=== PATIENT | male | born 1965 | race Asian ===

== ENCOUNTER 2018-03-14 13:07 | Inpatient (IN) | payer OTHER ==
--- NOTE | 2018-03-14 13:43 | Emergency Department Report ---
ED Shortness of Breath HPI - General Chief Complaint: Dyspnea/Respdistress Stated Complaint: S.O.B Time Seen by Provider: 03/14/18 13:42 Source: patient, family Mode of arrival: Ambulatory Limitations: No Limitations - History of Present Illness Complaint: shortness of breath, cough -: Sudden Severity: severe Pain Scale: 9 Improves With: nothing Worsens With: nothing Known History Of: other (Patient is a smoker) Associated Symptoms: cough - Related Data Home Medications Medication Instructions Recorded Confirmed Last Taken No Known Home Medications [No 03/14/18 03/14/18 Unknown Reported Home Medications] Allergies Allergy/AdvReac Type Severity Reaction Status Date / Time No Known Allergies Allergy Unverified 03/14/18 13:22 ED Review of Systems ROS: Stated complaint: S.O.B Other details as noted in HPI Comment: All other systems reviewed and negative Constitutional: denies: chills, fever Eyes: denies: eye pain, eye discharge ENT: denies: ear pain, dental pain Respiratory: cough, shortness of breath, SOB at rest Cardiovascular: denies: chest pain, palpitations, edema Endocrine: no symptoms reported Gastrointestinal: denies: abdominal pain, nausea, vomiting, diarrhea, constipation Genitourinary: denies: urgency, dysuria, frequency Musculoskeletal: denies: back pain, joint swelling Skin: denies: rash, lesions Neurological: denies: headache, weakness, numbness Psychiatric: denies: anxiety, depression Hematological/Lymphatic: denies: easy bleeding, easy bruising ED Past Medical Hx - Past Medical History Previous Medical History?: No - Surgical History Past Surgical History?: Yes Additional Surgical History: 3 fingers ampuated on left hand - Social History Smoking Status: Former Smoker Substance Use Type: None - Medications Home Medications: Home Medications Medication Instructions Recorded Confirmed Last Taken Type No Known Home Medications [No 03/14/18 03/14/18 Unknown History Reported Home Medications] ED Physical Exam - General Limitations: No Limitations General appearance: alert, anxious, in distress - Head Head exam: Present: atraumatic, normocephalic, normal inspection - Eye Eye exam: Present: normal appearance, PERRL, EOMI Pupils: Present: normal accommodation - ENT ENT exam: Present: normal exam, normal orophraynx, mucous membranes moist - Neck Neck exam: Present: normal inspection, full ROM. Absent: tenderness - Respiratory Respiratory exam: Present: normal lung sounds bilaterally, respiratory distress , wheezes, rhonchi, accessory muscle use - Cardiovascular Cardiovascular Exam: Present: normal rhythm, tachycardia, normal heart sounds - GI/Abdominal GI/Abdominal exam: Present: soft, normal bowel sounds. Absent: distended, tenderness, guarding, rebound - Extremities Exam Extremities exam: Present: normal inspection, full ROM, normal capillary refill. Absent: tenderness, pedal edema, calf tenderness - Back Exam Back exam: Present: normal inspection, full ROM. Absent: tenderness - Neurological Exam Neurological exam: Present: alert, oriented X3, CN II-XII intact - Psychiatric Psychiatric exam: Present: normal affect, anxious - Skin Skin exam: Present: warm, dry, intact, normal color. Absent: rash ED Course Vital Signs 03/14/18 03/14/18 03/14/18 13:22 13:32 13:46 Temperature 97.6 F Pulse Rate 112 H 108 H 105 H Pulse Rate [ Bilateral] Respiratory 20 21 25 H Rate Respiratory Rate [Bilateral ] Blood Pressure 134/89 140/86 Blood Pressure [Right] O2 Sat by Pulse 90 95 Oximetry 03/14/18 03/14/18 03/14/18 14:00 14:16 14:29 Temperature Pulse Rate 104 H 101 H Pulse Rate [ 94 H Bilateral] Respiratory 26 H 21 Rate Respiratory 16 Rate [Bilateral ] Blood Pressure 140/86 128/68 Blood Pressure [Right] O2 Sat by Pulse 94 96 Oximetry 03/14/18 03/14/18 03/14/18 14:30 14:40 14:46 Temperature Pulse Rate 101 H 105 H Pulse Rate [ 92 H Bilateral] Respiratory 24 22 Rate Respiratory 16 Rate [Bilateral ] Blood Pressure 128/68 128/68 Blood Pressure [Right] O2 Sat by Pulse 95 96 Oximetry 03/14/18 03/14/18 03/14/18 15:00 15:16 15:30 Temperature Pulse Rate 106 H 107 H 106 H Pulse Rate [ Bilateral] Respiratory 26 H 18 24 Rate Respiratory Rate [Bilateral ] Blood Pressure 128/68 152/92 152/92 Blood Pressure [Right] O2 Sat by Pulse 95 94 94 Oximetry 03/14/18 03/14/18 03/14/18 15:46 16:00 16:16 Temperature Pulse Rate 107 H 110 H 103 H Pulse Rate [ Bilateral] Respiratory 22 23 19 Rate Respiratory Rate [Bilateral ] Blood Pressure 152/92 152/92 152/92 Blood Pressure [Right] O2 Sat by Pulse 94 93 94 Oximetry 03/14/18 03/14/18 03/14/18 16:30 16:46 17:00 Temperature Pulse Rate 103 H 111 H 102 H Pulse Rate [ Bilateral] Respiratory 22 23 21 Rate Respiratory Rate [Bilateral ] Blood Pressure 152/92 141/80 141/80 Blood Pressure [Right] O2 Sat by Pulse 94 96 97 Oximetry 03/14/18 03/14/18 03/14/18 17:16 17:30 17:46 Temperature Pulse Rate 106 H 104 H 102 H Pulse Rate [ Bilateral] Respiratory 27 H 23 28 H Rate Respiratory Rate [Bilateral ] Blood Pressure 141/80 141/80 116/74 Blood Pressure [Right] O2 Sat by Pulse 97 95 96 Oximetry 03/14/18 03/14/18 03/14/18 18:00 18:16 18:57 Temperature Pulse Rate 105 H 106 H Pulse Rate [ Bilateral] Respiratory 26 H 24 Rate Respiratory Rate [Bilateral ] Blood Pressure 126/73 126/73 121/70 Blood Pressure [Right] O2 Sat by Pulse 95 96 95 Oximetry 03/14/18 03/14/18 03/14/18 19:00 19:10 19:20 Temperature Pulse Rate Pulse Rate [ Bilateral] Respiratory Rate Respiratory Rate [Bilateral ] Blood Pressure 145/117 145/117 145/117 Blood Pressure [Right] O2 Sat by Pulse 94 99 94 Oximetry 03/14/18 03/14/18 03/14/18 19:25 19:30 19:40 Temperature 98.1 F Pulse Rate 105 H Pulse Rate [ Bilateral] Respiratory 25 H Rate Respiratory Rate [Bilateral ] Blood Pressure 126/73 126/73 Blood Pressure 128/75 [Right] O2 Sat by Pulse 96 95 96 Oximetry 03/14/18 03/14/18 03/14/18 19:50 20:00 20:10 Temperature Pulse Rate 106 H Pulse Rate [ Bilateral] Respiratory 25 H Rate Respiratory Rate [Bilateral ] Blood Pressure 126/73 128/75 128/75 Blood Pressure [Right] O2 Sat by Pulse 96 95 96 Oximetry 03/14/18 03/14/18 03/14/18 20:20 20:30 20:40 Temperature Pulse Rate 109 H 108 H 110 H Pulse Rate [ Bilateral] Respiratory 28 H 22 30 H Rate Respiratory Rate [Bilateral ] Blood Pressure 128/75 128/75 128/75 Blood Pressure [Right] O2 Sat by Pulse 96 94 97 Oximetry 03/14/18 03/14/18 20:50 21:00 Temperature Pulse Rate 109 H 106 H Pulse Rate [ Bilateral] Respiratory 22 32 H Rate Respiratory Rate [Bilateral ] Blood Pressure 128/75 128/75 Blood Pressure [Right] O2 Sat by Pulse 95 95 Oximetry - Reevaluation(s) Reevaluation #1: 03/14/18 15:54 I discussed patient care with the hospitalist food preservation scientist Dr Magdaleno. He will admit patient for further evaluation and management. ED Medical Decision Making - Lab Data Result diagrams: 03/14/18 13:42 03/14/18 13:42 - EKG Data -: EKG Interpreted by Me EKG shows normal: sinus rhythm Rate: tachycardia (108) - EKG Data When compared to previous EKG there are: previous EKG unavailable Interpretation: nonspecific ST-T wave fidencio - Radiology Data Radiology results: report reviewed, image reviewed - Medical Decision Making Shortness of Breath. COPD Exacerbation. Possible Pulmonary Embolism. Critical care attestation.: If time is entered above; I have spent that time in minutes in the direct care of this critically ill patient, excluding procedure time. ED Disposition Clinical Impression: Shortness of breath, Elevated d-dimer, Hypoxia, Pleural effusion Pneumonia Qualifiers: Pneumonia type: due to unspecified organism Laterality: left Lung location: upper lobe of lung Qualified Code(s): J18.1 - Lobar pneumonia, unspecified organism Disposition: OP ADMIT IP TO THIS HOSP Is pt being admited?: Yes Does the pt Need Aspirin: No Condition: Stable Time of Disposition: 15:53
[2018-03-14 14:20] LABS: Mean Corpuscular HGB Conc 33 % (32-34); Mean Corpuscular Hemoglobin 28 pg (28-32); Mean Corpuscular Volume 85 fl (84-94); Platelet Count 458 K/mm3 (140-440); Red Cell Distribution Width 14.1 % (13.2-15.2)
[2018-03-14] MEDS ORDERED: MAGNESIUM SULFATE 1 GM in NACL 0.9% 50 ML IV ONE (14:25)
[2018-03-14] MEDS ORDERED: DUONEB *Not for PRN Use IH ONE (14:25)
[2018-03-14 14:31] LABS: INR 0.97 (0.87-1.13)
[2018-03-14 14:32] LABS: Partial Thromboplastin Time 28.1 Sec. (24.2-36.6)
[2018-03-14 15:26] LABS: RBC Morphology Normal; Total Cells Counted 100
[2018-03-14 15:27] LABS: Platelet Estimate Consistent w Auto
[2018-03-14 15:29] LABS: Creatine Kinase MB 1.6 ng/mL (0.0-4.0)
[2018-03-14 15:31] LABS: Alanine Aminotransferase 38 units/L (7-56); Albumin 3.2 g/dL (3.9-5); BUN/Creatinine Ratio 15; Blood Urea Nitrogen 9 mg/dL (9-20); Calcium 8.8 mg/dL (8.4-10.2); Hemolysis Index 25
[2018-03-14] MEDS ORDERED: ZITHROMAX 500 MG in NACL 0.9% 250ML 250 ML IV ONE (15:40)
[2018-03-14] MEDS ORDERED: ROCEPHIN/NS 1 GM/50 ML 1 GM/50 ML BAG IV ONE (15:41)
--- NOTE | 2018-03-14 16:15 | History and Physical Report ---
History of Present Illness Chief complaint: I cant breathe, and I have a cough History of present illness: 52 YO Male with Nicotine Dependence presents to ED for evaluation. Pt states that he has experienced shortness of breath, and productive cough of clear sputum over the past 1 week, with worsening symptoms over the past 2 days. Pt denies fever, chills, CP, Palpitations, NVD, unintentional weight loss, night sweats, hemoptysis, BRBPR, known exposure to TB, recent ill contacts. Pt transported to [facility] for further care and evaluation. Pt seen and evaluated in ED and found to have Pneumonia, Acute Respiratory Failure, and Sepsis. Pt admitted to medical floor, and initiated on sepsis protocol. Past History Past Medical History: other (Nicotine dependence) Past Surgical History: Other (Left hand) Social history: smoking Family history: no significant family history Medications and Allergies Allergies Allergy/AdvReac Type Severity Reaction Status Date / Time No Known Allergies Allergy Unverified 03/14/18 13:22 Home Medications Medication Instructions Recorded Confirmed Last Taken Type No Known Home Medications [No 03/14/18 03/14/18 Unknown History Reported Home Medications] Active Meds: Active Medications Azithromycin 500 mg/ Sodium (Chloride) 250 mls @ 250 mls/hr IV ONCE ONE Stop: 03/14/18 16:39 Review of Systems Constitutional: no weight loss, no weight gain, no fever, no chills, no sweats, no night sweats, no anorexia Ears, nose, mouth and throat: no ear pain, no ear discharge, no tinnitis, no decreased hearing, no nose pain, no nasal congestion, no nasal discharge Cardiovascular: no chest pain, no orthopnea, no palpitations, no rapid/ irregular heart beat, no edema Respiratory: cough with sputum, excessive sputum, shortness of breath, congestion Gastrointestinal: no nausea, no vomiting, no diarrhea, no constipation, no change in bowel habits Genitourinary Male: no dysuria, no hematuria, no flank pain, no discharge, no urinary frequency, no urinary hesitancy Rectal: no pain, no incontinence, no bleeding Musculoskeletal: no neck stiffness, no neck pain, no shooting arm pain, no arm numbness/tingling, no low back pain, no shooting leg pain, no leg numbness/ tingling, no redness of joints Integumentary: no rash, no pruritis, no redness, no sores, no wounds Neurological: no transient paralysis, no paralysis, no weakness, no parathesias , no numbness, no tingling, no seizures, no syncope, no tremors Psychiatric: no anxiety, no memory loss, no change in sleep habits, no sleep disturbances, no insomnia, no hypersomnia, no change in appetite Endocrine: no cold intolerance, no heat intolerance, no polyphagia, no excessive thirst, no polydipsia, no polyuria Hematologic/Lymphatic: no easy bruising, no easy bleeding, no lymphadenopathy, no lymphedema Allergic/Immunologic: no urticaria, no allergic rhinitis, no wheezing, no persistent infections, no anaphylaxis, no angioedema Exam - Constitutional Vitals: Temp Pulse Resp BP Pulse Ox 97.6 F 92 H 16 134/89 90 03/14/18 13:22 03/14/18 14:40 03/14/18 14:40 03/14/18 13:22 03/14/18 13:22 General appearance: Present: mild distress - EENT Eyes: Present: PERRL ENT: hearing intact, clear oral mucosa - Neck Neck: Present: supple, normal ROM - Respiratory Respiratory effort: normal Respiratory: left: diminished, bilateral: CTA - Cardiovascular Heart Sounds: Present: S1 & S2. Absent: rub, click - Extremities Extremities: pulses symmetrical, No edema Peripheral Pulses: abnormal (capillary refill greater than 3.5 seconds) - Abdominal General gastrointestinal: Present: soft, non-tender, non-distended, normal bowel sounds Male genitourinary: Present: normal - Integumentary Integumentary: Present: clear, warm, dry - Musculoskeletal Musculoskeletal: gait normal, strength equal bilaterally - Psychiatric Psychiatric: appropriate mood/affect, intact judgment & insight - Neurologic Neurologic: CNII-XII intact, moves all extremities Results - Labs CBC & Chem 7: 03/14/18 13:42 03/14/18 13:42 Labs: Abnormal lab results 03/14/18 03/14/18 03/14/18 Range/Units 13:42 13:42 13:49 WBC 19.5 H (4.5-11.0) K/mm3 RBC 5.40 H (3.65-5.03) M/mm3 Hct 46.0 H (35.5-45.6) % Plt Count 458 H (140-440) K/mm3 Seg Neuts % (Manual) 75.0 H (40.0-70.0) % Lymphocytes % (Manual) 7.0 L (13.4-35.0) % Eosinophils % (Manual) 12.0 H (0.0-4.3) % Seg Neutrophils # Man 14.6 H (1.8-7.7) K/mm3 Monocytes # (Manual) 1.0 H (0.0-0.8) K/mm3 Eosinophils # (Manual) 2.3 H (0.0-0.4) K/mm3 Basophils # (Manual) 0.2 H (0.0-0.1) K/mm3 D-Dimer 3816.61 H (0-234) ng/mlDDU POC ABG pO2 (80-105) Sodium 135 L (137-145) mmol/L Chloride 94.7 L (98-107) mmol/L Creatinine 0.6 L (0.8-1.5) mg/dL Glucose 129 H (75-100) mg/dL Total Creatine Kinase 42 L (55-170) units/L Albumin 3.2 L (3.9-5) g/dL // Range/Units 14:02 WBC (4.5-11.0) K/mm3 RBC (3.65-5.03) M/mm3 Hct (35.5-45.6) % Plt Count (140-440) K/mm3 Seg Neuts % (Manual) (40.0-70.0) % Lymphocytes % (Manual) (13.4-35.0) % Eosinophils % (Manual) (0.0-4.3) % Seg Neutrophils # Man (1.8-7.7) K/mm3 Monocytes # (Manual) (0.0-0.8) K/mm3 Eosinophils # (Manual) (0.0-0.4) K/mm3 Basophils # (Manual) (0.0-0.1) K/mm3 D-Dimer (0-234) ng/mlDDU POC ABG pO2 69 L (80-105) Sodium (137-145) mmol/L Chloride (98-107) mmol/L Creatinine (0.8-1.5) mg/dL Glucose (75-100) mg/dL Total Creatine Kinase (55-170) units/L Albumin (3.9-5) g/dL Assessment and Plan - Patient Problems (1) Sepsis Current Visit: Yes Status: Acute Qualifiers: Sepsis type: sepsis due to unspecified organism Qualified Code(s): A41.9 - Sepsis, unspecified organism Plan to address problem: Sepsis Protocol: IV antibiotics, Chest X ray, urinalysis, blood cultures, lactic acid level, IVF resuscitation, monitor uop q shift, (2) Pneumonia Current Visit: Yes Status: Acute Qualifiers: Laterality: left Lung location: upper lobe of lung Plan to address problem: Pneumonia protocol: IV antibiotics, supplemental oxygen, chest x ray, d dimer. (3) Respiratory failure Current Visit: Yes Status: Acute Qualifiers: Chronicity: acute Respiratory failure complication: hypoxia Qualified Code(s): J96.01 - Acute respiratory failure with hypoxia Plan to address problem: IV antibiotics, supplemental oxygen, nebulizer therapy, pulse oximetry, NIPPV as clinically indicated. (4) Nicotine dependence Current Visit: Yes Status: Acute Qualifiers: Nicotine product type: cigarettes Substance use status: in withdrawal Qualified Code(s): F17.213 - Nicotine dependence, cigarettes, with withdrawal Plan to address problem: Smoking cessation counseling (5) DVT prophylaxis Current Visit: Yes Status: Acute Plan to address problem: SCD to BLE
--- NOTE | 2018-03-14 16:24 | XRay Report ---
FINAL REPORT EXAM: XR CHEST 1V AP HISTORY: shortness of breath TECHNIQUE: Frontal chest x-ray. PRIORS: None currently available. FINDINGS: [id number] cardiomegaly. Asymmetrical interstitial airspace opacities distributed around the perihilar region. Worse on the left. Partially loculated small to moderate left pleural effusion with left lateral opacity at the lung base. A pleural base lesions not excluded. No pneumothorax. No right pneumothorax or effusion. There are no suspicious osseous lesions. IMPRESSION: Cardiomegaly. Asymmetrical pulmonary findings may represent pulmonary vascular congestion with edema. Differential diagnosis would include acute pneumonia and pneumonitis. Small to moderate left pleural effusion with adjacent compressive atelectasis. Underlying mass or consolidation is not excluded.
[2018-03-14] MEDS ORDERED: SODIUM CHLORIDE FLUSH SYRINGE 10 ML IV PRN (16:48)
[2018-03-14] MEDS ORDERED: NACL 0.9% 1000 ML IV ONE (16:48)
[2018-03-14] MEDS ORDERED: VANCOMYCIN 1,250 MG in NACL 0.9% 500 ML 500 ML IV ONE (16:48)
[2018-03-14] MEDS ORDERED: ZOFRAN IV PRN (16:48)
--- NOTE | 2018-03-14 19:30 | Cat Scan Report ---
FINAL REPORT EXAM: CT ANGIO CHEST HISTORY: Shortness of breath, elevated D-Dimer. TECHNIQUE: Spiral CTA of the chest after the uneventful administration of IV contrast. Multiplanar reformations. 100 mL Omnipaque IV. PRIORS: None. FINDINGS: Chest: The main and bilateral proximal pulmonary arteries are normally opacified without endoluminal filling defects. Mild cardiomegaly and small-moderate pericardial effusion, most pronounced along the inferior margin and cardiac apex. No apparent aneurysm, pseudoaneurysm or aortic dissection. Somewhat lobular and partially coalescent soft tissue densities in mediastinum and bilateral hilar regions compatible with adenopathy, measuring up to 2.4 cm in short axis dimension in the subcarinal space. No significant axillary adenopathy. Lungs show diffuse, bullous emphysematous change, with upper lobe predominance. Patchy, but diffuse and partially confluent, mass-like opacities or consolidation scattered in bilateral upper lobes and less pronounced in left lower lobe. Minimal right and small-moderate left pleural effusions, with somewhat lobular margins and possible partial loculation. No apparent pneumothorax. Mild nodularity in left adrenal gland measuring up to 1.2 cm, nonspecific. Remainder of visualized upper abdomen grossly unremarkable. Mild dextroconvex curvature of thoracic spine. IMPRESSION: 1. No evidence of large vessel or central pulmonary emboli. Mild cardiomegaly and pericardial effusion. 2. Mass-like opacities or consolidations and bilateral pleural effusions, left greater than right, which may represent acute infectious or inflammatory process versus nonspecific postinflammatory change or pneumonitis of uncertain etiology or chronicity. Neoplastic or metastatic disease are also diagnostic considerations. Clinical correlation and followup to resolution suggested. 3. Mediastinal and hilar adenopathy may be reactive, but nonspecific. 4. Left adrenal nodularity may represent adenomatous change, but is indeterminate. Followup may be warranted.
[2018-03-14 21:13] LABS: Bilirubin,Urine NEG (Negative); Blood,Urine NEG (Negative); Color,Urine Straw (Yellow); Protein,Urine <15 mg/dL mg/dL (Negative); Urobilinogen,Urine < 2.0 mg/dL (<2.0)
[2018-03-14 21:16] LABS: WBC,Urine < 1.0 /HPF (0.0-6.0)
[2018-03-14] MEDS: PROVENTIL IH PRN (21:27)
[2018-03-14] MEDS: SODIUM CHLORIDE FLUSH SYRINGE 10 ML IV SCH (21:45)
[2018-03-14] MEDS ORDERED: LASIX IV ONE (23:19)
[2018-03-15] MEDS ORDERED: ZITHROMAX 500 MG in NACL 0.9% 250ML 250 ML IV SCH (10:00)
[2018-03-15 10:28] LABS: Hematocrit 46.5 % (35.5-45.6); Mean Corpuscular HGB Conc 32 % (32-34); Mean Corpuscular Hemoglobin 28 pg (28-32); Mean Corpuscular Volume 86 fl (84-94); Platelet Count 401 K/mm3 (140-440); Red Blood Count 5.41 M/mm3 (3.65-5.03); Red Cell Distribution Width 14.6 % (13.2-15.2)
[2018-03-15] MEDS: ROCEPHIN/NS 2 GM/100 ML 2 GM/100 ML BAG IV SCH (10:35)
[2018-03-15] MEDS: SODIUM CHLORIDE FLUSH SYRINGE 10 ML IV SCH ×2 (10:36→22:00)
[2018-03-15] MEDS: TYLENOL PO PRN (10:46)
[2018-03-15] MEDS ORDERED: PNEUMOVAX 23 IM ONE (12:00)
[2018-03-15] MEDS: PROVENTIL IH PRN (13:05)
--- NOTE | 2018-03-15 13:37 | Progress Note ---
Assessment and Plan /Sepsis due to b/l PNA Sepsis Protocol: IV antibiotics, Chest X ray, urinalysis, blood cultures, lactic acid level, IVF resuscitation, monitor uop q shift, /B/l Pneumonia Pneumonia protocol: IV antibiotics, supplemental oxygen, chest x ray, d dimer. CTA chest suggestive for possible mass, will consult pulmonary / Acute hypoxic Respiratory failure due to b/l PNA and COPD exacerbation IV antibiotics, supplemental oxygen, nebulizer therapy, pulse oximetry, NIPPV as clinically indicated. /COPD with exacerbation - cont nebs, steroid, supplemental O2 / Nicotine dependence Smoking cessation counseling Nicotine patch /DVT prophylaxis/GI PX SCD to BLE and lovenox/Pepcid Brief History: 52 YO Male with Nicotine Dependence presents to ED for shortness of breath, and productive cough of clear sputum over the past 1 week, with worsening symptoms over the past 2 days. Radiological data: CTA chest: 1. No evidence of large vessel or central pulmonary emboli. Mild cardiomegaly and pericardial effusion. 2. Mass-like opacities or consolidations and bilateral pleural effusions, left greater than right, which may represent acute infectious or inflammatory process versus nonspecific postinflammatory change or pneumonitis of uncertain etiology or chronicity. Neoplastic or metastatic disease are also diagnostic considerations. Clinical correlation and followup to resolution suggested. 3. Mediastinal and hilar adenopathy may be reactive, but nonspecific. 4. Left adrenal nodularity may represent adenomatous change, but is indeterminate. Followup may be warranted. CXR: Cardiomegaly. Asymmetrical pulmonary findings may represent pulmonary vascular congestion with edema. Differential diagnosis would include acute pneumonia and pneumonitis. Small to moderate left pleural effusion with adjacent compressive atelectasis. Underlying mass or consolidation is not excluded. Physical Exam: General appearance: Present: mild distress - EENT Eyes: Present: PERRL ENT: hearing intact, clear oral mucosa - Neck Neck: Present: supple, normal ROM - Respiratory Respiratory effort: normal Respiratory: coarse BS b/l - Cardiovascular Heart Sounds: Present: S1 & S2. Absent: rub, click - Extremities Extremities: pulses symmetrical, No edema Peripheral Pulses: abnormal (capillary refill greater than 3.5 seconds) - Abdominal General gastrointestinal: Present: soft, non-tender, non-distended, normal bowel sounds Male genitourinary: Present: normal - Integumentary Integumentary: Present: clear, warm, dry - Musculoskeletal Musculoskeletal: gait normal, strength equal bilaterally - Psychiatric Psychiatric: appropriate mood/affect, intact judgment & insight - Neurologic Neurologic: CNII-XII intact, moves all extremities Subjective Date of service: 03/15/18 Interval history: pt seen and examined on ventimask 40% FiO2 states feeling better than yesterday tolerating diet Objective - Constitutional Vitals: Vital Signs - 12hr 03/15/18 03/15/18 03/15/18 07:41 11:44 12:00 Temperature 98.5 F Pulse Rate 114 H 112 H Pulse Rate [ Bilateral] Respiratory 18 Rate Respiratory Rate [Bilateral ] Blood Pressure 103/72 [Right] O2 Sat by Pulse 97 93 Oximetry 03/15/18 03/15/18 13:00 13:10 Temperature Pulse Rate Pulse Rate [ 111 H 113 H Bilateral] Respiratory Rate Respiratory 20 20 Rate [Bilateral ] Blood Pressure [Right] O2 Sat by Pulse Oximetry - Labs CBC & Chem 7: 03/16/18 05:44 03/16/18 05:44 Labs: Abnormal lab results 03/14/18 03/14/18 03/14/18 Range/Units 13:42 13:42 13:49 WBC 19.5 H (4.5-11.0) K/mm3 RBC 5.40 H (3.65-5.03) M/mm3 Hct 46.0 H (35.5-45.6) % Plt Count 458 H (140-440) K/mm3 Seg Neuts % (Manual) 75.0 H (40.0-70.0) % Lymphocytes % (Manual) 7.0 L (13.4-35.0) % Eosinophils % (Manual) 12.0 H (0.0-4.3) % Seg Neutrophils # Man 14.6 H (1.8-7.7) K/mm3 Monocytes # (Manual) 1.0 H (0.0-0.8) K/mm3 Eosinophils # (Manual) 2.3 H (0.0-0.4) K/mm3 Basophils # (Manual) 0.2 H (0.0-0.1) K/mm3 D-Dimer 3816.61 H (0-234) ng/mlDDU POC ABG pO2 (80-105) Sodium 135 L (137-145) mmol/L Chloride 94.7 L (98-107) mmol/L Creatinine 0.6 L (0.8-1.5) mg/dL Glucose 129 H (75-100) mg/dL Total Creatine Kinase 42 L (55-170) units/L Albumin 3.2 L (3.9-5) g/dL 03/14/18 03/15/18 Range/Units 14:02 09:54 WBC 20.8 H (4.5-11.0) K/mm3 RBC 5.41 H (3.65-5.03) M/mm3 Hct 46.5 H (35.5-45.6) % Plt Count (140-440) K/mm3 Seg Neuts % (Manual) (40.0-70.0) % Lymphocytes % (Manual) (13.4-35.0) % Eosinophils % (Manual) (0.0-4.3) % Seg Neutrophils # Man (1.8-7.7) K/mm3 Monocytes # (Manual) (0.0-0.8) K/mm3 Eosinophils # (Manual) (0.0-0.4) K/mm3 Basophils # (Manual) (0.0-0.1) K/mm3 D-Dimer (0-234) ng/mlDDU POC ABG pO2 69 L (80-105) Sodium (137-145) mmol/L Chloride (98-107) mmol/L Creatinine (0.8-1.5) mg/dL Glucose (75-100) mg/dL Total Creatine Kinase (55-170) units/L Albumin (3.9-5) g/dL
--- NOTE | 2018-03-16 | Consultation ---
History of Present Illness Consult date: 03/15/18 Reason for consult: dyspnea, cough, COPD History of present illness: PULMONARY CONSULTATION Dr. Magdaleno thank you for asking us to participate in the care of this patient. This is 52 year old oriental male admitted with shortness of breath, cough with productive white yellow sputum. Denies hemoptysis.Patient denies fever or chills. Patient has history of smoking 1 pack a day for december years. Stopped smoking 1 month ago. Drinks alcohol. Denies drug abuse. 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 Denies other medical problems. No known allergies. Patient having cough. Mild to moderate shortness of breath. Patient presently on Venturi mask FIO2 40% and O2 saturation 97%. Past History Past Medical History: other (Nicotine dependence) Social history: smoking, alcohol abuse Family history: no significant family history Medications and Allergies Allergies Allergy/AdvReac Type Severity Reaction Status Date / Time No Known Allergies Allergy Unverified 03/14/18 13:22 Home Medications Medication Instructions Recorded Confirmed Last Taken Type No Known Home Medications [No 03/14/18 03/14/18 Unknown History Reported Home Medications] Active Meds: Active Medications Acetaminophen (Tylenol) 650 mg PO Q4H PRN PRN Reason: Pain MILD(1-3)/Fever >100.5/STEWART Last Admin: 03/15/18 10:46 Dose: 650 mg Albuterol (Proventil) 2.5 mg IH Q4HRT PRN PRN Reason: Shortness Of Breath Last Admin: 03/15/18 13:05 Dose: 2.5 mg Azithromycin (Zithromax) 500 mg PO QDAY ANIYA Ceftriaxone Sodium (Rocephin/Ns 2 Gm/100 Ml) 2 gm in 100 mls @ 200 mls/hr IV Q24HR ANIYA; Protocol Last Admin: 03/15/18 10:35 Dose: 200 mls/hr Ondansetron HCl (Zofran) 4 mg IV Q8H PRN PRN Reason: Nausea And Vomiting Last Admin: 03/14/18 18:10 Dose: 4 mg Pneumococcal Polyvalent Vaccine (Pneumovax 23) 0.5 ml IM .ONCE ONE Stop: 03/16/18 12:01 Sodium Chloride (Sodium Chloride Flush Syringe 10 Ml) 10 ml IV BID ANIYA Last Admin: 03/15/18 10:36 Dose: 10 ml Sodium Chloride (Sodium Chloride Flush Syringe 10 Ml) 10 ml IV PRN PRN PRN Reason: LINE FLUSH Review of Systems All systems: negative Physical Examination Vital signs: Vital Signs Temp Pulse Resp BP Pulse Ox 97.6 F 112 H 20 134/89 90 03/14/18 13:22 03/14/18 13:22 03/14/18 13:22 03/14/18 13:22 03/14/18 13:22 General appearance: alert, agitated, appears uncomfortable Eyes: non-icteric ENT: oropharynx moist Neck: supple, no JVD Ascultation: Bilateral: wheezes, rhonchi Cardiovascular: regular rate and rhythm Gastrointestinal: normoactive bowel sounds, soft, non-tender Integumentary: normal Extremities: no cyanosis, no edema Musculoskeletal: no deformities Gait: normal gait normal mental status, non-focal exam, pupils equal and round, CN II-XII normal anxious Results - Laboratory Findings CBC and BMP: 03/15/18 09:54 03/14/18 13:42 ABG POC ABG pH 7.429 (7.35-7.45) 03/14/18 14:02 POC ABG pCO2 44.2 (35-45) 03/14/18 14:02 POC ABG pO2 69 (80-105) L 03/14/18 14:02 POC ABG HCO3 29.3 03/14/18 14:02 POC ABG Total CO2 31 03/14/18 14:02 POC ABG O2 Sat 94 03/14/18 14:02 PT/INR, D-dimer PT 13.4 Sec. (12.2-14.9) 03/14/18 13:49 INR 0.97 (0.87-1.13) 03/14/18 13:49 D-Dimer 3816.61 ng/mlDDU (0-234) H 03/14/18 13:49 Abnormal lab findings: Abnormal Labs 03/14/18 03/14/18 03/14/18 13:42 13:42 13:49 WBC 19.5 H RBC 5.40 H Hct 46.0 H Plt Count 458 H Seg Neuts % (Manual) 75.0 H Lymphocytes % (Manual) 7.0 L Eosinophils % (Manual) 12.0 H Seg Neutrophils # Man 14.6 H Monocytes # (Manual) 1.0 H Eosinophils # (Manual) 2.3 H Basophils # (Manual) 0.2 H D-Dimer 3816.61 H POC ABG pO2 Sodium 135 L Chloride 94.7 L Creatinine 0.6 L Glucose 129 H Total Creatine Kinase 42 L Albumin 3.2 L 03/14/18 03/15/18 14:02 09:54 WBC 20.8 H RBC 5.41 H Hct 46.5 H Plt Count Seg Neuts % (Manual) Lymphocytes % (Manual) Eosinophils % (Manual) Seg Neutrophils # Man Monocytes # (Manual) Eosinophils # (Manual) Basophils # (Manual) D-Dimer POC ABG pO2 69 L Sodium Chloride Creatinine Glucose Total Creatine Kinase Albumin - Diagnostic Findings Chest x-ray: report reviewed (Pulmonary vascular congestion ,edema or infiltrate. Small to moderate left effusion), image reviewed CT scan - chest: report reviewed (Bilateral mass like Opacities or consolidations. pleural effusions.), image reviewed Assessment and Plan his is 52 year old oriental male admitted with shortness of breath, cough with productive white yellow sputum. Denies hemoptysis.Patient denies fever or chills. Patient has history of smoking 1 pack a day for december years. Stopped smoking 1 month ago. Drinks alcohol. Denies drug abuse. 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 Denies other medical problems. No known allergies. Patient having cough. Mild to moderate shortness of breath. Patient presently on Venturi mask FIO2 40% and O2 saturation 97%. - Patient Problems (1) Pleural effusion Current Visit: Yes Status: Acute Plan to address problem: Obtaining ultrasound of chest to quantitate pleural effusions. (2) Pneumonia Current Visit: Yes Status: Acute Qualifiers: Pneumonia type: due to unspecified organism Laterality: left Lung location: upper lobe of lung Qualified Code(s): J18.1 - Lobar pneumonia, unspecified organism Plan to address problem: Patient is on Rocephin and Zithromax. (3) Nicotine dependence Current Visit: Yes Status: Acute Qualifiers: Nicotine product type: cigarettes Substance use status: in withdrawal Qualified Code(s): F17.213 - Nicotine dependence, cigarettes, with withdrawal Plan to address problem: Patient sayys stopped smoking 1 month ago. (4) COPD exacerbation Current Visit: Yes Status: Acute Plan to address problem: O2 supplementation Venturi mask, FIO2 40%. Albuterol/atrovent aerosol treatments q 6 hours. Solumedrol 100 mg I/V q 8 hours. Recommend Lovenox S/C q 12 hours. Recommend GI Prophylaxis like Famotidine.
[2018-03-16] MEDS: ROBITUSSIN PO PRN ×2 (03:40→22:38)
[2018-03-16] MEDS: TYLENOL PO PRN (03:40)
[2018-03-16 06:17] LABS: Hematocrit 44.9 % (35.5-45.6); Hemoglobin 14.7 gm/dl (11.8-15.2); Mean Corpuscular HGB Conc 33 % (32-34); Mean Corpuscular Hemoglobin 28 pg (28-32); Mean Corpuscular Volume 85 fl (84-94); Platelet Count 366 K/mm3 (140-440); Red Blood Count 5.27 M/mm3 (3.65-5.03); Red Cell Distribution Width 13.9 % (13.2-15.2)
[2018-03-16 06:38] LABS: BUN/Creatinine Ratio 18; Blood Urea Nitrogen 9 mg/dL (9-20); Calcium 8.8 mg/dL (8.4-10.2); Hemolysis Index 28
[2018-03-16 07:25] LABS: Anisocytosis Few; Band Neutrophils # (Manual) 2.3 K/mm3; Platelet Estimate Appe; Total Cells Counted 100
[2018-03-16] MEDS: ZITHROMAX PO SCH (10:48)
[2018-03-16] MEDS: PEPCID PO SCH ×2 (10:48→22:28)
[2018-03-16] MEDS: ROCEPHIN/NS 2 GM/100 ML 2 GM/100 ML BAG IV SCH (10:54)
[2018-03-16] MEDS ORDERED: PNEUMOVAX 23 IM ONE (12:00)
--- NOTE | 2018-03-16 13:26 | Progress Note ---
Assessment and Plan his is 52 year old oriental male admitted with shortness of breath, cough with productive white yellow sputum. Denies hemoptysis.Patient denies fever or chills. Patient has history of smoking 1 pack a day for may years. Stopped smoking 1 month ago. Drinks alcohol. Denies drug abuse. 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 Denies other medical problems. No known allergies. Patient having cough. Mild to moderate shortness of breath. Patient presently on Venturi mask FIO2 40% and O2 saturation 97%. - Patient Problems (1) Pleural effusion Current Visit: Yes Status: Acute Plan to address problem: Obtaining ultrasound of chest to quantitate pleural effusions. (2) Pneumonia Current Visit: Yes Status: Acute Qualifiers: Pneumonia type: due to unspecified organism Laterality: left Lung location: upper lobe of lung Qualified Code(s): J18.1 - Lobar pneumonia, unspecified organism Plan to address problem: Patient is on Rocephin and Zithromax. (3) Nicotine dependence Current Visit: Yes Status: Acute Qualifiers: Nicotine product type: cigarettes Substance use status: in withdrawal Qualified Code(s): F17.213 - Nicotine dependence, cigarettes, with withdrawal Plan to address problem: Patient sayys stopped smoking 1 month ago. (4) COPD exacerbation Current Visit: Yes Status: Acute Plan to address problem: O2 supplementation Venturi mask, FIO2 40%. Albuterol/atrovent aerosol treatments q 6 hours. Solumedrol 100 mg I/V q 8 hours. Recommend Lovenox S/C q 12 hours. Recommend GI Prophylaxis like Famotidine. Subjective Date of service: 03/16/18 Objective Vital Signs - 12hr 03/16/18 08:32 O2 Sat by Pulse 96 Oximetry Constitutional: alert, agitated, appears uncomfortable Eyes: non-icteric ENT: oropharynx moist Neck: supple, no JVD Ascultation: Bilateral: wheezes, rhonchi Cardiovascular: regular rate and rhythm Gastrointestinal: normoactive bowel sounds, soft, non-tender Integumentary: normal Extremities: no cyanosis, no edema Neurologic: normal mental status, non-focal exam, pupils equal and round, CN II- XII normal Psychiatric: anxious CBC and BMP: 03/16/18 05:44 03/16/18 05:44 ABG, PT/INR, D-dimer: ABG POC ABG pH 7.429 (7.35-7.45) 03/14/18 14:02 POC ABG pCO2 44.2 (35-45) 03/14/18 14:02 POC ABG pO2 69 (80-105) L 03/14/18 14:02 POC ABG HCO3 29.3 03/14/18 14:02 POC ABG Total CO2 31 03/14/18 14:02 POC ABG O2 Sat 94 03/14/18 14:02 PT/INR, D-dimer PT 13.4 Sec. (12.2-14.9) 03/14/18 13:49 INR 0.97 (0.87-1.13) 03/14/18 13:49 D-Dimer 3816.61 ng/mlDDU (0-234) H 03/14/18 13:49 Abnormal lab findings: Abnormal Labs 03/14/18 03/14/18 03/14/18 13:42 13:42 13:49 WBC 19.5 H RBC 5.40 H Hct 46.0 H Plt Count 458 H Seg Neuts % (Manual) 75.0 H Lymphocytes % (Manual) 7.0 L Eosinophils % (Manual) 12.0 H Seg Neutrophils # Man 14.6 H Monocytes # (Manual) 1.0 H Eosinophils # (Manual) 2.3 H Basophils # (Manual) 0.2 H D-Dimer 3816.61 H POC ABG pO2 Sodium 135 L Chloride 94.7 L Creatinine 0.6 L Glucose 129 H Total Creatine Kinase 42 L Albumin 3.2 L 03/14/18 03/15/18 03/16/18 14:02 09:54 05:44 WBC 20.8 H 21.1 H RBC 5.41 H 5.27 H Hct 46.5 H Plt Count Seg Neuts % (Manual) Lymphocytes % (Manual) 6.0 L Eosinophils % (Manual) 18.0 H Seg Neutrophils # Man 12.0 H Monocytes # (Manual) 1.5 H Eosinophils # (Manual) 3.8 H Basophils # (Manual) 0.2 H D-Dimer POC ABG pO2 69 L Sodium Chloride Creatinine Glucose Total Creatine Kinase Albumin 03/16/18 05:44 WBC RBC Hct Plt Count Seg Neuts % (Manual) Lymphocytes % (Manual) Eosinophils % (Manual) Seg Neutrophils # Man Monocytes # (Manual) Eosinophils # (Manual) Basophils # (Manual) D-Dimer POC ABG pO2 Sodium Chloride 97.3 L Creatinine 0.5 L Glucose 102 H Total Creatine Kinase Albumin
--- NOTE | 2018-03-16 15:21 | Progress Note ---
Assessment and Plan /Sepsis due to b/l PNA Sepsis Protocol: IV antibiotics /B/l Pneumonia Pneumonia protocol: IV antibiotics, supplemental oxygen, CTA chest suggestive for possible mass, pulmonary following / Acute hypoxic Respiratory failure due to b/l PNA and COPD exacerbation IV antibiotics, supplemental oxygen, nebulizer therapy, pulse oximetry, NIPPV as clinically indicated. /COPD with exacerbation - cont nebs, steroid, supplemental O2 / Nicotine dependence Smoking cessation counseling Nicotine patch /DVT prophylaxis/GI PX SCD to BLE and lovenox/Pepcid Brief History: 52 YO Male with Nicotine Dependence presents to ED for shortness of breath, and productive cough of clear sputum over the past 1 week, with worsening symptoms over the past 2 days. Radiological data: CTA chest: 1. No evidence of large vessel or central pulmonary emboli. Mild cardiomegaly and pericardial effusion. 2. Mass-like opacities or consolidations and bilateral pleural effusions, left greater than right, which may represent acute infectious or inflammatory process versus nonspecific postinflammatory change or pneumonitis of uncertain etiology or chronicity. Neoplastic or metastatic disease are also diagnostic considerations. Clinical correlation and followup to resolution suggested. 3. Mediastinal and hilar adenopathy may be reactive, but nonspecific. 4. Left adrenal nodularity may represent adenomatous change, but is indeterminate. Followup may be warranted. CXR: Cardiomegaly. Asymmetrical pulmonary findings may represent pulmonary vascular congestion with edema. Differential diagnosis would include acute pneumonia and pneumonitis. Small to moderate left pleural effusion with adjacent compressive atelectasis. Underlying mass or consolidation is not excluded. Physical Exam: General appearance: Present: mild distress - EENT Eyes: Present: PERRL ENT: hearing intact, clear oral mucosa - Neck Neck: Present: supple, normal ROM - Respiratory Respiratory effort: normal Respiratory: coarse BS b/l - Cardiovascular Heart Sounds: Present: S1 & S2. Absent: rub, click - Extremities Extremities: pulses symmetrical, No edema Peripheral Pulses: abnormal (capillary refill greater than 3.5 seconds) - Abdominal General gastrointestinal: Present: soft, non-tender, non-distended, normal bowel sounds Male genitourinary: Present: normal - Integumentary Integumentary: Present: clear, warm, dry - Musculoskeletal Musculoskeletal: gait normal, strength equal bilaterally - Psychiatric Psychiatric: appropriate mood/affect, intact judgment & insight - Neurologic Neurologic: CNII-XII intact, moves all extremities Subjective Date of service: 03/16/18 Interval history: pt seen and examined on ventimask 40% FiO2 states feeling better but still symptomatic tolerating diet Objective - Constitutional Vitals: Vital Signs - 12hr 03/16/18 03/16/18 08:32 10:00 O2 Sat by Pulse 96 96 Oximetry - Labs CBC & Chem 7: 03/16/18 05:44 03/16/18 05:44 Labs: Abnormal lab results 03/16/18 03/16/18 Range/Units 05:44 05:44 WBC 21.1 H (4.5-11.0) K/mm3 RBC 5.27 H (3.65-5.03) M/mm3 Lymphocytes % (Manual) 6.0 L (13.4-35.0) % Eosinophils % (Manual) 18.0 H (0.0-4.3) % Seg Neutrophils # Man 12.0 H (1.8-7.7) K/mm3 Monocytes # (Manual) 1.5 H (0.0-0.8) K/mm3 Eosinophils # (Manual) 3.8 H (0.0-0.4) K/mm3 Basophils # (Manual) 0.2 H (0.0-0.1) K/mm3 Chloride 97.3 L (98-107) mmol/L Creatinine 0.5 L (0.8-1.5) mg/dL Glucose 102 H (75-100) mg/dL
[2018-03-16] MEDS: SODIUM CHLORIDE FLUSH SYRINGE 10 ML IV SCH ×2 (18:54→22:36)
[2018-03-16] MEDS ORDERED: LOVENOX SUB-Q SCH (22:00)
[2018-03-17] MEDS: DUONEB *Not for PRN Use IH SCH ×4 (02:27→20:18)
[2018-03-17] MEDS: ROBITUSSIN PO PRN ×2 (05:25→11:40)
[2018-03-17 05:54] LABS: Hematocrit 44.6 % (35.5-45.6); Hemoglobin 14.6 gm/dl (11.8-15.2); Mean Corpuscular HGB Conc 33 % (32-34); Mean Corpuscular Hemoglobin 28 pg (28-32); Mean Corpuscular Volume 85 fl (84-94); Platelet Count 351 K/mm3 (140-440); Red Blood Count 5.24 M/mm3 (3.65-5.03); Red Cell Distribution Width 14.2 % (13.2-15.2)
[2018-03-17 07:49] LABS: Band Neutrophils # (Manual) 5.1 K/mm3; Basophils % (Manual) 0 % (0.0-1.8); Eosinophils % (Manual) 0 % (0.0-4.3); Total Cells Counted 100
[2018-03-17 07:50] LABS: RBC Morphology Normal
[2018-03-17] MEDS: ROCEPHIN/NS 2 GM/100 ML 2 GM/100 ML BAG IV SCH (11:28)
[2018-03-17] MEDS: HABITROL TD SCH (11:29)
[2018-03-17] MEDS: ZITHROMAX PO SCH (11:29)
[2018-03-17] MEDS: SODIUM CHLORIDE FLUSH SYRINGE 10 ML IV SCH ×2 (11:30→22:40)
[2018-03-17] MEDS: PEPCID PO SCH ×2 (11:30→22:40)
--- NOTE | 2018-03-17 12:07 | Progress Note ---
Assessment and Plan /Paroxysmal Atrial fib - noted on monitor since this am - start cardizem po, therapeutic dose of lovenox - 2d echo, cardiology consult /Sepsis due to b/l PNA Sepsis Protocol: IV antibiotics /B/l Pneumonia Pneumonia protocol: IV antibiotics, supplemental oxygen, CTA chest suggestive for possible mass, pulmonary following / Acute hypoxic Respiratory failure due to b/l PNA and COPD exacerbation IV antibiotics, supplemental oxygen, nebulizer therapy, pulse oximetry, NIPPV as clinically indicated. /COPD with exacerbation - cont nebs, steroid, supplemental O2 / Nicotine dependence Smoking cessation counseling Nicotine patch /DVT prophylaxis/GI PX SCD to BLE and lovenox/Pepcid Brief History: 52 YO Male with Nicotine Dependence presents to ED for shortness of breath, and productive cough of clear sputum over the past 1 week, with worsening symptoms over the past 2 days. Radiological data: CTA chest: 1. No evidence of large vessel or central pulmonary emboli. Mild cardiomegaly and pericardial effusion. 2. Mass-like opacities or consolidations and bilateral pleural effusions, left greater than right, which may represent acute infectious or inflammatory process versus nonspecific postinflammatory change or pneumonitis of uncertain etiology or chronicity. Neoplastic or metastatic disease are also diagnostic considerations. Clinical correlation and followup to resolution suggested. 3. Mediastinal and hilar adenopathy may be reactive, but nonspecific. 4. Left adrenal nodularity may represent adenomatous change, but is indeterminate. Followup may be warranted. CXR: Cardiomegaly. Asymmetrical pulmonary findings may represent pulmonary vascular congestion with edema. Differential diagnosis would include acute pneumonia and pneumonitis. Small to moderate left pleural effusion with adjacent compressive atelectasis. Underlying mass or consolidation is not excluded. Physical Exam: General appearance: Present: mild distress - EENT Eyes: Present: PERRL ENT: hearing intact, clear oral mucosa - Neck Neck: Present: supple, normal ROM - Respiratory Respiratory effort: normal Respiratory: coarse BS b/l - Cardiovascular Heart Sounds: Present: S1 & S2. Absent: rub, click - Extremities Extremities: pulses symmetrical, No edema Peripheral Pulses: abnormal (capillary refill greater than 3.5 seconds) - Abdominal General gastrointestinal: Present: soft, non-tender, non-distended, normal bowel sounds Male genitourinary: Present: normal - Integumentary Integumentary: Present: clear, warm, dry - Musculoskeletal Musculoskeletal: gait normal, strength equal bilaterally - Psychiatric Psychiatric: appropriate mood/affect, intact judgment & insight - Neurologic Neurologic: CNII-XII intact, moves all extremities Subjective Date of service: 03/17/18 Interval history: pt seen and examined on ventimask 40% FiO2 states feeling better but still symptomatic tolerating diet, noted to be in atrial fib on telemetry denies chest pain Objective - Constitutional Vitals: Vital Signs - 12hr 03/17/18 03/17/18 03/17/18 02:29 02:41 05:56 Pulse Rate 128 H Pulse Rate [ 119 H 122 H Bilateral] Respiratory 20 Rate Respiratory 19 18 Rate [Bilateral ] Blood Pressure 122/70 O2 Sat by Pulse 97 Oximetry 03/17/18 03/17/18 03/17/18 09:00 09:10 09:13 Pulse Rate Pulse Rate [ 117 H 115 H Bilateral] Respiratory Rate Respiratory 20 20 Rate [Bilateral ] Blood Pressure O2 Sat by Pulse 96 Oximetry - Labs CBC & Chem 7: 03/17/18 05:16 03/16/18 05:44 Labs: Abnormal lab results 03/17/18 Range/Units 05:16 WBC 23.1 H (4.5-11.0) K/mm3 RBC 5.24 H (3.65-5.03) M/mm3 Seg Neuts % (Manual) 73.0 H (40.0-70.0) % Lymphocytes % (Manual) 3.0 L (13.4-35.0) % Seg Neutrophils # Man 16.9 H (1.8-7.7) K/mm3 Lymphocytes # (Manual) 0.7 L (1.2-5.4) K/mm3
--- NOTE | 2018-03-17 12:55 | Progress Note ---
Assessment and Plan Acute Hypoxemic Resp Failure Lung Mass ([place]) Pneumonia (likely post obstructive component) Abnormal CT Chest AE COPD Paroxysmal A-fib Left Pleural Effusion Nicotine Dependence - get thoracentesis and send for cytology - CT needle biopsy ordered - continue supplemental oxygen to keep sats > 90% - continue bronchodilators with pulmonary hygiene per RT - GI & VTE prophylaxis - continue other care per attending / other consultants .... 35' Subjective Date of service: 03/17/18 Principal diagnosis: Acute Hypoxemic Resp Failure; Lung Mass; Abnormal CT Chest ; Pneumonia (CAP) Interval history: Patient is seen today for: Acute Hypoxemic Resp Failure; Lung Mass; Abnormal CT Chest; Pneumonia (CAP) Seen and examined at bedside; 24hour events reviewed; nursing and respiratory care staff consulted; no adverse overnight events reported to me; resting in bed ; getting a breathing treatment; denies acute chest pains; a little less SOB; No N/V/F/C Objective Vital Signs - 12hr 03/17/18 03/17/18 03/17/18 02:29 02:41 05:56 Temperature Pulse Rate 128 H Pulse Rate [ 119 H 122 H Bilateral] Respiratory 20 Rate Respiratory 19 18 Rate [Bilateral ] Blood Pressure 122/70 O2 Sat by Pulse 97 Oximetry 03/17/18 03/17/18 03/17/18 09:00 09:10 09:13 Temperature Pulse Rate Pulse Rate [ 117 H 115 H Bilateral] Respiratory Rate Respiratory 20 20 Rate [Bilateral ] Blood Pressure O2 Sat by Pulse 96 Oximetry 03/17/18 12:08 Temperature 97.7 F Pulse Rate 101 H Pulse Rate [ Bilateral] Respiratory 14 Rate Respiratory Rate [Bilateral ] Blood Pressure 101/66 O2 Sat by Pulse 94 Oximetry Constitutional: alert, appears uncomfortable, other (middle aged male laying in bed with increased respiratory effot) Eyes: non-icteric ENT: oropharynx moist, other (mallampati 2) Neck: supple, no lymphadenopathy, no JVD, other (no thyromegaly) Effort: mildly labored Ascultation: Bilateral: diminished breath sounds, rhonchi Percussion: Bilateral: not dull Cardiovascular: regular rate and rhythm, other (No R/M) Gastrointestinal: normoactive bowel sounds, soft, non-tender Integumentary: normal Extremities: no cyanosis, no edema Neurologic: normal mental status, non-focal exam, pupils equal and round, CN II- XII normal Psychiatric: anxious CBC and BMP: 03/17/18 05:16 03/16/18 05:44 ABG, PT/INR, D-dimer: ABG POC ABG pH 7.429 (7.35-7.45) 03/14/18 14:02 POC ABG pCO2 44.2 (35-45) 03/14/18 14:02 POC ABG pO2 69 (80-105) L 03/14/18 14:02 POC ABG HCO3 29.3 03/14/18 14:02 POC ABG Total CO2 31 03/14/18 14:02 POC ABG O2 Sat 94 03/14/18 14:02 PT/INR, D-dimer PT 13.4 Sec. (12.2-14.9) 03/14/18 13:49 INR 0.97 (0.87-1.13) 03/14/18 13:49 D-Dimer 3816.61 ng/mlDDU (0-234) H 03/14/18 13:49 Abnormal lab findings: Abnormal Labs 03/14/18 03/14/18 03/14/18 13:42 13:42 13:49 WBC 19.5 H RBC 5.40 H Hct 46.0 H Plt Count 458 H Seg Neuts % (Manual) 75.0 H Lymphocytes % (Manual) 7.0 L Eosinophils % (Manual) 12.0 H Seg Neutrophils # Man 14.6 H Lymphocytes # (Manual) Monocytes # (Manual) 1.0 H Eosinophils # (Manual) 2.3 H Basophils # (Manual) 0.2 H D-Dimer 3816.61 H POC ABG pO2 Sodium 135 L Chloride 94.7 L Creatinine 0.6 L Glucose 129 H Total Creatine Kinase 42 L Albumin 3.2 L 03/14/18 03/15/18 03/16/18 14:02 09:54 05:44 WBC 20.8 H 21.1 H RBC 5.41 H 5.27 H Hct 46.5 H Plt Count Seg Neuts % (Manual) Lymphocytes % (Manual) 6.0 L Eosinophils % (Manual) 18.0 H Seg Neutrophils # Man 12.0 H Lymphocytes # (Manual) Monocytes # (Manual) 1.5 H Eosinophils # (Manual) 3.8 H Basophils # (Manual) 0.2 H D-Dimer POC ABG pO2 69 L Sodium Chloride Creatinine Glucose Total Creatine Kinase Albumin 03/16/18 03/17/18 05:44 05:16 WBC 23.1 H RBC 5.24 H Hct Plt Count Seg Neuts % (Manual) 73.0 H Lymphocytes % (Manual) 3.0 L Eosinophils % (Manual) Seg Neutrophils # Man 16.9 H Lymphocytes # (Manual) 0.7 L Monocytes # (Manual) Eosinophils # (Manual) Basophils # (Manual) D-Dimer POC ABG pO2 Sodium Chloride 97.3 L Creatinine 0.5 L Glucose 102 H Total Creatine Kinase Albumin CT scan - chest: image reviewed (Left lung / lingula mass with adenopathy and pleural based) Allied health notes reviewed: nursing
[2018-03-17] MEDS ORDERED: LOVENOX SUB-Q SCH (13:00)
[2018-03-17] MEDS: CARDIZEM PO SCH ×2 (15:19→22:39)
[2018-03-17] MEDS: LOVENOX SUB-Q SCH ×2 (15:25→22:44)
[2018-03-18] MEDS: DUONEB *Not for PRN Use IH SCH ×4 (02:43→20:01)
[2018-03-18] MEDS: CARDIZEM PO SCH ×3 (05:38→21:49)
[2018-03-18] MEDS: ROCEPHIN/NS 2 GM/100 ML 2 GM/100 ML BAG IV SCH (10:11)
[2018-03-18] MEDS: LOVENOX SUB-Q SCH ×2 (10:12→21:51)
[2018-03-18] MEDS: HABITROL TD SCH (10:12)
[2018-03-18] MEDS: PEPCID PO SCH ×2 (10:13→21:50)
[2018-03-18] MEDS: ZITHROMAX PO SCH (10:13)
[2018-03-18] MEDS: SODIUM CHLORIDE FLUSH SYRINGE 10 ML IV SCH ×2 (10:13→21:53)
--- NOTE | 2018-03-18 11:47 | Consultation ---
History of Present Illness Consult date: 03/18/18 Consult reason: atrial fibrillation History of present illness: feels much better Past History Past Medical History: other (Nicotine dependence) Past Surgical History: Other (Left hand) Social history: smoking, alcohol abuse Family history: no significant family history Medications and Allergies Allergies Allergy/AdvReac Type Severity Reaction Status Date / Time No Known Allergies Allergy Unverified 03/14/18 13:22 Home Medications Medication Instructions Recorded Confirmed Last Taken Type No Known Home Medications [No 03/14/18 03/14/18 Unknown History Reported Home Medications] Active Meds: Active Medications Acetaminophen (Tylenol) 650 mg PO Q4H PRN PRN Reason: Pain MILD(1-3)/Fever >100.5/STEWART Last Admin: 03/16/18 03:40 Dose: 650 mg Albuterol (Proventil) 2.5 mg IH Q4HRT PRN PRN Reason: Shortness Of Breath Last Admin: 03/15/18 13:05 Dose: 2.5 mg Albuterol/Ipratropium (Duoneb *Not For Prn Use*) 1 ampul IH Q6HRT [facility] Last Admin: 03/18/18 08:40 Dose: 1 ampul Azithromycin (Zithromax) 500 mg PO QDAY [facility] Last Admin: 03/18/18 10:13 Dose: 500 mg Diltiazem HCl (Cardizem) 30 mg PO Q8HR [facility] Last Admin: 03/18/18 05:38 Dose: 30 mg Enoxaparin Sodium (Lovenox) 70 mg SUB-Q Q12HR [facility] Last Admin: 03/18/18 10:12 Dose: 70 mg Famotidine (Pepcid) 20 mg PO BID [facility] Last Admin: 03/18/18 10:13 Dose: 20 mg Guaifenesin (Robitussin) 200 mg PO Q4H PRN PRN Reason: Cough Last Admin: 03/17/18 11:40 Dose: 200 mg Ceftriaxone Sodium (Rocephin/Ns 2 Gm/100 Ml) 2 gm in 100 mls @ 200 mls/hr IV Q24HR [facility]; Protocol Last Admin: 03/18/18 10:11 Dose: 200 mls/hr Methylprednisolone Sodium Succinate (Solu-Medrol) 100 mg IV Q8HR [facility] Last Admin: 03/18/18 05:39 Dose: 100 mg Nicotine (Habitrol) 21 mg TD QDAY [facility] Last Admin: 03/18/18 10:12 Dose: 21 mg Ondansetron HCl (Zofran) 4 mg IV Q8H PRN PRN Reason: Nausea And Vomiting Last Admin: 03/14/18 18:10 Dose: 4 mg Sodium Chloride (Sodium Chloride Flush Syringe 10 Ml) 10 ml IV BID [facility] Last Admin: 03/18/18 10:13 Dose: 10 ml Sodium Chloride (Sodium Chloride Flush Syringe 10 Ml) 10 ml IV PRN PRN PRN Reason: LINE FLUSH Physical Examination Vital Signs Temp Pulse Resp BP Pulse Ox 97.6 F 112 H 20 134/89 90 03/14/18 13:22 03/14/18 13:22 03/14/18 13:22 03/14/18 13:22 03/14/18 13:22 Results 03/17/18 05:16 03/16/18 05:44 Assessment and Plan clinically improving increase Cardizem f/u tte consider changing to noac p/ tte reviewed poss am d/c - Patient Problems (1) Atrial fibrillation Current Visit: Yes Status: Acute (2) COPD exacerbation Current Visit: Yes Status: Acute (3) Nicotine dependence Current Visit: Yes Status: Acute Qualifiers: Nicotine product type: cigarettes Substance use status: in withdrawal Qualified Code(s): F17.213 - Nicotine dependence, cigarettes, with withdrawal (4) Pleural effusion Current Visit: Yes Status: Acute (5) Pneumonia Current Visit: Yes Status: Acute Qualifiers: Pneumonia type: due to unspecified organism Laterality: left Lung location: upper lobe of lung Qualified Code(s): J18.1 - Lobar pneumonia, unspecified organism (6) Respiratory failure Current Visit: Yes Status: Acute Qualifiers: Chronicity: acute Respiratory failure complication: hypoxia Qualified Code(s): J96.01 - Acute respiratory failure with hypoxia (7) Sepsis Current Visit: Yes Status: Acute Qualifiers: Sepsis type: sepsis due to unspecified organism Qualified Code(s): A41.9 - Sepsis, unspecified organism
--- NOTE | 2018-03-18 14:14 | Progress Note ---
Assessment and Plan /Paroxysmal Atrial fib - noted on monitor since 03/17 am - started on cardizem po, therapeutic dose of lovenox - 2d echo pending, cardiology following /Sepsis due to b/l PNA Sepsis Protocol: IV antibiotics /B/l Pneumonia with left pleural effusion cont IV antibiotics, supplemental oxygen, CTA chest suggestive for possible mass, pulmonary following Plan for thoracentesis tomorrow / Acute hypoxic Respiratory failure due to b/l PNA and COPD exacerbation IV antibiotics, supplemental oxygen, nebulizer therapy, pulse oximetry, NIPPV as clinically indicated. /COPD with exacerbation - cont nebs, steroid, supplemental O2 / Nicotine dependence Smoking cessation counseling Nicotine patch /DVT prophylaxis/GI PX SCD to BLE and lovenox/Pepcid Brief History: 52 YO Male with Nicotine Dependence presents to ED for shortness of breath, and productive cough of clear sputum over the past 1 week, with worsening symptoms over the past 2 days. On 03/17/18 he noted to be converted to atrial fib intermittently. Radiological data: CTA chest: 1. No evidence of large vessel or central pulmonary emboli. Mild cardiomegaly and pericardial effusion. 2. Mass-like opacities or consolidations and bilateral pleural effusions, left greater than right, which may represent acute infectious or inflammatory process versus nonspecific postinflammatory change or pneumonitis of uncertain etiology or chronicity. Neoplastic or metastatic disease are also diagnostic considerations. Clinical correlation and followup to resolution suggested. 3. Mediastinal and hilar adenopathy may be reactive, but nonspecific. 4. Left adrenal nodularity may represent adenomatous change, but is indeterminate. Followup may be warranted. CXR: Cardiomegaly. Asymmetrical pulmonary findings may represent pulmonary vascular congestion with edema. Differential diagnosis would include acute pneumonia and pneumonitis. Small to moderate left pleural effusion with adjacent compressive atelectasis. Underlying mass or consolidation is not excluded. Physical Exam: General appearance: Present: no distress - EENT Eyes: Present: PERRL ENT: hearing intact, clear oral mucosa - Neck Neck: Present: supple, normal ROM - Respiratory Respiratory effort: normal Respiratory: coarse BS b/l - Cardiovascular Heart Sounds: Present: S1 & S2. Absent: rub, click - Extremities Extremities: pulses symmetrical, No edema Peripheral Pulses: abnormal (capillary refill greater than 3.5 seconds) - Abdominal General gastrointestinal: Present: soft, non-tender, non-distended, normal bowel sounds Male genitourinary: Present: normal - Integumentary Integumentary: Present: clear, warm, dry - Musculoskeletal Musculoskeletal: gait normal, strength equal bilaterally - Psychiatric Psychiatric: appropriate mood/affect, intact judgment & insight - Neurologic Neurologic: CNII-XII intact, moves all extremities Subjective Date of service: 03/18/18 Principal diagnosis: Lung Mass; Abnormal CT Chest; Pneumonia (CAP); Pleural Effusions Interval history: pt seen and examined off ventimask on N/C today states feeling much better today denies chest pain Objective - Constitutional Vitals: Vital Signs - 12hr 03/18/18 03/18/18 03/18/18 02:15 02:25 05:38 Temperature Pulse Rate 102 H Pulse Rate [ 104 H 105 H Bilateral] Respiratory Rate Respiratory 20 20 Rate [Bilateral ] Blood Pressure 118/72 O2 Sat by Pulse Oximetry 03/18/18 03/18/18 03/18/18 05:50 06:02 08:40 Temperature 98.8 F Pulse Rate 101 H Pulse Rate [ 107 H Bilateral] Respiratory 18 Rate Respiratory 18 Rate [Bilateral ] Blood Pressure 125/77 O2 Sat by Pulse 98 98 Oximetry 03/18/18 03/18/18 03/18/18 08:48 13:49 13:59 Temperature 97.9 F Pulse Rate 115 H 115 H Pulse Rate [ 108 H Bilateral] Respiratory 20 Rate Respiratory 18 Rate [Bilateral ] Blood Pressure 124/78 O2 Sat by Pulse 95 Oximetry - Labs CBC & Chem 7: 03/17/18 05:16 03/16/18 05:44
--- NOTE | 2018-03-18 15:20 | Progress Note ---
Assessment and Plan Acute Hypoxemic Resp Failure Lung Mass ([place]) Pneumonia (likely post obstructive component) Abnormal CT Chest AE COPD Paroxysmal A-fib Left Pleural Effusion Nicotine Dependence - get thoracentesis and send for cytology - CT needle biopsy ordered - continue supplemental oxygen to keep sats > 90% - continue bronchodilators with pulmonary hygiene per RT - GI & VTE prophylaxis - A-fib rate controlled - continue other care per attending / other consultants .... 25' Subjective Date of service: 03/18/18 Principal diagnosis: Acute Hypoxemic Resp Failure; Lung Mass; Abnormal CT Chest ; Pneumonia (CAP) Interval history: Patient is seen today for: Acute Hypoxemic Resp Failure; Lung Mass; Abnormal CT Chest; Pneumonia (CAP) Seen and examined at bedside; 24hour events reviewed; nursing and respiratory care staff consulted; no adverse overnight events reported to me; resting in bed ; feels better; no acute chest pains; no palpitations; no hemoptysis Objective Vital Signs - 12hr 03/18/18 03/18/18 03/18/18 05:38 05:50 06:02 Temperature 98.8 F Pulse Rate 102 H 101 H Pulse Rate [ Bilateral] Respiratory 18 Rate Respiratory Rate [Bilateral ] Blood Pressure 118/72 125/77 O2 Sat by Pulse 98 Oximetry 03/18/18 03/18/18 03/18/18 08:40 08:48 13:49 Temperature 97.9 F Pulse Rate 115 H Pulse Rate [ 107 H 108 H Bilateral] Respiratory 20 Rate Respiratory 18 18 Rate [Bilateral ] Blood Pressure 124/78 O2 Sat by Pulse 98 95 Oximetry 03/18/18 03/18/18 03/18/18 13:59 14:00 14:10 Temperature Pulse Rate 115 H Pulse Rate [ 100 H 102 H Bilateral] Respiratory Rate Respiratory 18 18 Rate [Bilateral ] Blood Pressure O2 Sat by Pulse Oximetry Constitutional: alert, appears uncomfortable, other (middle aged male laying in bed with increased respiratory effot) Eyes: non-icteric ENT: oropharynx moist, other (mallampati 2) Neck: supple, no lymphadenopathy, no JVD, other (no thyromegaly) Effort: mildly labored Ascultation: Bilateral: diminished breath sounds, rhonchi Percussion: Bilateral: not dull Cardiovascular: regular rate and rhythm, other (No R/M) Gastrointestinal: normoactive bowel sounds, soft, non-tender, non-distended Integumentary: normal Extremities: no cyanosis, no edema Neurologic: normal mental status, non-focal exam, pupils equal and round, CN II- XII normal Psychiatric: anxious CBC and BMP: 03/19/18 04:49 03/19/18 04:49 ABG, PT/INR, D-dimer: ABG POC ABG pH 7.429 (7.35-7.45) 03/14/18 14:02 POC ABG pCO2 44.2 (35-45) 03/14/18 14:02 POC ABG pO2 69 (80-105) L 03/14/18 14:02 POC ABG HCO3 29.3 03/14/18 14:02 POC ABG Total CO2 31 03/14/18 14:02 POC ABG O2 Sat 94 03/14/18 14:02 PT/INR, D-dimer PT 13.4 Sec. (12.2-14.9) 03/14/18 13:49 INR 0.97 (0.87-1.13) 03/14/18 13:49 D-Dimer 3816.61 ng/mlDDU (0-234) H 03/14/18 13:49 Abnormal lab findings: Abnormal Labs 03/14/18 03/14/18 03/14/18 13:42 13:42 13:49 WBC 19.5 H RBC 5.40 H Hct 46.0 H Plt Count 458 H Seg Neuts % (Manual) 75.0 H Lymphocytes % (Manual) 7.0 L Eosinophils % (Manual) 12.0 H Seg Neutrophils # Man 14.6 H Lymphocytes # (Manual) Monocytes # (Manual) 1.0 H Eosinophils # (Manual) 2.3 H Basophils # (Manual) 0.2 H D-Dimer 3816.61 H POC ABG pO2 Sodium 135 L Chloride 94.7 L Creatinine 0.6 L Glucose 129 H Total Creatine Kinase 42 L Albumin 3.2 L 03/14/18 03/15/18 03/16/18 14:02 09:54 05:44 WBC 20.8 H 21.1 H RBC 5.41 H 5.27 H Hct 46.5 H Plt Count Seg Neuts % (Manual) Lymphocytes % (Manual) 6.0 L Eosinophils % (Manual) 18.0 H Seg Neutrophils # Man 12.0 H Lymphocytes # (Manual) Monocytes # (Manual) 1.5 H Eosinophils # (Manual) 3.8 H Basophils # (Manual) 0.2 H D-Dimer POC ABG pO2 69 L Sodium Chloride Creatinine Glucose Total Creatine Kinase Albumin 03/16/18 03/17/18 05:44 05:16 WBC 23.1 H RBC 5.24 H Hct Plt Count Seg Neuts % (Manual) 73.0 H Lymphocytes % (Manual) 3.0 L Eosinophils % (Manual) Seg Neutrophils # Man 16.9 H Lymphocytes # (Manual) 0.7 L Monocytes # (Manual) Eosinophils # (Manual) Basophils # (Manual) D-Dimer POC ABG pO2 Sodium Chloride 97.3 L Creatinine 0.5 L Glucose 102 H Total Creatine Kinase Albumin Allied health notes reviewed: nursing
[2018-03-19] MEDS: ROBITUSSIN PO PRN ×3 (00:45→20:19)
[2018-03-19] MEDS: DUONEB *Not for PRN Use IH SCH ×4 (02:57→20:07)
[2018-03-19] MEDS: CARDIZEM PO SCH ×3 (05:36→21:59)
[2018-03-19 05:43] LABS: Hematocrit 45.7 % (35.5-45.6); Hemoglobin 15.1 gm/dl (11.8-15.2); Mean Corpuscular HGB Conc 33 % (32-34); Mean Corpuscular Hemoglobin 28 pg (28-32); Mean Corpuscular Volume 85 fl (84-94); Platelet Count 349 K/mm3 (140-440); Red Cell Distribution Width 14.2 % (13.2-15.2)
[2018-03-19 06:10] LABS: Band Neutrophils # (Manual) 0.2 K/mm3; Basophils % (Manual) 0 % (0.0-1.8); Eosinophils % (Manual) 0 % (0.0-4.3); Monocytes % (Manual) 2.5 % (0.0-7.3); Total Cells Counted 200
[2018-03-19 06:11] LABS: Platelet Estimate Consistent w Auto
[2018-03-19 06:22] LABS: Alanine Aminotransferase 39 units/L (7-56); Albumin 3.3 g/dL (3.9-5); BUN/Creatinine Ratio 22; Blood Urea Nitrogen 13 mg/dL (9-20); Calcium 8.8 mg/dL (8.4-10.2); Hemolysis Index 11
[2018-03-19] MEDS ORDERED: VERSED IV ONE (07:46)
[2018-03-19] MEDS ORDERED: SUBLIMAZE IV ONE (07:46)
[2018-03-19] MEDS: ROCEPHIN/NS 2 GM/100 ML 2 GM/100 ML BAG IV SCH (10:11)
[2018-03-19] MEDS: HABITROL TD SCH (10:11)
[2018-03-19] MEDS: SODIUM CHLORIDE FLUSH SYRINGE 10 ML IV SCH ×2 (10:12→21:59)
[2018-03-19] MEDS: LOVENOX SUB-Q SCH ×2 (10:12→21:57)
[2018-03-19] MEDS: ZITHROMAX PO SCH (10:13)
[2018-03-19] MEDS: PEPCID PO SCH ×2 (10:13→22:00)
--- NOTE | 2018-03-19 10:37 | Progress Note ---
Assessment and Plan Clinically improving. Cont cardizem and full dosage lovenox. Await echo. Check thyroid profile. For thoracentesis today and send for cytology per pulmonary. The pt is has been seen in conjunction with Dr. Keys who agrees with the assessment and plan of care. - Patient Problems (1) Atrial fibrillation Current Visit: Yes Status: Acute (2) COPD exacerbation Current Visit: Yes Status: Acute (3) Pneumonia Current Visit: Yes Status: Acute Qualifiers: Pneumonia type: due to unspecified organism Laterality: left Lung location: upper lobe of lung Qualified Code(s): J18.1 - Lobar pneumonia, unspecified organism (4) Lung mass Current Visit: Yes Status: Acute (5) Pleural effusion Current Visit: Yes Status: Acute (6) Respiratory failure Current Visit: Yes Status: Acute Qualifiers: Chronicity: acute Respiratory failure complication: hypoxia Qualified Code(s): J96.01 - Acute respiratory failure with hypoxia (7) Nicotine dependence Current Visit: Yes Status: Chronic Qualifiers: Nicotine product type: cigarettes Substance use status: in withdrawal Qualified Code(s): F17.213 - Nicotine dependence, cigarettes, with withdrawal Subjective Date of service: 03/19/18 Principal diagnosis: Lung Mass; Abnormal CT Chest; Pneumonia (CAP); Pleural Effusions Interval history: Pt resting comfortably in bed, no current cardiac complaints. currently in SR. Objective Last Vital Signs Temp 97.7 F 03/19/18 00:32 Pulse 89 03/19/18 07:41 Resp 18 03/19/18 07:41 BP 124/70 03/19/18 05:36 Pulse Ox 94 03/19/18 07:42 - Physical Examination General: No Apparent Distress HEENT: Positive: PERRL, Normocephaly, Mucus Membranes Moist Neck: Positive: neck supple, trachea midline Cardiac: Positive: Reg Rate and Rhythm, S1/S2 Lungs: Positive: Wheezes Neuro: Positive: Grossly Intact Abdomen: Positive: Soft. Negative: Tender Skin: Positive: Clear. Negative: Rash, Wound Musculoskeletal: No Fluid Collection, No Pain, Normal Range of Motion Extremities: Absent: edema - Labs and Meds Cardiac Enzymes 03/18/18 03/19/18 Range/Units 19:56 04:49 AST 14 (5-40) units/L Lactate Dehydrogenase 176 (91-180) units/L CBC 03/19/18 Range/Units 04:49 WBC 24.9 H (4.5-11.0) K/mm3 RBC 5.40 H (3.65-5.03) M/mm3 Hgb 15.1 (11.8-15.2) gm/dl Hct 45.7 H (35.5-45.6) % Plt Count 349 (140-440) K/mm3 Comprehensive Metabolic Panel 03/19/18 Range/Units 04:49 Sodium 141 (137-145) mmol/L Potassium 3.9 (3.6-5.0) mmol/L Chloride 99.0 (98-107) mmol/L Carbon Dioxide 30 (22-30) mmol/L BUN 13 (9-20) mg/dL Creatinine 0.6 L (0.8-1.5) mg/dL Glucose 158 H (75-100) mg/dL Calcium 8.8 (8.4-10.2) mg/dL AST 14 (5-40) units/L ALT 39 (7-56) units/L Alkaline Phosphatase 60 (35-129) units/L Total Protein 6.0 L (6.3-8.2) g/dL Albumin 3.3 L (3.9-5) g/dL - Imaging and Cardiology EKG: report reviewed, image reviewed Echo: pending - Telemetry EKG Rhythm: Sinus Rhythm - Allied health notes Allied health notes reviewed: nursing
[2018-03-19 11:05] LABS: INR 1.02 (0.87-1.13)
--- NOTE | 2018-03-19 13:09 | Ultrasound Report ---
ULTRASOUND THORACENTESIS History: Left pleural effusion. Description of procedure: Informed consent was obtained. Sterile technique was utilized. 1% lidocaine for skin anesthesia. Using ultrasound guidance, a 5 [place] centesis needle was advanced within a small left pleural fluid collection. 300 cc of serosanguineous fluid was aspirated. 120 cc of fluid was sent to lab for analysis. No complications. Impression: Successful ultrasound-guided left thoracentesis.
--- NOTE | 2018-03-19 13:11 | Procedure Note ---
Date of procedure: 03/19/18 Pre-op diagnosis: pleural effusion Post-op diagnosis: same Procedure: US thoracentesis, left Findings: 300cc of serosaguinous fluid Anesthesia: local Surgeon: EMMY GUERIN Estimated blood loss: none Pathology: list (120cc) Specimen disposition: to lab Condition: stable Disposition: floor
--- NOTE | 2018-03-19 14:08 | Progress Note ---
Assessment and Plan Acute Hypoxemic Resp Failure Lung Mass ([place]) Pneumonia (likely post obstructive component) Abnormal CT Chest AE COPD Paroxysmal A-fib Left Pleural Effusion Nicotine Dependence - follow thoracentesis and studies - follow CT needle biopsy - continue supplemental oxygen to keep sats > 90% - continue bronchodilators with pulmonary hygiene per RT - GI & VTE prophylaxis - A-fib rate controlled - continue other care per attending / other consultants .... 25' Subjective Date of service: 03/19/18 Principal diagnosis: Acute Hypoxemic Resp Failure; Lung Mass; Abnormal CT Chest ; Pneumonia (CAP) Interval history: Patient is seen today for: Acute Hypoxemic Resp Failure; Lung Mass; Abnormal CT Chest; Pneumonia (CAP) Seen and examined at bedside; 24hour events reviewed; nursing and respiratory care staff consulted; no adverse overnight events reported to me; resting peacefully; denies acute chest pains or increased SOB Objective Vital Signs - 12hr 03/19/18 03/19/18 03/19/18 02:57 03:08 05:36 Pulse Rate 72 Pulse Rate [ Anterior Bilateral Throughout] Pulse Rate [ 95 H 100 H Bilateral] Respiratory Rate [Anterior Bilateral Throughout] Respiratory 18 18 Rate [Bilateral ] Blood Pressure 124/70 O2 Sat by Pulse Oximetry 03/19/18 03/19/18 03/19/18 07:40 07:41 07:42 Pulse Rate Pulse Rate [ Anterior Bilateral Throughout] Pulse Rate [ 87 89 Bilateral] Respiratory Rate [Anterior Bilateral Throughout] Respiratory 17 18 Rate [Bilateral ] Blood Pressure O2 Sat by Pulse 94 Oximetry 03/19/18 03/19/18 13:37 13:41 Pulse Rate 103 H Pulse Rate [ 100 H Anterior Bilateral Throughout] Pulse Rate [ Bilateral] Respiratory 20 Rate [Anterior Bilateral Throughout] Respiratory Rate [Bilateral ] Blood Pressure 139/85 O2 Sat by Pulse Oximetry Constitutional: alert, appears uncomfortable, other (middle aged male laying in bed with increased respiratory effot) Eyes: non-icteric ENT: oropharynx moist, other (mallampati 2) Neck: supple, no lymphadenopathy, no JVD, other (no thyromegaly) Effort: mildly labored Ascultation: Bilateral: diminished breath sounds, rhonchi Percussion: Bilateral: not dull Cardiovascular: regular rate and rhythm, other (No R/M) Gastrointestinal: normoactive bowel sounds, soft, non-tender, non-distended Integumentary: normal Extremities: no cyanosis, no edema Neurologic: normal mental status, non-focal exam, pupils equal and round, CN II- XII normal Psychiatric: anxious CBC and BMP: 03/20/18 01:46 03/19/18 04:49 ABG, PT/INR, D-dimer: ABG POC ABG pH 7.429 (7.35-7.45) 03/14/18 14:02 POC ABG pCO2 44.2 (35-45) 03/14/18 14:02 POC ABG pO2 69 (80-105) L 03/14/18 14:02 POC ABG HCO3 29.3 03/14/18 14:02 POC ABG Total CO2 31 03/14/18 14:02 POC ABG O2 Sat 94 03/14/18 14:02 PT/INR, D-dimer PT 13.9 Sec. (12.2-14.9) 03/19/18 10:44 INR 1.02 (0.87-1.13) 03/19/18 10:44 D-Dimer 3816.61 ng/mlDDU (0-234) H 03/14/18 13:49 Abnormal lab findings: Abnormal Labs 03/14/18 03/14/18 03/14/18 13:42 13:42 13:49 WBC 19.5 H RBC 5.40 H Hct 46.0 H Plt Count 458 H Seg Neuts % (Manual) 75.0 H Lymphocytes % (Manual) 7.0 L Eosinophils % (Manual) 12.0 H Seg Neutrophils # Man 14.6 H Lymphocytes # (Manual) Monocytes # (Manual) 1.0 H Eosinophils # (Manual) 2.3 H Basophils # (Manual) 0.2 H D-Dimer 3816.61 H POC ABG pO2 Sodium 135 L Chloride 94.7 L Creatinine 0.6 L Glucose 129 H Total Creatine Kinase 42 L Total Protein Albumin 3.2 L 03/14/18 03/15/18 03/16/18 14:02 09:54 05:44 WBC 20.8 H 21.1 H RBC 5.41 H 5.27 H Hct 46.5 H Plt Count Seg Neuts % (Manual) Lymphocytes % (Manual) 6.0 L Eosinophils % (Manual) 18.0 H Seg Neutrophils # Man 12.0 H Lymphocytes # (Manual) Monocytes # (Manual) 1.5 H Eosinophils # (Manual) 3.8 H Basophils # (Manual) 0.2 H D-Dimer POC ABG pO2 69 L Sodium Chloride Creatinine Glucose Total Creatine Kinase Total Protein Albumin 03/16/18 03/17/18 03/19/18 05:44 05:16 04:49 WBC 23.1 H 24.9 H RBC 5.24 H 5.40 H Hct 45.7 H Plt Count Seg Neuts % (Manual) 73.0 H 94.0 H Lymphocytes % (Manual) 3.0 L 2.5 L Eosinophils % (Manual) Seg Neutrophils # Man 16.9 H 23.4 H Lymphocytes # (Manual) 0.7 L 0.6 L Monocytes # (Manual) Eosinophils # (Manual) Basophils # (Manual) D-Dimer POC ABG pO2 Sodium Chloride 97.3 L Creatinine 0.5 L Glucose 102 H Total Creatine Kinase Total Protein Albumin 03/19/18 04:49 WBC RBC Hct Plt Count Seg Neuts % (Manual) Lymphocytes % (Manual) Eosinophils % (Manual) Seg Neutrophils # Man Lymphocytes # (Manual) Monocytes # (Manual) Eosinophils # (Manual) Basophils # (Manual) D-Dimer POC ABG pO2 Sodium Chloride Creatinine 0.6 L Glucose 158 H Total Creatine Kinase Total Protein 6.0 L Albumin 3.3 L Allied health notes reviewed: nursing
--- NOTE | 2018-03-19 14:46 | Progress Note ---
Assessment and Plan /Possoble lung mass with left pleural effusion CTA chest suggestive for possible mass, pulmonary following s/p thoracentesis today - follow pleural fluid study - plan for CT guided biopsy tomorrow /Paroxysmal Atrial fib - noted on monitor since 03/17 am - started on cardizem po, therapeutic dose of lovenox till lung biopsy - 2d echo showed preserved EF, cardiology following /Sepsis due to b/l PNA Sepsis Protocol: cont IV antibiotics /B/l Pneumonia cont IV antibiotics, supplemental oxygen, / Acute hypoxic Respiratory failure due to b/l PNA and COPD exacerbation IV antibiotics, supplemental oxygen, nebulizer therapy, pulse oximetry, NIPPV as clinically indicated. /COPD with exacerbation - cont nebs, tapering steroidsteroid, supplemental O2 / Nicotine dependence Smoking cessation counseling Nicotine patch /DVT prophylaxis/GI PX SCD to BLE and lovenox/Pepcid Brief History: 52 YO Male with Nicotine Dependence presents to ED for shortness of breath, and productive cough of clear sputum over the past 1 week, with worsening symptoms over the past 2 days. On 03/17/18 he noted to be converted to atrial fib intermittently - placed on cardizem and lovenox. CTA chest suggestive for pleural effusion and lung mass - plan for Ct guided biopsy tomorrow Radiological data: CTA chest: 1. No evidence of large vessel or central pulmonary emboli. Mild cardiomegaly and pericardial effusion. 2. Mass-like opacities or consolidations and bilateral pleural effusions, left greater than right, which may represent acute infectious or inflammatory process versus nonspecific postinflammatory change or pneumonitis of uncertain etiology or chronicity. Neoplastic or metastatic disease are also diagnostic considerations. Clinical correlation and followup to resolution suggested. 3. Mediastinal and hilar adenopathy may be reactive, but nonspecific. 4. Left adrenal nodularity may represent adenomatous change, but is indeterminate. Followup may be warranted. CXR: Cardiomegaly. Asymmetrical pulmonary findings may represent pulmonary vascular congestion with edema. Differential diagnosis would include acute pneumonia and pneumonitis. Small to moderate left pleural effusion with adjacent compressive atelectasis. Underlying mass or consolidation is not excluded. Physical Exam: General appearance: Present: no distress - EENT Eyes: Present: PERRL ENT: hearing intact, clear oral mucosa - Neck Neck: Present: supple, normal ROM - Respiratory Respiratory effort: normal Respiratory: coarse BS b/l - Cardiovascular Heart Sounds: Present: S1 & S2. Absent: rub, click - Extremities Extremities: pulses symmetrical, No edema - Abdominal General gastrointestinal: Present: soft, non-tender, non-distended, normal bowel sounds Male genitourinary: Present: normal - Integumentary Integumentary: Present: clear, warm, dry - Musculoskeletal Musculoskeletal: gait normal, strength equal bilaterally - Psychiatric Psychiatric: appropriate mood/affect, intact judgment & insight - Neurologic Neurologic: CNII-XII intact, moves all extremities Subjective Date of service: 03/19/18 Principal diagnosis: Acute Hypoxemic Resp Failure; Lung Mass; Abnormal CT Chest ; Pneumonia (CAP) Interval history: pt seen and examined off ventimask now, cont to be on N/C states feeling much better today denies chest pain, s/p thoracentesis today Objective - Constitutional Vitals: Vital Signs - 12hr 03/19/18 03/19/18 03/19/18 02:57 03:08 05:36 Pulse Rate 72 Pulse Rate [ Anterior Bilateral Throughout] Pulse Rate [ 95 H 100 H Bilateral] Respiratory Rate [Anterior Bilateral Throughout] Respiratory 18 18 Rate [Bilateral ] Blood Pressure 124/70 O2 Sat by Pulse Oximetry 03/19/18 03/19/18 03/19/18 07:40 07:41 07:42 Pulse Rate Pulse Rate [ Anterior Bilateral Throughout] Pulse Rate [ 87 89 Bilateral] Respiratory Rate [Anterior Bilateral Throughout] Respiratory 17 18 Rate [Bilateral ] Blood Pressure O2 Sat by Pulse 94 Oximetry 03/19/18 03/19/18 03/19/18 13:37 13:41 13:47 Pulse Rate 103 H Pulse Rate [ 100 H 104 H Anterior Bilateral Throughout] Pulse Rate [ Bilateral] Respiratory 20 20 Rate [Anterior Bilateral Throughout] Respiratory Rate [Bilateral ] Blood Pressure 139/85 O2 Sat by Pulse Oximetry - Labs CBC & Chem 7: 03/19/18 04:49 03/19/18 04:49 Labs: Abnormal lab results 03/19/18 03/19/18 Range/Units 04:49 04:49 WBC 24.9 H (4.5-11.0) K/mm3 RBC 5.40 H (3.65-5.03) M/mm3 Hct 45.7 H (35.5-45.6) % Seg Neuts % (Manual) 94.0 H (40.0-70.0) % Lymphocytes % (Manual) 2.5 L (13.4-35.0) % Seg Neutrophils # Man 23.4 H (1.8-7.7) K/mm3 Lymphocytes # (Manual) 0.6 L (1.2-5.4) K/mm3 Creatinine 0.6 L (0.8-1.5) mg/dL Glucose 158 H (75-100) mg/dL Total Protein 6.0 L (6.3-8.2) g/dL Albumin 3.3 L (3.9-5) g/dL
[2018-03-19 15:23] LABS: Total Cells Counted 100 /mm3
--- NOTE | 2018-03-19 15:23 | XRay Report ---
Portable chest: Left thoracentesis. There are bilateral infiltrates which appear generally unchanged compared to the examination of March 14. There is blunting of left costophrenic angle but there is significantly less effusion than seen on prior examination. No evidence of pneumothorax. Mediastinal contour is unremarkable. Impression: Post left thoracentesis with no complication identified. Persistent bilateral infiltrates.
[2018-03-20 02:18] LABS: Hematocrit 46.4 % (35.5-45.6); Hemoglobin 15.3 gm/dl (11.8-15.2); Mean Corpuscular HGB Conc 33 % (32-34); Mean Corpuscular Hemoglobin 28 pg (28-32); Mean Corpuscular Volume 84 fl (84-94); Platelet Count 299 K/mm3 (140-440); Red Blood Count 5.52 M/mm3 (3.65-5.03); Red Cell Distribution Width 13.9 % (13.2-15.2)
[2018-03-20] MEDS: DUONEB *Not for PRN Use IH SCH ×4 (02:44→20:41)
[2018-03-20] MEDS: ROBITUSSIN PO PRN ×3 (06:14→22:41)
[2018-03-20] MEDS: CARDIZEM PO SCH ×3 (06:16→22:36)
--- NOTE | 2018-03-20 08:45 | Progress Note ---
Assessment and Plan Assessment and plan: Patient is a 52 yo [place] man who speaks fluent Sinhala with a history of Nicotine Dependence who pw SOB and cough. Then On 03/17/18 he noted to be converted to atrial fib intermittently - placed on cardizem and lovenox. CTA chest suggestive for pleural effusion and lung mass - for Ct guided biopsy CTA chest: 1. No evidence of large vessel or central pulmonary emboli. Mild cardiomegaly and pericardial effusion. 2. Mass-like opacities or consolidations and bilateral pleural effusions, left greater than right, which may represent acute infectious or inflammatory process versus nonspecific postinflammatory change or pneumonitis of uncertain etiology or chronicity. Neoplastic or metastatic disease are also diagnostic considerations. Clinical correlation and followup to resolution suggested. 3. Mediastinal and hilar adenopathy may be reactive, but nonspecific. 4. Left adrenal nodularity may represent adenomatous change, but is indeterminate. Followup may be warranted. CXR: Cardiomegaly. Asymmetrical pulmonary findings may represent pulmonary vascular congestion with edema. Differential diagnosis would include acute pneumonia and pneumonitis. Small to moderate left pleural effusion with adjacent compressive atelectasis. Underlying mass or consolidation is not excluded. -Suspected Lung Cancer with left pleural effusion CTA chest suggestive for possible mass, pulmonary following s/p thoracentesis today - follow pleural fluid study - plan for CT guided biopsy tomorrow /Paroxysmal Atrial fib - noted on monitor since 03/17 am - started on cardizem po, therapeutic dose of lovenox till lung biopsy - 2d echo showed preserved EF, cardiology following /Sepsis due to b/l PNA Sepsis Protocol: cont IV antibiotics /B/l Pneumonia cont IV antibiotics, supplemental oxygen, / Acute hypoxic Respiratory failure due to b/l PNA and COPD exacerbation IV antibiotics, supplemental oxygen, nebulizer therapy, pulse oximetry, NIPPV as clinically indicated. /COPD with exacerbation - cont nebs, tapering steroids, supplemental O2 / Nicotine dependence Smoking cessation counseling Nicotine patch /DVT prophylaxis/GI PX SCD to BLE and lovenox/Pepcid History Interval history: Patient was seen and examined. Follow-up on current diagnosis. Overnight uneventful. Patient denies any chest pain, shortness breath, nausea/vomiting or severe headaches. Imaging, nursing note, chart, labs and old chart reviewed. Discussed with patient. Hospitalist Physical - Physical exam Narrative exam: GEN: WDWN, NAD, Awake, Alert, Orientated HEENT: NCAT, EOMI, PERRL, OP Clear NECK: supple, no adenopathy, no thyromegaly, no JVD CVS/HEART: RRR, normal S1S2, pulses present bilaterally CHEST/LUNGS: diminished bilaterally, Symmetrical chest expansion, good air entry bilaterally GI/Abdomen: soft, NTND, good bowel sounds, no guarding or rebound /Bladder: no suprapubic tenderness, no CVA or paraspinal tenderness EXT/Skin: no c/c/e, no obvious rash MSK: FROM x 4 Neuro: CN 2-12 grossly intact, no new focal deficits Psych: calm - Constitutional Vitals: Temp Pulse Resp BP Pulse Ox 98.0 F 84 18 147/102 97 03/20/18 05:37 03/20/18 07:56 03/20/18 07:56 03/20/18 06:16 03/20/18 07:57 General appearance: Present: mild distress Results - Labs CBC & Chem 7: 03/20/18 01:46 03/19/18 04:49 Labs: Laboratory Last Values WBC 25.9 K/mm3 (4.5-11.0) H 03/20/18 01:46 RBC 5.52 M/mm3 (3.65-5.03) H 03/20/18 01:46 Hgb 15.3 gm/dl (11.8-15.2) H 03/20/18 01:46 Hct 46.4 % (35.5-45.6) H 03/20/18 01:46 MCV 84 fl (84-94) 03/20/18 01:46 MCH 28 pg (28-32) 03/20/18 01:46 MCHC 33 % (32-34) 03/20/18 01:46 RDW 13.9 % (13.2-15.2) 03/20/18 01:46 Plt Count 299 K/mm3 (140-440) 03/20/18 01:46 Eos % (Auto) [employer] 03/14/18 13:42 Add Manual Diff Complete 03/19/18 04:49 Total Counted 200 03/19/18 04:49 Seg Neutrophils % [employer] 03/19/18 04:49 Seg Neuts % (Manual) 94.0 % (40.0-70.0) H 03/19/18 04:49 Band Neutrophils % 1.0 % 03/19/18 04:49 Lymphocytes % (Manual) 2.5 % (13.4-35.0) L 03/19/18 04:49 Reactive Lymphs % (Man) 0 % 03/19/18 04:49 Monocytes % (Manual) 2.5 % (0.0-7.3) 03/19/18 04:49 Eosinophils % (Manual) 0 % (0.0-4.3) 03/19/18 04:49 Basophils % (Manual) 0 % (0.0-1.8) 03/19/18 04:49 Metamyelocytes % 0 % 03/19/18 04:49 Myelocytes % 0 % 03/19/18 04:49 Promyelocytes % 0 % 03/19/18 04:49 Blast Cells % 0 % 03/19/18 04:49 Nucleated RBC % Not Reportable 03/19/18 04:49 Seg Neutrophils # Man 23.4 K/mm3 (1.8-7.7) H 03/19/18 04:49 Band Neutrophils # 0.2 K/mm3 03/19/18 04:49 Lymphocytes # (Manual) 0.6 K/mm3 (1.2-5.4) L 03/19/18 04:49 Abs React Lymphs (Man) 0.0 K/mm3 03/19/18 04:49 Monocytes # (Manual) 0.6 K/mm3 (0.0-0.8) 03/19/18 04:49 Eosinophils # (Manual) 0.0 K/mm3 (0.0-0.4) 03/19/18 04:49 Basophils # (Manual) 0.0 K/mm3 (0.0-0.1) 03/19/18 04:49 Metamyelocytes # 0.0 K/mm3 03/19/18 04:49 Myelocytes # 0.0 K/mm3 03/19/18 04:49 Promyelocytes # 0.0 K/mm3 03/19/18 04:49 Blast Cells # 0.0 K/mm3 03/19/18 04:49 WBC Morphology Not Reportable 03/19/18 04:49 Hypersegmented Neuts Not Reportable 03/19/18 04:49 Hyposegmented Neuts Not Reportable 03/19/18 04:49 Hypogranular Neuts Not Reportable 03/19/18 04:49 Smudge Cells Not Reportable 03/19/18 04:49 Toxic Granulation Not Reportable 03/19/18 04:49 Toxic Vacuolation Not Reportable 03/19/18 04:49 Dohle Bodies Not Reportable 03/19/18 04:49 Pelger-Huet Anomaly Not Reportable 03/19/18 04:49 Betty Rods Not Reportable 03/19/18 04:49 Platelet Estimate Consistent w auto 03/19/18 04:49 Clumped Platelets Not Reportable 03/19/18 04:49 Plt Clumps, EDTA Not Reportable 03/19/18 04:49 Large Platelets Not Reportable 03/19/18 04:49 Giant Platelets Not Reportable 03/19/18 04:49 Platelet Satelliting Not Reportable 03/19/18 04:49 Plt Morphology Comment Not Reportable 03/19/18 04:49 RBC Morphology Not Reportable 03/19/18 04:49 Dimorphic RBCs Not Reportable 03/19/18 04:49 Polychromasia Not Reportable 03/19/18 04:49 Hypochromasia Not Reportable 03/19/18 04:49 Poikilocytosis Not Reportable 03/19/18 04:49 Anisocytosis Not Reportable 03/19/18 04:49 Microcytosis Not Reportable 03/19/18 04:49 Macrocytosis Not Reportable 03/19/18 04:49 Spherocytes Not Reportable 03/19/18 04:49 Pappenheimer Bodies Not Reportable 03/19/18 04:49 Sickle Cells Not Reportable 03/19/18 04:49 Target Cells Not Reportable 03/19/18 04:49 Tear Drop Cells Not Reportable 03/19/18 04:49 Ovalocytes Not Reportable 03/19/18 04:49 Helmet Cells Not Reportable 03/19/18 04:49 [place] Bodies Not Reportable 03/19/18 04:49 [place] Rings Not Reportable 03/19/18 04:49 Kristin Cells Not Reportable 03/19/18 04:49 Bite Cells Not Reportable 03/19/18 04:49 Crenated Cell Not Reportable 03/19/18 04:49 Elliptocytes Not Reportable 03/19/18 04:49 Acanthocytes (Spur) Not Reportable 03/19/18 04:49 Rouleaux Not Reportable 03/19/18 04:49 Hemoglobin C Crystals Not Reportable 03/19/18 04:49 Schistocytes Not Reportable 03/19/18 04:49 Malaria parasites Not Reportable 03/19/18 04:49 [place] Bodies Not Reportable 03/19/18 04:49 Hem Pathologist Commnt No 03/19/18 04:49 PT 13.9 Sec. (12.2-14.9) 03/19/18 10:44 INR 1.02 (0.87-1.13) 03/19/18 10:44 APTT 28.1 Sec. (24.2-36.6) 03/14/18 13:49 D-Dimer 3816.61 ng/mlDDU (0-234) H 03/14/18 13:49 POC ABG pH 7.429 (7.35-7.45) 03/14/18 14:02 POC ABG pCO2 44.2 (35-45) 03/14/18 14:02 POC ABG pO2 69 (80-105) L 03/14/18 14:02 POC ABG HCO3 29.3 03/14/18 14:02 POC ABG Total CO2 31 03/14/18 14:02 POC ABG O2 Sat 94 03/14/18 14:02 POC ABG Base Excess 5 03/14/18 14:02 FiO2 28 % 03/14/18 14:02 Sodium 141 mmol/L (137-145) 03/19/18 04:49 Potassium 3.9 mmol/L (3.6-5.0) 03/19/18 04:49 Chloride 99.0 mmol/L (98-107) 03/19/18 04:49 Carbon Dioxide 30 mmol/L (22-30) 03/19/18 04:49 Anion Gap 16 mmol/L 03/19/18 04:49 BUN 13 mg/dL (9-20) 03/19/18 04:49 Creatinine 0.6 mg/dL (0.8-1.5) L 03/19/18 04:49 Estimated GFR > 60 ml/min 03/19/18 04:49 BUN/Creatinine Ratio 22 % 03/19/18 04:49 Glucose 158 mg/dL (75-100) H 03/19/18 04:49 Lactic Acid 1.10 mmol/L (0.7-2.0) 03/14/18 22:36 Calcium 8.8 mg/dL (8.4-10.2) 03/19/18 04:49 Magnesium 2.10 mg/dL (1.7-2.3) 03/14/18 13:42 Total Bilirubin 0.30 mg/dL (0.1-1.2) 03/19/18 04:49 AST 14 units/L (5-40) 03/19/18 04:49 ALT 39 units/L (7-56) 03/19/18 04:49 Alkaline Phosphatase 60 units/L (35-129) 03/19/18 04:49 Lactate Dehydrogenase 176 units/L (91-180) 03/18/18 19:56 Total Creatine Kinase 42 units/L (55-170) L 03/14/18 13:42 CK-MB (CK-2) 1.6 ng/mL (0.0-4.0) 03/14/18 13:42 CK-MB (CK-2) Rel Index 3.8 (0-4) 03/14/18 13:42 Troponin T < 0.010 ng/mL (0.00-0.029) 03/14/18 13:42 Total Protein 6.0 g/dL (6.3-8.2) L 03/19/18 04:49 Albumin 3.3 g/dL (3.9-5) L 03/19/18 04:49 Albumin/Globulin Ratio 1.2 % 03/19/18 04:49 TSH 1.230 mlU/mL (0.270-4.200) 03/19/18 10:50 Free T4 1.31 ng/dL (0.76-1.46) 03/19/18 10:50 Urine Color Straw (Yellow) 03/14/18 21:01 Urine Turbidity Clear (Clear) 03/14/18 21: Urine pH 7.0 (5.0-7.0) 03/14/18 21:01 Ur Specific [place] 1.020 (1.003-1.030) 03/14/18 21:01 Urine Protein <15 mg/dl mg/dL (Negative) 03/14/18 21: Urine Glucose (UA) Neg mg/dL (Negative) 03/14/18 21:01 Urine Ketones Neg mg/dL (Negative) 03/14/18 21:01 Urine Blood Neg (Negative) 03/14/18 21:01 Urine Nitrite Neg (Negative) 03/14/18 21:01 Urine Bilirubin Neg (Negative) 03/14/18 21:01 Urine Urobilinogen < 2.0 mg/dL (<2.0) 03/14/18 21:01 Ur Leukocyte Esterase Neg (Negative) 03/14/18 21:01 Urine WBC (Auto) < 1.0 /HPF (0.0-6.0) 03/14/18 21:01 Urine RBC (Auto) 1.0 /HPF (0.0-6.0) 03/14/18 21:01 Fluid Type Pleural 03/18/18 Unknown Fluid Color Red 03/18/18 Unknown Fluid Appearance Bloody 03/18/18 Unknown Fluid WBC 330 /mm3 03/18/18 Unknown Fluid RBC 89980 /mm3 03/18/18 Unknown Fluid Seg Neutrophils 26.0 % 03/18/18 Unknown Fluid Lymphocytes 36.0 % 03/18/18 Unknown Fluid Monocytes 38.0 % 03/18/18 Unknown
[2018-03-20] MEDS ORDERED: SUBLIMAZE IV ONE (09:24)
[2018-03-20] MEDS ORDERED: VERSED IV ONE (09:24)
[2018-03-20] MEDS ORDERED: XYLOCAINE 1% 20 mL ONE (09:38)
--- NOTE | 2018-03-20 11:12 | Cat Scan Report ---
CT BIOPSY LUNG LEFT History: Left lung mass. Description of procedure: Informed consent was obtained. Sterile technique was utilized. 1% lidocaine for skin anesthesia. Moderate sedation was accomplished with Versed and fentanyl. The patient was sedated for 15 minutes. Independent cardiorespiratory monitoring by RN. Intraobserver time was [address] guidance, a 19-gauge introducer needle was advanced to the leading edge of a masslike lesion or consolidation in the posterior left upper lobe measuring 5.8 x 4.1 cm. 3 separate 2.2 cm 20-gauge core biopsies were obtained. Pathology was present and deemed the samples adequate. A tiny right apical pneumothorax was noted on the post biopsy scan which is estimated at 2-3%. A followup chest x-ray will be ordered. Impression: Successful CT-guided biopsy of the masslike lesion or consolidation in the left upper lobe.
[2018-03-20] MEDS: ZITHROMAX PO SCH (11:44)
[2018-03-20] MEDS: PEPCID PO SCH ×2 (11:44→22:36)
[2018-03-20] MEDS: ROCEPHIN/NS 2 GM/100 ML 2 GM/100 ML BAG IV SCH (11:46)
[2018-03-20] MEDS: LOVENOX SUB-Q SCH (11:50)
[2018-03-20] MEDS: HABITROL TD SCH (11:52)
[2018-03-20] MEDS: SODIUM CHLORIDE FLUSH SYRINGE 10 ML IV SCH ×2 (11:55→22:37)
--- NOTE | 2018-03-20 12:35 | Progress Note ---
Assessment and Plan Echo reviewed - EF 55-60%, trace MR. Thyroid profile WNL. Clinically improving. Cont cardizem. Pt with current CHADS score of 0 and thus systemic AC in regards to PAF is not indicated. Will d/c full dosage lovenox and initiate DVT prophylaxis. Currently stable cardiac status. Nothing further to add from cardiac perspective at this time. Will follow on as needed basis. Recommend pt follow up in our office with Dr. Ji Reyes within 1-2 weeks of hospital discharge ([phone]). The pt is has been seen in conjunction with Dr. Keys who agrees with the assessment and plan of care. - Patient Problems (1) Atrial fibrillation Current Visit: Yes Status: Acute (2) COPD exacerbation Current Visit: Yes Status: Acute (3) Pneumonia Current Visit: Yes Status: Acute Qualifiers: Pneumonia type: due to unspecified organism Laterality: left Lung location: upper lobe of lung Qualified Code(s): J18.1 - Lobar pneumonia, unspecified organism (4) Lung mass Current Visit: Yes Status: Acute (5) Pleural effusion Current Visit: Yes Status: Acute (6) Respiratory failure Current Visit: Yes Status: Acute Qualifiers: Chronicity: acute Respiratory failure complication: hypoxia Qualified Code(s): J96.01 - Acute respiratory failure with hypoxia (7) Nicotine dependence Current Visit: Yes Status: Chronic Qualifiers: Nicotine product type: cigarettes Substance use status: in withdrawal Qualified Code(s): F17.213 - Nicotine dependence, cigarettes, with withdrawal Subjective Date of service: 03/20/18 Principal diagnosis: Acute Hypoxemic Resp Failure; Lung Mass; Abnormal CT Chest ; Pneumonia (CAP) Interval history: Pt resting comfortably in bed, no current cardiac complaints. s/p thoracentesis this AM. tele reviewed - pt remains in NSR. Objective Last Vital Signs Temp 98.0 F 03/20/18 05:37 Pulse 90 03/20/18 10:37 Resp 20 03/20/18 10:37 BP 106/78 03/20/18 10:37 Pulse Ox 91 03/20/18 10:37 - Physical Examination General: No Apparent Distress HEENT: Positive: PERRL, Normocephaly, Mucus Membranes Moist Neck: Positive: neck supple, trachea midline Cardiac: Positive: Reg Rate and Rhythm, S1/S2 Lungs: Positive: Decreased Breath Sounds, Rhonchi Neuro: Positive: Grossly Intact Abdomen: Positive: Soft. Negative: Tender Skin: Positive: Clear. Negative: Rash, Wound Musculoskeletal: No Fluid Collection, No Pain, Normal Range of Motion Extremities: Absent: edema - Labs and Meds CBC 03/20/18 Range/Units 01:46 WBC 25.9 H (4.5-11.0) K/mm3 RBC 5.52 H (3.65-5.03) M/mm3 Hgb 15.3 H (11.8-15.2) gm/dl Hct 46.4 H (35.5-45.6) % Plt Count 299 (140-440) K/mm3 - Imaging and Cardiology EKG: report reviewed, image reviewed Echo: pending - Allied health notes Allied health notes reviewed: nursing
--- NOTE | 2018-03-20 12:49 | Progress Note ---
Subjective Date of service: 03/20/18 Principal diagnosis: Acute Hypoxemic Resp Failure; Lung Mass; Abnormal CT Chest ; Pneumonia (CAP) Interval history: Patient is seen today for: Acute Hypoxemic Resp Failure; Lung Mass; Abnormal CT Chest; Pneumonia (CAP) Seen and examined at bedside; 24hour events reviewed; nursing and respiratory care staff consulted; no adverse overnight events reported to me; Objective Vital Signs - 12hr 03/20/18 03/20/18 03/20/18 05:37 06:16 07:56 Temperature 98.0 F Pulse Rate 97 H 97 H Pulse Rate [ 79 Anterior Bilateral Throughout] Pulse Rate [ 84 Bilateral] Pulse Rate [ Intra-Procedure ] Pulse Rate [ Post-Procedure] Respiratory 20 Rate Respiratory 18 Rate [Anterior Bilateral Throughout] Respiratory 18 Rate [Bilateral ] Respiratory Rate [Intra- Procedure] Respiratory Rate [Post- Procedure] Blood Pressure 143/102 147/102 Blood Pressure [Intra- Procedure] Blood Pressure [Post-Procedure ] O2 Sat by Pulse 93 Oximetry O2 Sat by Pulse Oximetry [ Intra-Procedure ] O2 Sat by Pulse Oximetry [Post -Procedure] 03/20/18 03/20/18 03/20/18 07:57 10:08 10:14 Temperature Pulse Rate Pulse Rate [ Anterior Bilateral Throughout] Pulse Rate [ Bilateral] Pulse Rate [ 95 H 94 H Intra-Procedure ] Pulse Rate [ Post-Procedure] Respiratory Rate Respiratory Rate [Anterior Bilateral Throughout] Respiratory Rate [Bilateral ] Respiratory 24 22 Rate [Intra- Procedure] Respiratory Rate [Post- Procedure] Blood Pressure Blood Pressure 131/87 122/79 [Intra- Procedure] Blood Pressure [Post-Procedure ] O2 Sat by Pulse 97 Oximetry O2 Sat by Pulse 93 93 Oximetry [ Intra-Procedure ] O2 Sat by Pulse Oximetry [Post -Procedure] 03/20/18 03/20/18 10:19 10:37 Temperature Pulse Rate Pulse Rate [ Anterior Bilateral Throughout] Pulse Rate [ Bilateral] Pulse Rate [ 96 H Intra-Procedure ] Pulse Rate [ 90 Post-Procedure] Respiratory Rate Respiratory Rate [Anterior Bilateral Throughout] Respiratory Rate [Bilateral ] Respiratory 18 Rate [Intra- Procedure] Respiratory 20 Rate [Post- Procedure] Blood Pressure Blood Pressure 124/85 [Intra- Procedure] Blood Pressure 106/78 [Post-Procedure ] O2 Sat by Pulse Oximetry O2 Sat by Pulse 97 Oximetry [ Intra-Procedure ] O2 Sat by Pulse 91 Oximetry [Post -Procedure] Constitutional: alert, appears uncomfortable, other (middle aged male laying in bed with increased respiratory effot) Eyes: non-icteric ENT: oropharynx moist, other (mallampati 2) Neck: supple, no lymphadenopathy, no JVD, other (no thyromegaly) Effort: mildly labored Ascultation: Bilateral: diminished breath sounds, wheezes, rhonchi Percussion: Bilateral: not dull Cardiovascular: regular rate and rhythm, other (No R/M) Gastrointestinal: normoactive bowel sounds, soft, non-tender, non-distended Integumentary: normal Extremities: no cyanosis, no edema Neurologic: normal mental status, non-focal exam, pupils equal and round, CN II- XII normal Psychiatric: anxious CBC and BMP: 03/20/18 01:46 03/19/18 04:49 ABG, PT/INR, D-dimer: ABG POC ABG pH 7.429 (7.35-7.45) 03/14/18 14:02 POC ABG pCO2 44.2 (35-45) 03/14/18 14:02 POC ABG pO2 69 (80-105) L 03/14/18 14:02 POC ABG HCO3 29.3 03/14/18 14:02 POC ABG Total CO2 31 03/14/18 14:02 POC ABG O2 Sat 94 03/14/18 14:02 PT/INR, D-dimer PT 13.9 Sec. (12.2-14.9) 03/19/18 10:44 INR 1.02 (0.87-1.13) 03/19/18 10:44 D-Dimer 3816.61 ng/mlDDU (0-234) H 03/14/18 13:49 Abnormal lab findings: Abnormal Labs 03/14/18 03/14/18 03/14/18 13:42 13:42 13:49 WBC 19.5 H RBC 5.40 H Hgb Hct 46.0 H Plt Count 458 H Seg Neuts % (Manual) 75.0 H Lymphocytes % (Manual) 7.0 L Eosinophils % (Manual) 12.0 H Seg Neutrophils # Man 14.6 H Lymphocytes # (Manual) Monocytes # (Manual) 1.0 H Eosinophils # (Manual) 2.3 H Basophils # (Manual) 0.2 H D-Dimer 3816.61 H POC ABG pO2 Sodium 135 L Chloride 94.7 L Creatinine 0.6 L Glucose 129 H Total Creatine Kinase 42 L Total Protein Albumin 3.2 L 03/14/18 03/15/18 03/16/18 14:02 09:54 05:44 WBC 20.8 H 21.1 H RBC 5.41 H 5.27 H Hgb Hct 46.5 H Plt Count Seg Neuts % (Manual) Lymphocytes % (Manual) 6.0 L Eosinophils % (Manual) 18.0 H Seg Neutrophils # Man 12.0 H Lymphocytes # (Manual) Monocytes # (Manual) 1.5 H Eosinophils # (Manual) 3.8 H Basophils # (Manual) 0.2 H D-Dimer POC ABG pO2 69 L Sodium Chloride Creatinine Glucose Total Creatine Kinase Total Protein Albumin 03/16/18 03/17/18 03/19/18 05:44 05:16 04:49 WBC 23.1 H 24.9 H RBC 5.24 H 5.40 H Hgb Hct 45.7 H Plt Count Seg Neuts % (Manual) 73.0 H 94.0 H Lymphocytes % (Manual) 3.0 L 2.5 L Eosinophils % (Manual) Seg Neutrophils # Man 16.9 H 23.4 H Lymphocytes # (Manual) 0.7 L 0.6 L Monocytes # (Manual) Eosinophils # (Manual) Basophils # (Manual) D-Dimer POC ABG pO2 Sodium Chloride 97.3 L Creatinine 0.5 L Glucose 102 H Total Creatine Kinase Total Protein Albumin 03/19/18 03/20/18 04:49 01:46 WBC 25.9 H RBC 5.52 H Hgb 15.3 H Hct 46.4 H Plt Count Seg Neuts % (Manual) Lymphocytes % (Manual) Eosinophils % (Manual) Seg Neutrophils # Man Lymphocytes # (Manual) Monocytes # (Manual) Eosinophils # (Manual) Basophils # (Manual) D-Dimer POC ABG pO2 Sodium Chloride Creatinine 0.6 L Glucose 158 H Total Creatine Kinase Total Protein 6.0 L Albumin 3.3 L Allied health notes reviewed: nursing
--- NOTE | 2018-03-20 14:34 | XRay Report ---
AP CHEST: HISTORY: Lung mass, recent left lung biopsy Recent CT-guided biopsy of a left upper lobe mass/consolidation was performed. Followup chest x-ray demonstrates no appreciable pneumothorax. Bilateral interstitial prominence consistent with lymphangitic spread of cancer is unchanged. Small left pleural effusion is noted. Heart size is stable. IMPRESSION: No evidence for pneumothorax.
[2018-03-21] MEDS: DUONEB *Not for PRN Use IH SCH ×4 (01:48→19:22)
[2018-03-21] MEDS: CARDIZEM PO SCH ×3 (05:28→22:40)
[2018-03-21] MEDS: ROBITUSSIN PO PRN ×3 (05:28→22:40)
[2018-03-21] MEDS: ZITHROMAX PO SCH (11:13)
[2018-03-21] MEDS: PEPCID PO SCH ×2 (11:13→22:40)
[2018-03-21] MEDS: HABITROL TD SCH (11:14)
[2018-03-21] MEDS: ROCEPHIN/NS 2 GM/100 ML 2 GM/100 ML BAG IV SCH (11:14)
[2018-03-21] MEDS: LOVENOX SUB-Q SCH (11:15)
[2018-03-21] MEDS: SODIUM CHLORIDE FLUSH SYRINGE 10 ML IV SCH ×2 (11:16→22:43)
--- NOTE | 2018-03-21 14:23 | Hem/Onc Consultation ---
History of Present Illness - Reason for Consult Consult date: 03/21/18 Requesting physician: RENNY ESPARZA - History of Present Illness 52 YO Male with Nicotine Dependence presents to ED for evaluation. Pt states that he has experienced shortness of breath, and productive cough of clear sputum over the past 1 week, with worsening symptoms over the past 2 days. Pt denies fever, chills, CP, Palpitations, NVD, unintentional weight loss, night sweats, hemoptysis, BRBPR, known exposure to TB, recent ill contacts. He is feeling better overall. Had lung biopsy yesterday. Past History Past Medical History: other (Nicotine dependence) Past Surgical History: Other (Left hand) Social history: smoking, alcohol abuse Family history: no significant family history Medications and Allergies Allergies Allergy/AdvReac Type Severity Reaction Status Date / Time No Known Allergies Allergy Unverified 03/14/18 13:22 Home Medications Medication Instructions Recorded Confirmed Last Taken Type No Known Home Medications [No 03/14/18 03/14/18 Unknown History Reported Home Medications] Active Meds: Active Medications Acetaminophen (Tylenol) 650 mg PO Q4H PRN PRN Reason: Pain MILD(1-3)/Fever >100.5/[facility] Last Admin: 03/16/18 03:40 Dose: 650 mg Albuterol (Proventil) 2.5 mg IH Q4HRT PRN PRN Reason: Shortness Of Breath Last Admin: 03/15/18 13:05 Dose: 2.5 mg Albuterol/Ipratropium (Duoneb *Not For Prn Use*) 1 ampul IH Q6HRT [facility] Last Admin: 03/21/18 13:45 Dose: 1 ampul Azithromycin (Zithromax) 500 mg PO QDAY [facility] Last Admin: 03/21/18 11:13 Dose: 500 mg Diltiazem HCl (Cardizem) 60 mg PO Q8HR [facility] Last Admin: 03/21/18 05:28 Dose: 60 mg Enoxaparin Sodium (Lovenox) 40 mg SUB-Q DAILY [facility] Last Admin: 03/21/18 11:15 Dose: 40 mg Famotidine (Pepcid) 20 mg PO BID [facility] Last Admin: 03/21/18 11:13 Dose: 20 mg Guaifenesin (Robitussin) 200 mg PO Q4H PRN PRN Reason: Cough Last Admin: 03/21/18 11:13 Dose: 200 mg Ceftriaxone Sodium (Rocephin/Ns 2 Gm/100 Ml) 2 gm in 100 mls @ 200 mls/hr IV Q24HR [facility]; Protocol Last Admin: 03/21/18 11:14 Dose: 200 mls/hr Methylprednisolone Sodium Succinate (Solu-Medrol) 40 mg IV Q12HR [facility] Last Admin: 03/21/18 11:14 Dose: 40 mg Nicotine (Habitrol) 21 mg TD QDAY [facility] Last Admin: 03/21/18 11:14 Dose: 21 mg Ondansetron HCl (Zofran) 4 mg IV Q8H PRN PRN Reason: Nausea And Vomiting Last Admin: 03/14/18 18:10 Dose: 4 mg Sodium Chloride (Sodium Chloride Flush Syringe 10 Ml) 10 ml IV BID [facility] Last Admin: 03/21/18 11:16 Dose: 10 ml Sodium Chloride (Sodium Chloride Flush Syringe 10 Ml) 10 ml IV PRN PRN PRN Reason: LINE FLUSH Review of Systems All systems: negative (dyspnea and cough) Exam - Constitutional Vitals: Last Vital Signs Temp 98.0 F 03/21/18 11:56 Pulse 104 H 03/21/18 13:48 Resp 18 03/21/18 13:48 BP 136/85 03/21/18 11:56 Pulse Ox 90 03/21/18 11:56 Pain Intensity (0-10): denies any pain General appearance: mild distress Performance status: 1-light work, ambulatory - EENT Eyes: PERRL ENT: hearing intact Lymph node exam: bilateral cervical - Neck Neck: supple - Respiratory Respiratory effort: Positive: normal Respiratory: bilateral: CTA - Cardiovascular Rhythm: regular Heart Sounds: Present: S1 & S2 Extremities: No edema - Gastrointestinal General gastrointestinal: Present: soft, non-tender - Integumentary Integumentary: clear, warm - Musculoskeletal Musculoskeletal: strength equal bilaterally - Neurologic Neurologic: CNII-XII intact - Psychiatric Psychiatric: appropriate mood/affect Results - Imaging and cardiology CT scan - chest: report reviewed, image reviewed Assessment and Plan - Patient Problems (1) Lung mass Current Visit: Yes Status: Acute Plan to address problem: D/w Dr Kuo pathology and Dr. Bhatia RAdiology. Met with patient. He appears to hav elung cancer. Complete staging with MRI brain, CT abdomen pelvis and bone scan. Add EGFR, ALK , ROS1 and PDL-1 to pathology. He need to see us next week for follow up. HE agrees. CAn be Dc after the scans if stable.
--- NOTE | 2018-03-21 15:36 | Progress Note ---
Assessment and Plan Assessment and plan: Patient is a 52 yo [place] man who speaks fluent Upper Sorbian with a history of Nicotine Dependence who pw SOB and cough. Then On 03/17/18 he noted to be in atrial fib intermittently - placed on cardizem and lovenox. CTA chest suggestive for pleural effusion and lung mass. Ct guided biopsy of lung 03/20/18 CTA chest: 1. No evidence of large vessel or central pulmonary emboli. Mild cardiomegaly and pericardial effusion. 2. Mass-like opacities or consolidations and bilateral pleural effusions, left greater than right, which may represent acute infectious or inflammatory process versus nonspecific postinflammatory change or pneumonitis of uncertain etiology or chronicity. Neoplastic or metastatic disease are also diagnostic considerations. Clinical correlation and followup to resolution suggested. 3. Mediastinal and hilar adenopathy may be reactive, but nonspecific. 4. Left adrenal nodularity may represent adenomatous change, but is indeterminate. Followup may be warranted. CXR: Cardiomegaly. Asymmetrical pulmonary findings may represent pulmonary vascular congestion with edema. Differential diagnosis would include acute pneumonia and pneumonitis. Small to moderate left pleural effusion with adjacent compressive atelectasis. Underlying mass or consolidation is not excluded. -Left NSCLC with left pleural effusion consulted and d/w Oncology /Atrial fib, in SR today - started on cardizem po, therapeutic dose of lovenox till lung biopsy - 2d echo showed preserved EF, - no Anticoagulation per Cardiology /Sepsis due to b/l PNA Sepsis Protocol: cont IV antibiotics /B/l Pneumonia cont IV antibiotics, supplemental oxygen, / Acute hypoxic Respiratory failure due to b/l PNA and COPD exacerbation IV antibiotics, supplemental oxygen, nebulizer therapy, pulse oximetry, NIPPV as clinically indicated. trying to wean O2 /COPD with exacerbation - cont nebs, tapering steroids, supplemental O2 / Nicotine dependence Smoking cessation counseling Nicotine patch /DVT prophylaxis/GI PX SCD to BLE and lovenox/Pepcid Still on 3.5 which is new to him, d/w case management, will need to arrange home O2 (unfunded). Hopefully d/c tomorrow once o2 setup. History Interval history: Patient was seen and examined. Follow-up on current diagnosis of sob, improving but still on 3.5 liters of O2 (which is new to him). Overnight uneventful. Patient denies any chest pain, shortness breath, nausea/vomiting or severe headaches. Imaging, nursing note, chart, labs and old chart reviewed. Discussed with patient. Hospitalist Physical - Physical exam Narrative exam: GEN: WDWN, NAD, Awake, Alert, Orientated x 3 HEENT: NCAT, EOMI, PERRL, OP Clear NECK: supple, no adenopathy, no thyromegaly, no JVD CVS/HEART: RRR, heart 99 normal S1S2, pulses present bilaterally CHEST/LUNGS: diminished bilaterally, Symmetrical chest expansion, good air entry bilaterally GI/Abdomen: soft, NTND, good bowel sounds, no guarding or rebound /Bladder: no suprapubic tenderness, no CVA or paraspinal tenderness EXT/Skin: no c/c/e, no obvious rash MSK: FROM x 4 Neuro: CN 2-12 grossly intact, no new focal deficits Psych: calm - Constitutional Vitals: Temp Pulse Resp BP Pulse Ox 98.0 F 102 H 18 130/80 94 03/21/18 11:56 03/21/18 14:39 03/21/18 14:00 03/21/18 14:39 03/21/18 14:36 General appearance: Absent: mild distress Results - Labs CBC & Chem 7: 03/20/18 01:46 03/19/18 04:49 Labs: Laboratory Last Values WBC 25.9 K/mm3 (4.5-11.0) H 03/20/18 01:46 RBC 5.52 M/mm3 (3.65-5.03) H 03/20/18 01:46 Hgb 15.3 gm/dl (11.8-15.2) H 03/20/18 01:46 Hct 46.4 % (35.5-45.6) H 03/20/18 01:46 MCV 84 fl (84-94) 03/20/18 01:46 MCH 28 pg (28-32) 03/20/18 01:46 MCHC 33 % (32-34) 03/20/18 01:46 RDW 13.9 % (13.2-15.2) 03/20/18 01:46 Plt Count 299 K/mm3 (140-440) 03/20/18 01:46 Eos % (Auto) [employer] 03/14/18 13:42 Add Manual Diff Complete 03/19/18 04:49 Total Counted 200 03/19/18 04:49 Seg Neutrophils % [employer] 03/19/18 04:49 Seg Neuts % (Manual) 94.0 % (40.0-70.0) H 03/19/18 04:49 Band Neutrophils % 1.0 % 03/19/18 04:49 Lymphocytes % (Manual) 2.5 % (13.4-35.0) L 03/19/18 04:49 Reactive Lymphs % (Man) 0 % 03/19/18 04:49 Monocytes % (Manual) 2.5 % (0.0-7.3) 03/19/18 04:49 Eosinophils % (Manual) 0 % (0.0-4.3) 03/19/18 04:49 Basophils % (Manual) 0 % (0.0-1.8) 03/19/18 04:49 Metamyelocytes % 0 % 03/19/18 04:49 Myelocytes % 0 % 03/19/18 04:49 Promyelocytes % 0 % 03/19/18 04:49 Blast Cells % 0 % 03/19/18 04:49 Nucleated RBC % Not Reportable 03/19/18 04:49 Seg Neutrophils # Man 23.4 K/mm3 (1.8-7.7) H 03/19/18 04:49 Band Neutrophils # 0.2 K/mm3 03/19/18 04:49 Lymphocytes # (Manual) 0.6 K/mm3 (1.2-5.4) L 03/19/18 04:49 Abs React Lymphs (Man) 0.0 K/mm3 03/19/18 04:49 Monocytes # (Manual) 0.6 K/mm3 (0.0-0.8) 03/19/18 04:49 Eosinophils # (Manual) 0.0 K/mm3 (0.0-0.4) 03/19/18 04:49 Basophils # (Manual) 0.0 K/mm3 (0.0-0.1) 03/19/18 04:49 Metamyelocytes # 0.0 K/mm3 03/19/18 04:49 Myelocytes # 0.0 K/mm3 03/19/18 04:49 Promyelocytes # 0.0 K/mm3 03/19/18 04:49 Blast Cells # 0.0 K/mm3 03/19/18 04:49 WBC Morphology Not Reportable 03/19/18 04:49 Hypersegmented Neuts Not Reportable 03/19/18 04:49 Hyposegmented Neuts Not Reportable 03/19/18 04:49 Hypogranular Neuts Not Reportable 03/19/18 04:49 Smudge Cells Not Reportable 03/19/18 04:49 Toxic Granulation Not Reportable 03/19/18 04:49 Toxic Vacuolation Not Reportable 03/19/18 04:49 Dohle Bodies Not Reportable 03/19/18 04:49 Pelger-Huet Anomaly Not Reportable 03/19/18 04:49 Betty Rods Not Reportable 03/19/18 04:49 Platelet Estimate Consistent w auto 03/19/18 04:49 Clumped Platelets Not Reportable 03/19/18 04:49 Plt Clumps, EDTA Not Reportable 03/19/18 04:49 Large Platelets Not Reportable 03/19/18 04:49 Giant Platelets Not Reportable 03/19/18 04:49 Platelet Satelliting Not Reportable 03/19/18 04:49 Plt Morphology Comment Not Reportable 03/19/18 04:49 RBC Morphology Not Reportable 03/19/18 04:49 Dimorphic RBCs Not Reportable 03/19/18 04:49 Polychromasia Not Reportable 03/19/18 04:49 Hypochromasia Not Reportable 03/19/18 04:49 Poikilocytosis Not Reportable 03/19/18 04:49 Anisocytosis Not Reportable 03/19/18 04:49 Microcytosis Not Reportable 03/19/18 04:49 Macrocytosis Not Reportable 03/19/18 04:49 Spherocytes Not Reportable 03/19/18 04:49 Pappenheimer Bodies Not Reportable 03/19/18 04:49 Sickle Cells Not Reportable 03/19/18 04:49 Target Cells Not Reportable 03/19/18 04:49 Tear Drop Cells Not Reportable 03/19/18 04:49 Ovalocytes Not Reportable 03/19/18 04:49 Helmet Cells Not Reportable 03/19/18 04:49 Gordillo-Iron Post Bodies Not Reportable 03/19/18 04:49 [place] Rings Not Reportable 03/19/18 04:49 [place] Cells Not Reportable 03/19/18 04:49 Bite Cells Not Reportable 03/19/18 04:49 Crenated Cell Not Reportable 03/19/18 04:49 Elliptocytes Not Reportable 03/19/18 04:49 Acanthocytes (Spur) Not Reportable 03/19/18 04:49 Rouleaux Not Reportable 03/19/18 04:49 Hemoglobin C Crystals Not Reportable 03/19/18 04:49 Schistocytes Not Reportable 03/19/18 04:49 Malaria parasites Not Reportable 03/19/18 04:49 [place] Bodies Not Reportable 03/19/18 04:49 Hem Pathologist Commnt No 03/19/18 04:49 PT 13.9 Sec. (12.2-14.9) 03/19/18 10:44 INR 1.02 (0.87-1.13) 03/19/18 10:44 APTT 28.1 Sec. (24.2-36.6) 03/14/18 13:49 D-Dimer 3816.61 ng/mlDDU (0-234) H 03/14/18 13:49 POC ABG pH 7.429 (7.35-7.45) 03/14/18 14:02 POC ABG pCO2 44.2 (35-45) 03/14/18 14:02 POC ABG pO2 69 (80-105) L 03/14/18 14:02 POC ABG HCO3 29.3 03/14/18 14:02 POC ABG Total CO2 31 03/14/18 14:02 POC ABG O2 Sat 94 03/14/18 14:02 POC ABG Base Excess 5 03/14/18 14:02 FiO2 28 % 03/14/18 14:02 Sodium 141 mmol/L (137-145) 03/19/18 04:49 Potassium 3.9 mmol/L (3.6-5.0) 03/19/18 04:49 Chloride 99.0 mmol/L (98-107) 03/19/18 04:49 Carbon Dioxide 30 mmol/L (22-30) 03/19/18 04:49 Anion Gap 16 mmol/L 03/19/18 04:49 BUN 13 mg/dL (9-20) 03/19/18 04:49 Creatinine 0.6 mg/dL (0.8-1.5) L 03/19/18 04:49 Estimated GFR > 60 ml/min 03/19/18 04:49 BUN/Creatinine Ratio 22 % 03/19/18 04:49 Glucose 158 mg/dL (75-100) H 03/19/18 04:49 Lactic Acid 1.10 mmol/L (0.7-2.0) 03/14/18 22:36 Calcium 8.8 mg/dL (8.4-10.2) 03/19/18 04:49 Magnesium 2.10 mg/dL (1.7-2.3) 03/14/18 13:42 Total Bilirubin 0.30 mg/dL (0.1-1.2) 03/19/18 04:49 AST 14 units/L (5-40) 03/19/18 04:49 ALT 39 units/L (7-56) 03/19/18 04:49 Alkaline Phosphatase 60 units/L (35-129) 03/19/18 04:49 Lactate Dehydrogenase 176 units/L (91-180) 03/18/18 19:56 Total Creatine Kinase 42 units/L (55-170) L 03/14/18 13:42 CK-MB (CK-2) 1.6 ng/mL (0.0-4.0) 03/14/18 13:42 CK-MB (CK-2) Rel Index 3.8 (0-4) 03/14/18 13:42 Troponin T < 0.010 ng/mL (0.00-0.029) 03/14/18 13:42 Total Protein 6.0 g/dL (6.3-8.2) L 03/19/18 04:49 Albumin 3.3 g/dL (3.9-5) L 03/19/18 04:49 Albumin/Globulin Ratio 1.2 % 03/19/18 04:49 TSH 1.230 mlU/mL (0.270-4.200) 03/19/18 10:50 Free T4 1.31 ng/dL (0.76-1.46) 03/19/18 10:50 Urine Color Straw (Yellow) 03/14/18 21:01 Urine Turbidity Clear (Clear) 03/14/18 21:01 Urine pH 7.0 (5.0-7.0) 03/14/18 21:01 Ur Specific [place] 1.020 (1.003-1.030) 03/14/18 21:01 Urine Protein <15 mg/dl mg/dL (Negative) 03/14/18 21:01 Urine Glucose (UA) Neg mg/dL (Negative) 03/14/18 21:01 Urine Ketones Neg mg/dL (Negative) 03/14/18 21:01 Urine Blood Neg (Negative) 03/14/18 21:01 Urine Nitrite Neg (Negative) 03/14/18 21:01 Urine Bilirubin Neg (Negative) 03/14/18 21:01 Urine Urobilinogen < 2.0 mg/dL (<2.0) 03/14/18 21:01 Ur Leukocyte Esterase Neg (Negative) 03/14/18 21:01 Urine WBC (Auto) < 1.0 /HPF (0.0-6.0) 03/14/18 21:01 Urine RBC (Auto) 1.0 /HPF (0.0-6.0) 03/14/18 21:01 Fluid Type Pleural 03/18/18 Unknown Fluid Color Red 03/18/18 Unknown Fluid Appearance Bloody 03/18/18 Unknown Fluid WBC 330 /mm3 03/18/18 Unknown Fluid RBC 38527 /mm3 03/18/18 Unknown Fluid Diff Comment 03/18/18 Unknown Fluid Seg Neutrophils 26.0 % 03/18/18 Unknown Fluid Lymphocytes 36.0 % 03/18/18 Unknown Fluid Monocytes 38.0 % 03/18/18 Unknown
--- NOTE | 2018-03-21 22:59 | Progress Note ---
Assessment and Plan his is 52 year old oriental male admitted with shortness of breath, cough with productive white yellow sputum. Denies hemoptysis.Patient denies fever or chills. Patient has history of smoking 1 pack a day for may years. Stopped smoking 1 month ago. Drinks alcohol. Denies drug abuse. 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 and has two children. Denies other medical problems. No known allergies. Patient having cough. Mild to moderate shortness of breath. Patient presently on Venturi mask FIO2 40% and O2 saturation 97%. 03/21/18 Patient alert, awake. Says breathing better.Patient is on 3 litres O2. O2 saturation 93%. - Patient Problems (1) Pleural effusion Current Visit: Yes Status: Acute Plan to address problem: S/P Left thoracentesis. Reported Malignant cells present. Recommend to consult oncology. (2) Pneumonia Current Visit: Yes Status: Acute Qualifiers: Pneumonia type: due to unspecified organism Laterality: left Lung location: upper lobe of lung Qualified Code(s): J18.1 - Lobar pneumonia, unspecified organism Plan to address problem: Patient is on Rocephin and Zithromax. (3) Nicotine dependence Current Visit: Yes Status: Chronic Qualifiers: Nicotine product type: cigarettes Substance use status: in withdrawal Qualified Code(s): F17.213 - Nicotine dependence, cigarettes, with withdrawal Plan to address problem: Patient sayys stopped smoking 1 month ago. (4) COPD exacerbation Current Visit: Yes Status: Acute Plan to address problem: O2 supplementation 3 litres via nasal canula. Albuterol/atrovent aerosol treatments q 6 hours. Solumedrol 40 mg I/V q 12 hours. Recommend Lovenox S/C q 12 hours. Recommend GI Prophylaxis like Famotidine. Subjective Date of service: 03/21/18 Principal diagnosis: Acute Hypoxemic Resp Failure; Lung Mass; Abnormal CT Chest ; Pneumonia (CAP) Interval history: Patient alert, awake. Says breathing better.Patient is on 3 litres O2. O2 saturation 93%. Objective Vital Signs - 12hr 03/21/18 03/21/18 03/21/18 11:56 13:48 14:00 Temperature 98.0 F Pulse Rate 92 H Pulse Rate [ 104 H 104 H Anterior Bilateral Throughout] Respiratory 22 Rate Respiratory 18 18 Rate [Anterior Bilateral Throughout] Blood Pressure 136/85 O2 Sat by Pulse 90 Oximetry 03/21/18 03/21/18 03/21/18 14:36 14:39 16:18 Temperature 98.6 F Pulse Rate 102 H 94 H Pulse Rate [ Anterior Bilateral Throughout] Respiratory 20 Rate Respiratory Rate [Anterior Bilateral Throughout] Blood Pressure 130/80 122/81 O2 Sat by Pulse 94 92 Oximetry 03/21/18 03/21/18 03/21/18 19:22 19:23 19:37 Temperature Pulse Rate Pulse Rate [ 89 91 H Anterior Bilateral Throughout] Respiratory Rate Respiratory 18 18 Rate [Anterior Bilateral Throughout] Blood Pressure O2 Sat by Pulse 93 Oximetry 03/21/18 03/21/18 20:19 22:40 Temperature Pulse Rate 92 H Pulse Rate [ Anterior Bilateral Throughout] Respiratory Rate Respiratory Rate [Anterior Bilateral Throughout] Blood Pressure 124/70 O2 Sat by Pulse 95 Oximetry Constitutional: alert, appears uncomfortable, other (middle aged male laying in bed with increased respiratory effot) Eyes: non-icteric ENT: oropharynx moist, other (mallampati 2) Neck: supple, no lymphadenopathy, no JVD, other (no thyromegaly) Effort: mildly labored Ascultation: Bilateral: diminished breath sounds, wheezes, rhonchi Percussion: Bilateral: not dull Cardiovascular: regular rate and rhythm, other (No R/M) Gastrointestinal: normoactive bowel sounds, soft, non-tender, non-distended Integumentary: normal Extremities: no cyanosis, no edema Neurologic: normal mental status, non-focal exam, pupils equal and round, CN II- XII normal Psychiatric: anxious CBC and BMP: 03/20/18 01:46 03/19/18 04:49 ABG, PT/INR, D-dimer: ABG POC ABG pH 7.429 (7.35-7.45) 03/14/18 14:02 POC ABG pCO2 44.2 (35-45) 03/14/18 14:02 POC ABG pO2 69 (80-105) L 03/14/18 14:02 POC ABG HCO3 29.3 03/14/18 14:02 POC ABG Total CO2 31 03/14/18 14:02 POC ABG O2 Sat 94 03/14/18 14:02 PT/INR, D-dimer PT 13.9 Sec. (12.2-14.9) 03/19/18 10:44 INR 1.02 (0.87-1.13) 03/19/18 10:44 D-Dimer 3816.61 ng/mlDDU (0-234) H 03/14/18 13:49 Abnormal lab findings: Abnormal Labs 03/14/18 03/14/18 03/14/18 13:42 13:42 13:49 WBC 19.5 H RBC 5.40 H Hgb Hct 46.0 H Plt Count 458 H Seg Neuts % (Manual) 75.0 H Lymphocytes % (Manual) 7.0 L Eosinophils % (Manual) 12.0 H Seg Neutrophils # Man 14.6 H Lymphocytes # (Manual) Monocytes # (Manual) 1.0 H Eosinophils # (Manual) 2.3 H Basophils # (Manual) 0.2 H D-Dimer 3816.61 H POC ABG pO2 Sodium 135 L Chloride 94.7 L Creatinine 0.6 L Glucose 129 H Total Creatine Kinase 42 L Total Protein Albumin 3.2 L 03/14/18 03/15/18 03/16/18 14:02 09:54 05:44 WBC 20.8 H 21.1 H RBC 5.41 H 5.27 H Hgb Hct 46.5 H Plt Count Seg Neuts % (Manual) Lymphocytes % (Manual) 6.0 L Eosinophils % (Manual) 18.0 H Seg Neutrophils # Man 12.0 H Lymphocytes # (Manual) Monocytes # (Manual) 1.5 H Eosinophils # (Manual) 3.8 H Basophils # (Manual) 0.2 H D-Dimer POC ABG pO2 69 L Sodium Chloride Creatinine Glucose Total Creatine Kinase Total Protein Albumin 03/16/18 03/17/18 03/19/18 05:44 05:16 04:49 WBC 23.1 H 24.9 H RBC 5.24 H 5.40 H Hgb Hct 45.7 H Plt Count Seg Neuts % (Manual) 73.0 H 94.0 H Lymphocytes % (Manual) 3.0 L 2.5 L Eosinophils % (Manual) Seg Neutrophils # Man 16.9 H 23.4 H Lymphocytes # (Manual) 0.7 L 0.6 L Monocytes # (Manual) Eosinophils # (Manual) Basophils # (Manual) D-Dimer POC ABG pO2 Sodium Chloride 97.3 L Creatinine 0.5 L Glucose 102 H Total Creatine Kinase Total Protein Albumin 03/19/18 03/20/18 04:49 01:46 WBC 25.9 H RBC 5.52 H Hgb 15.3 H Hct 46.4 H Plt Count Seg Neuts % (Manual) Lymphocytes % (Manual) Eosinophils % (Manual) Seg Neutrophils # Man Lymphocytes # (Manual) Monocytes # (Manual) Eosinophils # (Manual) Basophils # (Manual) D-Dimer POC ABG pO2 Sodium Chloride Creatinine 0.6 L Glucose 158 H Total Creatine Kinase Total Protein 6.0 L Albumin 3.3 L Chest x-ray: report reviewed (Left post thoracentesis.), image reviewed Allied health notes reviewed: nursing
[2018-03-22] MEDS: DUONEB *Not for PRN Use IH SCH ×4 (03:16→20:27)
[2018-03-22] MEDS: CARDIZEM PO SCH ×3 (05:38→22:01)
[2018-03-22 07:19] LABS: LDH,Body Fluid 943; Total Protein,Body Fluid 3.6 (15.0-45.0)
--- NOTE | 2018-03-22 11:37 | Progress Note ---
Assessment and Plan Assessment and plan: Patient is a 52 yo [place] man who speaks fluent Icelandic with a history of Nicotine Dependence who pw SOB and cough. Then On 03/17/18 he noted to be in atrial fib intermittently - placed on cardizem and lovenox. CTA chest suggestive for pleural effusion and lung mass. Ct guided biopsy of lung 03/20/18 CTA chest: 1. No evidence of large vessel or central pulmonary emboli. Mild cardiomegaly and pericardial effusion. 2. Mass-like opacities or consolidations and bilateral pleural effusions, left greater than right, which may represent acute infectious or inflammatory process versus nonspecific postinflammatory change or pneumonitis of uncertain etiology or chronicity. Neoplastic or metastatic disease are also diagnostic considerations. Clinical correlation and followup to resolution suggested. 3. Mediastinal and hilar adenopathy may be reactive, but nonspecific. 4. Left adrenal nodularity may represent adenomatous change, but is indeterminate. Followup may be warranted. CXR: Cardiomegaly. Asymmetrical pulmonary findings may represent pulmonary vascular congestion with edema. Differential diagnosis would include acute pneumonia and pneumonitis. Small to moderate left pleural effusion with adjacent compressive atelectasis. Underlying mass or consolidation is not excluded. -Left NSCLC with left pleural effusion consulted and d/w Oncology /Atrial fib, in SR today - started on cardizem po, therapeutic dose of lovenox till lung biopsy - 2d echo showed preserved EF, - no Anticoagulation per Cardiology /Sepsis due to b/l PNA Sepsis Protocol: cont IV antibiotics /B/l Pneumonia cont IV antibiotics, supplemental oxygen, / Acute hypoxic Respiratory failure due to b/l PNA and COPD exacerbation IV antibiotics, supplemental oxygen, nebulizer therapy, pulse oximetry, NIPPV as clinically indicated. trying to wean O2 /COPD with exacerbation - cont nebs, tapering steroids, supplemental O2 / Nicotine dependence Smoking cessation counseling Nicotine patch /DVT prophylaxis/GI PX SCD to BLE and lovenox/Pepcid Still on 3.5 which is new to him, d/w case management, will need to arrange home O2 (unfunded). Hopefully d/c once o2 setup. Going for staging today, home O2 still being arranged. Notified Dr. Rae of the Brain met found on MRI brain, abd CT results still pending, Bone scan tomorrow. History Interval history: Patient was seen and examined. Follow-up on current diagnosis of sob, improving but still on 3.5 liters of O2 (which is new to him). Overnight uneventful. Patient denies any chest pain, shortness breath, nausea/vomiting or severe headaches. Imaging, nursing note, chart, labs and old chart reviewed. Discussed with patient. Hospitalist Physical - Physical exam Narrative exam: GEN: WDWN, NAD, Awake, Alert, Orientated x 3 HEENT: NCAT, EOMI, PERRL, OP Clear NECK: supple, no adenopathy, no thyromegaly, no JVD CVS/HEART: RRR, heart 99 normal S1S2, pulses present bilaterally CHEST/LUNGS: diminished bilaterally, Symmetrical chest expansion, good air entry bilaterally GI/Abdomen: soft, NTND, good bowel sounds, no guarding or rebound /Bladder: no suprapubic tenderness, no CVA or paraspinal tenderness EXT/Skin: no c/c/e, no obvious rash MSK: FROM x 4 Neuro: CN 2-12 grossly intact, no new focal deficits Psych: calm - Constitutional Vitals: Temp Pulse Resp BP Pulse Ox 97.7 F 92 H 18 143/93 95 03/22/18 05:38 03/22/18 08:29 03/22/18 08:29 03/22/18 05:38 03/22/18 08:23 General appearance: Absent: mild distress Results - Labs CBC & Chem 7: 03/20/18 01:46 03/19/18 04:49 Labs: Laboratory Last Values WBC 25.9 K/mm3 (4.5-11.0) H 03/20/18 01:46 RBC 5.52 M/mm3 (3.65-5.03) H 03/20/18 01:46 Hgb 15.3 gm/dl (11.8-15.2) H 03/20/18 01:46 Hct 46.4 % (35.5-45.6) H 03/20/18 01:46 MCV 84 fl (84-94) 03/20/18 01:46 MCH 28 pg (28-32) 03/20/18 01:46 MCHC 33 % (32-34) 03/20/18 01:46 RDW 13.9 % (13.2-15.2) 03/20/18 01:46 Plt Count 299 K/mm3 (140-440) 03/20/18 01:46 Eos % (Auto) Emergency Room Tech 03/14/18 13:42 Add Manual Diff Complete 03/19/18 04:49 Total Counted 200 03/19/18 04:49 Seg Neutrophils % Emergency Room Tech 03/19/18 04:49 Seg Neuts % (Manual) 94.0 % (40.0-70.0) H 03/19/18 04:49 Band Neutrophils % 1.0 % 03/19/18 04:49 Lymphocytes % (Manual) 2.5 % (13.4-35.0) L 03/19/18 04:49 Reactive Lymphs % (Man) 0 % 03/19/18 04:49 Monocytes % (Manual) 2.5 % (0.0-7.3) 03/19/18 04:49 Eosinophils % (Manual) 0 % (0.0-4.3) 03/19/18 04:49 Basophils % (Manual) 0 % (0.0-1.8) 03/19/18 04:49 Metamyelocytes % 0 % 03/19/18 04:49 Myelocytes % 0 % 03/19/18 04:49 Promyelocytes % 0 % 03/19/18 04:49 Blast Cells % 0 % 03/19/18 04:49 Nucleated RBC % Not Reportable 03/19/18 04:49 Seg Neutrophils # Man 23.4 K/mm3 (1.8-7.7) H 03/19/18 04:49 Band Neutrophils # 0.2 K/mm3 03/19/18 04:49 Lymphocytes # (Manual) 0.6 K/mm3 (1.2-5.4) L 03/19/18 04:49 Abs React Lymphs (Man) 0.0 K/mm3 03/19/18 04:49 Monocytes # (Manual) 0.6 K/mm3 (0.0-0.8) 03/19/18 04:49 Eosinophils # (Manual) 0.0 K/mm3 (0.0-0.4) 03/19/18 04:49 Basophils # (Manual) 0.0 K/mm3 (0.0-0.1) 03/19/18 04:49 Metamyelocytes # 0.0 K/mm3 03/19/18 04:49 Myelocytes # 0.0 K/mm3 03/19/18 04:49 Promyelocytes # 0.0 K/mm3 03/19/18 04:49 Blast Cells # 0.0 K/mm3 03/19/18 04:49 WBC Morphology Not Reportable 03/19/18 04:49 Hypersegmented Neuts Not Reportable 03/19/18 04:49 Hyposegmented Neuts Not Reportable 03/19/18 04:49 Hypogranular Neuts Not Reportable 03/19/18 04:49 Smudge Cells Not Reportable 03/19/18 04:49 Toxic Granulation Not Reportable 03/19/18 04:49 Toxic Vacuolation Not Reportable 03/19/18 04:49 Dohle Bodies Not Reportable 03/19/18 04:49 Pelger-Huet Anomaly Not Reportable 03/19/18 04:49 Betty Rods Not Reportable 03/19/18 04:49 Platelet Estimate Consistent w auto 03/19/18 04:49 Clumped Platelets Not Reportable 03/19/18 04:49 Plt Clumps, EDTA Not Reportable 03/19/18 04:49 Large Platelets Not Reportable 03/19/18 04:49 Giant Platelets Not Reportable 03/19/18 04:49 Platelet Satelliting Not Reportable 03/19/18 04:49 Plt Morphology Comment Not Reportable 03/19/18 04:49 RBC Morphology Not Reportable 03/19/18 04:49 Dimorphic RBCs Not Reportable 03/19/18 04:49 Polychromasia Not Reportable 03/19/18 04:49 Hypochromasia Not Reportable 03/19/18 04:49 Poikilocytosis Not Reportable 03/19/18 04:49 Anisocytosis Not Reportable 03/19/18 04:49 Microcytosis Not Reportable 03/19/18 04:49 Macrocytosis Not Reportable 03/19/18 04:49 Spherocytes Not Reportable 03/19/18 04:49 Pappenheimer Bodies Not Reportable 03/19/18 04:49 Sickle Cells Not Reportable 03/19/18 04:49 Target Cells Not Reportable 03/19/18 04:49 Tear Drop Cells Not Reportable 03/19/18 04:49 Ovalocytes Not Reportable 03/19/18 04:49 Helmet Cells Not Reportable 03/19/18 04:49 [place] Bodies Not Reportable 03/19/18 04:49 [place] Rings Not Reportable 03/19/18 04:49 [place] Cells Not Reportable 03/19/18 04:49 Bite Cells Not Reportable 03/19/18 04:49 Crenated Cell Not Reportable 03/19/18 04:49 Elliptocytes Not Reportable 03/19/18 04:49 Acanthocytes (Spur) Not Reportable 03/19/18 04:49 Rouleaux Not Reportable 03/19/18 04:49 Hemoglobin C Crystals Not Reportable 03/19/18 04:49 Schistocytes Not Reportable 03/19/18 04:49 Malaria parasites Not Reportable 03/19/18 04:49 [place] Bodies Not Reportable 03/19/18 04:49 Hem Pathologist Commnt No 03/19/18 04:49 PT 13.9 Sec. (12.2-14.9) 03/19/18 10:44 INR 1.02 (0.87-1.13) 03/19/18 10:44 APTT 28.1 Sec. (24.2-36.6) 03/14/18 13:49 D-Dimer 3816.61 ng/mlDDU (0-234) H 03/14/18 13:49 POC ABG pH 7.429 (7.35-7.45) 03/14/18 14:02 POC ABG pCO2 44.2 (35-45) 03/14/18 14:02 POC ABG pO2 69 (80-105) L 03/14/18 14:02 POC ABG HCO3 29.3 03/14/18 14:02 POC ABG Total CO2 31 03/14/18 14:02 POC ABG O2 Sat 94 03/14/18 14:02 POC ABG Base Excess 5 03/14/18 14:02 FiO2 28 % 03/14/18 14:02 Sodium 141 mmol/L (137-145) 03/19/18 04:49 Potassium 3.9 mmol/L (3.6-5.0) 03/19/18 04:49 Chloride 99.0 mmol/L (98-107) 03/19/18 04:49 Carbon Dioxide 30 mmol/L (22-30) 03/19/18 04:49 Anion Gap 16 mmol/L 03/19/18 04:49 BUN 13 mg/dL (9-20) 03/19/18 04:49 Creatinine 0.6 mg/dL (0.8-1.5) L 03/19/18 04:49 Estimated GFR > 60 ml/min 03/19/18 04:49 BUN/Creatinine Ratio 22 % 03/19/18 04:49 Glucose 158 mg/dL (75-100) H 03/19/18 04:49 Lactic Acid 1.10 mmol/L (0.7-2.0) 03/14/18 22:36 Calcium 8.8 mg/dL (8.4-10.2) 03/19/18 04:49 Magnesium 2.10 mg/dL (1.7-2.3) 03/14/18 13:42 Total Bilirubin 0.30 mg/dL (0.1-1.2) 03/19/18 04:49 AST 14 units/L (5-40) 03/19/18 04:49 ALT 39 units/L (7-56) 03/19/18 04:49 Alkaline Phosphatase 60 units/L (35-129) 03/19/18 04:49 Lactate Dehydrogenase 176 units/L (91-180) 03/18/18 19:56 Total Creatine Kinase 42 units/L (55-170) L 03/14/18 13:42 CK-MB (CK-2) 1.6 ng/mL (0.0-4.0) 03/14/18 13:42 CK-MB (CK-2) Rel Index 3.8 (0-4) 03/14/18 13:42 Troponin T < 0.010 ng/mL (0.00-0.029) 03/14/18 13:42 Total Protein 6.0 g/dL (6.3-8.2) L 03/19/18 04:49 Albumin 3.3 g/dL (3.9-5) L 03/19/18 04:49 Albumin/Globulin Ratio 1.2 % 03/19/18 04:49 TSH 1.230 mlU/mL (0.270-4.200) 03/19/18 10:50 Free T4 1.31 ng/dL (0.76-1.46) 03/19/18 10:50 Urine Color Straw (Yellow) 03/14/18 21:01 Urine Turbidity Clear (Clear) 03/14/18 21:01 Urine pH 7.0 (5.0-7.0) 03/14/18 21:01 Ur Specific [place] 1.020 (1.003-1.030) 03/14/18 21:01 Urine Protein <15 mg/dl mg/dL (Negative) 03/14/18 21:01 Urine Glucose (UA) Neg mg/dL (Negative) 03/14/18 21:01 Urine Ketones Neg mg/dL (Negative) 03/14/18 21:01 Urine Blood Neg (Negative) 03/14/18 21:01 Urine Nitrite Neg (Negative) 03/14/18 21:01 Urine Bilirubin Neg (Negative) 03/14/18 21:01 Urine Urobilinogen < 2.0 mg/dL (<2.0) 03/14/18 21:01 Ur Leukocyte Esterase Neg (Negative) 03/14/18 21:01 Urine WBC (Auto) < 1.0 /HPF (0.0-6.0) 03/14/18 21:01 Urine RBC (Auto) 1.0 /HPF (0.0-6.0) 03/14/18 21:01 Fluid Type Pleural 03/18/18 Unknown Fluid Color Red 03/18/18 Unknown Fluid Appearance Bloody 03/18/18 Unknown Fluid WBC 330 /mm3 03/18/18 Unknown Fluid RBC 35778 /mm3 03/18/18 Unknown Fluid Diff Comment 03/18/18 Unknown Fluid Seg Neutrophils 26.0 % 03/18/18 Unknown Fluid Lymphocytes 36.0 % 03/18/18 Unknown Fluid Monocytes 38.0 % 03/18/18 Unknown Fluid Total Protein 3.6 (15.0-45.0) L 03/18/18 Unknown Fluid LDH 943 03/18/18 Unknown
--- NOTE | 2018-03-22 12:49 | Hem/Onc Progress Note ---
Assessment and Plan Discussed with Dr. Peres. If scans okay, he can go home and follow-up with Dr. Koo. Awaiting mutation testing which hopefully will be back next week to see if there is any actionable or targetable mutation on his lung cancer Subjective Date of service: 03/22/18 Interval history: Patient feels fair. Had MRI of the head and CT abdomen results are pending. Overall feels fair. Shortness of breath is better. Objective - Constitutional Vitals: Last Vital Signs Temp 97.8 F 03/22/18 11:44 Pulse 101 H 03/22/18 11:44 Resp 18 03/22/18 11:44 BP 131/90 03/22/18 11:44 Pulse Ox 87 03/22/18 11:44 General appearance: mild distress Performance status: 2- selfcare, ambulatory - Neck Neck: supple - Respiratory Respiratory effort: Positive: normal Respiratory: bilateral: diminished - Cardiovascular Rhythm: regular - Labs Lab Results: Laboratory Results - last 24 hr 03/18/18 Unknown Fluid Total Protein 3.6 L Fluid LDH 943
--- NOTE | 2018-03-22 12:52 | Magnetic Resonance Report ---
MRI BRAIN WITH AND WITHOUT CONTRAST INDICATION: Lung cancer. COMPARISON: None similar. FINDINGS: Multiplanar and multisequence MRI of the brain performed before and after IV contrast demonstrates an approximately 0.7 cm high right frontal lobe ring-enhancing cortical/subcortical lesion as on axial series 10, image 21 and coronal series 11, image 17, amongst others. Approximately 3 cm right frontal white matter edema surrounding this lesion also seen on FLAIR and T2 weighted sequences. This lesion also demonstrates restricted diffusion, though not hypointense on the ADC sequence. Otherwise normal ventricles and sulci. No acute hemorrhage, mass effect or midline shift. No abnormal extra-axial masses or fluid collections. Normal major intracranial vascular flow voids. Normal posterior fossa with symmetric seventh and eighth nerve complexes and preserved basilar cisterns. Right facial susceptibility artifact from possible hardware noted. Slight nasal septal deviation anteriorly. Grossly clear imaged paranasal sinuses and temporal bone air cells, though mastoid tips appear not well aerated. Normal eye globes. Normal midline structures without evidence of Chiari malformation. CONCLUSION: 1. Approximately 7 mm high right frontal metastatic lesion with surrounding edema identified without midline shift, as described. 2. Few other findings, as above. Thank you for the opportunity to participate in this patient's care.
[2018-03-22] MEDS: HABITROL TD SCH (13:25)
[2018-03-22] MEDS: ZITHROMAX PO SCH (13:26)
[2018-03-22] MEDS: PEPCID PO SCH ×2 (13:26→22:01)
[2018-03-22] MEDS: SODIUM CHLORIDE FLUSH SYRINGE 10 ML IV SCH ×2 (13:27→22:04)
[2018-03-22] MEDS: LOVENOX SUB-Q SCH (15:38)
[2018-03-22] MEDS: ROCEPHIN/NS 2 GM/100 ML 2 GM/100 ML BAG IV SCH (15:38)
--- NOTE | 2018-03-22 16:46 | Cat Scan Report ---
FINAL REPORT EXAM: CT ABDOMEN PELVIS W CON HISTORY: Lung cancer TECHNIQUE: Standard enhanced CT of the abdomen and pelvis. Coronal and sagittal reconstruction was also performed. Delayed imaging through the abdomen pelvis was obtained. Contrast: 100 mL Isovue 300 given IV. Oral contrast was given PRIORS: CT chest 03/14/2018 FINDINGS: Within the abdomen, the liver, spleen, pancreas, gallbladder, right adrenal gland, and right kidney are unremarkable. There is a 1.5 x 0.6 x 1.3 cm nonobstructing calculus in the lower pole left kidney. There is a bilobed low-density nodule in the left adrenal gland overall measuring 3.3 cm in length and 1.3 cm in maximum diameter. Given history of lung cancer, possible metastatic lesion can be suspected. No evidence for retroperitoneal or pelvic lymphadenopathy is seen. Moderate stool is present throughout the colon consistent with constipation. The bowel loops have normal caliber. No fluid collection, inflammatory change, or free air is seen within the abdomen or pelvis. The appendix is normal. Within the pelvis, the bladder is unremarkable. The prostate is normal. No evidence for mass or lymphadenopathy is seen in the pelvis. Images through the upper abdomen include the lung bases which again show a loculated left pleural effusion and small right free-flowing pleural effusion. However, infiltrates seen previously in the lung bases have improved. Bony structures show an expansile lytic lesion involving the anterior lateral right 6th rib (axial image 3, series 2) suspicious for metastatic lesion.. IMPRESSION: 1. Bilobed mass in the left adrenal gland. Given the history of lung cancer, metastatic lesion should be suspected. An unenhanced CT of the adrenals may be helpful to exclude a fatty adenoma 2. Calculus in lower pole left kidney 3. Improved infiltrates in the lung bases 4. Persistence bilateral effusions, loculated on the left. 5. Suspected bone metastases involving the right anterior lateral 6th rib
--- NOTE | 2018-03-22 18:47 | Progress Note ---
Assessment and Plan his is 52 year old oriental male admitted with shortness of breath, cough with productive white yellow sputum. Denies hemoptysis.Patient denies fever or chills. Patient has history of smoking 1 pack a day for may years. Stopped smoking 1 month ago. Drinks alcohol. Denies drug abuse. 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 and has two children. Denies other medical problems. No known allergies. Patient having cough. Mild to moderate shortness of breath. Patient presently on Venturi mask FIO2 40% and O2 saturation 97%. 03/21/18 Patient alert, awake. Says breathing better.Patient is on 3 litres O2. O2 saturation 93%. 03/22/18 Patient alert, awake. Says breathing better.Patient is on 3 litres O2. O2 saturation 91%.Pleural fluid positive for malignant cell. Also reported metastatic lesions in brain, ribs and adrenal glands.Oncology consulted. - Patient Problems (1) Pleural effusion Current Visit: Yes Status: Acute Plan to address problem: S/P Left thoracentesis. Pleural fluid positive for Malignant cells. Oncology consulted. (2) Pneumonia Current Visit: Yes Status: Acute Qualifiers: Pneumonia type: due to unspecified organism Laterality: left Lung location: upper lobe of lung Qualified Code(s): J18.1 - Lobar pneumonia, unspecified organism Plan to address problem: Patient is on Rocephin and Zithromax. (3) Nicotine dependence Current Visit: Yes Status: Chronic Qualifiers: Nicotine product type: cigarettes Substance use status: in withdrawal Qualified Code(s): F17.213 - Nicotine dependence, cigarettes, with withdrawal Plan to address problem: Patient says stopped smoking 1 month ago. (4) COPD exacerbation Current Visit: Yes Status: Acute Plan to address problem: O2 supplementation 3 litres via nasal canula. Albuterol/atrovent aerosol treatments q 6 hours. Solumedrol 40 mg I/V q 12 hours. Recommend Lovenox S/C q 12 hours. Recommend GI Prophylaxis like Famotidine. Subjective Date of service: 03/22/18 Principal diagnosis: Acute Hypoxemic Resp Failure; Lung Mass; Abnormal CT Chest ; Pneumonia (CAP) Interval history: Patient alert, awake. Says breathing better.Patient is on 3 litres O2. O2 saturation 91%.Pleural fluid positive for malignant cell. Also reported metastatic lesions in brain, ribs and adrenal glands.Oncology consulted. Objective Vital Signs - 12hr 03/22/18 03/22/18 03/22/18 08:18 08:23 08:29 Temperature Pulse Rate Pulse Rate [ 95 H 92 H Anterior Bilateral Throughout] Pulse Rate [ 95 H 92 H Posterior Bilateral Throughout] Respiratory Rate Respiratory 18 18 Rate [Anterior Bilateral Throughout] Respiratory 18 18 Rate [Posterior Bilateral Throughout] Blood Pressure O2 Sat by Pulse 95 Oximetry 03/22/18 03/22/18 03/22/18 11:44 13:20 13:42 Temperature 97.8 F Pulse Rate 101 H Pulse Rate [ 96 H Anterior Bilateral Throughout] Pulse Rate [ 96 H 106 H Posterior Bilateral Throughout] Respiratory 18 Rate Respiratory 20 Rate [Anterior Bilateral Throughout] Respiratory 18 18 Rate [Posterior Bilateral Throughout] Blood Pressure 131/90 O2 Sat by Pulse 87 Oximetry 03/22/18 17:12 Temperature 98.2 F Pulse Rate 105 H Pulse Rate [ Anterior Bilateral Throughout] Pulse Rate [ Posterior Bilateral Throughout] Respiratory 20 Rate Respiratory Rate [Anterior Bilateral Throughout] Respiratory Rate [Posterior Bilateral Throughout] Blood Pressure 141/88 O2 Sat by Pulse 91 Oximetry Constitutional: no acute distress, alert Eyes: non-icteric ENT: oropharynx moist, other (mallampati 2) Neck: supple, no lymphadenopathy, no JVD, other (no thyromegaly) Effort: mildly labored Ascultation: Bilateral: diminished breath sounds, wheezes, rhonchi Percussion: Bilateral: not dull Cardiovascular: regular rate and rhythm, other (No R/M) Gastrointestinal: normoactive bowel sounds, soft, non-tender, non-distended Integumentary: normal Extremities: no cyanosis, no edema Neurologic: normal mental status, non-focal exam, pupils equal and round, CN II- XII normal Psychiatric: anxious CBC and BMP: 03/20/18 01:46 03/19/18 04:49 ABG, PT/INR, D-dimer: ABG POC ABG pH 7.429 (7.35-7.45) 03/14/18 14:02 POC ABG pCO2 44.2 (35-45) 03/14/18 14:02 POC ABG pO2 69 (80-105) L 03/14/18 14:02 POC ABG HCO3 29.3 03/14/18 14:02 POC ABG Total CO2 31 03/14/18 14:02 POC ABG O2 Sat 94 03/14/18 14:02 PT/INR, D-dimer PT 13.9 Sec. (12.2-14.9) 03/19/18 10:44 INR 1.02 (0.87-1.13) 03/19/18 10:44 D-Dimer 3816.61 ng/mlDDU (0-234) H 03/14/18 13:49 Abnormal lab findings: Abnormal Labs 03/14/18 03/14/18 03/14/18 13:42 13:42 13:49 WBC 19.5 H RBC 5.40 H Hgb Hct 46.0 H Plt Count 458 H Seg Neuts % (Manual) 75.0 H Lymphocytes % (Manual) 7.0 L Eosinophils % (Manual) 12.0 H Seg Neutrophils # Man 14.6 H Lymphocytes # (Manual) Monocytes # (Manual) 1.0 H Eosinophils # (Manual) 2.3 H Basophils # (Manual) 0.2 H D-Dimer 3816.61 H POC ABG pO2 Sodium 135 L Chloride 94.7 L Creatinine 0.6 L Glucose 129 H Total Creatine Kinase 42 L Total Protein Albumin 3.2 L Fluid Total Protein 03/14/18 03/15/18 03/16/18 14:02 09:54 05:44 WBC 20.8 H 21.1 H RBC 5.41 H 5.27 H Hgb Hct 46.5 H Plt Count Seg Neuts % (Manual) Lymphocytes % (Manual) 6.0 L Eosinophils % (Manual) 18.0 H Seg Neutrophils # Man 12.0 H Lymphocytes # (Manual) Monocytes # (Manual) 1.5 H Eosinophils # (Manual) 3.8 H Basophils # (Manual) 0.2 H D-Dimer POC ABG pO2 69 L Sodium Chloride Creatinine Glucose Total Creatine Kinase Total Protein Albumin Fluid Total Protein 03/16/18 03/17/18 03/18/18 05:44 05:16 Unknown WBC 23.1 H RBC 5.24 H Hgb Hct Plt Count Seg Neuts % (Manual) 73.0 H Lymphocytes % (Manual) 3.0 L Eosinophils % (Manual) Seg Neutrophils # Man 16.9 H Lymphocytes # (Manual) 0.7 L Monocytes # (Manual) Eosinophils # (Manual) Basophils # (Manual) D-Dimer POC ABG pO2 Sodium Chloride 97.3 L Creatinine 0.5 L Glucose 102 H Total Creatine Kinase Total Protein Albumin Fluid Total Protein 3.6 L 03/19/18 03/19/18 03/20/18 04:49 04:49 01:46 WBC 24.9 H 25.9 H RBC 5.40 H 5.52 H Hgb 15.3 H Hct 45.7 H 46.4 H Plt Count Seg Neuts % (Manual) 94.0 H Lymphocytes % (Manual) 2.5 L Eosinophils % (Manual) Seg Neutrophils # Man 23.4 H Lymphocytes # (Manual) 0.6 L Monocytes # (Manual) Eosinophils # (Manual) Basophils # (Manual) D-Dimer POC ABG pO2 Sodium Chloride Creatinine 0.6 L Glucose 158 H Total Creatine Kinase Total Protein 6.0 L Albumin 3.3 L Fluid Total Protein Allied health notes reviewed: nursing
[2018-03-23] MEDS: DUONEB *Not for PRN Use IH SCH ×3 (03:11→14:04)
[2018-03-23] MEDS: CARDIZEM PO SCH ×2 (06:16→14:36)
--- NOTE | 2018-03-23 07:51 | Progress Note ---
Assessment and Plan Assessment and plan: Patient is a 52 yo [place] man who speaks fluent Wolof with a history of Nicotine Dependence who pw SOB and cough. Then On 03/17/18 he noted to be in atrial fib intermittently - placed on cardizem and lovenox. CTA chest suggestive for pleural effusion and lung mass. Ct guided biopsy of lung 03/20/18 * CTA chest: 1. No evidence of large vessel or central pulmonary emboli. Mild cardiomegaly and pericardial effusion. 2. Mass-like opacities or consolidations and bilateral pleural effusions, left greater than right, which may represent acute infectious or inflammatory process versus nonspecific postinflammatory change or pneumonitis of uncertain etiology or chronicity. Neoplastic or metastatic disease are also diagnostic considerations. Clinical correlation and followup to resolution suggested. 3. Mediastinal and hilar adenopathy may be reactive, but nonspecific. 4. Left adrenal nodularity may represent adenomatous change, but is indeterminate. Followup may be warranted. * CXR: Cardiomegaly. Asymmetrical pulmonary findings may represent pulmonary vascular congestion with edema. Differential diagnosis would include acute pneumonia and pneumonitis. Small to moderate left pleural effusion with adjacent compressive atelectasis. Underlying mass or consolidation is not excluded. * CT abd/pelvis with contrast IMPRESSION: 1. Bilobed mass in the left adrenal gland. Given the history of lung cancer, metastatic lesion should be suspected. An unenhanced CT of the adrenals may be helpful to exclude a fatty adenoma 2. Calculus in lower pole left kidney 3. Improved infiltrates in the lung bases 4. Persistence bilateral effusions, loculated on the left. 5. Suspected bone metastases involving the right anterior lateral 6th rib * MRI brain with and without contrast CONCLUSION: 1. Approximately 7 mm high right frontal metastatic lesion with surrounding edema identified without midline shift, as described. 2. Few other findings, as above. -Left NSCLC with mets consulted and d/w Oncology /Atrial fib, in SR today - started on cardizem po, therapeutic dose of lovenox till lung biopsy - 2d echo showed preserved EF, - no Anticoagulation per Cardiology /Sepsis due to b/l PNA Sepsis Protocol: cont IV antibiotics /B/l Pneumonia cont IV antibiotics, supplemental oxygen, / Acute hypoxic Respiratory failure due to b/l PNA and COPD exacerbation IV antibiotics, supplemental oxygen, nebulizer therapy, pulse oximetry, NIPPV as clinically indicated. trying to wean O2 /COPD with exacerbation - cont nebs, tapering steroids, supplemental O2 / Nicotine dependence Smoking cessation counseling Nicotine patch /DVT prophylaxis/GI PX SCD to BLE and lovenox/Pepcid Still on o2 which is new to him, d/w case management, will need to arrange home O2 (unfunded). home O2 still being arranged. Notified Dr. Rae of the Brain met found on MRI brain, XRT to start after dishcharge per Dr. Escobar. Will d/c History Interval history: Patient was seen and examined. Follow-up on current diagnosis of sob, improving but still on O2 (which is new to him). Overnight uneventful. Patient denies any chest pain, shortness breath, nausea/vomiting or severe headaches. Imaging, nursing note, chart, labs and old chart reviewed. Discussed with patient. Hospitalist Physical - Physical exam Narrative exam: GEN: WDWN, NAD, Awake, Alert, Orientated x 3 HEENT: NCAT, EOMI, PERRL, OP Clear NECK: supple, no adenopathy, no thyromegaly, no JVD CVS/HEART: RRR, heart 99 normal S1S2, pulses present bilaterally CHEST/LUNGS: diminished bilaterally, Symmetrical chest expansion, good air entry bilaterally GI/Abdomen: soft, NTND, good bowel sounds, no guarding or rebound /Bladder: no suprapubic tenderness, no CVA or paraspinal tenderness EXT/Skin: no c/c/e, no obvious rash MSK: FROM x 4 Neuro: CN 2-12 grossly intact, no new focal deficits Psych: calm - Constitutional Vitals: Temp Pulse Resp BP Pulse Ox 97.9 F 92 H 18 124/81 92 03/23/18 05:51 03/23/18 06:16 03/23/18 05:51 03/23/18 06:16 03/23/18 05:51 General appearance: Absent: mild distress Results - Labs CBC & Chem 7: 03/20/18 01:46 03/19/18 04:49 Labs: Laboratory Last Values WBC 25.9 K/mm3 (4.5-11.0) H 03/20/18 01:46 RBC 5.52 M/mm3 (3.65-5.03) H 03/20/18 01:46 Hgb 15.3 gm/dl (11.8-15.2) H 03/20/18 01:46 Hct 46.4 % (35.5-45.6) H 03/20/18 01:46 MCV 84 fl (84-94) 03/20/18 01:46 MCH 28 pg (28-32) 03/20/18 01:46 MCHC 33 % (32-34) 03/20/18 01:46 RDW 13.9 % (13.2-15.2) 03/20/18 01:46 Plt Count 299 K/mm3 (140-440) 03/20/18 01:46 Eos % (Auto) Call Center Agent 03/14/18 13:42 Add Manual Diff Complete 03/19/18 04:49 Total Counted 200 03/19/18 04:49 Seg Neutrophils % Call Center Agent 03/19/18 04:49 Seg Neuts % (Manual) 94.0 % (40.0-70.0) H 03/19/18 04:49 Band Neutrophils % 1.0 % 03/19/18 04:49 Lymphocytes % (Manual) 2.5 % (13.4-35.0) L 03/19/18 04:49 Reactive Lymphs % (Man) 0 % 03/19/18 04:49 Monocytes % (Manual) 2.5 % (0.0-7.3) 03/19/18 04:49 Eosinophils % (Manual) 0 % (0.0-4.3) 03/19/18 04:49 Basophils % (Manual) 0 % (0.0-1.8) 03/19/18 04:49 Metamyelocytes % 0 % 03/19/18 04:49 Myelocytes % 0 % 03/19/18 04:49 Promyelocytes % 0 % 03/19/18 04:49 Blast Cells % 0 % 03/19/18 04:49 Nucleated RBC % Not Reportable 03/19/18 04:49 Seg Neutrophils # Man 23.4 K/mm3 (1.8-7.7) H 03/19/18 04:49 Band Neutrophils # 0.2 K/mm3 03/19/18 04:49 Lymphocytes # (Manual) 0.6 K/mm3 (1.2-5.4) L 03/19/18 04:49 Abs React Lymphs (Man) 0.0 K/mm3 03/19/18 04:49 Monocytes # (Manual) 0.6 K/mm3 (0.0-0.8) 03/19/18 04:49 Eosinophils # (Manual) 0.0 K/mm3 (0.0-0.4) 03/19/18 04:49 Basophils # (Manual) 0.0 K/mm3 (0.0-0.1) 03/19/18 04:49 Metamyelocytes # 0.0 K/mm3 03/19/18 04:49 Myelocytes # 0.0 K/mm3 03/19/18 04:49 Promyelocytes # 0.0 K/mm3 03/19/18 04:49 Blast Cells # 0.0 K/mm3 03/19/18 04:49 WBC Morphology Not Reportable 03/19/18 04:49 Hypersegmented Neuts Not Reportable 03/19/18 04:49 Hyposegmented Neuts Not Reportable 03/19/18 04:49 Hypogranular Neuts Not Reportable 03/19/18 04:49 Smudge Cells Not Reportable 03/19/18 04:49 Toxic Granulation Not Reportable 03/19/18 04:49 Toxic Vacuolation Not Reportable 03/19/18 04:49 Dohle Bodies Not Reportable 03/19/18 04:49 Pelger-Huet Anomaly Not Reportable 03/19/18 04:49 Betty Rods Not Reportable 03/19/18 04:49 Platelet Estimate Consistent w auto 03/19/18 04:49 Clumped Platelets Not Reportable 03/19/18 04:49 Plt Clumps, EDTA Not Reportable 03/19/18 04:49 Large Platelets Not Reportable 03/19/18 04:49 Giant Platelets Not Reportable 03/19/18 04:49 Platelet Satelliting Not Reportable 03/19/18 04:49 Plt Morphology Comment Not Reportable 03/19/18 04:49 RBC Morphology Not Reportable 03/19/18 04:49 Dimorphic RBCs Not Reportable 03/19/18 04:49 Polychromasia Not Reportable 03/19/18 04:49 Hypochromasia Not Reportable 03/19/18 04:49 Poikilocytosis Not Reportable 03/19/18 04:49 Anisocytosis Not Reportable 03/19/18 04:49 Microcytosis Not Reportable 03/19/18 04:49 Macrocytosis Not Reportable 03/19/18 04:49 Spherocytes Not Reportable 03/19/18 04:49 Pappenheimer Bodies Not Reportable 03/19/18 04:49 Sickle Cells Not Reportable 03/19/18 04:49 Target Cells Not Reportable 03/19/18 04:49 Tear Drop Cells Not Reportable 03/19/18 04:49 Ovalocytes Not Reportable 03/19/18 04:49 Helmet Cells Not Reportable 03/19/18 04:49 Gordillo-Minturn Bodies Not Reportable 03/19/18 04:49 [place] Rings Not Reportable 03/19/18 04:49 Kristin Cells Not Reportable 03/19/18 04:49 Bite Cells Not Reportable 03/19/18 04:49 Crenated Cell Not Reportable 03/19/18 04:49 Elliptocytes Not Reportable 03/19/18 04:49 Acanthocytes (Spur) Not Reportable 03/19/18 04:49 Rouleaux Not Reportable 03/19/18 04:49 Hemoglobin C Crystals Not Reportable 03/19/18 04:49 Schistocytes Not Reportable 03/19/18 04:49 Malaria parasites Not Reportable 03/19/18 04:49 Kenrick Bodies Not Reportable 03/19/18 04:49 Hem Pathologist Commnt No 03/19/18 04:49 PT 13.9 Sec. (12.2-14.9) 03/19/18 10:44 INR 1.02 (0.87-1.13) 03/19/18 10:44 APTT 28.1 Sec. (24.2-36.6) 03/14/18 13:49 D-Dimer 3816.61 ng/mlDDU (0-234) H 03/14/18 13:49 POC ABG pH 7.429 (7.35-7.45) 03/14/18 14:02 POC ABG pCO2 44.2 (35-45) 03/14/18 14:02 POC ABG pO2 69 (80-105) L 03/14/18 14:02 POC ABG HCO3 29.3 03/14/18 14:02 POC ABG Total CO2 31 03/14/18 14:02 POC ABG O2 Sat 94 03/14/18 14:02 POC ABG Base Excess 5 07/25/18 14:02 FiO2 28 % 03/14/18 14:02 Sodium 141 mmol/L (137-145) 03/19/18 04:49 Potassium 3.9 mmol/L (3.6-5.0) 03/19/18 04:49 Chloride 99.0 mmol/L (98-107) 03/19/18 04:49 Carbon Dioxide 30 mmol/L (22-30) 03/19/18 04:49 Anion Gap 16 mmol/L 03/19/18 04:49 BUN 13 mg/dL (9-20) 03/19/18 04:49 Creatinine 0.6 mg/dL (0.8-1.5) L 03/19/18 04:49 Estimated GFR > 60 ml/min 03/19/18 04:49 BUN/Creatinine Ratio 22 % 03/19/18 04:49 Glucose 158 mg/dL (75-100) H 03/19/18 04:49 Lactic Acid 1.10 mmol/L (0.7-2.0) 03/14/18 22:36 Calcium 8.8 mg/dL (8.4-10.2) 03/19/18 04:49 Magnesium 2.10 mg/dL (1.7-2.3) 03/14/18 13:42 Total Bilirubin 0.30 mg/dL (0.1-1.2) 03/19/18 04:49 AST 14 units/L (5-40) 03/19/18 04:49 ALT 39 units/L (7-56) 03/19/18 04:49 Alkaline Phosphatase 60 units/L (35-129) 03/19/18 04:49 Lactate Dehydrogenase 176 units/L (91-180) 03/18/18 19:56 Total Creatine Kinase 42 units/L (55-170) L 03/14/18 13:42 CK-MB (CK-2) 1.6 ng/mL (0.0-4.0) 03/14/18 13:42 CK-MB (CK-2) Rel Index 3.8 (0-4) 03/14/18 13:42 Troponin T < 0.010 ng/mL (0.00-0.029) 03/14/18 13:42 Total Protein 6.0 g/dL (6.3-8.2) L 03/19/18 04:49 Albumin 3.3 g/dL (3.9-5) L 03/19/18 04:49 Albumin/Globulin Ratio 1.2 % 03/19/18 04:49 TSH 1.230 mlU/mL (0.270-4.200) 03/19/18 10:50 Free T4 1.31 ng/dL (0.76-1.46) 03/19/18 10:50 Urine Color Straw (Yellow) 03/14/18 21:01 Urine Turbidity Clear (Clear) 03/14/18 21:01 Urine pH 7.0 (5.0-7.0) 03/14/18 21:01 Ur Specific [place] 1.020 (1.003-1.030) 03/14/18 21:01 Urine Protein <15 mg/dl mg/dL (Negative) 03/14/18 21:01 Urine Glucose (UA) Neg mg/dL (Negative) 03/14/18 21:01 Urine Ketones Neg mg/dL (Negative) 03/14/18 21:01 Urine Blood Neg (Negative) 03/14/18 21:01 Urine Nitrite Neg (Negative) 03/14/18 21:01 Urine Bilirubin Neg (Negative) 03/14/18 21:01 Urine Urobilinogen < 2.0 mg/dL (<2.0) 03/14/18 21:01 Ur Leukocyte Esterase Neg (Negative) 03/14/18 21:01 Urine WBC (Auto) < 1.0 /HPF (0.0-6.0) 03/14/18 21:01 Urine RBC (Auto) 1.0 /HPF (0.0-6.0) 03/14/18 21:01 Fluid Type Pleural 03/18/18 Unknown Fluid Color Red 03/18/18 Unknown Fluid Appearance Bloody 03/18/18 Unknown Fluid WBC 330 /mm3 03/18/18 Unknown Fluid RBC 19841 /mm3 03/18/18 Unknown Fluid Diff Comment 03/18/18 Unknown Fluid Seg Neutrophils 26.0 % 03/18/18 Unknown Fluid Lymphocytes 36.0 % 03/18/18 Unknown Fluid Monocytes 38.0 % 03/18/18 Unknown Fluid Total Protein 3.6 (15.0-45.0) L 03/18/18 Unknown Fluid LDH 943 03/18/18 Unknown
[2018-03-23] MEDS: HABITROL TD SCH (11:18)
[2018-03-23] MEDS: ZITHROMAX PO SCH (11:18)
[2018-03-23] MEDS: LOVENOX SUB-Q SCH (11:19)
[2018-03-23] MEDS: PEPCID PO SCH (11:19)
[2018-03-23] MEDS: SODIUM CHLORIDE FLUSH SYRINGE 10 ML IV SCH (11:20)
[2018-03-23] MEDS: ROCEPHIN/NS 2 GM/100 ML 2 GM/100 ML BAG IV SCH (13:16)
--- NOTE | 2018-03-23 14:40 | Progress Note ---
Assessment and Plan his is 52 year old oriental male admitted with shortness of breath, cough with productive white yellow sputum. Denies hemoptysis.Patient denies fever or chills. Patient has history of smoking 1 pack a day for may years. Stopped smoking 1 month ago. Drinks alcohol. Denies drug abuse. 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 and has two children. Denies other medical problems. No known allergies. Patient having cough. Mild to moderate shortness of breath. Patient presently on Venturi mask FIO2 40% and O2 saturation 97%. 03/21/18 Patient alert, awake. Says breathing better.Patient is on 3 litres O2. O2 saturation 93%. 03/22/18 Patient alert, awake. Says breathing better.Patient is on 3 litres O2. O2 saturation 91%.Pleural fluid positive for malignant cell. Also reported metastatic lesions in brain, ribs and adrenal glands.Oncology consulted. - Patient Problems (1) Pleural effusion Status: Acute Plan to address problem: S/P Left thoracentesis. Pleural fluid positive for Malignant cells. Oncology consulted. (2) Pneumonia Status: Acute Qualifiers: Pneumonia type: due to unspecified organism Laterality: left Lung location: upper lobe of lung Qualified Code(s): J18.1 - Lobar pneumonia, unspecified organism Plan to address problem: Patient is on Rocephin and Zithromax. (3) Nicotine dependence Status: Chronic Qualifiers: Nicotine product type: cigarettes Substance use status: in withdrawal Qualified Code(s): F17.213 - Nicotine dependence, cigarettes, with withdrawal Plan to address problem: Patient says stopped smoking 1 month ago. (4) COPD exacerbation Status: Acute Plan to address problem: O2 supplementation 3 litres via nasal canula. Albuterol/atrovent aerosol treatments q 6 hours. Solumedrol 40 mg I/V q 12 hours. Recommend Lovenox S/C q 12 hours. Recommend GI Prophylaxis like Famotidine. Subjective Date of service: 03/23/18 Principal diagnosis: Acute Hypoxemic Resp Failure; Lung Mass; Abnormal CT Chest ; Pneumonia (CAP) Interval history: Patient alert, awake. Says breathing better.Patient is on 3 litres O2. O2 saturation 91%.Pleural fluid positive for malignant cell. Also reported metastatic lesions in brain, ribs and adrenal glands.Oncology consulted. Objective Vital Signs - 12hr 0803/23/18 03/23/18 03:11 03:26 05:51 Temperature 97.9 F Pulse Rate 96 H Pulse Rate [ 97 H Anterior Bilateral Throughout] Pulse Rate [ 99 H Posterior Bilateral Throughout] Respiratory 18 Rate Respiratory 18 Rate [Anterior Bilateral Throughout] Respiratory 18 Rate [Posterior Bilateral Throughout] Blood Pressure 138/88 O2 Sat by Pulse 92 Oximetry 03/23/18 03/23/18 03/23/18 06:16 09:04 09:12 Temperature Pulse Rate 92 H Pulse Rate [ 96 H Anterior Bilateral Throughout] Pulse Rate [ 96 H Posterior Bilateral Throughout] Respiratory Rate Respiratory 20 Rate [Anterior Bilateral Throughout] Respiratory 20 Rate [Posterior Bilateral Throughout] Blood Pressure 124/81 O2 Sat by Pulse 94 Oximetry 03/23/18 03/23/18 03/23/18 12:02 14:05 14:20 Temperature 97.5 F L Pulse Rate 99 H Pulse Rate [ 99 H 101 H Anterior Bilateral Throughout] Pulse Rate [ 99 H 101 H Posterior Bilateral Throughout] Respiratory 20 Rate Respiratory 20 20 Rate [Anterior Bilateral Throughout] Respiratory 20 18 Rate [Posterior Bilateral Throughout] Blood Pressure 130/87 O2 Sat by Pulse 90 Oximetry 03/23/18 14:36 Temperature Pulse Rate 101 H Pulse Rate [ Anterior Bilateral Throughout] Pulse Rate [ Posterior Bilateral Throughout] Respiratory Rate Respiratory Rate [Anterior Bilateral Throughout] Respiratory Rate [Posterior Bilateral Throughout] Blood Pressure O2 Sat by Pulse Oximetry Constitutional: alert, appears uncomfortable, other (middle aged male laying in bed with increased respiratory effot) Eyes: non-icteric ENT: oropharynx moist, other (mallampati 2) Neck: supple, no lymphadenopathy, no JVD, other (no thyromegaly) Effort: mildly labored Ascultation: Bilateral: diminished breath sounds, wheezes, rhonchi Percussion: Bilateral: not dull Cardiovascular: regular rate and rhythm, other (No R/M) Gastrointestinal: normoactive bowel sounds, soft, non-tender, non-distended Integumentary: normal Extremities: no cyanosis, no edema Neurologic: normal mental status, non-focal exam, pupils equal and round, CN II- XII normal Psychiatric: anxious CBC and BMP: 03/20/18 01:46 03/19/18 04:49 ABG, PT/INR, D-dimer: ABG POC ABG pH 7.429 (7.35-7.45) 03/14/18 14:02 POC ABG pCO2 44.2 (35-45) 03/14/18 14:02 POC ABG pO2 69 (80-105) L 03/14/18 14:02 POC ABG HCO3 29.3 03/14/18 14:02 POC ABG Total CO2 31 03/14/18 14:02 POC ABG O2 Sat 94 03/14/18 14:02 PT/INR, D-dimer PT 13.9 Sec. (12.2-14.9) 03/19/18 10:44 INR 1.02 (0.87-1.13) 03/19/18 10:44 D-Dimer 3816.61 ng/mlDDU (0-234) H 03/14/18 13:49 Abnormal lab findings: Abnormal Labs 03/14/18 03/14/18 03/14/18 13:42 13:42 13:49 WBC 19.5 H RBC 5.40 H Hgb Hct 46.0 H Plt Count 458 H Seg Neuts % (Manual) 75.0 H Lymphocytes % (Manual) 7.0 L Eosinophils % (Manual) 12.0 H Seg Neutrophils # Man 14.6 H Lymphocytes # (Manual) Monocytes # (Manual) 1.0 H Eosinophils # (Manual) 2.3 H Basophils # (Manual) 0.2 H D-Dimer 3816.61 H POC ABG pO2 Sodium 135 L Chloride 94.7 L Creatinine 0.6 L Glucose 129 H Total Creatine Kinase 42 L Total Protein Albumin 3.2 L Fluid Total Protein 03/14/18 03/15/18 03/16/18 14:02 09:54 05:44 WBC 20.8 H 21.1 H RBC 5.41 H 5.27 H Hgb Hct 46.5 H Plt Count Seg Neuts % (Manual) Lymphocytes % (Manual) 6.0 L Eosinophils % (Manual) 18.0 H Seg Neutrophils # Man 12.0 H Lymphocytes # (Manual) Monocytes # (Manual) 1.5 H Eosinophils # (Manual) 3.8 H Basophils # (Manual) 0.2 H D-Dimer POC ABG pO2 69 L Sodium Chloride Creatinine Glucose Total Creatine Kinase Total Protein Albumin Fluid Total Protein 03/16/18 03/17/18 03/18/18 05:44 05:16 Unknown WBC 23.1 H RBC 5.24 H Hgb Hct Plt Count Seg Neuts % (Manual) 73.0 H Lymphocytes % (Manual) 3.0 L Eosinophils % (Manual) Seg Neutrophils # Man 16.9 H Lymphocytes # (Manual) 0.7 L Monocytes # (Manual) Eosinophils # (Manual) Basophils # (Manual) D-Dimer POC ABG pO2 Sodium Chloride 97.3 L Creatinine 0.5 L Glucose 102 H Total Creatine Kinase Total Protein Albumin Fluid Total Protein 3.6 L 03/19/18 03/19/18 03/20/18 04:49 04:49 01:46 WBC 24.9 H 25.9 H RBC 5.40 H 5.52 H Hgb 15.3 H Hct 45.7 H 46.4 H Plt Count Seg Neuts % (Manual) 94.0 H Lymphocytes % (Manual) 2.5 L Eosinophils % (Manual) Seg Neutrophils # Man 23.4 H Lymphocytes # (Manual) 0.6 L Monocytes # (Manual) Eosinophils # (Manual) Basophils # (Manual) D-Dimer POC ABG pO2 Sodium Chloride Creatinine 0.6 L Glucose 158 H Total Creatine Kinase Total Protein 6.0 L Albumin 3.3 L Fluid Total Protein Allied health notes reviewed: nursing - Addendum Date: 03/23/18 Note: Patient already discharged by the time icame to see the patient. - Discharge Diagnoses (1) Pleural effusion Status: Acute (2) Pneumonia Status: Acute Qualifiers: Pneumonia type: due to unspecified organism Laterality: left Lung location: upper lobe of lung Qualified Code(s): J18.1 - Lobar pneumonia, unspecified organism (3) Nicotine dependence Status: Chronic Qualifiers: Nicotine product type: cigarettes Substance use status: in withdrawal Qualified Code(s): F17.213 - Nicotine dependence, cigarettes, with withdrawal (4) COPD exacerbation Status: Acute
--- NOTE | 2018-03-23 16:01 | Discharge Summary ---
Providers - Providers Date of Admission: 03/14/18 16:48 Date of discharge: 03/23/18 Attending physician: ROYAL HEBERT 03/15/18 13:40 Consult to Physician [CONS] Routine Comment: Consulting Provider: MARYAN CROOKS Physician Instructions: Reason For Exam: possible lung mass 03/21/18 10:58 Consult to Physician [CONS] Routine Comment: Consulting Provider: BEATRICE PEÑALOZA Physician Instructions: Reason For Exam: Lung cancer 03/23/18 07:48 Consult to Physician [CONS] Routine Comment: Consulting Provider: BERENICE VOGEL Physician Instructions: Reason For Exam: brain met Primary care physician: VENDING SERVICE TECHNICIAN Hospitalization Condition: Stable Hospital course: Patient is a 52 yo [place] man who speaks fluent Kiswahili with a history of Nicotine Dependence who pw SOB and cough. Then On 03/17/18 he noted to be in atrial fib intermittently - placed on cardizem and lovenox. CTA chest suggestive for pleural effusion and lung mass. Ct guided biopsy of lung 03/20/18 * CTA chest: 1. No evidence of large vessel or central pulmonary emboli. Mild cardiomegaly and pericardial effusion. 2. Mass-like opacities or consolidations and bilateral pleural effusions, left greater than right, which may represent acute infectious or inflammatory process versus nonspecific postinflammatory change or pneumonitis of uncertain etiology or chronicity. Neoplastic or metastatic disease are also diagnostic considerations. Clinical correlation and followup to resolution suggested. 3. Mediastinal and hilar adenopathy may be reactive, but nonspecific. 4. Left adrenal nodularity may represent adenomatous change, but is indeterminate. Followup may be warranted. * CXR: Cardiomegaly. Asymmetrical pulmonary findings may represent pulmonary vascular congestion with edema. Differential diagnosis would include acute pneumonia and pneumonitis. Small to moderate left pleural effusion with adjacent compressive atelectasis. Underlying mass or consolidation is not excluded. * CT abd/pelvis with contrast IMPRESSION: 1. Bilobed mass in the left adrenal gland. Given the history of lung cancer, metastatic lesion should be suspected. An unenhanced CT of the adrenals may be helpful to exclude a fatty adenoma 2. Calculus in lower pole left kidney 3. Improved infiltrates in the lung bases 4. Persistence bilateral effusions, loculated on the left. 5. Suspected bone metastases involving the right anterior lateral 6th rib * MRI brain with and without contrast CONCLUSION: 1. Approximately 7 mm high right frontal metastatic lesion with surrounding edema identified without midline shift, as described. 2. Few other findings, as above. -Left NSCLC with mets consulted and d/w Oncology /Atrial fib, in SR today - started on cardizem po, therapeutic dose of lovenox till lung biopsy - 2d echo showed preserved EF, - no Anticoagulation per Cardiology /Sepsis due to b/l PNA Sepsis Protocol: cont IV antibiotics /B/l Pneumonia cont IV antibiotics, supplemental oxygen, / Acute hypoxic Respiratory failure due to b/l PNA and COPD exacerbation IV antibiotics, supplemental oxygen, nebulizer therapy, pulse oximetry, NIPPV as clinically indicated. trying to wean O2 /COPD with exacerbation - cont nebs, tapering steroids, supplemental O2 / Nicotine dependence Smoking cessation counseling Nicotine patch /DVT prophylaxis/GI PX SCD to BLE and lovenox/Pepcid Still on o2 which is new to him, d/w case management, will need to arrange home O2 (unfunded). home O2 still being arranged. Notified Dr. Rae of the Brain met found on MRI brain, XRT to start after dishcharge per Dr. Escobar. Will d/c Disposition: DC/[place]-06 HOME UNDER HOME [facility] Time spent for discharge: 36 min Core Measure Documentation - Palliative Care Palliative Care/ Comfort Measures: Not Applicable - Core Measures Any of the following diagnoses?: none - VTE Discharge Requirements Deep Vein Thrombosis/Pulmonary Embolism Present on Admission: No Has pt received <5 days of overlap therapy or INR<2.0: No Anticoagulant overlap therapy prescribed at discharge: No Contraindication No Overlap Therapy order at DC: Not Indicated Exam - Physical Exam Narrative exam: GEN: WDWN, NAD, Awake, Alert, Orientated x 3 HEENT: NCAT, EOMI, PERRL, OP Clear NECK: supple, no adenopathy, no thyromegaly, no JVD CVS/HEART: RRR, heart 99 normal S1S2, pulses present bilaterally CHEST/LUNGS: diminished bilaterally, Symmetrical chest expansion, good air entry bilaterally GI/Abdomen: soft, NTND, good bowel sounds, no guarding or rebound /Bladder: no suprapubic tenderness, no CVA or paraspinal tenderness EXT/Skin: no c/c/e, no obvious rash MSK: FROM x 4 Neuro: CN 2-12 grossly intact, no new focal deficits Psych: calm - Constitutional Vitals: Temp Pulse Resp BP Pulse Ox 97.5 F L 101 H 20 130/87 90 03/23/18 12:02 03/23/18 14:36 03/23/18 14:20 03/23/18 12:02 03/23/18 12:02 Plan Activity: other (no strenous activity) Diet: regular Special Instructions: smoking cessation, home oxygen via Durable Medical Equipment Needed Upon Discharge: Oxygen (3 liters) Follow up with: BERENICE VOGEL MD [Staff Physician] - 48 Hours (Please Call his Office to set up Radiation ) PRIMARY CAREMD [Primary Care Provider] - 3-5 Days BEATRICE PEÑALOZA MD [Staff Physician] - 7 Days MARYAN CROOKS MD [Staff Physician] - 7 Days Prescriptions: ALBUTEROL Inhaler [ProAir HFA Inhaler] 2 puff IH QID PRN #1 unit PRN Reason: Shortness Of Breath Diltiazem [Cardizem] 60 mg PO Q8HR #240 tablet guaiFENesin [Robitussin] 200 mg PO Q4H PRN #60 oral.liqd PRN Reason: Cough Ipratropium/Albuterol Sulfate [DUONEB *Not for PRN Use*] 1 ampul IH Q6HRT #30 ampul.neb methylPREDNISolone [Medrol Dose Ray] 1 dose PO DAILY #1 pack Nicotine [Habitrol] 21 mg TD QDAY #7 patch
--- NOTE | 2018-03-23 16:59 | Hem/Onc Progress Note ---
Assessment and Plan - Patient Problems (1) Lung mass Current Visit: Yes Status: Acute Plan to address problem: Await biopsy results. [facility] about brain met. They will see Monday as outpatient. Appt given to patient to see us at 10 AM Subjective Date of service: 03/23/18 Interval history: States breathing is much better. Wants to go home Objective - Constitutional Vitals: Last Vital Signs Temp 97.5 F L 03/23/18 12:02 Pulse 101 H 03/23/18 14:36 Resp 20 03/23/18 14:20 BP 130/87 03/23/18 12:02 Pulse Ox 90 03/23/18 12:02 - EENT Eyes: PERRL ENT: hearing intact Lymph node exam: negative cervical - Neck Neck: supple - Respiratory Respiratory effort: Positive: normal Respiratory: bilateral: CTA
[2018-03-23 18:03] VITALS: BP 141/88
--- NOTE | 2018-03-23 19:33 | Consultation ---
REFERRING PHYSICIAN: Dr. Carrie Koo. CHIEF COMPLAINT: " PROFILE: This is a 52-year-old gentleman presenting with probable carcinoma of the lung with a solitary right frontal brain metastasis. CONCLUSION: 1. 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 Final pathology pending, diagnosed 03/22/2018. 2. History of nicotine dependence, alcohol abuse. 3. History of 15-pound weight loss. RECOMMENDATIONS: We will review the final pathology. If malignancy is confirmed, he will be considered for stereotactic radiation surgery to the right frontal brain metastasis. He will need a Stealth MRI as an outpatient. ASSESSMENT: This is a very pleasant 52-year-old gentleman with a history of nicotine dependence, presented to the Emergency Department with shortness of breath, productive cough, and 20-pound weight loss. He denied any fever, chills, chest pain, palpitations, weight loss, night sweats, or hemoptysis. A CT scan of the chest revealed mild cardiomegaly, small pericardial effusion. There was a coalescent soft tissue densities in the mediastinum and bilateral hilar regions compatible with adenopathy measuring up to 2.4 cm in dimension. No axillary adenopathy noted. Within the lungs, there was diffuse bullous emphysematous change with the left upper lobe prominence. There were mass-like opacities and consolidations scattered in the bilateral upper lobes and less pronounced in the left lower lobe. Minimal right and left pleural effusions. No pneumothorax. A 1.2 cm nodularity was noted in the left adrenal gland. These findings are consistent with malignancy. A CT-guided biopsy was performed and preliminary pathology does reveal malignancy. Final pathology is pending. Additional studies including eGFR, ALK, ROS1, and PD-L1 are pending. An MRI of the brain was performed and this revealed a 7 mm right frontal lobe ring enhancing cortical/subcortical lesion. Approximately 3 cm right frontal white matter edema surrounding this lesion were seen. The lesion demonstrated restricted diffusion. Otherwise, normal ventricles and sulci. No hemorrhage, mass effect or midline shift. This was consistent with a solitary brain metastasis. He is now referred for radiation therapy. Clinically, he denies any headache, visual changes, speech changes, weakness in the upper or lower extremities or seizure. Continues to have moderate dyspnea. PAST MEDICAL HISTORY: History of emphysema, nicotine dependence, alcohol abuse. SOCIAL HISTORY: Tobacco and nicotine abuse, alcohol abuse. FAMILY HISTORY: Noncontributory. MEDICATIONS: No known home medications. ALLERGIES: None known. REVIEW OF SYSTEMS: GENERAL AND CONSTITUTIONAL: Weak, tired, 10-pound weight loss. Denies any fever or chills. HEENT: Denies any headache, visual changes, seizure. RESPIRATORY: Moderate dyspnea, history of emphysema. Denies hemoptysis. CARDIOVASCULAR: Denies any chest pain, orthopnea. GASTROINTESTINAL: Denies any nausea, vomiting, diarrhea or rectal bleeding. GENITOURINARY: Denies any dysuria. NEUROLOGICAL: Denies any headache, weakness, visual changes, seizure. PHYSICAL EXAMINATION: GENERAL: He is an ill-appearing gentleman lying comfortably in hospital bed. VITAL SIGNS: Blood pressure 125/80, pulse 90 and afebrile, respiration 18, ECOG equals 1. Pain equals 0/10. HEENT: Normocephalic, atraumatic. Eyes were clear. Extraocular muscles intact. NECK: Thin. No adenopathy. LUNGS: Showed decreased breath sounds in both upper lung negron. CARDIOVASCULAR: Faint heart tones. Regular rate and rhythm. No murmur, gallop or bruit. No spinal or CVA tenderness. ABDOMEN: Flat. No palpable masses or hepatosplenomegaly. EXTREMITIES: No clubbing, cyanosis or edema. SKIN: No petechia, rashes, ecchymosis. NEUROLOGIC: He is alert and oriented x 3, answers questions appropriately. Motor and sensory, and cerebellar exam intact. Cranial nerves 2-12 are grossly intact. DISCUSSION: This unfortunate 52-year-old gentleman who has been diagnosed with carcinoma of the lung. Final pathology is pending. He also has a solitary right frontal lobe metastasis seen on MRI scan. He appears to be an excellent candidate for stereotactic radiation surgery to the right frontal brain mass. We plan to deliver a dose of 20 Gy in one fraction using stereotactic radiation surgical techniques. He will require a Stealth MRI scan as outpatient. Risks of radiation including fatigue, brain necrosis requiring operation, seizure was discussed with the patient. Other options discussed was whole brain radiation therapy as well as gamma knife radiation. He will also be considered for palliative radiotherapy to the lung. Additional studies including PD-L1, ROS1, ALK, and eGFR are pending. This will determine what type of systemic treatment he will be offered by Dr. Koo. [facility]# [id number] ELIESER/KERON
== END 2018-03-23 18:30 | disposition home health service (06) | DRG 871 ==
LOC: ED 13:07 → 3A 16:48
PROVIDERS: ADMIT Internal Medicine; ATTEND Internal Medicine
PROC: 4A033R1 Measurement of Arterial Saturation, Peripheral, Percutaneous Approach (ICD-10-PCS; 2018-03-14)
PROC: 3E0234Z Introduction of Serum, Toxoid and Vaccine into Muscle, Percutaneous Approach (ICD-10-PCS; 2018-03-16)
PROC: 0W9B3ZZ Drainage of Left Pleural Cavity, Percutaneous Approach (ICD-10-PCS; principal; 2018-03-19)
PROC: 0BBG3ZX Excision of Left Upper Lung Lobe, Percutaneous Approach, Diagnostic (ICD-10-PCS; 2018-03-20)
DX: A41.9 Sepsis, unspecified organism (principal); J18.9 Pneumonia, unspecified organism; J96.01 Acute respiratory failure with hypoxia; F17.213 Nicotine dependence, cigarettes, with withdrawal; J44.1 Chronic obstructive pulmonary disease with (acute) exacerbation; J44.0 Chronic obstructive pulmonary disease with (acute) lower respiratory infection; J90 Pleural effusion, not elsewhere classified; C79.89 Secondary malignant neoplasm of other specified sites; C34.90 Malignant neoplasm of unspecified part of unspecified bronchus or lung; I48.0 Paroxysmal atrial fibrillation; F10.10 Alcohol abuse, uncomplicated; Y90.0 Blood alcohol level of less than 20 mg/100 ml; Z71.6 Tobacco abuse counseling; Z23 Encounter for immunization
CPT/HCPCS: 32555; 36415; 70553; 71045; 71275; 74177; 77012; 80048; 80053; 81001; 82140; 82550; 82553; 82803; 83605; 83615; 83735; 84160; 84439; 84443; 84484; 85007; 85025; 85027; 85379; 85610; 85730; 87040; 87070; 87116; 87205; 88112; 88173; 88305; 88333; 88342; 89051; 90732; 93005; 93010; 93306; 94640; 94644; 94760; 96361; 96365; 96375; 99406; A9577; J0456; J0696; J1650; J1940; J2250; J2405; J2920; J2930; J3010; J3370; J3475; J7030; J7040; J7050; Q9967

== ENCOUNTER 2018-03-29 12:38 | Inpatient (IN) | payer SELFPAY ==
[~2018-03-29 12:38] MED LIST: AMIDATE IV ONE; ZEMURON IV ONE
[2018-03-29 13:33] LABS: Hematocrit 49.3 % (35.5-45.6); Hemoglobin 16.6 gm/dl (11.8-15.2); Mean Corpuscular HGB Conc 34 % (32-34); Mean Corpuscular Hemoglobin 28 pg (28-32); Mean Corpuscular Volume 82 fl (84-94); Platelet Count 127 K/mm3 (140-440); Red Blood Count 6.01 M/mm3 (3.65-5.03); Red Cell Distribution Width 14.3 % (13.2-15.2)
--- NOTE | 2018-03-29 13:41 | XRay Report ---
AP CHEST: HISTORY: Shortness of breath Compared to 03/20/18. Bilateral infiltration, left greater than right, has not significantly changed since 03/20/18. A small to medium left pleural effusion has increased by one rib level. No right pleural effusion. No pneumothorax. Heart size remains within normal limits. IMPRESSION: Bilateral lung infiltrates, stable. Small to medium left pleural effusion, slightly increased.
[2018-03-29] MEDS ORDERED: DUONEB *Not for PRN Use IH ONE (13:53)
[2018-03-29 13:55] LABS: BUN/Creatinine Ratio 43; Blood Urea Nitrogen 17 mg/dL (9-20); Calcium 8.3 mg/dL (8.4-10.2); Hemolysis Index 145
[2018-03-29 14:51] LABS: Basophils % (Manual) 0 % (0.0-1.8); Platelet Estimate Cons; RBC Morphology Normal; Total Cells Counted 100; Toxic Vacuolation Few
--- NOTE | 2018-03-29 15:22 | Emergency Department Report ---
ED Shortness of Breath HPI - General Chief Complaint: Dyspnea/Respdistress Stated Complaint: D.I.B Time Seen by Provider: 03/29/18 13:37 Source: patient, EMS Mode of arrival: Stretcher Limitations: No Limitations - History of Present Illness Initial Comments: 52-year-old man, recent diagnosis of bilateral lung cancer, had just arrived at his oncologist office to discuss results, when he developed sudden severe and persistent shortness of breath, and was referred here for further evaluation. Lesions were diagnosed here 7-10 days ago, and patient was treated for pneumonia , as well as pleural effusion, as well as diagnostic procedures. Patient was improved at time of discharge, and was placed on home oxygen therapy, 2 L/m by nasal cannula at all hours, but family reports that he had some continued mild shortness of breath after discharge, and this got noticeably worse according to last evening, although patient denied symptoms until he had walked into the doctor's office. He is not sure if he was anxious, or if it was the exertion of working, or if he has had new symptoms. Patient has not measured fever, but has felt somewhat feverish intermittently over the past week, questionable diaphoresis, no lightheadedness or weakness, the patient has not eaten over the past day, although he has not been nauseated. He has no pain at this time, no congestion, no sputum production. Denies abdominal pain, no nausea or vomiting. No secondary symptoms otherwise. Patient has a long past history of cigarette smoking, partial diagnosis of COPD , but no use of bronchodilators, either by inhaler or nebulizer. - Related Data Previous Rx's Medication Instructions Recorded Last Taken Type ALBUTEROL Inhaler [ProAir HFA 2 puff IH QID PRN #1 unit 03/23/18 Unknown Rx Inhaler] Acetaminophen [Acetaminophen TAB] 325 mg PO Q4H PRN #30 tablet 03/23/18 Unknown Rx Diltiazem [Cardizem] 60 mg PO Q8HR #240 tablet 03/23/18 Unknown Rx Famotidine [Pepcid] 20 mg PO BID #10 tablet 03/23/18 Unknown Rx Ipratropium/Albuterol Sulfate 1 ampul IH Q6HRT #30 ampul.neb 03/23/18 Unknown Rx [DUONEB *Not for PRN Use*] Nicotine [Habitrol] 21 mg TD QDAY #7 patch 03/23/18 Unknown Rx guaiFENesin [Robitussin] 200 mg PO Q4H PRN #60 oral.liqd 03/23/18 Unknown Rx Allergies Allergy/AdvReac Type Severity Reaction Status Date / Time No Known Allergies Allergy Unverified 03/14/18 13:22 ED Review of Systems ROS: Stated complaint: D.I.B Other details as noted in HPI Constitutional: diaphoresis, fever, malaise. denies: chills, weakness Eyes: denies: vision change ENT: denies: throat pain Respiratory: cough, shortness of breath, SOB with exertion, SOB at rest, wheezing Cardiovascular: dyspnea on exertion. denies: chest pain, edema, paroxysmal nocturnal dyspnea Endocrine: denies: excessive sweating, increased hunger Gastrointestinal: denies: abdominal pain, nausea, vomiting, constipation, hematemesis, melena Genitourinary: denies: urgency, dysuria Musculoskeletal: denies: back pain, joint swelling, arthralgia Skin: denies: rash, lesions Neurological: denies: headache, weakness, paresthesias Psychiatric: denies: anxiety, depression Hematological/Lymphatic: denies: easy bleeding, easy bruising ED Past Medical Hx - Past Medical History Previous Medical History?: Yes Hx Congestive Heart Failure: No Hx Diabetes: No Hx of Cancer: Yes (Lung) Hx Asthma: No Hx COPD: Yes - Surgical History Past Surgical History?: Yes Additional Surgical History: 3 fingers ampuated on left hand - Social History Smoking Status: Former Smoker Substance Use Type: Alcohol - Medications Home Medications: Home Medications Medication Instructions Recorded Confirmed Last Taken Type ALBUTEROL Inhaler [ProAir HFA 2 puff IH QID PRN #1 unit 03/23/18 03/29/18 Unknown Rx Inhaler] Acetaminophen [Acetaminophen TAB] 325 mg PO Q4H PRN #30 tablet 03/23/18 Unknown Rx Diltiazem [Cardizem] 60 mg PO Q8HR #240 tablet 03/23/18 03/29/18 Unknown Rx Famotidine [Pepcid] 20 mg PO BID #10 tablet 03/23/18 03/29/18 Unknown Rx Ipratropium/Albuterol Sulfate 1 ampul IH Q6HRT #30 ampul.neb 03/23/18 03/29/18 Unknown Rx [DUONEB *Not for PRN Use*] Nicotine [Habitrol] 21 mg TD QDAY #7 patch 03/23/18 03/29/18 Unknown Rx guaiFENesin [Robitussin] 200 mg PO Q4H PRN #60 oral.liqd 03/23/18 03/29/18 Unknown Rx ED Physical Exam - General Limitations: No Limitations General appearance: alert, in distress (moderate respiratory distress, oxygen saturation 80% on 3 L of oxygen by nasal cannula at time of examination) - Head Head exam: Present: atraumatic, normocephalic - Eye Eye exam: Present: PERRL, EOMI. Absent: scleral icterus - ENT ENT exam: Present: normal exam, mucous membranes moist - Neck Neck exam: Present: normal inspection, full ROM. Absent: tenderness, meningismus - Respiratory Respiratory exam: Present: respiratory distress (moderate increased respiratory effort), wheezes (moderate, markedly worse, increased on left compared to right) , rales (scant bilateral Rales), rhonchi (moderate left-sided rhonchi with audible rub), accessory muscle use, other (rub on left). Absent: normal lung sounds bilaterally, chest wall tenderness - Cardiovascular Cardiovascular Exam: Present: regular rate, tachycardia, normal heart sounds - GI/Abdominal GI/Abdominal exam: Present: soft, normal bowel sounds. Absent: distended, tenderness, guarding, rebound - Rectal Rectal exam: Present: deferred - Extremities Exam Extremities exam: Present: normal inspection, full ROM. Absent: tenderness, pedal edema - Back Exam Back exam: Present: normal inspection. Absent: CVA tenderness (R), CVA tenderness (L) - Neurological Exam Neurological exam: Present: alert, oriented X3, CN II-XII intact. Absent: motor sensory deficit - Psychiatric Psychiatric exam: Present: normal affect, normal mood - Skin Skin exam: Present: warm, dry, intact, cyanosis. Absent: pallor ED Course Vital Signs 03/29/18 03/29/18 03/29/18 12:38 12:46 12:48 Temperature 36.4 C L Pulse Rate 100 H 101 H 100 H Pulse Rate [ Posterior Right ] Respiratory 29 H 29 H 22 Rate Respiratory Rate [Posterior Right] Blood Pressure 102/62 102/62 O2 Sat by Pulse 90 83 L 90 Oximetry 03/29/18 03/29/18 03/29/18 13:00 13:16 13:30 Temperature Pulse Rate 102 H 100 H 102 H Pulse Rate [ Posterior Right ] Respiratory 27 H 28 H 26 H Rate Respiratory Rate [Posterior Right] Blood Pressure 110/83 110/83 113/72 O2 Sat by Pulse 84 87 88 Oximetry 03/29/18 03/29/18 03/29/18 13:46 14:00 14:05 Temperature Pulse Rate 109 H 104 H Pulse Rate [ Posterior Right ] Respiratory 34 H 26 H Rate Respiratory Rate [Posterior Right] Blood Pressure 113/72 117/82 O2 Sat by Pulse 90 88 92 Oximetry 03/29/18 03/29/18 03/29/18 14:16 14:28 14:30 Temperature Pulse Rate 104 H 106 H Pulse Rate [ 102 H Posterior Right ] Respiratory 25 H 29 H Rate Respiratory 24 Rate [Posterior Right] Blood Pressure 117/82 124/71 O2 Sat by Pulse 92 92 Oximetry 03/29/18 03/29/18 03/29/18 14:37 14:41 14:46 Temperature Pulse Rate 106 H Pulse Rate [ 107 H Posterior Right ] Respiratory 29 H Rate Respiratory 25 H Rate [Posterior Right] Blood Pressure 124/71 O2 Sat by Pulse 93 94 Oximetry 03/29/18 15:02 Temperature Pulse Rate 107 H Pulse Rate [ Posterior Right ] Respiratory 26 H Rate Respiratory Rate [Posterior Right] Blood Pressure O2 Sat by Pulse 94 Oximetry - Reevaluation(s) Reevaluation #1: 03/29/18 15:25 Patient felt moderately improved after bronchodilator treatment with DuoNeb, but oxygen saturation remained borderline at 88-90% on 4 L of oxygen, and patient was suspected of breathing orally, and was converted to a nonrebreather mask, at 100%, but this succeeded in given him a borderline oxygen saturation of only 94%. Patient is resting much more comfortably at this time as result of that. ED Medical Decision Making - Lab Data Result diagrams: 03/29/18 13:15 03/29/18 13:08 - EKG Data -: EKG Interpreted by Mo EKG shows normal: sinus rhythm (77 bpm), axis (normal QRS axis 48), intervals ( borderline elevated QT interval, 485 ms corrected), QRS complexes ( LVH by voltage criteria in precordial leads with secondary ST changes), ST-T waves ( secondary repolarization changes secondary to LVH) Rate: normal - EKG Data When compared to previous EKG there are: no significant change - Radiology Data Radiology results: report reviewed Portal chest x-ray shows bilateral pulmonary densities/infiltrates, significantly worse on the left side than on right side, but stable in comparison to prior film from March 20; however, there is increased left pleural effusion, - Medical Decision Making This gentleman was recently diagnosed pulmonary neoplasia, with bilateral lesions, and left pleural effusion, has developed significant respiratory distress and failure, with significant hypoxia presentation, persistent despite bronchodilation with a DuoNeb, requiring increase in oxygen support as well as nonrebreather mask, with findings of marked elevation of white count, 53,000, which is significantly worse than prior white counts of the previous week, which ran in the 19-20,000 range. Patient's clinical appearance is not one of acute sepsis, but given that he was treated for ear infection before, will be treated for hospital-acquired pulmonary infection, as well as stabilization of his respiratory and ventilatory capacity, and he is doing much better on supplemental oxygen and nonrebreather status, but will be hospitalized for further care and evaluation by on-call hospitalist, Dr. Zuniga, and consultation by his oncologist, Dr. Koo. Initial dose of Zosyn and vancomycin ordered per sepsis protocol, patient is much more comfortable with increased oxygen support, and is currently physiologically stable otherwise. Critical Care Time: Yes Critical care attestation.: If time is entered above; I have spent that time in minutes in the direct care of this critically ill patient, excluding procedure time. Critical Care Time: 30 minutes of critical care time was provided in assessing and stabilizing this patient with acute hypoxemia and respiratory failure, with known recent diagnosis of bilateral pulmonary neoplasms, as well as recent treatment for pneumonia, and new findings of progressive left pleural effusion. No billable procedures were performed during this patient encounter. ED Disposition Clinical Impression: Pleural effusion Respiratory failure Qualifiers: Chronicity: acute Respiratory failure complication: hypoxia Qualified Code(s): J96.01 - Acute respiratory failure with hypoxia Lung cancer Qualifiers: Laterality: unspecified laterality Lung location: unspecified part of lung Qualified Code(s): C34.90 - Malignant neoplasm of unspecified part of unspecified bronchus or lung Sepsis Qualifiers: Sepsis type: sepsis due to unspecified organism Qualified Code(s): A41.9 - Sepsis, unspecified organism Disposition: OP ADMIT IP TO THIS HOSP Is pt being admited?: Yes Does the pt Need Aspirin: No Condition: Stable Referrals: PRIMARY CARE,MD [Primary Care Provider] - 3-5 Days Time of Disposition: 15:32
[2018-03-29] MEDS ORDERED: ZOSYN/NS 4.5GM/100ML 4.5 GM/100 ML VIAL IV ONE (15:39)
[2018-03-29] MEDS: ZOSYN/NS 4.5GM/100ML 4.5 GM/100 ML VIAL IV SCH ×2 (15:49→22:00)
[2018-03-29] MEDS ORDERED: VANCOMYCIN PHARMACY TO DOSE IV SCH (16:00)
[2018-03-29] MEDS: VANCOMYCIN/NS 1 GM/250 ML 1 GM/250 ML BAG IV SCH ×2 (16:41→23:52)
[2018-03-29 16:56] LABS: Bilirubin,Urine NEG (Negative); Blood,Urine MOD (Negative); Color,Urine Yellow (Yellow); Mucus,Urine FEW /HPF; Protein,Urine <15 mg/dL mg/dL (Negative); Sperm,Urine FEW /HPF (NP); Urobilinogen,Urine < 2.0 mg/dL (<2.0)
[2018-03-29] MEDS ORDERED: PROVENTIL IH PRN (21:29)
[2018-03-29] MEDS ORDERED: PERCOCET 5/325 PO PRN (22:22)
[2018-03-29] MEDS ORDERED: TYLENOL PO PRN (22:22)
[2018-03-29] MEDS ORDERED: ZOFRAN IV PRN (22:22)
--- NOTE | 2018-03-29 22:22 | History and Physical Report ---
History of Present Illness Date of examination: 03/29/18 Date of admission: 03/29/18 15:35 Chief complaint: CC Increasing SOB for 1 day History of present illness: History of Present Illness 52-year-old man with recent diagnosis of bilateral lung cancer, had just arrived at his oncologist office to discuss results, when he developed sudden severe and persistent shortness of breath, and was referred here for further evaluation. Lesions were diagnosed here 7-10 days ago, and patient was treated for pneumonia, as well as pleural effusion, as well as diagnostic procedures. Patient was improved at time of discharge, and was placed on home oxygen therapy , 2 L/m by nasal cannula at all hours, but family reports that he had some continued mild shortness of breath after discharge, and this got noticeably worse according to last evening, although patient denied symptoms until he had walked into the doctor's office. He is not sure if he was anxious, or if it was the exertion of working, or if he has had new symptoms. Patient has not measured fever, but has felt somewhat feverish intermittently over the past week , questionable diaphoresis, no lightheadedness or weakness, the patient has not eaten over the past day, although he has not been nauseated. He has no pain at this time, no congestion, no sputum production. Denies abdominal pain, no nausea or vomiting. No secondary symptoms otherwise.Patient has a long past history of cigarette smoking, partial diagnosis of COPD, but no use of bronchodilators, either by inhaler or nebulizer. - Past Medical History Previous Medical History?: Y Cancer: (Lung) COPD: HTN Gerd - Surgical History Past Surgical History?: Yes Additional Surgical History: 3 fingers ampuated on left hand - Social History Smoking Status: Former Smoker Substance Use Type: Alcohol - Medications Home Medications: Home Medications Medication Instructions Recorded Confirmed Last Taken Type ALBUTEROL Inhaler [ProAir HFA 2 puff IH QID PRN #1 unit 03/23/18 03/29/18 Unknown Rx Inhaler] Acetaminophen [Acetaminophen TAB] 325 mg PO Q4H PRN #30 tablet 03/23/18 Unknown Rx Diltiazem [Cardizem] 60 mg PO Q8HR #240 tablet 03/23/18 03/29/18 Unknown Rx Famotidine [Pepcid] 20 mg PO BID #10 tablet 03/23/18 03/29/18 Unknown Rx Ipratropium/Albuterol Sulfate 1 ampul IH Q6HRT #30 ampul.neb 03/23/18 03/29/18 Unknown Rx [DUONEB *Not for PRN Use*] Nicotine [Habitrol] 21 mg TD QDAY #7 patch 03/23/18 03/29/18 Unknown Rx guaiFENesin [Robitussin] 200 mg PO Q4H PRN #60 oral.liqd 03/23/18 03/29/18 Unknown Rx Review of systems ROS: Stated complaint: D.I.B Other details as noted in HPI Constitutional: diaphoresis, fever, malaise. denies: chills, weakness Eyes: denies: vision change ENT: denies: throat pain Respiratory: cough, shortness of breath, SOB with exertion, SOB at rest, wheezing Cardiovascular: dyspnea on exertion. denies: chest pain, edema, paroxysmal nocturnal dyspnea Endocrine: denies: excessive sweating, increased hunger Gastrointestinal: denies: abdominal pain, nausea, vomiting, constipation, hematemesis, melena Genitourinary: denies: urgency, dysuria Musculoskeletal: denies: back pain, joint swelling, arthralgia Skin: denies: rash, lesions Neurological: denies: headache, weakness, paresthesias Psychiatric: denies: anxiety, depression Hematological/Lymphatic: denies: easy bleeding, easy bruising Medications and Allergies Allergies Allergy/AdvReac Type Severity Reaction Status Date / Time No Known Allergies Allergy Unverified 03/14/18 13:22 Home Medications Medication Instructions Recorded Confirmed Last Taken Type ALBUTEROL Inhaler [ProAir HFA 2 puff IH QID PRN #1 unit 03/23/18 03/29/18 Unknown Rx Inhaler] Acetaminophen [Acetaminophen TAB] 325 mg PO Q4H PRN #30 tablet 03/23/18 Unknown Rx Diltiazem [Cardizem] 60 mg PO Q8HR #240 tablet 03/23/18 03/29/18 Unknown Rx Famotidine [Pepcid] 20 mg PO BID #10 tablet 03/23/18 03/29/18 Unknown Rx Ipratropium/Albuterol Sulfate 1 ampul IH Q6HRT #30 ampul.neb 03/23/18 03/29/18 Unknown Rx [DUONEB *Not for PRN Use*] Nicotine [Habitrol] 21 mg TD QDAY #7 patch 03/23/18 03/29/18 Unknown Rx guaiFENesin [Robitussin] 200 mg PO Q4H PRN #60 oral.liqd 03/23/18 03/29/18 Unknown Rx Active Meds: Active Medications Albuterol (Proventil) 2.5 mg IH Q4HRT PRN PRN Reason: Shortness Of Breath Albuterol/Ipratropium (Duoneb *Not For Prn Use*) 1 ampul IH TIDRT ANIYA Piperacillin Sod/Tazobactam Sod (Zosyn/Ns 4.5gm/100ml) 4.5 gm in 100 mls @ 200 mls/hr IV Q8HR [facility]; Protocol Last Admin: 03/29/18 15:49 Dose: 200 mls/hr Vancomycin HCl (Vancomycin/Ns 1 Gm/250 Ml) 1 gm in 250 mls @ 125 mls/hr IV Q8H [facility] Last Admin: 03/29/18 16:41 Dose: 125 mls/hr Vancomycin HCl (Vancomycin Pharmacy To Dose) 1 each IV PKCONSULT [facility]; Protocol Exam - Physical Exam Narrative exam: In resp distress - Constitutional Vitals: Temp Pulse Resp BP Pulse Ox 97.5 F L 111 H 22 111/60 92 03/29/18 19:10 03/29/18 21:47 03/29/18 21:47 03/29/18 19:10 03/29/18 21:53 General appearance: Present: severe distress, well-nourished - EENT Eyes: Present: PERRL ENT: hearing intact, clear oral mucosa - Neck Neck: Present: supple, normal ROM - Respiratory Respiratory effort: normal Respiratory: bilateral: CTA, rhonchi, wheezing - Cardiovascular Heart rate: 76 Rhythm: regular Heart Sounds: Present: S1 & S2. Absent: rub, click - Extremities Extremities: pulses symmetrical, No edema Peripheral Pulses: within normal limits - Abdominal General gastrointestinal: Present: soft, non-tender, non-distended, normal bowel sounds Male genitourinary: Present: normal - Integumentary Integumentary: Present: clear, warm, dry - Musculoskeletal Musculoskeletal: gait normal, strength equal bilaterally - Psychiatric Psychiatric: appropriate mood/affect, intact judgment & insight - Neurologic Neurologic: CNII-XII intact, moves all extremities - Allied Health Allied health notes reviewed: nursing Results - Labs CBC & Chem 7: 03/30/18 05:04 03/30/18 05:04 Labs: Laboratory Last Values WBC 53.1 K/mm3 (4.5-11.0) H* 03/29/18 13:15 RBC 6.01 M/mm3 (3.65-5.03) H 03/29/18 13:15 Hgb 16.6 gm/dl (11.8-15.2) H 03/29/18 13:15 Hct 49.3 % (35.5-45.6) H 03/29/18 13:15 MCV 82 fl (84-94) L 03/29/18 13:15 MCH 28 pg (28-32) 03/29/18 13:15 MCHC 34 % (32-34) 03/29/18 13:15 RDW 14.3 % (13.2-15.2) 03/29/18 13:15 Plt Count 127 K/mm3 (140-440) L 03/29/18 13:15 Add Manual Diff Complete 03/29/18 13:15 Total Counted 100 03/29/18 13:15 Seg Neuts % (Manual) 91.0 % (40.0-70.0) H 03/29/18 13:15 Band Neutrophils % 0 % 03/29/18 13:15 Lymphocytes % (Manual) 4.0 % (13.4-35.0) L 03/29/18 13:15 Reactive Lymphs % (Man) 1.0 % 03/29/18 13:15 Monocytes % (Manual) 3.0 % (0.0-7.3) 03/29/18 13:15 Eosinophils % (Manual) 1.0 % (0.0-4.3) 03/29/18 13:15 Basophils % (Manual) 0 % (0.0-1.8) 03/29/18 13:15 Metamyelocytes % 0 % 03/29/18 13:15 Myelocytes % 0 % 03/29/18 13:15 Promyelocytes % 0 % 03/29/18 13:15 Blast Cells % 0 % 03/29/18 13:15 Nucleated RBC % Not Reportable 03/29/18 13:15 Seg Neutrophils # Man 48.3 K/mm3 (1.8-7.7) H 03/29/18 13:15 Band Neutrophils # 0.0 K/mm3 03/29/18 13:15 Lymphocytes # (Manual) 2.1 K/mm3 (1.2-5.4) 03/29/18 13:15 Abs React Lymphs (Man) 0.5 K/mm3 03/29/18 13:15 Monocytes # (Manual) 1.6 K/mm3 (0.0-0.8) H 03/29/18 13:15 Eosinophils # (Manual) 0.5 K/mm3 (0.0-0.4) H 03/29/18 13:15 Basophils # (Manual) 0.0 K/mm3 (0.0-0.1) 03/29/18 13:15 Metamyelocytes # 0.0 K/mm3 03/29/18 13:15 Myelocytes # 0.0 K/mm3 03/29/18 13:15 Promyelocytes # 0.0 K/mm3 03/29/18 13:15 Blast Cells # 0.0 K/mm3 03/29/18 13:15 WBC Morphology Not Reportable 03/29/18 13:15 Hypersegmented Neuts Not Reportable 03/29/18 13:15 Hyposegmented Neuts Not Reportable 03/29/18 13:15 Hypogranular Neuts Not Reportable 03/29/18 13:15 Smudge Cells Not Reportable 03/29/18 13:15 Toxic Granulation Not Reportable 03/29/18 13:15 Toxic Vacuolation Few 03/29/18 13:15 Dohle Bodies Not Reportable 03/29/18 13:15 Pelger-Huet Anomaly Not Reportable 03/29/18 13:15 Betty Rods Not Reportable 03/29/18 13:15 Platelet Estimate Cons 03/29/18 13:15 Clumped Platelets Not Reportable 03/29/18 13:15 Plt Clumps, EDTA Not Reportable 03/29/18 13:15 Large Platelets Not Reportable 03/29/18 13:15 Giant Platelets Not Reportable 03/29/18 13:15 Platelet Satelliting Not Reportable 03/29/18 13:15 Plt Morphology Comment Not Reportable 03/29/18 13:15 RBC Morphology Normal 03/29/18 13:15 Dimorphic RBCs Not Reportable 03/29/18 13:15 Polychromasia Not Reportable 03/29/18 13:15 Hypochromasia Not Reportable 03/29/18 13:15 Poikilocytosis Not Reportable 03/29/18 13:15 Anisocytosis Not Reportable 03/29/18 13:15 Microcytosis Not Reportable 03/29/18 13:15 Macrocytosis Not Reportable 03/29/18 13:15 Spherocytes Not Reportable 03/29/18 13:15 Pappenheimer Bodies Not Reportable 03/29/18 13:15 Sickle Cells Not Reportable 03/29/18 13:15 Target Cells Not Reportable 03/29/18 13:15 Tear Drop Cells Not Reportable 03/29/18 13:15 Ovalocytes Not Reportable 03/29/18 13:15 Helmet Cells Not Reportable 03/29/18 13:15 Gordillo-[place] Bodies Not Reportable 03/29/18 13:15 [place] Rings Not Reportable 03/29/18 13:15 [place] Cells Not Reportable 03/29/18 13:15 Bite Cells Not Reportable 03/29/18 13:15 Crenated Cell Not Reportable 03/29/18 13:15 Elliptocytes Not Reportable 03/29/18 13:15 Acanthocytes (Spur) Not Reportable 03/29/18 13:15 Rouleaux Not Reportable 03/29/18 13:15 Hemoglobin C Crystals Not Reportable 03/29/18 13:15 Schistocytes Not Reportable 03/29/18 13:15 Malaria parasites Not Reportable 03/29/18 13:15 [place] Bodies Not Reportable 03/29/18 13:15 Hem Pathologist Commnt No 03/29/18 13:15 PT 14.8 Sec. (12.2-14.9) 03/29/18 13:34 INR 1.10 (0.87-1.13) 03/29/18 13:34 D-Dimer > 77035 ng/mlDDU (0-234) H 03/29/18 13:34 POC ABG pH 7.450 (7.35-7.45) 03/29/18 14:44 POC ABG pCO2 43.7 (35-45) 03/29/18 14:44 POC ABG pO2 66 (80-105) L 03/29/18 14:44 POC ABG HCO3 30.4 03/29/18 14:44 POC ABG Total CO2 32 03/29/18 14:44 POC ABG O2 Sat 94 03/29/18 14:44 POC ABG Base Excess 6 03/29/18 14:44 VBG pH 7.406 (7.320-7.420) 03/29/18 13:43 FiO2 100 % 03/29/18 14:44 Sodium 128 mmol/L (137-145) L 03/29/18 13:08 Potassium 5.1 mmol/L (3.6-5.0) H 03/29/18 13:08 Chloride 89.2 mmol/L (98-107) L 03/29/18 13:08 Carbon Dioxide 23 mmol/L (22-30) 03/29/18 13:08 Anion Gap 21 mmol/L 03/29/18 13:08 BUN 17 mg/dL (9-20) 03/29/18 13:08 Creatinine 0.4 mg/dL (0.8-1.5) L 03/29/18 13:08 Estimated GFR > 60 ml/min 03/29/18 13:08 BUN/Creatinine Ratio 43 % 03/29/18 13:08 Glucose 158 mg/dL (75-100) H 03/29/18 13:08 Lactic Acid 3.00 mmol/L (0.7-2.0) H* 03/29/18 20:30 Calcium 8.3 mg/dL (8.4-10.2) L 03/29/18 13:08 NT-Pro-B Natriuret Pep 321.5 pg/mL (0-900) 03/29/18 13:40 Urine Color Yellow (Yellow) 03/29/18 13:30 Urine Turbidity Clear (Clear) 03/29/18 13:30 Urine pH 6.0 (5.0-7.0) 03/29/18 13:30 Ur Specific [place] 1.023 (1.003-1.030) 03/29/18 13:30 Urine Protein <15 mg/dl mg/dL (Negative) 03/29/18 13:30 Urine Glucose (UA) Neg mg/dL (Negative) 03/29/18 13:30 Urine Ketones Tr mg/dL (Negative) 03/29/18 13:30 Urine Blood Mod (Negative) 03/29/18 13:30 Urine Nitrite Neg (Negative) 03/29/18 13:30 Urine Bilirubin Neg (Negative) 03/29/18 13:30 Urine Urobilinogen < 2.0 mg/dL (<2.0) 03/29/18 13:30 Ur Leukocyte Esterase Neg (Negative) 03/29/18 13:30 Urine WBC (Auto) 2.0 /HPF (0.0-6.0) 03/29/18 13:30 Urine RBC (Auto) 46.0 /HPF (0.0-6.0) 03/29/18 13:30 Urine Mucus Few /HPF 03/29/18 13:30 Urine Sperm Few /HPF (FOURTH OFFICER) 03/29/18 13:30 - Imaging and Cardiology EKG: report reviewed (NSR 77/min) Imaging and Cardiology: CXR Juan Miguel Lung infiltrates More so on L sidee Assessment and Plan Advance Directives: Yes (Full code) VTE prophylaxis?: Chemical Plan of care discussed with patient/family: Yes - Patient Problems (1) Acute respiratory failure Current Visit: Yes Status: Acute Qualifiers: Respiratory failure complication: hypoxia Qualified Code(s): J96.01 - Acute respiratory failure with hypoxia Plan to address problem: Sec to COPD and Lung Cancer Neb tx Solumedrol and IV Zosyn/Vancomycin (2) Bilateral pneumonia Current Visit: Yes Status: Acute Plan to address problem: IV Zosyn and vancomycin (3) Lung cancer Current Visit: Yes Status: Chronic Qualifiers: Laterality: unspecified laterality Lung location: unspecified part of lung Qualified Code(s): C34.90 - Malignant neoplasm of unspecified part of unspecified bronchus or lung Plan to address problem: Defer to Dr Koo (4) COPD exacerbation Current Visit: No Status: Acute Plan to address problem: Duonebs IV solumedroland IV ABX (5) Nicotine dependence Current Visit: No Status: Chronic Qualifiers: Nicotine product type: cigarettes Substance use status: in withdrawal Qualified Code(s): F17.213 - Nicotine dependence, cigarettes, with withdrawal Plan to address problem: Nicoderm patch (6) HTN (hypertension) Current Visit: Yes Status: Chronic Qualifiers: Hypertension type: essential hypertension Qualified Code(s): I10 - Essential (primary) hypertension Plan to address problem: Cont antihypertensives (7) GERD (gastroesophageal reflux disease) Current Visit: Yes Status: Chronic Qualifiers: Esophagitis presence: without esophagitis Qualified Code(s): K21.9 - Gastro -esophageal reflux disease without esophagitis Plan to address problem: COnt Famotidine (8) Leukocytosis Current Visit: Yes Status: Chronic Qualifiers: Leukocytosis type: bandemia Qualified Code(s): D72.825 - Bandemia Plan to address problem: Will defer to Oncology to r/o any CLL etc (9) DVT prophylaxis Current Visit: No Status: Acute Plan to address problem: On Lovenox GI prophylaxis initiaed
[2018-03-29] MEDS ORDERED: D5NS 1,000 ML IV SCH (23:00)
[2018-03-29] MEDS: MORPHINE IV PRN (23:39)
[2018-03-30] MEDS: DUONEB *Not for PRN Use IH SCH ×5 (00:12→20:58)
[2018-03-30 05:35] LABS: Hematocrit 47.7 % (35.5-45.6); Hemoglobin 15.5 gm/dl (11.8-15.2); Mean Corpuscular HGB Conc 33 % (32-34); Mean Corpuscular Hemoglobin 27 pg (28-32); Mean Corpuscular Volume 84 fl (84-94); Red Blood Count 5.68 M/mm3 (3.65-5.03); Red Cell Distribution Width 14.3 % (13.2-15.2)
[2018-03-30 05:44] LABS: Platelet Count 99 K/mm3 (140-440)
[2018-03-30] MEDS: ZOSYN/NS 4.5GM/100ML 4.5 GM/100 ML VIAL IV SCH ×2 (05:59→16:22)
[2018-03-30] MEDS: MORPHINE IV PRN ×2 (06:02→18:50)
[2018-03-30 06:16] LABS: Blood Urea Nitrogen 12 mg/dL (9-20)
[2018-03-30 06:17] LABS: Alanine Aminotransferase 22 units/L (7-56); Albumin 2.8 g/dL (3.9-5); BUN/Creatinine Ratio 24; Calcium 7.9 mg/dL (8.4-10.2); Hemolysis Index 4
[2018-03-30] MEDS ORDERED: ROBITUSSIN PO PRN (06:36)
[2018-03-30] MEDS ORDERED: PROAIR IH PRN ×2 (06:36→07:03)
[2018-03-30] MEDS ORDERED: PROVENTIL IH PRN ×2 (06:58→07:05)
--- NOTE | 2018-03-30 07:59 | Progress Note ---
Assessment and Plan Assessment and plan: 52M with lung ca, yet to start rx who was recently dc, pw with cough and worsening sob Acute respiratory failure with hypoxia Sec to COPD and Lung Cancer and pna Neb tx Solumedrol and IV Zosyn/Vancomycin Bilateral pneumonia/sepsis IV Zosyn and vancomycin Lung cancer oncology on board COPD exacerbation Duonebs IV solumedroland IV ABX Nicotine dependence Nicoderm patch, counseled on cessation HTN (hypertension): Cont antihypertensives GERD (gastroesophageal reflux disease) COnt Famotidine Leukocytosis likely due to malignancy and sepsis, continue to rx both DVT prophylaxis On Lovenox History Interval history: Review of systems Constitutional: c/o malaise and subjective fever, no joint pains CVS: No chest pain, no orthopnea, no dyspnea on exertion, no pedal edema GI: No abdominal pain, no diarrhea, no vomiting, no constipation Respiratory: co cough/producitive and sob Hospitalist Physical - Physical exam Narrative exam: General.: Appears ill , moderate respiroary distress toxic appearnce HEENT: Moist mucous membranes, extraocular muscles intact, no lymphadenopathy Neck: supple Cardiac: S1-S2 heard Lungs: crackles and diminished breath sounds Abdomen: soft , nontender, nondistended, bowel sounds positive Extremities: no edema clubbing or cyanosis Skin: no rash or lesions Neurologic: no gross focal deficits Psych: appropriate behavior, appropriate mood, corporative, judgment intact - Constitutional Vitals: Temp Pulse Resp BP Pulse Ox 97.6 F 108 H 22 111/69 91 03/30/18 04:44 03/30/18 04:44 03/30/18 04:44 03/30/18 04:44 03/30/18 04:44 General appearance: Present: severe distress, well-nourished Results - Labs CBC & Chem 7: 03/31/18 08:12 03/31/18 08:12 Labs: Laboratory Last Values WBC 51.4 K/mm3 (4.5-11.0) H* 03/30/18 05:04 RBC 5.68 M/mm3 (3.65-5.03) H 03/30/18 05:04 Hgb 15.5 gm/dl (11.8-15.2) H 03/30/18 05:04 Hct 47.7 % (35.5-45.6) H 03/30/18 05:04 MCV 84 fl (84-94) 03/30/18 05:04 MCH 27 pg (28-32) L 03/30/18 05:04 MCHC 33 % (32-34) 03/30/18 05:04 RDW 14.3 % (13.2-15.2) 03/30/18 05:04 Plt Count 99 K/mm3 (140-440) L 03/30/18 05:04 Add Manual Diff Complete 03/29/18 13:15 Total Counted 100 03/29/18 13:15 Seg Neutrophils % Diving Supervisor 03/30/18 05:04 Seg Neuts % (Manual) 91.0 % (40.0-70.0) H 03/29/18 13:15 Band Neutrophils % 0 % 03/29/18 13:15 Lymphocytes % (Manual) 4.0 % (13.4-35.0) L 03/29/18 13:15 Reactive Lymphs % (Man) 1.0 % 03/29/18 13:15 Monocytes % (Manual) 3.0 % (0.0-7.3) 03/29/18 13:15 Eosinophils % (Manual) 1.0 % (0.0-4.3) 03/29/18 13:15 Basophils % (Manual) 0 % (0.0-1.8) 03/29/18 13:15 Metamyelocytes % 0 % 03/29/18 13:15 Myelocytes % 0 % 03/29/18 13:15 Promyelocytes % 0 % 03/29/18 13:15 Blast Cells % 0 % 03/29/18 13:15 Nucleated RBC % Not Reportable 03/29/18 13:15 Seg Neutrophils # Man 48.3 K/mm3 (1.8-7.7) H 03/29/18 13:15 Band Neutrophils # 0.0 K/mm3 03/29/18 13:15 Lymphocytes # (Manual) 2.1 K/mm3 (1.2-5.4) 03/29/18 13:15 Abs React Lymphs (Man) 0.5 K/mm3 03/29/18 13:15 Monocytes # (Manual) 1.6 K/mm3 (0.0-0.8) H 03/29/18 13:15 Eosinophils # (Manual) 0.5 K/mm3 (0.0-0.4) H 03/29/18 13:15 Basophils # (Manual) 0.0 K/mm3 (0.0-0.1) 03/29/18 13:15 Metamyelocytes # 0.0 K/mm3 03/29/18 13:15 Myelocytes # 0.0 K/mm3 03/29/18 13:15 Promyelocytes # 0.0 K/mm3 03/29/18 13:15 Blast Cells # 0.0 K/mm3 03/29/18 13:15 WBC Morphology Not Reportable 03/29/18 13:15 Hypersegmented Neuts Not Reportable 03/29/18 13:15 Hyposegmented Neuts Not Reportable 03/29/18 13:15 Hypogranular Neuts Not Reportable 03/29/18 13:15 Smudge Cells Not Reportable 03/29/18 13:15 Toxic Granulation Not Reportable 03/29/18 13:15 Toxic Vacuolation Few 03/29/18 13:15 Dohle Bodies Not Reportable 03/29/18 13:15 Pelger-Huet Anomaly Not Reportable 03/29/18 13:15 Betty Rods Not Reportable 03/29/18 13:15 Platelet Estimate Cons 03/29/18 13:15 Clumped Platelets Not Reportable 03/29/18 13:15 Plt Clumps, EDTA Not Reportable 03/29/18 13:15 Large Platelets Not Reportable 03/29/18 13:15 Giant Platelets Not Reportable 03/29/18 13:15 Platelet Satelliting Not Reportable 03/29/18 13:15 Plt Morphology Comment Not Reportable 03/29/18 13:15 RBC Morphology Normal 03/29/18 13:15 Dimorphic RBCs Not Reportable 03/29/18 13:15 Polychromasia Not Reportable 03/29/18 13:15 Hypochromasia Not Reportable 03/29/18 13:15 Poikilocytosis Not Reportable 03/29/18 13:15 Anisocytosis Not Reportable 03/29/18 13:15 Microcytosis Not Reportable 03/29/18 13:15 Macrocytosis Not Reportable 03/29/18 13:15 Spherocytes Not Reportable 03/29/18 13:15 Pappenheimer Bodies Not Reportable 03/29/18 13:15 Sickle Cells Not Reportable 03/29/18 13:15 Target Cells Not Reportable 03/29/18 13:15 Tear Drop Cells Not Reportable 03/29/18 13:15 Ovalocytes Not Reportable 03/29/18 13:15 Helmet Cells Not Reportable 03/29/18 13:15 Gordillo-[place] Bodies Not Reportable 03/29/18 13:15 [place] Rings Not Reportable 03/29/18 13:15 [place] Cells Not Reportable 03/29/18 13:15 Bite Cells Not Reportable 03/29/18 13:15 Crenated Cell Not Reportable 03/29/18 13:15 Elliptocytes Not Reportable 03/29/18 13:15 Acanthocytes (Spur) Not Reportable 03/29/18 13:15 Rouleaux Not Reportable 03/29/18 13:15 Hemoglobin C Crystals Not Reportable 03/29/18 13:15 Schistocytes Not Reportable 03/29/18 13:15 Malaria parasites Not Reportable 03/29/18 13:15 [place] Bodies Not Reportable 03/29/18 13:15 Hem Pathologist Commnt No 03/29/18 13:15 PT 14.8 Sec. (12.2-14.9) 03/29/18 13:34 INR 1.10 (0.87-1.13) 03/29/18 13:34 D-Dimer > 72676 ng/mlDDU (0-234) H 03/29/18 13:34 POC ABG pH 7.450 (7.35-7.45) 03/29/18 14:44 POC ABG pCO2 43.7 (35-45) 03/29/18 14:44 POC ABG pO2 66 (80-105) L 03/29/18 14:44 POC ABG HCO3 30.4 03/29/18 14:44 POC ABG Total CO2 32 03/29/18 14:44 POC ABG O2 Sat 94 03/29/18 14:44 POC ABG Base Excess 6 03/29/18 14:44 VBG pH 7.406 (7.320-7.420) 03/29/18 13:43 FiO2 100 % 03/29/18 14:44 Sodium 136 mmol/L (137-145) L D 03/30/18 05:04 Potassium 4.5 mmol/L (3.6-5.0) 03/30/18 05:04 Chloride 96.0 mmol/L (98-107) L 03/30/18 05:04 Carbon Dioxide 29 mmol/L (22-30) 03/30/18 05:04 Anion Gap 16 mmol/L 03/30/18 05:04 BUN 12 mg/dL (9-20) 03/30/18 05:04 Creatinine 0.5 mg/dL (0.8-1.5) L 03/30/18 05:04 Estimated GFR > 60 ml/min 03/30/18 05:04 BUN/Creatinine Ratio 24 % 03/30/18 05:04 Glucose 156 mg/dL (75-100) H 03/30/18 05:04 Hemoglobin A1c 7.4 % (4-6) H 03/29/18 23:46 Lactic Acid 1.40 mmol/L (0.7-2.0) 03/30/18 05:04 Calcium 7.9 mg/dL (8.4-10.2) L 03/30/18 05:04 Total Bilirubin 0.30 mg/dL (0.1-1.2) 03/30/18 05:04 AST 10 units/L (5-40) 03/30/18 05:04 ALT 22 units/L (7-56) 03/30/18 05:04 Alkaline Phosphatase 55 units/L (35-129) 03/30/18 05:04 NT-Pro-B Natriuret Pep 321.5 pg/mL (0-900) 03/29/18 13:40 Total Protein 5.3 g/dL (6.3-8.2) L 03/30/18 05:04 Albumin 2.8 g/dL (3.9-5) L 03/30/18 05:04 Albumin/Globulin Ratio 1.1 % 03/30/18 05:04 Urine Color Yellow (Yellow) 03/29/18 13:30 Urine Turbidity Clear (Clear) 03/29/18 13:30 Urine pH 6.0 (5.0-7.0) 03/29/18 13:30 Ur Specific [place] 1.023 (1.003-1.030) 03/29/18 13:30 Urine Protein <15 mg/dl mg/dL (Negative) 03/29/18 13:30 Urine Glucose (UA) Neg mg/dL (Negative) 03/29/18 13:30 Urine Ketones Tr mg/dL (Negative) 03/29/18 13:30 Urine Blood Mod (Negative) 03/29/18 13:30 Urine Nitrite Neg (Negative) 03/29/18 13:30 Urine Bilirubin Neg (Negative) 03/29/18 13:30 Urine Urobilinogen < 2.0 mg/dL (<2.0) 03/29/18 13:30 Ur Leukocyte Esterase Neg (Negative) 03/29/18 13:30 Urine WBC (Auto) 2.0 /HPF (0.0-6.0) 03/29/18 13:30 Urine RBC (Auto) 46.0 /HPF (0.0-6.0) 03/29/18 13:30 Urine Mucus Few /HPF 03/29/18 13:30 Urine 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
[2018-03-30] MEDS ORDERED: PROVENTIL IH SCH (08:00)
[2018-03-30] MEDS ORDERED: DUONEB *Not for PRN Use IH SCH (08:00)
[2018-03-30 08:33] LABS: Band Neutrophils # (Manual) 1.5 K/mm3; Basophils % (Manual) 0 % (0.0-1.8); Monocytes % (Manual) 5.5 % (0.0-7.3); Total Cells Counted 200
[2018-03-30 08:34] LABS: Platelet Estimate Consistent w Auto
--- NOTE | 2018-03-30 09:47 | Hem/Onc Progress Note ---
Assessment and Plan Non-small cell lung cancer stage IV. Agree with antibiotics. Dr. Koo is considering immunotherapy for him. White count high. Agree with antibiotics. We will check flow cytometry. Dr. Koo will be seeing him tomorrow. Subjective Date of service: 03/30/18 Interval history: Patient with known lung cancer. Has not started any treatment yet. Was being evaluated for immunotherapy. Admitted with shortness of breath. Objective - Exam Narrative Exam: Short of breath. Sitting up - Constitutional Vitals: Last Vital Signs Temp 97.6 F 03/30/18 04:44 Pulse 100 H 03/30/18 08:16 Resp 24 03/30/18 08:16 BP 111/69 03/30/18 04:44 Pulse Ox 94 03/30/18 08:05 Performance status: 4-completely disabled - Neck Neck: supple - Respiratory Respiratory: bilateral: diminished (bilateral wheezes) - Cardiovascular Rhythm: regular - Labs Lab Results: Laboratory Results - last 24 hr 03/29/18 03/29/18 03/29/18 13:08 13:15 13:30 WBC 53.1 H* RBC 6.01 H Hgb 16.6 H Hct 49.3 H MCV 82 L MCH 28 MCHC 34 RDW 14.3 Plt Count 127 L Add Manual Diff Complete Total Counted 100 Seg Neutrophils % Seg Neuts % (Manual) 91.0 H Band Neutrophils % 0 Lymphocytes % (Manual) 4.0 L Reactive Lymphs % (Man) 1.0 Monocytes % (Manual) 3.0 Eosinophils % (Manual) 1.0 Basophils % (Manual) 0 Metamyelocytes % 0 Myelocytes % 0 Promyelocytes % 0 Blast Cells % 0 Nucleated RBC % Not Reportable Seg Neutrophils # Man 48.3 H Band Neutrophils # 0.0 Lymphocytes # (Manual) 2.1 Abs React Lymphs (Man) 0.5 Monocytes # (Manual) 1.6 H Eosinophils # (Manual) 0.5 H Basophils # (Manual) 0.0 Metamyelocytes # 0.0 Myelocytes # 0.0 Promyelocytes # 0.0 Blast Cells # 0.0 WBC Morphology Not Reportable Hypersegmented Neuts Not Reportable Hyposegmented Neuts Not Reportable Hypogranular Neuts Not Reportable Smudge Cells Not Reportable Toxic Granulation Not Reportable Toxic Vacuolation Few Dohle Bodies Not Reportable Pelger-Huet Anomaly Not Reportable Betty Rods Not Reportable Platelet Estimate Cons Clumped Platelets Not Reportable Plt Clumps, EDTA Not Reportable Large Platelets Not Reportable Giant Platelets Not Reportable Platelet Satelliting Not Reportable Plt Morphology Comment Not Reportable RBC Morphology Normal Dimorphic RBCs Not Reportable Polychromasia Not Reportable Hypochromasia Not Reportable Poikilocytosis Not Reportable Anisocytosis Not Reportable Microcytosis Not Reportable Macrocytosis Not Reportable Spherocytes Not Reportable Pappenheimer Bodies Not Reportable Sickle Cells Not Reportable Target Cells Not Reportable Tear Drop Cells Not Reportable Ovalocytes Not Reportable Helmet Cells Not Reportable [place] Bodies Not Reportable [place] Rings Not Reportable Kristin Cells Not Reportable Bite Cells Not Reportable Crenated Cell Not Reportable Elliptocytes Not Reportable Acanthocytes (Spur) Not Reportable Rouleaux Not Reportable Hemoglobin C Crystals Not Reportable Schistocytes Not Reportable Malaria parasites Not Reportable [place] Bodies Not Reportable Hem Pathologist Commnt No PT INR D-Dimer POC ABG pH POC ABG pCO2 POC ABG pO2 POC ABG HCO3 POC ABG Total CO2 POC ABG O2 Sat POC ABG Base Excess VBG pH FiO2 Sodium 128 L Potassium 5.1 H Chloride 89.2 L Carbon Dioxide 23 Anion Gap 21 BUN 17 Creatinine 0.4 L Estimated GFR > 60 BUN/Creatinine Ratio 43 Glucose 158 H Hemoglobin A1c Lactic Acid Calcium 8.3 L Total Bilirubin AST ALT Alkaline Phosphatase NT-Pro-B Natriuret Pep Total Protein Albumin Albumin/Globulin Ratio Urine Color Yellow Urine Turbidity Clear Urine pH 6.0 Ur Specific [place] 1.023 Urine Protein <15 mg/dl Urine Glucose (UA) Neg Urine Ketones Tr Urine Blood Mod Urine Nitrite Neg Urine Bilirubin Neg Urine Urobilinogen < 2.0 Ur Leukocyte Esterase Neg Urine WBC (Auto) 2.0 Urine RBC (Auto) 46.0 Urine Mucus Few Urine Sperm Few 03/29/18 03/29/18 03/29/18 13:34 13:34 13:40 WBC RBC Hgb Hct MCV MCH MCHC RDW Plt Count Add Manual Diff Total Counted Seg Neutrophils % Seg Neuts % (Manual) Band Neutrophils % Lymphocytes % (Manual) Reactive Lymphs % (Man) Monocytes % (Manual) Eosinophils % (Manual) Basophils % (Manual) Metamyelocytes % Myelocytes % Promyelocytes % Blast Cells % Nucleated RBC % Seg Neutrophils # Man Band Neutrophils # Lymphocytes # (Manual) Abs React Lymphs (Man) Monocytes # (Manual) Eosinophils # (Manual) Basophils # (Manual) Metamyelocytes # Myelocytes # Promyelocytes # Blast Cells # WBC Morphology Hypersegmented Neuts Hyposegmented Neuts Hypogranular Neuts Smudge Cells Toxic Granulation Toxic Vacuolation Dohle Bodies Pelger-Huet Anomaly Betty Rods Platelet Estimate Clumped Platelets Plt Clumps, EDTA Large Platelets Giant Platelets Platelet Satelliting Plt Morphology Comment RBC Morphology Dimorphic RBCs Polychromasia Hypochromasia Poikilocytosis Anisocytosis Microcytosis Macrocytosis Spherocytes Pappenheimer Bodies Sickle Cells Target Cells Tear Drop Cells Ovalocytes Helmet Cells [place] Bodies [place] Rings Kristin Cells Bite Cells Crenated Cell Elliptocytes Acanthocytes (Spur) Rouleaux Hemoglobin C Crystals Schistocytes Malaria parasites Kenrick Bodies Hem Pathologist Commnt PT 14.8 INR 1.10 D-Dimer > 53953 H POC ABG pH POC ABG pCO2 POC ABG pO2 POC ABG HCO3 POC ABG Total CO2 POC ABG O2 Sat POC ABG Base Excess VBG pH FiO2 Sodium Potassium Chloride Carbon Dioxide Anion Gap BUN Creatinine Estimated GFR BUN/Creatinine Ratio Glucose Hemoglobin A1c Lactic Acid 1.30 Calcium Total Bilirubin AST ALT Alkaline Phosphatase NT-Pro-B Natriuret Pep 321.5 Total Protein Albumin Albumin/Globulin Ratio Urine Color Urine Turbidity Urine pH Ur Specific [place] Urine Protein Urine Glucose (UA) Urine Ketones Urine Blood Urine Nitrite Urine Bilirubin Urine Urobilinogen Ur Leukocyte Esterase Urine WBC (Auto) Urine RBC (Auto) Urine Mucus Urine Sperm 03/29/18 03/29/18 03/29/18 13:43 14:44 16:54 WBC RBC Hgb Hct MCV MCH MCHC RDW Plt Count Add Manual Diff Total Counted Seg Neutrophils % Seg Neuts % (Manual) Band Neutrophils % Lymphocytes % (Manual) Reactive Lymphs % (Man) Monocytes % (Manual) Eosinophils % (Manual) Basophils % (Manual) Metamyelocytes % Myelocytes % Promyelocytes % Blast Cells % Nucleated RBC % Seg Neutrophils # Man Band Neutrophils # Lymphocytes # (Manual) Abs React Lymphs (Man) Monocytes # (Manual) Eosinophils # (Manual) Basophils # (Manual) Metamyelocytes # Myelocytes # Promyelocytes # Blast Cells # WBC Morphology Hypersegmented Neuts Hyposegmented Neuts Hypogranular Neuts Smudge Cells Toxic Granulation Toxic Vacuolation Dohle Bodies Pelger-Huet Anomaly Betty Rods Platelet Estimate Clumped Platelets Plt Clumps, EDTA Large Platelets Giant Platelets Platelet Satelliting Plt Morphology Comment RBC Morphology Dimorphic RBCs Polychromasia Hypochromasia Poikilocytosis Anisocytosis Microcytosis Macrocytosis Spherocytes Pappenheimer Bodies Sickle Cells Target Cells Tear Drop Cells Ovalocytes Helmet Cells [place] Bodies [place] Rings [place] Cells Bite Cells Crenated Cell Elliptocytes Acanthocytes (Spur) Rouleaux Hemoglobin C Crystals Schistocytes Malaria parasites Kenrick Bodies Hem Pathologist Commnt PT INR D-Dimer POC ABG pH 7.450 POC ABG pCO2 43.7 POC ABG pO2 66 L POC ABG HCO3 30.4 POC ABG Total CO2 32 POC ABG O2 Sat 94 POC ABG Base Excess 6 VBG pH 7.406 FiO2 100 Sodium Potassium Chloride Carbon Dioxide Anion Gap BUN Creatinine Estimated GFR BUN/Creatinine Ratio Glucose Hemoglobin A1c Lactic Acid 2.10 H* Calcium Total Bilirubin AST ALT Alkaline Phosphatase NT-Pro-B Natriuret Pep Total Protein Albumin Albumin/Globulin Ratio Urine Color Urine Turbidity Urine pH Ur Specific [place] Urine Protein Urine Glucose (UA) Urine Ketones Urine Blood Urine Nitrite Urine Bilirubin Urine Urobilinogen Ur Leukocyte Esterase Urine WBC (Auto) Urine RBC (Auto) Urine Mucus Urine Sperm 03/29/18 03/29/18 03/30/18 20:30 23:46 05:04 WBC 51.4 H* RBC 5.68 H Hgb 15.5 H Hct 47.7 H MCV 84 MCH 27 L MCHC 33 RDW 14.3 Plt Count 99 L Add Manual Diff Complete Total Counted 200 Seg Neutrophils % Sole Assessor Seg Neuts % (Manual) 87.5 H Band Neutrophils % 3.0 Lymphocytes % (Manual) 2.0 L Reactive Lymphs % (Man) 0 Monocytes % (Manual) 5.5 Eosinophils % (Manual) 1.0 Basophils % (Manual) 0 Metamyelocytes % 1.0 Myelocytes % 0 Promyelocytes % 0 Blast Cells % 0 Nucleated RBC % Not Reportable Seg Neutrophils # Man 45.0 H Band Neutrophils # 1.5 Lymphocytes # (Manual) 1.0 L Abs React Lymphs (Man) 0.0 Monocytes # (Manual) 2.8 H Eosinophils # (Manual) 0.5 H Basophils # (Manual) 0.0 Metamyelocytes # 0.5 Myelocytes # 0.0 Promyelocytes # 0.0 Blast Cells # 0.0 WBC Morphology Not Reportable Hypersegmented Neuts Not Reportable Hyposegmented Neuts Not Reportable Hypogranular Neuts Not Reportable Smudge Cells Not Reportable Toxic Granulation Not Reportable Toxic Vacuolation Not Reportable Dohle Bodies Not Reportable Pelger-Huet Anomaly Not Reportable Betty Rods Not Reportable Platelet Estimate Consistent w auto Clumped Platelets Not Reportable Plt Clumps, EDTA Not Reportable Large Platelets Not Reportable Giant Platelets Not Reportable Platelet Satelliting Not Reportable Plt Morphology Comment Not Reportable RBC Morphology Not Reportable Dimorphic RBCs Not Reportable Polychromasia Not Reportable Hypochromasia Not Reportable Poikilocytosis Not Reportable Anisocytosis Not Reportable Microcytosis Not Reportable Macrocytosis Not Reportable Spherocytes Not Reportable Pappenheimer Bodies Not Reportable Sickle Cells Not Reportable Target Cells Not Reportable Tear Drop Cells Not Reportable Ovalocytes Not Reportable Helmet Cells Not Reportable [place] Bodies Not Reportable [place] Rings Not Reportable Kristin Cells Not Reportable Bite Cells Not Reportable Crenated Cell Not Reportable Elliptocytes Not Reportable Acanthocytes (Spur) Not Reportable Rouleaux Not Reportable Hemoglobin C Crystals Not Reportable Schistocytes Not Reportable Malaria parasites Not Reportable [place] Bodies Not Reportable Hem Pathologist Commnt No PT INR D-Dimer POC ABG pH POC ABG pCO2 POC ABG pO2 POC ABG HCO3 POC ABG Total CO2 POC ABG O2 Sat POC ABG Base Excess VBG pH FiO2 Sodium Potassium Chloride Carbon Dioxide Anion Gap BUN Creatinine Estimated GFR BUN/Creatinine Ratio Glucose Hemoglobin A1c 7.4 H Lactic Acid 3.00 H* Calcium Total Bilirubin AST ALT Alkaline Phosphatase NT-Pro-B Natriuret Pep Total Protein Albumin Albumin/Globulin Ratio Urine Color Urine Turbidity Urine pH Ur Specific [place] Urine Protein Urine Glucose (UA) Urine Ketones Urine Blood Urine Nitrite Urine Bilirubin Urine Urobilinogen Ur Leukocyte Esterase Urine WBC (Auto) Urine RBC (Auto) Urine Mucus Urine Sperm 03/30/18 03/30/18 05:04 05:04 WBC RBC Hgb Hct MCV MCH MCHC RDW Plt Count Add Manual Diff Total Counted Seg Neutrophils % Seg Neuts % (Manual) Band Neutrophils % Lymphocytes % (Manual) Reactive Lymphs % (Man) Monocytes % (Manual) Eosinophils % (Manual) Basophils % (Manual) Metamyelocytes % Myelocytes % Promyelocytes % Blast Cells % Nucleated RBC % Seg Neutrophils # Man Band Neutrophils # Lymphocytes # (Manual) Abs React Lymphs (Man) Monocytes # (Manual) Eosinophils # (Manual) Basophils # (Manual) Metamyelocytes # Myelocytes # Promyelocytes # Blast Cells # WBC Morphology Hypersegmented Neuts Hyposegmented Neuts Hypogranular Neuts Smudge Cells Toxic Granulation Toxic Vacuolation Dohle Bodies Pelger-Huet Anomaly Betty Rods Platelet Estimate Clumped Platelets Plt Clumps, EDTA Large Platelets Giant Platelets Platelet Satelliting Plt Morphology Comment RBC Morphology Dimorphic RBCs Polychromasia Hypochromasia Poikilocytosis Anisocytosis Microcytosis Macrocytosis Spherocytes Pappenheimer Bodies Sickle Cells Target Cells Tear Drop Cells Ovalocytes Helmet Cells [place] Bodies [place] Rings Kristin Cells Bite Cells Crenated Cell Elliptocytes Acanthocytes (Spur) Rouleaux Hemoglobin C Crystals Schistocytes Malaria parasites [place] Bodies Hem Pathologist Commnt PT INR D-Dimer POC ABG pH POC ABG pCO2 POC ABG pO2 POC ABG HCO3 POC ABG Total CO2 POC ABG O2 Sat POC ABG Base Excess VBG pH FiO2 Sodium 136 L D Potassium 4.5 Chloride 96.0 L Carbon Dioxide 29 Anion Gap 16 BUN 12 Creatinine 0.5 L Estimated GFR > 60 BUN/Creatinine Ratio 24 Glucose 156 H Hemoglobin A1c Lactic Acid 1.40 Calcium 7.9 L Total Bilirubin 0.30 AST 10 ALT 22 Alkaline Phosphatase 55 NT-Pro-B Natriuret Pep Total Protein 5.3 L Albumin 2.8 L Albumin/Globulin Ratio 1.1 Urine Color Urine Turbidity Urine pH Ur Specific [place] Urine Protein Urine Glucose (UA) Urine Ketones Urine Blood Urine Nitrite Urine Bilirubin Urine Urobilinogen Ur Leukocyte Esterase Urine WBC (Auto) Urine RBC (Auto) Urine Mucus Urine Sperm
[2018-03-30] MEDS ORDERED: PEPCID IV SCH (10:00)
[2018-03-30] MEDS: HABITROL TD SCH (10:30)
[2018-03-30] MEDS: SODIUM CHLORIDE FLUSH SYRINGE 10 ML IV SCH (10:33)
[2018-03-30] MEDS: PEPCID PO SCH (10:33)
[2018-03-30] MEDS: VANCOMYCIN/NS 1 GM/250 ML 1 GM/250 ML BAG IV SCH ×2 (10:35→16:21)
[2018-03-30] MEDS: TYLENOL PO PRN (16:22)
[2018-03-30] MEDS: CARDIZEM PO SCH (16:24)
[2018-03-30] MEDS ORDERED: ATIVAN PO PRN (20:47)
--- NOTE | 2018-03-30 22:05 | Emergency Department Report ---
Blank Doc - Documentation Documentation: Consult on emergent basis, with request to intubate for respiratory failure, with declining oxygen saturations despite BiPAP, decreased level of consciousness. This patient is known to me, having been seen in the emergency department yesterday with new diagnosis of lung cancer, apparent bilateral pneumonia, with markedly elevated white count, who had not yet started treatment, as he developed dyspnea on his way to see his oncologist yesterday, and was diverted to emergency department for stabilization, where we place patient on rebreather , supplemental oxygen, and patient was started on antibody therapy for hospital- acquired pneumonia, pass patient had been treated with antibiotics for pneumonia and hospitalization the prior week, at which point his pneumonia and neoplasia was identified. On my examination here today, patient is obtunded, but vital signs are stable with blood pressure of 135/67, oxygen saturation is 97%, but on 100% oxygen by BiPAP. Patient was preoxygenated with 100% oxygen, and was prepared for rapid sequence intubation, with intubation medications of induction with 20 mg of etomidate, followed by paralysis with 50 mg of rocuronium IV. During this time, patient was oxygenated by bag valve mask. Intubation was performed by direct laryngoscopy, with #4 Sanya blade. Vocal cords were visualized easily and directly, and #7.5 endotracheal tube was passed without difficulty. Postintubation placement was confirmed initially by color change on capnography , followed by bilateral auscultation of both lung negron with good easy breath sounds, and lack of breath sounds over the epigastrium. Portable chest x-ray ordered for radiographic confirmation as well. Further care returned to on-call hospitalist, Dr. Sauceda. Thank you for this consultation.
[2018-03-30] MEDS ORDERED: ARTIFICIAL TEARS OPHTH OINT OU PRN (22:13)
[2018-03-30] MEDS ORDERED: VASELINE LIP THERAPY TP PRN (22:13)
[2018-03-30] MEDS ORDERED: ZEMURON IV ONE (22:15)
[2018-03-30] MEDS ORDERED: VERSED ONE (22:55)
[2018-03-30] MEDS ORDERED: DIPRIVAN 10 MG/ML 1,000 MG/100 ML BOTTLE IV ONE (22:55)
[2018-03-30] MEDS ORDERED: VERSED IV PRN (23:00)
--- NOTE | 2018-03-30 23:01 | XRay Report ---
FINAL REPORT EXAM: XR CHEST 1V AP HISTORY: ETT placement TECHNIQUE: Frontal portable view of the chest Comparison: Chest x-ray and CT angiogram chest dated March 14, 2018 FINDINGS: The tip of the endotracheal tube is below the level of the clavicles and above the level of the jarrod. There is bilateral interstitial and airspace disease, left greater than right with a moderate sized left pleural fluid collection. Evaluation of the cardiomediastinal silhouette is somewhat limited by obliquity of the image. The visualized portion of the upper abdomen is notable for gastric distension. IMPRESSION: 1. Tip of endotracheal tube projected to be in satisfactory position. 2. Bilateral interstitial and airspace process with left pleural effusion. 3. Appearance of gastric distension.
[2018-03-30] MEDS ORDERED: AMIDATE IV ONE (23:02)
[2018-03-30] MEDS ORDERED: DIPRIVAN 10 MG/ML IV ONE (23:02)
[2018-03-30] MEDS ORDERED: SUBLIMAZE IV ONE ×2 (23:02→23:52)
--- NOTE | 2018-03-30 23:13 | Emergency Department Report ---
Blank Doc - Documentation Documentation: Consulted two additional times for reintubation, each time, as patient tube dislodged in transfer to new bed on movement to ICU, Procedure, 2225 hours: no additional medications as patient still obtunded, and performed emergently as O2 sats declining, to 80-85% range despite BVM ventilation under good conditions. glidescope used for intubation, with direct visualization of cords, easy passage of #7.5 ET tube, with good bilateral breath sounds on ausculation. Cxr requested. Called to replace ET Tube at 2240 hours, as ET tube cuff burst, and tube needed replacement. By time of arrival, Resp Tech had replaced tube using bougie, and insertion of # 7.5 ET tube, secured at 23 cm at the teeth. On my ausculation, patient had good bilateral breath sounds, O2 sat still suboptimal, @ 83% Patient more responsive, fighting tube, attempting to breath spontaneously, requiring sedation with midazolam, 2 mg emergently, with paralysis and sedation and analgesia with IV fentanyl drip, and propofol drip. followup O2 sat 93% at 2312 hours. CXR awaited. Will check.
--- NOTE | 2018-03-30 23:37 | Event Note ---
Date: 03/30/18 CardiacCode MET Call to see patient for respiratory distress ABG was done, was briefly placed on BiPAP Respiratory rate increase, using accessory muscles Intubate now, transferred to the ICU Consult critical care The high probability of a clinically significant, sudden or life threatening deterioration of the [respiratory, hemodynamic and neurological] system(s) required my full and direct attention, intervention and personal management. The aggregate critical care time was 35 minutes. This time is in addition to time spent performing reported procedures but includes the following: [x] Data Review and interpretation [x] Patient assessment and monitoring of vital signs [x] Documentation [x] Medication orders and management
[2018-03-30] MEDS: DIPRIVAN 10 MG/ML 1,000 MG/100 ML BOTTLE IV SCH (23:41)
--- NOTE | 2018-03-30 23:48 | XRay Report ---
FINAL REPORT EXAM: XR CHEST 1V AP HISTORY: tube placement, post endotracheal intubation TECHNIQUE: Frontal portable view of the chest Comparison: Chest x-ray performed earlier today at 22:32 FINDINGS: The tip of the endotracheal tube is below the level of the clavicles and above the level of the jarrod. Again noted is the bilateral interstitial and airspace process and moderate-sized left pleural fluid collection. The cardiac silhouette appears to be upper limits normal size. IMPRESSION: 1. Tip of endotracheal tube projected to be in satisfactory position. 2. Bilateral interstitial and airspace process with moderate size left pleural fluid collection.
[2018-03-30] MEDS: fentaNYL DRIP Premix 2,000 MCG/100 ML BAG IV SCH (23:59)
[2018-03-31] MEDS: PEPCID PO SCH ×3 (02:17→22:03)
[2018-03-31] MEDS: CARDIZEM PO SCH ×3 (02:17→14:01)
[2018-03-31] MEDS: ZOSYN/NS 4.5GM/100ML 4.5 GM/100 ML VIAL IV SCH ×4 (02:21→22:02)
[2018-03-31] MEDS: VANCOMYCIN/NS 1 GM/250 ML 1 GM/250 ML BAG IV SCH ×3 (03:06→16:49)
[2018-03-31] MEDS: DUONEB *Not for PRN Use IH SCH ×4 (07:48→20:37)
[2018-03-31 08:34] LABS: Hematocrit 45.9 % (35.5-45.6); Hemoglobin 14.7 gm/dl (11.8-15.2); Mean Corpuscular HGB Conc 32 % (32-34); Mean Corpuscular Hemoglobin 27 pg (28-32); Mean Corpuscular Volume 86 fl (84-94); Red Blood Count 5.35 M/mm3 (3.65-5.03); Red Cell Distribution Width 14.3 % (13.2-15.2)
[2018-03-31 08:49] LABS: Platelet Count 70 K/mm3 (140-440)
[2018-03-31 09:28] LABS: Basophils % (Manual) 0 % (0.0-1.8); Total Cells Counted 200
[2018-03-31 09:29] LABS: Platelet Estimate Cons; RBC Morphology Normal; Toxic Vacuolation Few
[2018-03-31 09:54] LABS: Alanine Aminotransferase 23 units/L (7-56); Albumin 2.5 g/dL (3.9-5); BUN/Creatinine Ratio 26; Blood Urea Nitrogen 23 mg/dL (9-20); Hemolysis Index 25
[2018-03-31] MEDS: HABITROL TD SCH (11:16)
[2018-03-31] MEDS: SODIUM CHLORIDE FLUSH SYRINGE 10 ML IV SCH ×2 (11:21→22:07)
[2018-03-31] MEDS ORDERED: CARDIZEM PO SCH ×3 (12:00→14:00)
--- NOTE | 2018-03-31 12:17 | XRay Report ---
FINAL REPORT EXAM: XR ABDOMEN 1V AP HISTORY: Confirm OGT TECHNIQUE: AP abdominal radiograph. PRIORS: None. FINDINGS: The enteric tube tip projects just within the stomach. The side port projects in the distal esophagus. No bowel obstruction. No organomegaly or masses. A calcification projects over the left mid abdomen measuring 1.2 centimeters. No acute osseous abnormality. The enteric tube tip projects in the mid thoracic trachea. Multifocal patchy pulmonary opacities are seen. Left-sided pleural effusion is again seen. IMPRESSION: 1. Enteric tube tip projecting just within the stomach. 2. Calcification projecting in the left mid abdomen may represent renal calcification versus material within the bowel.
[2018-03-31] MEDS: NACL 0.9% 1000 ML 1,000 ML IV SCH ×2 (12:56→20:14)
--- NOTE | 2018-03-31 13:54 | Progress Note ---
Assessment and Plan Assessment and plan: 52M with lung ca, yet to start rx who was recently dc, pw with cough and worsening sob Acute respiratory failure with hypoxia on MV <96 hours continue vent, wean as tolerated Bilateral pneumonia/sepsis IV Zosyn and vancomycin; ID consult Lung cancer oncology on board COPD exacerbation Duonebs IV solumedroland IV ABX Nicotine dependence Nicoderm patch, counseled on cessation HTN (hypertension): Cont antihypertensives GERD (gastroesophageal reflux disease) COnt Famotidine Leukocytosis likely due to malignancy and sepsis, continue to rx both DVT prophylaxis On Lovenox CCT 33 minutes History Interval history: patient now intubated no fevers, no seizures, no cough observed has been calm on minimal sedation Hospitalist Physical - Physical exam Narrative exam: General.: Appears ill , moderate respiroary distress toxic appearnce HEENT: Moist mucous membranes, extraocular muscles intact, no lymphadenopathy Neck: supple Cardiac: S1-S2 heard Lungs: crackles and diminished breath sounds Abdomen: soft , nontender, nondistended, bowel sounds positive Extremities: no edema clubbing or cyanosis Skin: no rash or lesions Neurologic: no gross focal deficits Psych: intubated - Constitutional Vitals: Temp Pulse Resp BP Pulse Ox 98.3 F 115 H 19 95/74 93 03/31/18 08:00 03/31/18 12:45 03/31/18 12:45 03/31/18 12:45 03/31/18 12:45 General appearance: Present: severe distress, well-nourished Results - Labs CBC & Chem 7: 03/31/18 08:12 03/31/18 08:12 Labs: Laboratory Last Values WBC 47.9 K/mm3 (4.5-11.0) H* 03/31/18 08:12 RBC 5.35 M/mm3 (3.65-5.03) H 03/31/18 08:12 Hgb 14.7 gm/dl (11.8-15.2) 03/31/18 08:12 Hct 45.9 % (35.5-45.6) H 03/31/18 08:12 MCV 86 fl (84-94) 03/31/18 08:12 MCH 27 pg (28-32) L 03/31/18 08:12 MCHC 32 % (32-34) 03/31/18 08:12 RDW 14.3 % (13.2-15.2) 03/31/18 08:12 Plt Count 70 K/mm3 (140-440) L 03/31/18 08:12 Add Manual Diff Complete 03/31/18 08:12 Total Counted 200 03/31/18 08:12 Seg Neutrophils % [employer] Supervisor 03/30/18 05:04 Seg Neuts % (Manual) 91.5 % (40.0-70.0) H 03/31/18 08:12 Band Neutrophils % 0 % 03/31/18 08:12 Lymphocytes % (Manual) 0.5 % (13.4-35.0) L 03/31/18 08:12 Reactive Lymphs % (Man) 0 % 03/31/18 08:12 Monocytes % (Manual) 5.0 % (0.0-7.3) 03/31/18 08:12 Eosinophils % (Manual) 2.0 % (0.0-4.3) 03/31/18 08:12 Basophils % (Manual) 0 % (0.0-1.8) 03/31/18 08:12 Metamyelocytes % 1.0 % 03/31/18 08:12 Myelocytes % 0 % 03/31/18 08:12 Promyelocytes % 0 % 03/31/18 08:12 Blast Cells % 0 % 03/31/18 08:12 Nucleated RBC % Not Reportable 03/31/18 08:12 Seg Neutrophils # Man 43.8 K/mm3 (1.8-7.7) H 03/31/18 08:12 Band Neutrophils # 0.0 K/mm3 03/31/18 08:12 Lymphocytes # (Manual) 0.2 K/mm3 (1.2-5.4) L 03/31/18 08:12 Abs React Lymphs (Man) 0.0 K/mm3 03/31/18 08:12 Monocytes # (Manual) 2.4 K/mm3 (0.0-0.8) H 03/31/18 08:12 Eosinophils # (Manual) 1.0 K/mm3 (0.0-0.4) H 03/31/18 08:12 Basophils # (Manual) 0.0 K/mm3 (0.0-0.1) 03/31/18 08:12 Metamyelocytes # 0.5 K/mm3 03/31/18 08:12 Myelocytes # 0.0 K/mm3 03/31/18 08:12 Promyelocytes # 0.0 K/mm3 03/31/18 08:12 Blast Cells # 0.0 K/mm3 03/31/18 08:12 WBC Morphology Not Reportable 03/31/18 08:12 Hypersegmented Neuts Not Reportable 03/31/18 08:12 Hyposegmented Neuts Not Reportable 03/31/18 08:12 Hypogranular Neuts Not Reportable 03/31/18 08:12 Smudge Cells Not Reportable 03/31/18 08:12 Toxic Granulation Not Reportable 03/31/18 08:12 Toxic Vacuolation Few 03/31/18 08:12 Dohle Bodies Not Reportable 03/31/18 08:12 Pelger-Huet Anomaly Not Reportable 03/31/18 08:12 Betty Rods Not Reportable 03/31/18 08:12 Platelet Estimate Cons 03/31/18 08:12 Clumped Platelets Not Reportable 03/31/18 08:12 Plt Clumps, EDTA Not Reportable 03/31/18 08:12 Large Platelets Not Reportable 03/31/18 08:12 Giant Platelets Not Reportable 03/31/18 08:12 Platelet Satelliting Not Reportable 03/31/18 08:12 Plt Morphology Comment Not Reportable 03/31/18 08:12 RBC Morphology Normal 03/31/18 08:12 Dimorphic RBCs Not Reportable 03/31/18 08:12 Polychromasia Not Reportable 03/31/18 08:12 Hypochromasia Not Reportable 03/31/18 08:12 Poikilocytosis Not Reportable 03/31/18 08:12 Anisocytosis Not Reportable 03/31/18 08:12 Microcytosis Not Reportable 03/31/18 08:12 Macrocytosis Not Reportable 03/31/18 08:12 Spherocytes Not Reportable 03/31/18 08:12 Pappenheimer Bodies Not Reportable 03/31/18 08:12 Sickle Cells Not Reportable 03/31/18 08:12 Target Cells Not Reportable 03/31/18 08:12 Tear Drop Cells Not Reportable 03/31/18 08:12 Ovalocytes Not Reportable 03/31/18 08:12 Helmet Cells Not Reportable 03/31/18 08:12 [place] Bodies Not Reportable 03/31/18 08:12 [place] Rings Not Reportable 03/31/18 08:12 Kristin Cells Not Reportable 03/31/18 08:12 Bite Cells Not Reportable 03/31/18 08:12 Crenated Cell Not Reportable 03/31/18 08:12 Elliptocytes Not Reportable 03/31/18 08:12 Acanthocytes (Spur) Not Reportable 03/31/18 08:12 Rouleaux Not Reportable 03/31/18 08:12 Hemoglobin C Crystals Not Reportable 03/31/18 08:12 Schistocytes Not Reportable 03/31/18 08:12 Malaria parasites Not Reportable 03/31/18 08:12 [place] Bodies Not Reportable 03/31/18 08:12 Hem Pathologist Commnt No 03/31/18 08:12 PT 14.8 Sec. (12.2-14.9) 03/29/18 13:34 INR 1.10 (0.87-1.13) 03/29/18 13:34 D-Dimer > 35267 ng/mlDDU (0-234) H 03/29/18 13:34 POC ABG pH 7.385 (7.35-7.45) 03/31/18 02:13 POC ABG pCO2 49.6 (35-45) H 03/31/18 02:13 POC ABG pO2 136 (80-105) H 03/31/18 02:13 POC ABG HCO3 29.7 03/31/18 02:13 POC ABG Total CO2 31 03/31/18 02:13 POC ABG O2 Sat 99 03/31/18 02:13 POC ABG Base Excess 5 03/31/18 02:13 VBG pH 7.406 (7.320-7.420) 03/29/18 13:43 FiO2 100 % 03/31/18 02:13 Sodium 138 mmol/L (137-145) 03/31/18 08:12 Potassium 4.8 mmol/L (3.6-5.0) 03/31/18 08:12 Chloride 99.3 mmol/L (98-107) 03/31/18 08:12 Carbon Dioxide 24 mmol/L (22-30) 03/31/18 08:12 Anion Gap 20 mmol/L 03/31/18 08:12 BUN 23 mg/dL (9-20) H 03/31/18 08:12 Creatinine 0.9 mg/dL (0.8-1.5) D 03/31/18 08:12 Estimated GFR > 60 ml/min 03/31/18 08:12 BUN/Creatinine Ratio 26 % 03/31/18 08:12 Glucose 125 mg/dL (75-100) H 03/31/18 08:12 POC Glucose 147 (70-105) H 03/30/18 21:44 Hemoglobin A1c 7.4 % (4-6) H 03/29/18 23:46 Lactic Acid 1.40 mmol/L (0.7-2.0) 03/30/18 05:04 Calcium 8.0 mg/dL (8.4-10.2) L 03/31/18 08:12 Magnesium 2.20 mg/dL (1.7-2.3) 03/31/18 08:12 Total Bilirubin 0.50 mg/dL (0.1-1.2) 03/31/18 08:12 AST 13 units/L (5-40) 03/31/18 08:12 ALT 23 units/L (7-56) 03/31/18 08:12 Alkaline Phosphatase 54 units/L (35-129) 03/31/18 08:12 NT-Pro-B Natriuret Pep 321.5 pg/mL (0-900) 03/29/18 13:40 Total Protein 4.9 g/dL (6.3-8.2) L 03/31/18 08:12 Albumin 2.5 g/dL (3.9-5) L 03/31/18 08:12 Albumin/Globulin Ratio 1.0 % 03/31/18 08:12 Urine Color Yellow (Yellow) 03/29/18 13:30 Urine Turbidity Clear (Clear) 03/29/18 13:30 Urine pH 6.0 (5.0-7.0) 03/29/18 13:30 Ur Specific [place] 1.023 (1.003-1.030) 03/29/18 13:30 Urine Protein <15 mg/dl mg/dL (Negative) 03/29/18 13:30 Urine Glucose (UA) Neg mg/dL (Negative) 03/29/18 13:30 Urine Ketones Tr mg/dL (Negative) 03/29/18 13:30 Urine Blood Mod (Negative) 03/29/18 13:30 Urine Nitrite Neg (Negative) 03/29/18 13:30 Urine Bilirubin Neg (Negative) 03/29/18 13:30 Urine Urobilinogen < 2.0 mg/dL (<2.0) 03/29/18 13:30 Ur Leukocyte Esterase Neg (Negative) 03/29/18 13:30 Urine WBC (Auto) 2.0 /HPF (0.0-6.0) 03/29/18 13:30 Urine RBC (Auto) 46.0 /HPF (0.0-6.0) 03/29/18 13:30 Urine Mucus Few /HPF 03/29/18 13:30 Urine Sperm Few /HPF (COMPUTER NUMERICAL CONTROL MACHINIST) 03/29/18 13:30 Vancomycin Trough 24.2 ug/mL (5.0-20.0) H 03/31/18 06:59
--- NOTE | 2018-03-31 14:41 | Hem/Onc Progress Note ---
Assessment and Plan - Patient Problems (1) Lung cancer metastatic to brain Current Visit: Yes Status: Acute Plan to address problem: Unfortunately he is intubated. Plan was for immunotherapy as outpatient. If he improves can consider for treatment. At this point of time, supportive care only. Subjective Date of service: 03/31/18 Interval history: Intubated for worsening SOB. Met with daughter. Objective - Constitutional Vitals: Last Vital Signs Temp 98.3 F 03/31/18 08:00 Pulse 110 H 03/31/18 14:01 Resp 19 03/31/18 12:45 BP 95/66 03/31/18 14:01 Pulse Ox 93 03/31/18 12:45 - EENT Lymph node exam: bilateral cervical - Neck Neck: supple - Respiratory Respiratory effort: Positive: normal Respiratory: bilateral: CTA - Labs Lab Results: Laboratory Results - last 24 hr 03/30/18 03/30/18 03/31/18 21:32 21:44 00:18 WBC RBC Hgb Hct MCV MCH MCHC RDW Plt Count Add Manual Diff Total Counted Seg Neuts % (Manual) Band Neutrophils % Lymphocytes % (Manual) Reactive Lymphs % (Man) Monocytes % (Manual) Eosinophils % (Manual) Basophils % (Manual) Metamyelocytes % Myelocytes % Promyelocytes % Blast Cells % Nucleated RBC % Seg Neutrophils # Man Band Neutrophils # Lymphocytes # (Manual) Abs React Lymphs (Man) Monocytes # (Manual) Eosinophils # (Manual) Basophils # (Manual) Metamyelocytes # Myelocytes # Promyelocytes # Blast Cells # WBC Morphology Hypersegmented Neuts Hyposegmented Neuts Hypogranular Neuts Smudge Cells Toxic Granulation Toxic Vacuolation Dohle Bodies Pelger-Huet Anomaly Betty Rods Platelet Estimate Clumped Platelets Plt Clumps, EDTA Large Platelets Giant Platelets Platelet Satelliting Plt Morphology Comment RBC Morphology Dimorphic RBCs Polychromasia Hypochromasia Poikilocytosis Anisocytosis Microcytosis Macrocytosis Spherocytes Pappenheimer Bodies Sickle Cells Target Cells Tear Drop Cells Ovalocytes Helmet Cells [place] Bodies [place] Rings [place] Cells Bite Cells Crenated Cell Elliptocytes Acanthocytes (Spur) Rouleaux Hemoglobin C Crystals Schistocytes Malaria parasites Kenrick Bodies Hem Pathologist Commnt POC ABG pH 7.335 L 7.155 L POC ABG pCO2 58.1 H 81.9 H POC ABG pO2 58 L 98 POC ABG HCO3 31.0 28.8 POC ABG Total CO2 33 31 POC ABG O2 Sat 87 95 POC ABG Base Excess 5 0 FiO2 50 100 Sodium Potassium Chloride Carbon Dioxide Anion Gap BUN Creatinine Estimated GFR BUN/Creatinine Ratio Glucose POC Glucose 147 H Calcium Magnesium Total Bilirubin AST ALT Alkaline Phosphatase Total Protein Albumin Albumin/Globulin Ratio Vancomycin Trough 03/31/18 03/31/18 03/31/18 02:13 06:59 08:12 WBC 47.9 H* RBC 5.35 H Hgb 14.7 Hct 45.9 H MCV 86 MCH 27 L MCHC 32 RDW 14.3 Plt Count 70 L Add Manual Diff Complete Total Counted 200 Seg Neuts % (Manual) 91.5 H Band Neutrophils % 0 Lymphocytes % (Manual) 0.5 L Reactive Lymphs % (Man) 0 Monocytes % (Manual) 5.0 Eosinophils % (Manual) 2.0 Basophils % (Manual) 0 Metamyelocytes % 1.0 Myelocytes % 0 Promyelocytes % 0 Blast Cells % 0 Nucleated RBC % Not Reportable Seg Neutrophils # Man 43.8 H Band Neutrophils # 0.0 Lymphocytes # (Manual) 0.2 L Abs React Lymphs (Man) 0.0 Monocytes # (Manual) 2.4 H Eosinophils # (Manual) 1.0 H Basophils # (Manual) 0.0 Metamyelocytes # 0.5 Myelocytes # 0.0 Promyelocytes # 0.0 Blast Cells # 0.0 WBC Morphology Not Reportable Hypersegmented Neuts Not Reportable Hyposegmented Neuts Not Reportable Hypogranular Neuts Not Reportable Smudge Cells Not Reportable Toxic Granulation Not Reportable Toxic Vacuolation Few Dohle Bodies Not Reportable Pelger-Huet Anomaly Not Reportable Betty Rods Not Reportable Platelet Estimate Cons Clumped Platelets Not Reportable Plt Clumps, EDTA Not Reportable Large Platelets Not Reportable Giant Platelets Not Reportable Platelet Satelliting Not Reportable Plt Morphology Comment Not Reportable RBC Morphology Normal Dimorphic RBCs Not Reportable Polychromasia Not Reportable Hypochromasia Not Reportable Poikilocytosis Not Reportable Anisocytosis Not Reportable Microcytosis Not Reportable Macrocytosis Not Reportable Spherocytes Not Reportable Pappenheimer Bodies Not Reportable Sickle Cells Not Reportable Target Cells Not Reportable Tear Drop Cells Not Reportable Ovalocytes Not Reportable Helmet Cells Not Reportable [place]ord[place] Bodies Not Reportable [place] Rings Not Reportable [place] Cells Not Reportable Bite Cells Not Reportable Crenated Cell Not Reportable Elliptocytes Not Reportable Acanthocytes (Spur) Not Reportable Rouleaux Not Reportable Hemoglobin C Crystals Not Reportable Schistocytes Not Reportable Malaria parasites Not Reportable [place] Bodies Not Reportable Hem Pathologist Commnt No POC ABG pH 7.385 POC ABG pCO2 49.6 H POC ABG pO2 136 H POC ABG HCO3 29.7 POC ABG Total CO2 31 POC ABG O2 Sat 99 POC ABG Base Excess 5 FiO2 100 Sodium Potassium Chloride Carbon Dioxide Anion Gap BUN Creatinine Estimated GFR BUN/Creatinine Ratio Glucose POC Glucose Calcium Magnesium Total Bilirubin AST ALT Alkaline Phosphatase Total Protein Albumin Albumin/Globulin Ratio Vancomycin Trough 24.2 H 03/31/18 03/31/18 08:12 12:50 WBC RBC Hgb Hct MCV MCH MCHC RDW Plt Count Add Manual Diff Total Counted Seg Neuts % (Manual) Band Neutrophils % Lymphocytes % (Manual) Reactive Lymphs % (Man) Monocytes % (Manual) Eosinophils % (Manual) Basophils % (Manual) Metamyelocytes % Myelocytes % Promyelocytes % Blast Cells % Nucleated RBC % Seg Neutrophils # Man Band Neutrophils # Lymphocytes # (Manual) Abs React Lymphs (Man) Monocytes # (Manual) Eosinophils # (Manual) Basophils # (Manual) Metamyelocytes # Myelocytes # Promyelocytes # Blast Cells # WBC Morphology Hypersegmented Neuts Hyposegmented Neuts Hypogranular Neuts Smudge Cells Toxic Granulation Toxic Vacuolation Dohle Bodies Pelger-Huet Anomaly Betty Rods Platelet Estimate Clumped Platelets Plt Clumps, EDTA Large Platelets Giant Platelets Platelet Satelliting Plt Morphology Comment RBC Morphology Dimorphic RBCs Polychromasia Hypochromasia Poikilocytosis Anisocytosis Microcytosis Macrocytosis Spherocytes Pappenheimer Bodies Sickle Cells Target Cells Tear Drop Cells Ovalocytes Helmet Cells [place] Bodies [place] Rings [place] Cells Bite Cells Crenated Cell Elliptocytes Acanthocytes (Spur) Rouleaux Hemoglobin C Crystals Schistocytes Malaria parasites [place] Bodies Hem Pathologist Commnt POC ABG pH POC ABG pCO2 POC ABG pO2 POC ABG HCO3 POC ABG Total CO2 POC ABG O2 Sat POC ABG Base Excess FiO2 Sodium 138 Potassium 4.8 Chloride 99.3 Carbon Dioxide 24 Anion Gap 20 BUN 23 H Creatinine 0.9 D Estimated GFR > 60 BUN/Creatinine Ratio 26 Glucose 125 H POC Glucose 92 Calcium 8.0 L Magnesium 2.20 Total Bilirubin 0.50 AST 13 ALT 23 Alkaline Phosphatase 54 Total Protein 4.9 L Albumin 2.5 L Albumin/Globulin Ratio 1.0 Vancomycin Trough
--- NOTE | 2018-03-31 15:12 | Consultation ---
History of Present Illness Consult date: 03/31/18 Requesting physician: RENNY ESPARZA Reason for consult: hypoxemia History of present illness: History as obtained from medical records. Currently intubated and is unable to give a history 52-year-old man with recent diagnosis of bilateral lung cancer, had just arrived at his oncologist office to discuss results, when he developed sudden severe and persistent shortness of breath, and was referred here for further evaluation. Lesions were diagnosed here 7-10 days ago, and patient was treated for pneumonia, as well as pleural effusion, as well as diagnostic procedures. Patient was improved at time of discharge, and was placed on home oxygen therapy , 2 L/m by nasal cannula at all hours, but family reports that he had some continued mild shortness of breath after discharge, and this got noticeably worse according to last evening, although patient denied symptoms until he had walked into the doctor's office. He is not sure if he was anxious, or if it was the exertion of working, or if he has had new symptoms. Patient has not measured fever, but has felt somewhat feverish intermittently over the past week , questionable diaphoresis, no lightheadedness or weakness, the patient has not eaten over the past day, although he has not been nauseated. He has no pain at this time, no congestion, no sputum production. Denies abdominal pain, no nausea or vomiting. No secondary symptoms otherwise.Patient has a long past history of cigarette smoking, partial diagnosis of COPD, but no use of bronchodilators, either by inhaler or nebulizer. Cardiac Code MET last night for respiratory distress ABG was done, was briefly placed on BiPAP Respiratory rate increase, using accessory muscles Intubated and transferred to the ICU I was consulted for critical care Patient was seen and examined. Vitals, labs, medications, cahrt and imaging reviewed. Currently orally intubated on MVS--FIO2 75%, PEEP 6 Daughter at the bedside. Patient is able to communicate by writing. Denies any chest pain, no fevers or chills. Not in any pain. Asking for water Medications and Allergies Allergies Allergy/AdvReac Type Severity Reaction Status Date / Time No Known Allergies Allergy Unverified 03/14/18 13:22 Home Medications Medication Instructions Recorded Confirmed Last Taken Type ALBUTEROL Inhaler [ProAir HFA 2 puff IH QID PRN #1 unit 03/23/18 03/29/18 Unknown Rx Inhaler] Acetaminophen [Acetaminophen TAB] 325 mg PO Q4H PRN #30 tablet 03/23/18 Unknown Rx Diltiazem [Cardizem] 60 mg PO Q8HR #240 tablet 03/23/18 03/29/18 Unknown Rx Famotidine [Pepcid] 20 mg PO BID #10 tablet 03/23/18 03/29/18 Unknown Rx Ipratropium/Albuterol Sulfate 1 ampul IH Q6HRT #30 ampul.neb 03/23/18 03/29/18 Unknown Rx [DUONEB *Not for PRN Use*] Nicotine [Habitrol] 21 mg TD QDAY #7 patch 03/23/18 03/29/18 Unknown Rx guaiFENesin [Robitussin] 200 mg PO Q4H PRN #60 oral.liqd 03/23/18 03/29/18 Unknown Rx Active Meds: Active Medications Acetaminophen (Tylenol) 325 mg PO Q4H PRN PRN Reason: Pain MILD(1-3)/Fever >100.5/[facility] Last Admin: 03/30/18 16:22 Dose: 325 mg Albuterol (Proventil) 2.5 mg IH Q4HRT PRN PRN Reason: Shortness Of Breath Albuterol/Ipratropium (Duoneb *Not For Prn Use*) 1 ampul IH QIDRT [facility] Last Admin: 03/31/18 11:15 Dose: 1 ampul Diltiazem HCl (Cardizem) 60 mg PO Q8HR [facility] Last Admin: 03/31/18 14:01 Dose: 60 mg Famotidine (Pepcid) 20 mg PO BID [facility] Last Admin: 03/31/18 11:29 Dose: Not Given Guaifenesin (Robitussin) 200 mg PO Q4H PRN PRN Reason: Cough Hydrophilic Ointment (Vaseline Lip Therapy) 1 applic TP Q2HR PRN PRN Reason: Dry Lips Piperacillin Sod/Tazobactam Sod (Zosyn/Ns 4.5gm/100ml) 4.5 gm in 100 mls @ 200 mls/hr IV Q8HR [facility]; Protocol Last Admin: 03/31/18 14:01 Dose: 200 mls/hr Midazolam HCl 100 mg/ Sodium (Chloride) 100 mls @ 2 mls/hr IV TITR [facility]; Protocol Fentanyl Citrate (Fentanyl Drip Premix) 2,000 mcg in 100 mls @ 2.676 mls/hr IV TITR [facility]; Protocol Last Titration: 03/31/18 07:11 Dose: 2 mcg/kg/hr, 5.352 mls/hr Propofol (Diprivan 10 Mg/Ml) 1,000 mg in 100 mls @ 1.606 mls/hr IV TITR [facility]; Protocol Last Titration: 03/31/18 11:21 Dose: 10 mcg/kg/min, 3.211 mls/hr Sodium Chloride (Nacl 0.9% 1000 Ml) 1,000 mls @ 100 mls/hr IV DIRECT [facility] Last Admin: 03/31/18 12:56 Dose: 100 mls/hr Vancomycin HCl (Vancomycin/Ns 1 Gm/250 Ml) 1 gm in 250 mls @ 166.667 mls/hr IV Q12H [facility] Lorazepam (Ativan) 1 mg PO Q4H PRN PRN Reason: Agitation Midazolam HCl (Versed) 2 mg IV Q30MIN PRN PRN Reason: Agitation Morphine Sulfate (Morphine) 2 mg IV Q4H PRN PRN Reason: Pain, Moderate (4-6) Last Admin: 03/30/18 18:50 Dose: 2 mg Multi-Ingred Cream/Lotion/Oil/Oint (Artificial Tears Ophth Oint) 1 applic OU Q4HR PRN PRN Reason: Dry Eye(s) Nicotine (Habitrol) 21 mg TD QDAY [facility] Last Admin: 03/31/18 11:16 Dose: 21 mg Ondansetron HCl (Zofran) 4 mg IV Q8H PRN PRN Reason: Nausea And Vomiting Oxycodone/Acetaminophen (Percocet 5/325) 1 tab PO Q6H PRN PRN Reason: Pain, Moderate (4-6) Sodium Chloride (Sodium Chloride Flush Syringe 10 Ml) 10 ml IV BID [facility] Last Admin: 03/31/18 11:21 Dose: 10 ml Sodium Chloride (Sodium Chloride Flush Syringe 10 Ml) 10 ml IV PRN PRN PRN Reason: LINE FLUSH Vancomycin HCl (Vancomycin Pharmacy To Dose) 1 each IV PKCONSULT ANIYA; Protocol Review of Systems ROS unobtainable: due to endotracheal tube Physical Examination Vital signs: Vital Signs Pulse Resp Pulse Ox 100 H 29 H 90 03/29/18 12:38 03/29/18 12:38 03/29/18 12:38 General appearance: alert, other (mild respiratory distress, orally intubated ETT to MVS) Eyes: non-icteric ENT: oropharynx moist Neck: supple, no lymphadenopathy, no JVD Effort: mildly labored Ascultation: Bilateral: diminished breath sounds, rhonchi Cardiovascular: regular rate and rhythm, other (S1,S2, no murmurs, gallops or rubs) Gastrointestinal: normoactive bowel sounds, soft, non-tender, non-distended Integumentary: normal Extremities: no cyanosis, no edema, pink and warm, pulses normal, no ischemia or petechiae pupils equal and round, motor strength normal and mood appropriate, affect normal Results - Laboratory Findings CBC and BMP: 03/31/18 08:12 03/31/18 08:12 ABG POC ABG pH 7.385 (7.35-7.45) 03/31/18 02:13 POC ABG pCO2 49.6 (35-45) H 03/31/18 02:13 POC ABG pO2 136 (80-105) H 03/31/18 02:13 POC ABG HCO3 29.7 03/31/18 02:13 POC ABG Total CO2 31 03/31/18 02:13 POC ABG O2 Sat 99 03/31/18 02:13 PT/INR, D-dimer PT 14.8 Sec. (12.2-14.9) 03/29/18 13:34 INR 1.10 (0.87-1.13) 03/29/18 13:34 D-Dimer > 09057 ng/mlDDU (0-234) H 03/29/18 13:34 Abnormal lab findings: Abnormal Labs 03/29/18 03/29/18 03/29/18 13:08 13:15 13:34 WBC 53.1 H* RBC 6.01 H Hgb 16.6 H Hct 49.3 H MCV 82 L MCH Plt Count 127 L Seg Neuts % (Manual) 91.0 H Lymphocytes % (Manual) 4.0 L Seg Neutrophils # Man 48.3 H Lymphocytes # (Manual) Monocytes # (Manual) 1.6 H Eosinophils # (Manual) 0.5 H D-Dimer > 46887 H POC ABG pH POC ABG pCO2 POC ABG pO2 Sodium 128 L Potassium 5.1 H Chloride 89.2 L BUN Creatinine 0.4 L Glucose 158 H POC Glucose Hemoglobin A1c Lactic Acid Calcium 8.3 L Total Protein Albumin Vancomycin Trough 03/29/18 03/29/18 03/29/18 14:44 16:54 20:30 WBC RBC Hgb Hct MCV MCH Plt Count Seg Neuts % (Manual) Lymphocytes % (Manual) Seg Neutrophils # Man Lymphocytes # (Manual) Monocytes # (Manual) Eosinophils # (Manual) D-Dimer POC ABG pH POC ABG pCO2 POC ABG pO2 66 L Sodium Potassium Chloride BUN Creatinine Glucose POC Glucose Hemoglobin A1c Lactic Acid 2.10 H* 3.00 H* Calcium Total Protein Albumin Vancomycin Trough 03/29/18 03/30/18 03/30/18 23:46 05:04 05:04 WBC 51.4 H* RBC 5.68 H Hgb 15.5 H Hct 47.7 H MCV MCH 27 L Plt Count 99 L Seg Neuts % (Manual) 87.5 H Lymphocytes % (Manual) 2.0 L Seg Neutrophils # Man 45.0 H Lymphocytes # (Manual) 1.0 L Monocytes # (Manual) 2.8 H Eosinophils # (Manual) 0.5 H D-Dimer POC ABG pH POC ABG pCO2 POC ABG pO2 Sodium 136 L D Potassium Chloride 96.0 L BUN Creatinine 0.5 L Glucose 156 H POC Glucose Hemoglobin A1c 7.4 H Lactic Acid Calcium 7.9 L Total Protein 5.3 L Albumin 2.8 L Vancomycin Trough 03/30/18 03/30/18 03/31/18 21:32 21:44 00:18 WBC RBC Hgb Hct MCV MCH Plt Count Seg Neuts % (Manual) Lymphocytes % (Manual) Seg Neutrophils # Man Lymphocytes # (Manual) Monocytes # (Manual) Eosinophils # (Manual) D-Dimer POC ABG pH 7.335 L 7.155 L POC ABG pCO2 58.1 H 81.9 H POC ABG pO2 58 L Sodium Potassium Chloride BUN Creatinine Glucose POC Glucose 147 H Hemoglobin A1c Lactic Acid Calcium Total Protein Albumin Vancomycin Trough 03/31/18 03/31/18 03/31/18 02:13 06:59 08:12 WBC 47.9 H* RBC 5.35 H Hgb Hct 45.9 H MCV MCH 27 L Plt Count 70 L Seg Neuts % (Manual) 91.5 H Lymphocytes % (Manual) 0.5 L Seg Neutrophils # Man 43.8 H Lymphocytes # (Manual) 0.2 L Monocytes # (Manual) 2.4 H Eosinophils # (Manual) 1.0 H D-Dimer POC ABG pH POC ABG pCO2 49.6 H POC ABG pO2 136 H Sodium Potassium Chloride BUN Creatinine Glucose POC Glucose Hemoglobin A1c Lactic Acid Calcium Total Protein Albumin Vancomycin Trough 24.2 H 03/31/18 08:12 WBC RBC Hgb Hct MCV MCH Plt Count Seg Neuts % (Manual) Lymphocytes % (Manual) Seg Neutrophils # Man Lymphocytes # (Manual) Monocytes # (Manual) Eosinophils # (Manual) D-Dimer POC ABG pH POC ABG pCO2 POC ABG pO2 Sodium Potassium Chloride BUN 23 H Creatinine Glucose 125 H POC Glucose Hemoglobin A1c Lactic Acid Calcium 8.0 L Total Protein 4.9 L Albumin 2.5 L Vancomycin Trough - Diagnostic Findings Chest x-ray: image reviewed (Bilateral alveolar infitrates, left pleural effusion) Assessment and Plan -Acute hypoxemic respiratory failure on MVS -Lung cancer, metastatic disease -HCAP--present on admission -Left pleural effusion -Nicotine dependence with tobacco abuse disorder -COPD -Leukocytosis Continue ICU care VAP bundle Wean supplemental oxygen for O2 sats>90% Bronchodilators Steroids Antibiotics to cover MRSA and GNR bacteria -Follow up on cultures VTE prophylaxis aspiration precautions Analgesia and agitation management Titrate to RASS -1 Glycemic control, with accucheck. target blood glucose 180mg/dL Daily SAT and SBTs as tolerated Ultrasound guided thoracentesis right lung Nutritional support Nicotine withdrawal precautions FULL CODE Discussed with daughter and patietn at the bedside. Discussed with RT and RN The high probability of a clinically significant, sudden or life threatening deterioration of the [respiratory, hemodynamic and neurological] system(s) required my full and direct attention, intervention and personal management. The aggregate critical care time was 45 minutes. This time is in addition to time spent performing reported procedures but includes the following: [x] Data Review and interpretation [x] Patient assessment and monitoring of vital signs [x] Documentation [x] Medication orders and management
[2018-03-31] MEDS: fentaNYL DRIP Premix 2,000 MCG/100 ML BAG IV SCH (15:40)
[2018-03-31] MEDS: DIPRIVAN 10 MG/ML 1,000 MG/100 ML BOTTLE IV SCH (18:32)
[2018-03-31] MEDS ORDERED: NACL 0.9% 1000 ML 1,000 ML IV ONE (20:00)
[2018-03-31] MEDS ORDERED: PEPCID IV SCH (22:00)
[2018-03-31] MEDS: SOLU-Medrol IV SCH (22:02)
[2018-04-01] MEDS: VANCOMYCIN/NS 1 GM/250 ML 1 GM/250 ML BAG IV SCH ×2 (04:38→16:36)
[2018-04-01] MEDS: SOLU-Medrol IV SCH ×3 (05:58→21:59)
[2018-04-01] MEDS: DIPRIVAN 10 MG/ML 1,000 MG/100 ML BOTTLE IV SCH (05:59)
[2018-04-01] MEDS: ZOSYN/NS 4.5GM/100ML 4.5 GM/100 ML VIAL IV SCH ×3 (05:59→22:07)
[2018-04-01] MEDS: DUONEB *Not for PRN Use IH SCH ×4 (07:46→20:30)
[2018-04-01] MEDS: fentaNYL DRIP Premix 2,000 MCG/100 ML BAG IV SCH ×2 (09:02→21:57)
[2018-04-01] MEDS: NACL 0.9% 1000 ML 1,000 ML IV SCH ×2 (09:04→15:29)
[2018-04-01] MEDS: HABITROL TD SCH (09:09)
[2018-04-01] MEDS: SODIUM CHLORIDE FLUSH SYRINGE 10 ML IV SCH (09:10)
[2018-04-01] MEDS: PEPCID PO SCH ×2 (09:10→21:58)
[2018-04-01 11:13] LABS: Hematocrit 45.8 % (35.5-45.6); Hemoglobin 14.3 gm/dl (11.8-15.2); Mean Corpuscular HGB Conc 31 % (32-34); Mean Corpuscular Hemoglobin 27 pg (28-32); Mean Corpuscular Volume 88 fl (84-94); Red Blood Count 5.23 M/mm3 (3.65-5.03); Red Cell Distribution Width 15.2 % (13.2-15.2)
[2018-04-01 11:32] LABS: Platelet Count 70 K/mm3 (140-440)
[2018-04-01] MEDS ORDERED: SODIUM BICARBONATE IV ONE (11:39)
[2018-04-01] MEDS ORDERED: HumuLIN R IV ONE (11:40)
[2018-04-01] MEDS ORDERED: D50W (25GM) Syringe IV ONE (11:40)
[2018-04-01] MEDS ORDERED: CALCIUM CHLORIDE 1,000 MG in NACL 0.9% 100 ML IV ONE (11:41)
[2018-04-01 11:53] LABS: BUN/Creatinine Ratio TNR; Blood Urea Nitrogen TNR mg/dL (9-20)
[2018-04-01 11:54] LABS: Alanine Aminotransferase TNR units/L (7-56); Albumin TNR g/dL (3.9-5); Calcium TNR mg/dL (8.4-10.2)
[2018-04-01 11:55] LABS: Hemolysis Index TNR
[2018-04-01 12:01] LABS: Band Neutrophils # (Manual) 0.2 K/mm3; Basophils % (Manual) 0 % (0.0-1.8); Eosinophils % (Manual) 0 % (0.0-4.3); Large Platelets Few; Platelet Estimate Cons; RBC Morphology Normal; Total Cells Counted 200
[2018-04-01 12:02] LABS: Toxic Vacuolation Few
--- NOTE | 2018-04-01 13:27 | Progress Note ---
Assessment and Plan -Acute hypoxemic respiratory failure on MVS -Lung cancer, metastatic disease -HCAP--present on admission -Left pleural effusion -Nicotine dependence with tobacco abuse disorder -COPD -Leukocytosis Continue ICU care VAP bundle Wean supplemental oxygen for O2 sats>90% Bronchodilators Steroids Antibiotics to cover MRSA and GNR bacteria -Follow up on cultures VTE prophylaxis aspiration precautions Analgesia and agitation management Titrate to RASS -1 Glycemic control, with accucheck. target blood glucose 180mg/dL Daily SAT and SBTs as tolerated Ultrasound guided thoracentesis right lung Nutritional support Nicotine withdrawal precautions FULL CODE Discussed with daughter and patietn at the bedside. Discussed with RT and RN The high probability of a clinically significant, sudden or life threatening deterioration of the [respiratory, hemodynamic and neurological] system(s) required my full and direct attention, intervention and personal management. The aggregate critical care time was 45 minutes. This time is in addition to time spent performing reported procedures but includes the following: [x] Data Review and interpretation [x] Patient assessment and monitoring of vital signs [x] Documentation [x] Medication orders and management Subjective Date of service: 04/01/18 Objective Vital Signs - 12hr 04/01/18 04/01/18 04/01/18 01:30 01:45 02:00 Temperature Pulse Rate 103 H 102 H 102 H Pulse Rate [ Anterior Bilateral Throughout] Pulse Rate [ From Monitor] Respiratory 19 20 16 Rate Respiratory Rate [Anterior Bilateral Throughout] Blood Pressure 92/59 91/56 98/55 O2 Sat by Pulse 91 92 92 Oximetry 04/01/18 04/01/18 04/01/18 02:15 02:30 02:45 Temperature Pulse Rate 101 H 101 H 101 H Pulse Rate [ Anterior Bilateral Throughout] Pulse Rate [ From Monitor] Respiratory 21 22 21 Rate Respiratory Rate [Anterior Bilateral Throughout] Blood Pressure 103/62 103/64 95/63 O2 Sat by Pulse 92 92 92 Oximetry 04/01/18 04/01/18 04/01/18 03:00 03:15 03:30 Temperature Pulse Rate 101 H 102 H 102 H Pulse Rate [ Anterior Bilateral Throughout] Pulse Rate [ From Monitor] Respiratory 22 20 22 Rate Respiratory Rate [Anterior Bilateral Throughout] Blood Pressure 106/65 95/60 95/64 O2 Sat by Pulse 91 91 92 Oximetry 04/01/18 04/01/18 04/01/18 03:45 04:00 04:16 Temperature 97.8 F Pulse Rate 101 H 101 H 102 H Pulse Rate [ Anterior Bilateral Throughout] Pulse Rate [ From Monitor] Respiratory 21 22 20 Rate Respiratory Rate [Anterior Bilateral Throughout] Blood Pressure 106/63 105/59 138/85 O2 Sat by Pulse 91 92 88 Oximetry 04/01/18 04/01/18 04/01/18 04:30 04:31 04:45 Temperature Pulse Rate 105 H 105 H 107 H Pulse Rate [ Anterior Bilateral Throughout] Pulse Rate [ From Monitor] Respiratory 18 23 Rate Respiratory Rate [Anterior Bilateral Throughout] Blood Pressure 106/70 112/62 O2 Sat by Pulse 89 90 91 Oximetry 04/01/18 04/01/18 04/01/18 05:00 05:15 05:30 Temperature Pulse Rate 109 H 108 H 108 H Pulse Rate [ Anterior Bilateral Throughout] Pulse Rate [ From Monitor] Respiratory 20 18 13 Rate Respiratory Rate [Anterior Bilateral Throughout] Blood Pressure 98/69 93/66 100/73 O2 Sat by Pulse 91 91 89 Oximetry 04/01/18 04/01/18 04/01/18 05:45 06:00 06:15 Temperature Pulse Rate 114 H 110 H 110 H Pulse Rate [ Anterior Bilateral Throughout] Pulse Rate [ From Monitor] Respiratory 18 16 26 H Rate Respiratory Rate [Anterior Bilateral Throughout] Blood Pressure 93/67 86/58 87/56 O2 Sat by Pulse 87 88 88 Oximetry 04/01/18 04/01/18 04/01/18 06:30 06:45 07:00 Temperature Pulse Rate 109 H 107 H 106 H Pulse Rate [ Anterior Bilateral Throughout] Pulse Rate [ From Monitor] Respiratory 18 17 21 Rate Respiratory Rate [Anterior Bilateral Throughout] Blood Pressure 89/56 87/62 88/59 O2 Sat by Pulse 89 90 89 Oximetry 04/01/18 04/01/18 04/01/18 07:15 07:30 07:45 Temperature Pulse Rate 105 H 125 H 104 H Pulse Rate [ Anterior Bilateral Throughout] Pulse Rate [ From Monitor] Respiratory 16 27 H Rate Respiratory Rate [Anterior Bilateral Throughout] Blood Pressure 83/58 87/60 83/54 O2 Sat by Pulse 90 91 91 Oximetry 04/01/18 04/01/18 04/01/18 07:46 07:56 08:00 Temperature 99.1 F Pulse Rate 104 H 103 H Pulse Rate [ 105 H 108 H Anterior Bilateral Throughout] Pulse Rate [ 42 L From Monitor] Respiratory 19 17 Rate Respiratory 30 H 30 H Rate [Anterior Bilateral Throughout] Blood Pressure 83/54 102/65 O2 Sat by Pulse 90 93 Oximetry 04/01/18 04/01/18 04/01/18 08:15 08:30 08:45 Temperature Pulse Rate 111 H 115 H 108 H Pulse Rate [ Anterior Bilateral Throughout] Pulse Rate [ From Monitor] Respiratory 18 30 H 32 H Rate Respiratory Rate [Anterior Bilateral Throughout] Blood Pressure 115/65 125/56 99/69 O2 Sat by Pulse 88 91 92 Oximetry 04/01/18 04/01/18 04/01/18 09:00 09:15 09:30 Temperature Pulse Rate 115 H 112 H 110 H Pulse Rate [ Anterior Bilateral Throughout] Pulse Rate [ From Monitor] Respiratory 16 26 H 25 H Rate Respiratory Rate [Anterior Bilateral Throughout] Blood Pressure 146/90 99/58 100/65 O2 Sat by Pulse 91 91 90 Oximetry 04/01/18 04/01/18 04/01/18 09:45 10:00 10:15 Temperature Pulse Rate 107 H 109 H 106 H Pulse Rate [ Anterior Bilateral Throughout] Pulse Rate [ From Monitor] Respiratory 25 H 17 17 Rate Respiratory Rate [Anterior Bilateral Throughout] Blood Pressure 97/71 100/63 99/67 O2 Sat by Pulse 91 90 90 Oximetry 04/01/18 04/01/18 04/01/18 10:30 10:45 11:00 Temperature Pulse Rate 108 H 143 H 137 H Pulse Rate [ Anterior Bilateral Throughout] Pulse Rate [ From Monitor] Respiratory 16 17 23 Rate Respiratory Rate [Anterior Bilateral Throughout] Blood Pressure 106/74 103/66 102/73 O2 Sat by Pulse 87 88 85 Oximetry 04/01/18 04/01/18 04/01/18 11:15 11:30 11:45 Temperature Pulse Rate 116 H 114 H 109 H Pulse Rate [ Anterior Bilateral Throughout] Pulse Rate [ From Monitor] Respiratory 20 21 23 Rate Respiratory Rate [Anterior Bilateral Throughout] Blood Pressure 113/77 109/60 106/74 O2 Sat by Pulse 90 92 93 Oximetry 04/01/18 04/01/18 04/01/18 11:50 12:00 12:12 Temperature 98.7 F Pulse Rate 109 H Pulse Rate [ 107 H 108 H Anterior Bilateral Throughout] Pulse Rate [ 114 H From Monitor] Respiratory 24 Rate Respiratory 24 24 Rate [Anterior Bilateral Throughout] Blood Pressure 110/77 O2 Sat by Pulse 92 Oximetry Constitutional: alert, other (mild respiratory distress, orally intubated ETT to MVS) Eyes: non-icteric ENT: oropharynx moist Neck: supple, no lymphadenopathy, no JVD Effort: mildly labored Ascultation: Bilateral: diminished breath sounds, rhonchi Cardiovascular: regular rate and rhythm, other (S1,S2, no murmurs, gallops or rubs) Gastrointestinal: normoactive bowel sounds, soft, non-tender, non-distended Integumentary: normal Extremities: no cyanosis, no edema, pink and warm, pulses normal, no ischemia or petechiae Neurologic: pupils equal and round, motor strength normal and Psychiatric: mood appropriate, affect normal CBC and BMP: 04/01/18 11:05 04/01/18 11:05 ABG, PT/INR, D-dimer: ABG POC ABG pH 7.221 (7.35-7.45) L 04/01/18 04:37 POC ABG pCO2 66.0 (35-45) H 04/01/18 04:37 POC ABG pO2 61 (80-105) L 04/01/18 04:37 POC ABG HCO3 27.1 04/01/18 04:37 POC ABG Total CO2 29 04/01/18 04:37 POC ABG O2 Sat 85 04/01/18 04:37 PT/INR, D-dimer PT 14.8 Sec. (12.2-14.9) 03/29/18 13:34 INR 1.10 (0.87-1.13) 03/29/18 13:34 D-Dimer > 42139 ng/mlDDU (0-234) H 03/29/18 13:34 Abnormal lab findings: Abnormal Labs 03/29/18 03/29/18 03/29/18 13:08 13:15 13:34 WBC 53.1 H* RBC 6.01 H Hgb 16.6 H Hct 49.3 H MCV 82 L MCH MCHC Plt Count 127 L Seg Neuts % (Manual) 91.0 H Lymphocytes % (Manual) 4.0 L Seg Neutrophils # Man 48.3 H Lymphocytes # (Manual) Monocytes # (Manual) 1.6 H Eosinophils # (Manual) 0.5 H D-Dimer > 35834 H POC ABG pH POC ABG pCO2 POC ABG pO2 Sodium 128 L Potassium 5.1 H Chloride 89.2 L BUN Creatinine 0.4 L Glucose 158 H POC Glucose Hemoglobin A1c Lactic Acid Calcium 8.3 L Total Protein Albumin Vancomycin Trough 03/29/18 03/29/18 03/29/18 14:44 16:54 20:30 WBC RBC Hgb Hct MCV MCH MCHC Plt Count Seg Neuts % (Manual) Lymphocytes % (Manual) Seg Neutrophils # Man Lymphocytes # (Manual) Monocytes # (Manual) Eosinophils # (Manual) D-Dimer POC ABG pH POC ABG pCO2 POC ABG pO2 66 L Sodium Potassium Chloride BUN Creatinine Glucose POC Glucose Hemoglobin A1c Lactic Acid 2.10 H* 3.00 H* Calcium Total Protein Albumin Vancomycin Trough 03/29/18 03/30/18 03/30/18 23:46 05:04 05:04 WBC 51.4 H* RBC 5.68 H Hgb 15.5 H Hct 47.7 H MCV MCH 27 L MCHC Plt Count 99 L Seg Neuts % (Manual) 87.5 H Lymphocytes % (Manual) 2.0 L Seg Neutrophils # Man 45.0 H Lymphocytes # (Manual) 1.0 L Monocytes # (Manual) 2.8 H Eosinophils # (Manual) 0.5 H D-Dimer POC ABG pH POC ABG pCO2 POC ABG pO2 Sodium 136 L D Potassium Chloride 96.0 L BUN Creatinine 0.5 L Glucose 156 H POC Glucose Hemoglobin A1c 7.4 H Lactic Acid Calcium 7.9 L Total Protein 5.3 L Albumin 2.8 L Vancomycin Trough 03/30/18 03/30/18 03/31/18 21:32 21:44 00:18 WBC RBC Hgb Hct MCV MCH MCHC Plt Count Seg Neuts % (Manual) Lymphocytes % (Manual) Seg Neutrophils # Man Lymphocytes # (Manual) Monocytes # (Manual) Eosinophils # (Manual) D-Dimer POC ABG pH 7.335 L 7.155 L POC ABG pCO2 58.1 H 81.9 H POC ABG pO2 58 L Sodium Potassium Chloride BUN Creatinine Glucose POC Glucose 147 H Hemoglobin A1c Lactic Acid Calcium Total Protein Albumin Vancomycin Trough 03/31/18 03/31/18 03/31/18 02:13 06:59 08:12 WBC 47.9 H* RBC 5.35 H Hgb Hct 45.9 H MCV MCH 27 L MCHC Plt Count 70 L Seg Neuts % (Manual) 91.5 H Lymphocytes % (Manual) 0.5 L Seg Neutrophils # Man 43.8 H Lymphocytes # (Manual) 0.2 L Monocytes # (Manual) 2.4 H Eosinophils # (Manual) 1.0 H D-Dimer POC ABG pH POC ABG pCO2 49.6 H POC ABG pO2 136 H Sodium Potassium Chloride BUN Creatinine Glucose POC Glucose Hemoglobin A1c Lactic Acid Calcium Total Protein Albumin Vancomycin Trough 24.2 H 03/31/18 04/01/18 04/01/18 08:12 04:37 06:10 WBC RBC Hgb Hct MCV MCH MCHC Plt Count Seg Neuts % (Manual) Lymphocytes % (Manual) Seg Neutrophils # Man Lymphocytes # (Manual) Monocytes # (Manual) Eosinophils # (Manual) D-Dimer POC ABG pH 7.221 L POC ABG pCO2 66.0 H POC ABG pO2 61 L Sodium Potassium Chloride BUN 23 H Creatinine Glucose 125 H POC Glucose 124 H Hemoglobin A1c Lactic Acid Calcium 8.0 L Total Protein 4.9 L Albumin 2.5 L Vancomycin Trough 04/01/18 04/01/18 11:05 13:03 WBC 43.6 H* RBC 5.23 H Hgb Hct 45.8 H MCV MCH 27 L MCHC 31 L Plt Count 70 L Seg Neuts % (Manual) 97.0 H Lymphocytes % (Manual) 0.5 L Seg Neutrophils # Man 42.3 H Lymphocytes # (Manual) 0.2 L Monocytes # (Manual) 0.9 H Eosinophils # (Manual) D-Dimer POC ABG pH POC ABG pCO2 POC ABG pO2 Sodium Potassium Chloride BUN Creatinine Glucose POC Glucose 139 H Hemoglobin A1c Lactic Acid Calcium Total Protein Albumin Vancomycin Trough
--- NOTE | 2018-04-01 13:46 | Progress Note ---
Assessment and Plan Assessment and plan: 52M with lung ca, yet to start rx who was recently dc, pw with cough and worsening sob Acute respiratory failure with hypoxia on MV <96 hours continue vent, wean as tolerated Bilateral pneumonia/sepsis IV Zosyn and vancomycin; ID consult Lung cancer oncology on board COPD exacerbation Duonebs IV solumedroland IV ABX Nicotine dependence Nicoderm patch, counseled on cessation HTN (hypertension): Cont antihypertensives GERD (gastroesophageal reflux disease) COnt Famotidine Leukocytosis likely due to malignancy and sepsis, continue to rx both DVT prophylaxis On Lovenox CCT 33 minutes History Interval history: patient now intubated no fevers, no seizures, no cough observed has been calm on minimal sedation Hospitalist Physical - Physical exam Narrative exam: General.: Appears ill , moderate respiroary distress toxic appearnce HEENT: Moist mucous membranes, extraocular muscles intact, no lymphadenopathy Neck: supple Cardiac: S1-S2 heard Lungs: crackles and diminished breath sounds Abdomen: soft , nontender, nondistended, bowel sounds positive Extremities: no edema clubbing or cyanosis Skin: no rash or lesions Neurologic: no gross focal deficits Psych: intubated - Constitutional Vitals: Temp Pulse Resp BP Pulse Ox 98.7 F 106 H 24 102/63 96 04/01/18 12:00 04/01/18 13:15 04/01/18 13:15 04/01/18 13:15 04/01/18 13:15 General appearance: Present: severe distress, well-nourished Results - Labs CBC & Chem 7: 04/03/18 09:39 04/02/18 10:22 Labs: Laboratory Last Values WBC 43.6 K/mm3 (4.5-11.0) H* 04/01/18 11:05 RBC 5.23 M/mm3 (3.65-5.03) H 04/01/18 11:05 Hgb 14.3 gm/dl (11.8-15.2) 04/01/18 11:05 Hct 45.8 % (35.5-45.6) H 04/01/18 11:05 MCV 88 fl (84-94) 04/01/18 11:05 MCH 27 pg (28-32) L 04/01/18 11:05 MCHC 31 % (32-34) L 04/01/18 11:05 RDW 15.2 % (13.2-15.2) 04/01/18 11:05 Plt Count 70 K/mm3 (140-440) L 04/01/18 11:05 Add Manual Diff Complete 04/01/18 11:05 Total Counted 200 04/01/18 11:05 Seg Neutrophils % [employer] [employer] 03/30/18 05:04 Seg Neuts % (Manual) 97.0 % (40.0-70.0) H 04/01/18 11:05 Band Neutrophils % 0.5 % 04/01/18 11:05 Lymphocytes % (Manual) 0.5 % (13.4-35.0) L 04/01/18 11:05 Reactive Lymphs % (Man) 0 % 04/01/18 11:05 Monocytes % (Manual) 2.0 % (0.0-7.3) 04/01/18 11:05 Eosinophils % (Manual) 0 % (0.0-4.3) 04/01/18 11:05 Basophils % (Manual) 0 % (0.0-1.8) 04/01/18 11:05 Metamyelocytes % 0 % 04/01/18 11:05 Myelocytes % 0 % 04/01/18 11:05 Promyelocytes % 0 % 04/01/18 11:05 Blast Cells % 0 % 04/01/18 11:05 Nucleated RBC % Not Reportable 04/01/18 11:05 Seg Neutrophils # Man 42.3 K/mm3 (1.8-7.7) H 04/01/18 11:05 Band Neutrophils # 0.2 K/mm3 04/01/18 11:05 Lymphocytes # (Manual) 0.2 K/mm3 (1.2-5.4) L 04/01/18 11:05 Abs React Lymphs (Man) 0.0 K/mm3 04/01/18 11:05 Monocytes # (Manual) 0.9 K/mm3 (0.0-0.8) H 04/01/18 11:05 Eosinophils # (Manual) 0.0 K/mm3 (0.0-0.4) 04/01/18 11:05 Basophils # (Manual) 0.0 K/mm3 (0.0-0.1) 04/01/18 11:05 Metamyelocytes # 0.0 K/mm3 04/01/18 11:05 Myelocytes # 0.0 K/mm3 04/01/18 11:05 Promyelocytes # 0.0 K/mm3 04/01/18 11:05 Blast Cells # 0.0 K/mm3 04/01/18 11:05 WBC Morphology Not Reportable 04/01/18 11:05 Hypersegmented Neuts Not Reportable 04/01/18 11:05 Hyposegmented Neuts Not Reportable 04/01/18 11:05 Hypogranular Neuts Not Reportable 04/01/18 11:05 Smudge Cells Not Reportable 04/01/18 11:05 Toxic Granulation Not Reportable 04/01/18 11:05 Toxic Vacuolation Few 04/01/18 11:05 Dohle Bodies Not Reportable 04/01/18 11:05 Pelger-Huet Anomaly Not Reportable 04/01/18 11:05 Betty Rods Not Reportable 04/01/18 11:05 Platelet Estimate Cons 04/01/18 11:05 Clumped Platelets Not Reportable 04/01/18 11:05 Plt Clumps, EDTA Not Reportable 04/01/18 11:05 Large Platelets Few 04/01/18 11:05 Giant Platelets Not Reportable 04/01/18 11:05 Platelet Satelliting Not Reportable 04/01/18 11:05 Plt Morphology Comment Not Reportable 04/01/18 11:05 RBC Morphology Normal 04/01/18 11:05 Dimorphic RBCs Not Reportable 04/01/18 11:05 Polychromasia Not Reportable 04/01/18 11:05 Hypochromasia Not Reportable 04/01/18 11:05 Poikilocytosis Not Reportable 04/01/18 11:05 Anisocytosis Not Reportable 04/01/18 11:05 Microcytosis Not Reportable 04/01/18 11:05 Macrocytosis Not Reportable 04/01/18 11:05 Spherocytes Not Reportable 04/01/18 11:05 Pappenheimer Bodies Not Reportable 04/01/18 11:05 Sickle Cells Not Reportable 04/01/18 11:05 Target Cells Not Reportable 04/01/18 11:05 Tear Drop Cells Not Reportable 04/01/18 11:05 Ovalocytes Not Reportable 04/01/18 11:05 Helmet Cells Not Reportable 04/01/18 11:05 [place]ord[place] Bodies Not Reportable 04/01/18 11:05 [place] Rings Not Reportable 04/01/18 11:05 [place] Cells Not Reportable 04/01/18 11:05 Bite Cells Not Reportable 04/01/18 11:05 Crenated Cell Not Reportable 04/01/18 11:05 Elliptocytes Not Reportable 04/01/18 11:05 Acanthocytes (Spur) Not Reportable 04/01/18 11:05 Rouleaux Not Reportable 04/01/18 11:05 Hemoglobin C Crystals Not Reportable 04/01/18 11:05 Schistocytes Not Reportable 04/01/18 11:05 Malaria parasites Not Reportable 04/01/18 11:05 Kenrick Bodies Not Reportable 04/01/18 11:05 Hem Pathologist Commnt No 04/01/18 11:05 PT 14.8 Sec. (12.2-14.9) 03/29/18 13:34 INR 1.10 (0.87-1.13) 03/29/18 13:34 D-Dimer > 81257 ng/mlDDU (0-234) H 03/29/18 13:34 POC ABG pH 7.221 (7.35-7.45) L 04/01/18 04:37 POC ABG pCO2 66.0 (35-45) H 04/01/18 04:37 POC ABG pO2 61 (80-105) L 04/01/18 04:37 POC ABG HCO3 27.1 04/01/18 04:37 POC ABG Total CO2 29 04/01/18 04:37 POC ABG O2 Sat 85 04/01/18 04:37 POC ABG Base Excess -1 04/01/18 04:37 VBG pH 7.406 (7.320-7.420) 03/29/18 13:43 FiO2 75 % 04/01/18 04:37 Sodium TNR 04/01/18 11:05 Potassium TNR 04/01/18 11:05 Chloride TNR 04/01/18 11:05 Carbon Dioxide TNR 04/01/18 11:05 Anion Gap TNR 04/01/18 11:05 BUN TNR 04/01/18 11:05 Creatinine TNR 04/01/18 11:05 Estimated GFR TNR 04/01/18 11:05 BUN/Creatinine Ratio TNR 04/01/18 11:05 Glucose TNR 04/01/18 11:05 POC Glucose 139 (70-105) H 04/01/18 13:03 Hemoglobin A1c 7.4 % (4-6) H 03/29/18 23:46 Lactic Acid 1.40 mmol/L (0.7-2.0) 03/30/18 05:04 Calcium TNR 04/01/18 11:05 Magnesium TNR 04/01/18 11:05 Total Bilirubin TNR 04/01/18 11:05 AST TNR 04/01/18 11:05 ALT TNR 04/01/18 11:05 Alkaline Phosphatase TNR 04/01/18 11:05 NT-Pro-B Natriuret Pep 321.5 pg/mL (0-900) 03/29/18 13:40 Total Protein TNR 04/01/18 11:05 Albumin TNR 04/01/18 11:05 Albumin/Globulin Ratio TNR 04/01/18 11:05 Urine Color Yellow (Yellow) 03/29/18 13:30 Urine Turbidity Clear (Clear) 03/29/18 13:30 Urine pH 6.0 (5.0-7.0) 03/29/18 13:30 Ur Specific [place] 1.023 (1.003-1.030) 03/29/18 13:30 Urine Protein <15 mg/dl mg/dL (Negative) 03/29/18 13:30 Urine Glucose (UA) Neg mg/dL (Negative) 03/29/18 13:30 Urine Ketones Tr mg/dL (Negative) 03/29/18 13:30 Urine Blood Mod (Negative) 03/29/18 13:30 Urine Nitrite Neg (Negative) 03/29/18 13:30 Urine Bilirubin Neg (Negative) 03/29/18 13:30 Urine Urobilinogen < 2.0 mg/dL (<2.0) 03/29/18 13:30 Ur Leukocyte Esterase Neg (Negative) 03/29/18 13:30 Urine WBC (Auto) 2.0 /HPF (0.0-6.0) 03/29/18 13:30 Urine RBC (Auto) 46.0 /HPF (0.0-6.0) 03/29/18 13:30 Urine Mucus Few /HPF 03/29/18 13:30 Urine Sperm Few /HPF (ROUSTABOUT HEAD) 03/29/18 13:30 Vancomycin Trough 24.2 ug/mL (5.0-20.0) H 03/31/18 06:59
[2018-04-01] MEDS: CARDIZEM PO SCH ×2 (13:52→21:59)
--- NOTE | 2018-04-01 14:04 | Consultation ---
History of Present Illness - Reason for Consult acute renal failure - History of Present Illness This is a 52 y/o male with recently diagnosed lung cancer, who was sent to the ER from his oncologist office secondary to worsening dyspnea. Patient respiratory status worsened requiring urgent intubation, and had been transferred to the ICU. While in the ICU his blood pressures have been tenous and had been started on standing IVF at 100 cc/hr. Despite this his overall urine output has dropped and patient has become progressively more oliguric in the past 48 hours for which nephrology is consulted at this time. Patient nurse at bedside tells me that this morning they did a bladder scan that showed ~100 cc of urine output. His informed me that the patient has had a history of nephrolithiasis that required lithotripsy. However he is not someone that regularly follows with physician. is not aware of any h/o diabetes or HTN. Labs this morning were hemolyzed so we are pending new sets at this time. He is intubated and sedated. He continues on NS 100 cc/hr. he has a condom cath in which i will change to a Robledo cath for better I/O measurement. Past History Past Medical History: cancer (recently diagnosed lung CA ) Past Surgical History: Other (lithotripsy ) Social history: lives with family, smoking Family history: no significant family history Medications and Allergies Allergies Allergy/AdvReac Type Severity Reaction Status Date / Time No Known Allergies Allergy Unverified 03/14/18 13:22 Home Medications Medication Instructions Recorded Confirmed Last Taken Type ALBUTEROL Inhaler [ProAir HFA 2 puff IH QID PRN #1 unit 03/23/18 03/29/18 Unknown Rx Inhaler] Acetaminophen [Acetaminophen TAB] 325 mg PO Q4H PRN #30 tablet 03/23/18 Unknown Rx Diltiazem [Cardizem] 60 mg PO Q8HR #240 tablet 03/23/18 03/29/18 Unknown Rx Famotidine [Pepcid] 20 mg PO BID #10 tablet 03/23/18 03/29/18 Unknown Rx Ipratropium/Albuterol Sulfate 1 ampul IH Q6HRT #30 ampul.neb 03/23/18 03/29/18 Unknown Rx [DUONEB *Not for PRN Use*] Nicotine [Habitrol] 21 mg TD QDAY #7 patch 03/23/18 03/29/18 Unknown Rx guaiFENesin [Robitussin] 200 mg PO Q4H PRN #60 oral.liqd 03/23/18 03/29/18 Unknown Rx Active Meds: Active Medications Acetaminophen (Tylenol) 325 mg PO Q4H PRN PRN Reason: Pain MILD(1-3)/Fever >100.5/STEWART Last Admin: 03/30/18 16:22 Dose: 325 mg Albuterol (Proventil) 2.5 mg IH Q4HRT PRN PRN Reason: Shortness Of Breath Albuterol/Ipratropium (Duoneb *Not For Prn Use*) 1 ampul IH QIDRT ANIYA Last Admin: 04/01/18 11:50 Dose: 1 ampul Diltiazem HCl (Cardizem) 60 mg PO Q8HR ANIYA Last Admin: 04/01/18 13:52 Dose: 60 mg Famotidine (Pepcid) 20 mg PO BID ANIYA Last Admin: 04/01/18 09:10 Dose: 20 mg Guaifenesin (Robitussin) 200 mg PO Q4H PRN PRN Reason: Cough Hydrophilic Ointment (Vaseline Lip Therapy) 1 applic TP Q2HR PRN PRN Reason: Dry Lips Piperacillin Sod/Tazobactam Sod (Zosyn/Ns 4.5gm/100ml) 4.5 gm in 100 mls @ 200 mls/hr IV Q8HR ANIYA; Protocol Last Admin: 04/01/18 13:52 Dose: 200 mls/hr Midazolam HCl 100 mg/ Sodium (Chloride) 100 mls @ 2 mls/hr IV TITR ANIYA; Protocol Fentanyl Citrate (Fentanyl Drip Premix) 2,000 mcg in 100 mls @ 2.676 mls/hr IV TITR ANIYA; Protocol Last Admin: 04/01/18 09:02 Dose: 2 mcg/kg/hr, 5.352 mls/hr Propofol (Diprivan 10 Mg/Ml) 1,000 mg in 100 mls @ 1.606 mls/hr IV TITR ANIYA; Protocol Last Titration: 04/01/18 09:09 Dose: 25 mcg/kg/min, 8.029 mls/hr Sodium Chloride (Nacl 0.9% 1000 Ml) 1,000 mls @ 100 mls/hr IV DIRECT ANIYA Last Admin: 04/01/18 09:04 Dose: 100 mls/hr Vancomycin HCl (Vancomycin/Ns 1 Gm/250 Ml) 1 gm in 250 mls @ 166.667 mls/hr IV Q12H [facility] Last Admin: 04/01/18 04:38 Dose: 166.667 mls/hr Lorazepam (Ativan) 1 mg PO Q4H PRN PRN Reason: Agitation Methylprednisolone Sodium Succinate (Solu-Medrol) 60 mg IV Q8HR [facility] Last Admin: 04/01/18 13:52 Dose: 60 mg Midazolam HCl (Versed) 2 mg IV Q30MIN PRN PRN Reason: Agitation Morphine Sulfate (Morphine) 2 mg IV Q4H PRN PRN Reason: Pain, Moderate (4-6) Last Admin: 03/30/18 18:50 Dose: 2 mg Multi-Ingred Cream/Lotion/Oil/Oint (Artificial Tears Ophth Oint) 1 applic OU Q4HR PRN PRN Reason: Dry Eye(s) Nicotine (Habitrol) 21 mg TD QDAY [facility] Last Admin: 04/01/18 09:09 Dose: 21 mg Ondansetron HCl (Zofran) 4 mg IV Q8H PRN PRN Reason: Nausea And Vomiting Oxycodone/Acetaminophen (Percocet 5/325) 1 tab PO Q6H PRN PRN Reason: Pain, Moderate (4-6) Sodium Chloride (Sodium Chloride Flush Syringe 10 Ml) 10 ml IV BID [facility] Last Admin: 04/01/18 09:10 Dose: 10 ml Sodium Chloride (Sodium Chloride Flush Syringe 10 Ml) 10 ml IV PRN PRN PRN Reason: LINE FLUSH Vancomycin HCl (Vancomycin Pharmacy To Dose) 1 each IV PKCONSULT [facility]; Protocol Review of Systems ROS unobtainable: due to endotracheal tube Exam - Vital Signs Vital signs: Vital Signs Pulse Resp Pulse Ox 100 H 29 H 90 03/29/18 12:38 03/29/18 12:38 03/29/18 12:38 - General Appearance General appearance: sedated on ventilator, frail EENT: mucous membranes moist Neck: Present: neck supple, trachea midline Respiratory: Ronchi, Decreased Breath Sounds Heart: regular, tachycardia, S1S2 Gastrointestinal: Present: normal, normoactive bowel sounds Integumentary: no rash, warm and dry Neurologic: other (intubated and sedated. ) Musculoskeletal: Present: deferred Psychiatric: other (sedated on ventilator ) Results - Lab Results 04/01/18 11:05 04/01/18 11:05 Most recent lab results Calcium TNR 04/01/18 11:05 Magnesium TNR 04/01/18 11:05 Assessment and Plan - Patient Problems (1) Acute renal injury Current Visit: Yes Status: Acute Plan to address problem: Pending repeat labs this am. Will follow up. Will write for a indwelling Robledo catheter to replace current condom catheter to help with better monitoring of his I/O If his urine output doesn't improve or worsens, will need to challenge with diuretics. Avoid nephrotoxins. Maintain MAP >65mmHg (2) Lung cancer Current Visit: Yes Status: Acute Plan to address problem: Management per oncology team. (3) Acute respiratory failure Current Visit: Yes Status: Acute Qualifiers: Respiratory failure complication: hypoxia Qualified Code(s): J96.01 - Acute respiratory failure with hypoxia Plan to address problem: Patient intubated and sedated in the ICU Further management per pulmonary/ICU team. Needs to have strict I/O and would prefer placement of indwelling Robledo for careful I/O monitoring. (4) Bilateral pneumonia Current Visit: Yes Status: Acute Plan to address problem: Antibiotic regimen per primary team. Will need to closely follow up on renal function studies to ensure that her antibiotics are dosed appropriately for his current renal function.
[2018-04-01 15:15] LABS: BUN/Creatinine Ratio 43; Blood Urea Nitrogen 34 mg/dL (9-20); Calcium 8.1 mg/dL (8.4-10.2); Hemolysis Index 20
[2018-04-01 15:17] LABS: Alanine Aminotransferase 28 units/L (7-56); Albumin 2.4 g/dL (3.9-5); BUN/Creatinine Ratio 49; Blood Urea Nitrogen 34 mg/dL (9-20); Calcium 8.1 mg/dL (8.4-10.2); Hemolysis Index 38
[2018-04-01] MEDS: MIDAZOLAM 100 MG in NACL 0.9% 80 ML IV SCH (15:28)
[2018-04-01] MEDS ORDERED: LACTATED RINGERS 250 ML IV ONE (17:00)
--- NOTE | 2018-04-01 17:23 | Hem/Onc Progress Note ---
Assessment and Plan 1. lung cancer- continue supportive care, not a candidate for chemotherapy at this time Subjective Date of service: 04/01/18 Interval history: remains intubated Objective - Constitutional Vitals: Last Vital Signs Temp 99.0 F 04/01/18 16:00 Pulse 98 H 04/01/18 16:00 Resp 19 04/01/18 16:00 BP 83/49 04/01/18 16:00 Pulse Ox 95 04/01/18 16:00 General appearance: other (intubated) - Respiratory Respiratory: bilateral: other (ventilated BS) - Cardiovascular Rhythm: regular - Integumentary Integumentary: warm, dry - Labs Lab Results: Laboratory Results - last 24 hr 03/31/18 03/31/18 04/01/18 16:52 23:31 04:37 WBC RBC Hgb Hct MCV MCH MCHC RDW Plt Count Add Manual Diff Total Counted Seg Neuts % (Manual) Band Neutrophils % Lymphocytes % (Manual) Reactive Lymphs % (Man) Monocytes % (Manual) Eosinophils % (Manual) Basophils % (Manual) Metamyelocytes % Myelocytes % Promyelocytes % Blast Cells % Nucleated RBC % Seg Neutrophils # Man Band Neutrophils # Lymphocytes # (Manual) Abs React Lymphs (Man) Monocytes # (Manual) Eosinophils # (Manual) Basophils # (Manual) Metamyelocytes # Myelocytes # Promyelocytes # Blast Cells # WBC Morphology Hypersegmented Neuts Hyposegmented Neuts Hypogranular Neuts Smudge Cells Toxic Granulation Toxic Vacuolation Dohle Bodies Pelger-Huet Anomaly Betty Rods Platelet Estimate Clumped Platelets Plt Clumps, EDTA Large Platelets Giant Platelets Platelet Satelliting Plt Morphology Comment RBC Morphology Dimorphic RBCs Polychromasia Hypochromasia Poikilocytosis Anisocytosis Microcytosis Macrocytosis Spherocytes Pappenheimer Bodies Sickle Cells Target Cells Tear Drop Cells Ovalocytes Helmet Cells [place] Bodies [place] Rings Kristin Cells Bite Cells Crenated Cell Elliptocytes Acanthocytes (Spur) Rouleaux Hemoglobin C Crystals Schistocytes Malaria parasites Kenrick Bodies Hem Pathologist Commnt POC ABG pH 7.221 L POC ABG pCO2 66.0 H POC ABG pO2 61 L POC ABG HCO3 27.1 POC ABG Total CO2 29 POC ABG O2 Sat 85 POC ABG Base Excess -1 FiO2 75 Sodium Potassium Chloride Carbon Dioxide Anion Gap BUN Creatinine Estimated GFR BUN/Creatinine Ratio Glucose POC Glucose 104 97 Calcium Phosphorus Magnesium Total Bilirubin AST ALT Alkaline Phosphatase Total Protein Albumin Albumin/Globulin Ratio 04/01/18 04/01/18 04/01/18 06:10 11:05 11:05 WBC 43.6 H* RBC 5.23 H Hgb 14.3 Hct 45.8 H MCV 88 MCH 27 L MCHC 31 L RDW 15.2 Plt Count 70 L Add Manual Diff Complete Total Counted 200 Seg Neuts % (Manual) 97.0 H Band Neutrophils % 0.5 Lymphocytes % (Manual) 0.5 L Reactive Lymphs % (Man) 0 Monocytes % (Manual) 2.0 Eosinophils % (Manual) 0 Basophils % (Manual) 0 Metamyelocytes % 0 Myelocytes % 0 Promyelocytes % 0 Blast Cells % 0 Nucleated RBC % Not Reportable Seg Neutrophils # Man 42.3 H Band Neutrophils # 0.2 Lymphocytes # (Manual) 0.2 L Abs React Lymphs (Man) 0.0 Monocytes # (Manual) 0.9 H Eosinophils # (Manual) 0.0 Basophils # (Manual) 0.0 Metamyelocytes # 0.0 Myelocytes # 0.0 Promyelocytes # 0.0 Blast Cells # 0.0 WBC Morphology Not Reportable Hypersegmented Neuts Not Reportable Hyposegmented Neuts Not Reportable Hypogranular Neuts Not Reportable Smudge Cells Not Reportable Toxic Granulation Not Reportable Toxic Vacuolation Few Dohle Bodies Not Reportable Pelger-Huet Anomaly Not Reportable Betty Rods Not Reportable Platelet Estimate Cons Clumped Platelets Not Reportable Plt Clumps, EDTA Not Reportable Large Platelets Few Giant Platelets Not Reportable Platelet Satelliting Not Reportable Plt Morphology Comment Not Reportable RBC Morphology Normal Dimorphic RBCs Not Reportable Polychromasia Not Reportable Hypochromasia Not Reportable Poikilocytosis Not Reportable Anisocytosis Not Reportable Microcytosis Not Reportable Macrocytosis Not Reportable Spherocytes Not Reportable Pappenheimer Bodies Not Reportable Sickle Cells Not Reportable Target Cells Not Reportable Tear Drop Cells Not Reportable Ovalocytes Not Reportable Helmet Cells Not Reportable [place] Bodies Not Reportable [place] Rings Not Reportable [place] Cells Not Reportable Bite Cells Not Reportable Crenated Cell Not Reportable Elliptocytes Not Reportable Acanthocytes (Spur) Not Reportable Rouleaux Not Reportable Hemoglobin C Crystals Not Reportable Schistocytes Not Reportable Malaria parasites Not Reportable [place] Bodies Not Reportable Hem Pathologist Commnt No POC ABG pH POC ABG pCO2 POC ABG pO2 POC ABG HCO3 POC ABG Total CO2 POC ABG O2 Sat POC ABG Base Excess FiO2 Sodium TNR Potassium TNR Chloride TNR Carbon Dioxide TNR Anion Gap TNR BUN TNR Creatinine TNR Estimated GFR TNR BUN/Creatinine Ratio TNR Glucose TNR POC Glucose 124 H Calcium TNR Phosphorus Magnesium TNR Total Bilirubin TNR AST TNR ALT TNR Alkaline Phosphatase TNR Total Protein TNR Albumin TNR Albumin/Globulin Ratio TNR 04/01/18 04/01/18 04/01/18 13:03 14:47 14:47 WBC RBC Hgb Hct MCV MCH MCHC RDW Plt Count Add Manual Diff Total Counted Seg Neuts % (Manual) Band Neutrophils % Lymphocytes % (Manual) Reactive Lymphs % (Man) Monocytes % (Manual) Eosinophils % (Manual) Basophils % (Manual) Metamyelocytes % Myelocytes % Promyelocytes % Blast Cells % Nucleated RBC % Seg Neutrophils # Man Band Neutrophils # Lymphocytes # (Manual) Abs React Lymphs (Man) Monocytes # (Manual) Eosinophils # (Manual) Basophils # (Manual) Metamyelocytes # Myelocytes # Promyelocytes # Blast Cells # WBC Morphology Hypersegmented Neuts Hyposegmented Neuts Hypogranular Neuts Smudge Cells Toxic Granulation Toxic Vacuolation Dohle Bodies Pelger-Huet Anomaly Betty Rods Platelet Estimate Clumped Platelets Plt Clumps, EDTA Large Platelets Giant Platelets Platelet Satelliting Plt Morphology Comment RBC Morphology Dimorphic RBCs Polychromasia Hypochromasia Poikilocytosis Anisocytosis Microcytosis Macrocytosis Spherocytes Pappenheimer Bodies Sickle Cells Target Cells Tear Drop Cells Ovalocytes Helmet Cells [place] Bodies [place] Rings [place]richs Cells Bite Cells Crenated Cell Elliptocytes Acanthocytes (Spur) Rouleaux Hemoglobin C Crystals Schistocytes Malaria parasites Kenrick Bodies Hem Pathologist Commnt POC ABG pH POC ABG pCO2 POC ABG pO2 POC ABG HCO3 POC ABG Total CO2 POC ABG O2 Sat POC ABG Base Excess FiO2 Sodium 138 139 Potassium 5.2 H 5.1 H Chloride 103.3 104.2 Carbon Dioxide 20 L 21 L Anion Gap 20 19 BUN 34 H 34 H Creatinine 0.7 L 0.8 Estimated GFR > 60 > 60 BUN/Creatinine Ratio 49 43 Glucose 166 H 166 H POC Glucose 139 H Calcium 8.1 L 8.1 L Phosphorus 3.90 Magnesium 2.40 H Total Bilirubin 0.50 AST 17 ALT 28 Alkaline Phosphatase 67 Total Protein 4.9 L Albumin 2.4 L Albumin/Globulin Ratio 1.0 04/01/18 16:11 WBC RBC Hgb Hct MCV MCH MCHC RDW Plt Count Add Manual Diff Total Counted Seg Neuts % (Manual) Band Neutrophils % Lymphocytes % (Manual) Reactive Lymphs % (Man) Monocytes % (Manual) Eosinophils % (Manual) Basophils % (Manual) Metamyelocytes % Myelocytes % Promyelocytes % Blast Cells % Nucleated RBC % Seg Neutrophils # Man Band Neutrophils # Lymphocytes # (Manual) Abs React Lymphs (Man) Monocytes # (Manual) Eosinophils # (Manual) Basophils # (Manual) Metamyelocytes # Myelocytes # Promyelocytes # Blast Cells # WBC Morphology Hypersegmented Neuts Hyposegmented Neuts Hypogranular Neuts Smudge Cells Toxic Granulation Toxic Vacuolation Dohle Bodies Pelger-Huet Anomaly Betty Rods Platelet Estimate Clumped Platelets Plt Clumps, EDTA Large Platelets Giant Platelets Platelet Satelliting Plt Morphology Comment RBC Morphology Dimorphic RBCs Polychromasia Hypochromasia Poikilocytosis Anisocytosis Microcytosis Macrocytosis Spherocytes Pappenheimer Bodies Sickle Cells Target Cells Tear Drop Cells Ovalocytes Helmet Cells [place] Bodies [place] Rings O[place]rich[place] Cells Bite Cells Crenated Cell Elliptocytes Acanthocytes (Spur) Rouleaux Hemoglobin C Crystals Schistocytes Malaria parasites Kenrick Bodies Hem Pathologist Commnt POC ABG pH 7.172 L POC ABG pCO2 64.8 H POC ABG pO2 78 L POC ABG HCO3 23.7 POC ABG Total CO2 26 POC ABG O2 Sat 91 POC ABG Base Excess -5 FiO2 100 Sodium Potassium Chloride Carbon Dioxide Anion Gap BUN Creatinine Estimated GFR BUN/Creatinine Ratio Glucose POC Glucose Calcium Phosphorus Magnesium Total Bilirubin AST ALT Alkaline Phosphatase Total Protein Albumin Albumin/Globulin Ratio
--- NOTE | 2018-04-01 20:07 | XRay Report ---
FINAL REPORT EXAM: XR CHEST 1V AP HISTORY: follow up respiratory failure TECHNIQUE: Frontal chest x-ray Comparison: 03/30/2018, CTA chest 03/14/2018, chest x-ray 03/14/2018 FINDINGS: Patient is intubated. Endotracheal tube tip projects 6 centimeters above the jarrod. Nasogastric tube is present with tip in the region the mid gastric body. This tube has been introduced since the previous exam. Heart size remains mildly enlarged. There is a large layering left pleural effusion. The previously identified patchy bilateral infiltrates have become more generalized involving the majority the right upper lobe and the entire left lung on the current exam. There is left lower lobe volume loss with mild shift of the heart and mediastinum into the left hemithorax. The lungs are emphysematous. IMPRESSION: Interval placement of nasogastric tube with the tip in the region the mid gastric body. Interval progression of the bilateral somewhat patchy infiltrates which are now more generalized in the right upper lobe and the entire left lung. Large layering left pleural effusion is also still present. Findings may still represent infectious infiltrates, inflammatory infiltrates, less likely neoplastic infiltrates, or be related to asymmetric heart failure.
[2018-04-02] MEDS: HumuLIN R SUB-Q SCH ×4 (00:10→18:45)
--- NOTE | 2018-04-02 03:14 | XRay Report ---
FINAL REPORT EXAM: XR CHEST 1V AP HISTORY: follow up respiratory failure COMPARISON: April 01, 2018 FINDINGS: Frontal view(s) of the chest obtained. Stable mild cardiac enlargement. ETT and NG tube remain in place. Stable patchy airspace consolidation right upper lobe. Stable moderate large left-sided pleural effusion with patchy airspace consolidation throughout the left lung. No pneumothorax. IMPRESSION: ETT and NG tube are unchanged in position. Stable moderate large left-sided pleural effusion with patchy airspace consolidation throughout the majority of the left lung and patchy airspace consolidation right upper lobe.
[2018-04-02] MEDS: VANCOMYCIN/NS 1 GM/250 ML 1 GM/250 ML BAG IV SCH ×2 (03:35→16:16)
[2018-04-02] MEDS: MIDAZOLAM 100 MG in NACL 0.9% 80 ML IV SCH ×3 (05:20→05:49)
[2018-04-02] MEDS: CARDIZEM PO SCH ×2 (05:33→15:17)
[2018-04-02] MEDS: fentaNYL DRIP Premix 2,000 MCG/100 ML BAG IV SCH (08:10)
[2018-04-02] MEDS: DUONEB *Not for PRN Use IH SCH ×4 (09:00→19:44)
--- NOTE | 2018-04-02 09:19 | Consultation ---
History of Present Illness - Reason for Consult Consult date: 04/02/18 sepsis Requesting physician: BERNICE GUAMAN - History of Present Illness 52 y/o male with history of tobacco abuse, A fib, recent diagnosis of Non-small cell lung cancer stage IV during recent admission 03/14-03/23/18; admitted on due to sudden severe shortness of breath. During recent admission CTA chest demonstrated no evidence of PE and showed mass-like opacities or consolidations and bilateral pleural effusions, left greater than right, also noted mediastinal and hilar adenopathy may be reactive. CT abd/pelvis with contrast showed Bilobed mass in the left adrenal gland and calculus in lower pole left kidney and a suspected bone metastases involving the right anterior lateral 6th rib. MRI brain showed 7 mm high right frontal metastatic lesion with surrounding edema identified without midline shift. He was found on RVR Afib and acute hypoxemic resp failure. He was treated for pneumonia with IV abx and was discharged home with Hem f/u. Upon re-admission family reports some continued shortness of breath after discharge, and this got noticeably worse according to the night before admission. Patient has not measured fever, but has felt somewhat feverish intermittently over the past week, questionable diaphoresis, no lightheadedness or weakness, the patient has not eaten over the past day, although he has not been nauseated. He has no pain at this time, no congestion, no sputum production. Blood cultures during previous admission were negative. Sputum cultures show open respiratory yesy. Left pleural effusion was drained and showed no infection. In the ED, initial temperature was 97.5, heart rate 100, respiration 29, O2 sat 90%, blood pressure 102/62. Initial white count 53,000. Hemoglobin 16.6. Platelets 127. Sodium 128. Creatinine 0.4. Lactic acid 2.1. Chest x-ray showed bilateral lung infiltrates. Patient was admitted to the floor however became increasingly short of breath and hypoxemic, ultimately intubated currently in the ICU. Microbiology: Blood cultures: 03/18 neg 03/29 ngtd Urine cultures: 03/29 neg Respiratory cultures: 03/30 Ana 03/31 Ana Wound cultures: Current Antimicrobials: zosyn 03/29 vanco 03/31 Previous Antimicrobials:tral Past History Past Medical History: cancer (recently diagnosed lung CA ) Past Surgical History: Other (lithotripsy ) Social history: lives with family, smoking Family history: no significant family history Medications and Allergies Allergies Allergy/AdvReac Type Severity Reaction Status Date / Time No Known Allergies Allergy Unverified 03/14/18 13:22 Home Medications Medication Instructions Recorded Confirmed Last Taken Type ALBUTEROL Inhaler [ProAir HFA 2 puff IH QID PRN #1 unit 03/23/18 03/29/18 Unknown Rx Inhaler] Acetaminophen [Acetaminophen TAB] 325 mg PO Q4H PRN #30 tablet 03/23/18 Unknown Rx Diltiazem [Cardizem] 60 mg PO Q8HR #240 tablet 03/23/18 03/29/18 Unknown Rx Famotidine [Pepcid] 20 mg PO BID #10 tablet 03/23/18 03/29/18 Unknown Rx Ipratropium/Albuterol Sulfate 1 ampul IH Q6HRT #30 ampul.neb 03/23/18 03/29/18 Unknown Rx [DUONEB *Not for PRN Use*] Nicotine [Habitrol] 21 mg TD QDAY #7 patch 03/23/18 03/29/18 Unknown Rx guaiFENesin [Robitussin] 200 mg PO Q4H PRN #60 oral.liqd 03/23/18 03/29/18 Unknown Rx Active Meds: Active Medications Acetaminophen (Tylenol) 325 mg PO Q4H PRN PRN Reason: Pain MILD(1-3)/Fever >100.5/STEWART Last Admin: 03/30/18 16:22 Dose: 325 mg Albuterol (Proventil) 2.5 mg IH Q4HRT PRN PRN Reason: Shortness Of Breath Albuterol/Ipratropium (Duoneb *Not For Prn Use*) 1 ampul IH QIDRT [facility] Last Admin: 04/02/18 09:00 Dose: 1 ampul Diltiazem HCl (Cardizem) 60 mg PO Q8HR [facility] Last Admin: 04/02/18 05:33 Dose: 60 mg Famotidine (Pepcid) 20 mg PO BID [facility] Last Admin: 04/01/18 21:58 Dose: 20 mg Guaifenesin (Robitussin) 200 mg PO Q4H PRN PRN Reason: Cough Hydrophilic Ointment (Vaseline Lip Therapy) 1 applic TP Q2HR PRN PRN Reason: Dry Lips Piperacillin Sod/Tazobactam Sod (Zosyn/Ns 4.5gm/100ml) 4.5 gm in 100 mls @ 200 mls/hr IV Q8HR ANIYA; Protocol Last Infusion: 04/01/18 22:58 Dose: Infused Midazolam HCl 100 mg/ Sodium (Chloride) 100 mls @ 2 mls/hr IV TITR ANIYA; Protocol Last Admin: 04/02/18 05:49 Dose: 2 mg/hr, 2 mls/hr Fentanyl Citrate (Fentanyl Drip Premix) 2,000 mcg in 100 mls @ 2.676 mls/hr IV TITR ANIYA; Protocol Last Admin: 04/02/18 08:10 Dose: 1 mcg/kg/hr, 2.676 mls/hr Sodium Chloride (Nacl 0.9% 1000 Ml) 1,000 mls @ 100 mls/hr IV DIRECT ANIYA Last Infusion: 04/01/18 22:07 Dose: 100 mls/hr Vancomycin HCl (Vancomycin/Ns 1 Gm/250 Ml) 1 gm in 250 mls @ 166.667 mls/hr IV Q12H ANIYA Last Admin: 04/02/18 03:35 Dose: 166.667 mls/hr Insulin Human Regular (Humulin R) 0 units SUB-Q Q6HR ANIYA; Protocol Last Admin: 04/02/18 05:53 Dose: 3 units Lorazepam (Ativan) 1 mg PO Q4H PRN PRN Reason: Agitation Last Admin: 04/02/18 05:41 Dose: 1 mg Methylprednisolone Sodium Succinate (Solu-Medrol) 60 mg IV Q8HR ANIYA Last Admin: 04/01/18 21:59 Dose: 60 mg Morphine Sulfate (Morphine) 2 mg IV Q4H PRN PRN Reason: Pain, Moderate (4-6) Last Admin: 03/30/18 18:50 Dose: 2 mg Multi-Ingred Cream/Lotion/Oil/Oint (Artificial Tears Ophth Oint) 1 applic OU Q4HR PRN PRN Reason: Dry Eye(s) Nicotine (Habitrol) 21 mg TD QDAY ANIYA Last Admin: 04/01/18 09:09 Dose: 21 mg Ondansetron HCl (Zofran) 4 mg IV Q8H PRN PRN Reason: Nausea And Vomiting Oxycodone/Acetaminophen (Percocet 5/325) 1 tab PO Q6H PRN PRN Reason: Pain, Moderate (4-6) Sodium Chloride (Sodium Chloride Flush Syringe 10 Ml) 10 ml IV BID ANIYA Last Admin: 04/01/18 09:10 Dose: 10 ml Sodium Chloride (Sodium Chloride Flush Syringe 10 Ml) 10 ml IV PRN PRN PRN Reason: LINE FLUSH Vancomycin HCl (Vancomycin Pharmacy To Dose) 1 each IV PKCONSULT ANIYA; Protocol Physical Examination - Physical Exam Narrative exam: General appearance: sedated in NAD Eyes: anicteric sclerae, moist conjunctivae; no lid-lag; PERRLA HENT: Atraumatic; oropharynx clear with moist mucous membranes and no mucosal ulcerations/no oral thrush; normal hard and soft palate. Normal external ears. Neck: Trachea midline; supple, no thyromegaly or lymphadenopathy Lungs: Bilateral crackles CV: RRR, no murmurs Abdomen: Soft, non-tender; no masses or hepatosplenomegaly Extremities: Bilateral hand edema Skin: Normal temperature, turgor and texture; no rash, ulcers or subcutaneous nodules Psych: Sedated Neuro: Sedated Lines: Robledo in place - Constitutional Vitals: Vital Signs Temp Pulse Resp BP Pulse Ox 97.5 F L 94 H 29 H 90/60 92 04/02/18 08:00 04/02/18 08:54 04/02/18 08:54 04/02/18 09:01 04/02/18 09:01 Temperature -Last 24 Hours Temperature 97.5 F Temperature 98.8 F Temperature 98.5 F Temperature 98.6 F Temperature 99.0 F Temperature 99.0 F Temperature 98.7 F Results - Labs CBC & Chem 7: 04/01/18 11:05 04/01/18 14:47 Labs: Abnormal lab results 04/01/18 04/01/18 04/01/18 Range/Units 11:05 13:03 14:47 WBC 43.6 H* (4.5-11.0) K/mm3 RBC 5.23 H (3.65-5.03) M/mm3 Hct 45.8 H (35.5-45.6) % MCH 27 L (28-32) pg MCHC 31 L (32-34) % Plt Count 70 L (140-440) K/mm3 Seg Neuts % (Manual) 97.0 H (40.0-70.0) % Lymphocytes % (Manual) 0.5 L (13.4-35.0) % Seg Neutrophils # Man 42.3 H (1.8-7.7) K/mm3 Lymphocytes # (Manual) 0.2 L (1.2-5.4) K/mm3 Monocytes # (Manual) 0.9 H (0.0-0.8) K/mm3 POC ABG pH (7.35-7.45) POC ABG pCO2 (35-45) POC ABG pO2 (80-105) Potassium 5.2 H (3.6-5.0) mmol/L Carbon Dioxide 20 L (22-30) mmol/L BUN 34 H (9-20) mg/dL Creatinine 0.7 L (0.8-1.5) mg/dL Glucose 166 H (75-100) mg/dL POC Glucose 139 H (70-105) Calcium 8.1 L (8.4-10.2) mg/dL Magnesium (1.7-2.3) mg/dL Total Protein 4.9 L (6.3-8.2) g/dL Albumin 2.4 L (3.9-5) g/dL 04/01/18 04/01/18 04/01/18 Range/Units 14:47 16:11 18:04 WBC (4.5-11.0) K/mm3 RBC (3.65-5.03) M/mm3 Hct (35.5-45.6) % MCH (28-32) pg MCHC (32-34) % Plt Count (140-440) K/mm3 Seg Neuts % (Manual) (40.0-70.0) % Lymphocytes % (Manual) (13.4-35.0) % Seg Neutrophils # Man (1.8-7.7) K/mm3 Lymphocytes # (Manual) (1.2-5.4) K/mm3 Monocytes # (Manual) (0.0-0.8) K/mm3 POC ABG pH 7.172 L (7.35-7.45) POC ABG pCO2 64.8 H (35-45) POC ABG pO2 78 L (80-105) Potassium 5.1 H (3.6-5.0) mmol/L Carbon Dioxide 21 L (22-30) mmol/L BUN 34 H (9-20) mg/dL Creatinine (0.8-1.5) mg/dL Glucose 166 H (75-100) mg/dL POC Glucose 149 H (70-105) Calcium 8.1 L (8.4-10.2) mg/dL Magnesium 2.40 H (1.7-2.3) mg/dL Total Protein (6.3-8.2) g/dL Albumin (3.9-5) g/dL 04/01/18 04/02/18 04/02/18 Range/Units 23:24 00:09 04:11 WBC (4.5-11.0) K/mm3 RBC (3.65-5.03) M/mm3 Hct (35.5-45.6) % MCH (28-32) pg MCHC (32-34) % Plt Count (140-440) K/mm3 Seg Neuts % (Manual) (40.0-70.0) % Lymphocytes % (Manual) (13.4-35.0) % Seg Neutrophils # Man (1.8-7.7) K/mm3 Lymphocytes # (Manual) (1.2-5.4) K/mm3 Monocytes # (Manual) (0.0-0.8) K/mm3 POC ABG pH 7.235 L 7.235 L (7.35-7.45) POC ABG pCO2 54.0 H 55.2 H (35-45) POC ABG pO2 (80-105) Potassium (3.6-5.0) mmol/L Carbon Dioxide (22-30) mmol/L BUN (9-20) mg/dL Creatinine (0.8-1.5) mg/dL Glucose (75-100) mg/dL POC Glucose 176 H (70-105) Calcium (8.4-10.2) mg/dL Magnesium (1.7-2.3) mg/dL Total Protein (6.3-8.2) g/dL Albumin (3.9-5) g/dL 04/02/18 Range/Units 05:20 WBC (4.5-11.0) K/mm3 RBC (3.65-5.03) M/mm3 Hct (35.5-45.6) % MCH (28-32) pg MCHC (32-34) % Plt Count (140-440) K/mm3 Seg Neuts % (Manual) (40.0-70.0) % Lymphocytes % (Manual) (13.4-35.0) % Seg Neutrophils # Man (1.8-7.7) K/mm3 Lymphocytes # (Manual) (1.2-5.4) K/mm3 Monocytes # (Manual) (0.0-0.8) K/mm3 POC ABG pH (7.35-7.45) POC ABG pCO2 (35-45) POC ABG pO2 (80-105) Potassium (3.6-5.0) mmol/L Carbon Dioxide (22-30) mmol/L BUN (9-20) mg/dL Creatinine (0.8-1.5) mg/dL Glucose (75-100) mg/dL POC Glucose 164 H (70-105) Calcium (8.4-10.2) mg/dL Magnesium (1.7-2.3) mg/dL Total Protein (6.3-8.2) g/dL Albumin (3.9-5) g/dL Assessment and Plan Assessment: 1) Sepsis: Present on admission, manifested by tachycardia, leukocytosis with leukomoid reaction. Etiology most likely pneumonia. Leukomoid reaction likely a combination of cancer, pneumonia and IV steroids. 2) Bilateral pneumonia: Likely post obstructive pneumonia versus hospital associated pneumonia versus pulmonary carcinomoatosis 3) Non-small cell lung cancer stage IV with presumed metastasis to ribs, adrenal gland and brain? -CTA chest demonstrated no evidence of PE and showed mass-like opacities or consolidations and bilateral pleural effusions, left greater than right, also noted mediastinal and hilar adenopathy may be reactive. -CT abd/pelvis with contrast showed Bilobed mass in the left adrenal gland and calculus in lower pole left kidney and a suspected bone metastases involving the right anterior lateral 6th rib. -MRI brain showed 7 mm high right frontal metastatic lesion with surrounding edema identified without midline shift. -S/p thoracentesis 03/18/18 - Left pleural effusion was drained and showed no infection. -Sputum cultures 03/18/18 show normal respiratory yesy. -Repeat sputum cx 03/30 and 03/31 Ana - likely a colonizer 4) Tobacco abuse 5) A fib 6) Acute hypoxemic resp failure. 7) Hyponatremia Plan: -follow-up blood cultures, urine culture -obtain procalcitonin, C-reactive protein (CRP) -Leukomoid reaction likely a combination of cancer, pneumonia and IV steroids so it would take long to improve -agree with combination of zosyn and vanco for now Thanks Yvrose Stafford MD Infectious Diseases Specialist [facility] ([facility] M [phone] O [phone]
--- NOTE | 2018-04-02 09:48 | Hem/Onc Progress Note ---
Assessment and Plan Patient has metastatic non-small cell lung cancer. As per Dr. Koo, once extubated, we will be trying possibly immunotherapy as outpatient. Prognosis is poor Subjective Date of service: 04/02/18 Interval history: Patient intubated. Seems restless. Objective - Exam Narrative Exam: Very restless. He is sedated - Constitutional Vitals: Last Vital Signs Temp 97.5 F L 04/02/18 08:00 Pulse 105 H 04/02/18 09:20 Resp 18 04/02/18 09:20 BP 90/60 04/02/18 09:01 Pulse Ox 92 04/02/18 09:01 - Labs Lab Results: Laboratory Results - last 24 hr 04/01/18 04/01/18 04/01/18 11:05 11:05 13:03 WBC 43.6 H* RBC 5.23 H Hgb 14.3 Hct 45.8 H MCV 88 MCH 27 L MCHC 31 L RDW 15.2 Plt Count 70 L Add Manual Diff Complete Total Counted 200 Seg Neuts % (Manual) 97.0 H Band Neutrophils % 0.5 Lymphocytes % (Manual) 0.5 L Reactive Lymphs % (Man) 0 Monocytes % (Manual) 2.0 Eosinophils % (Manual) 0 Basophils % (Manual) 0 Metamyelocytes % 0 Myelocytes % 0 Promyelocytes % 0 Blast Cells % 0 Nucleated RBC % Not Reportable Seg Neutrophils # Man 42.3 H Band Neutrophils # 0.2 Lymphocytes # (Manual) 0.2 L Abs React Lymphs (Man) 0.0 Monocytes # (Manual) 0.9 H Eosinophils # (Manual) 0.0 Basophils # (Manual) 0.0 Metamyelocytes # 0.0 Myelocytes # 0.0 Promyelocytes # 0.0 Blast Cells # 0.0 WBC Morphology Not Reportable Hypersegmented Neuts Not Reportable Hyposegmented Neuts Not Reportable Hypogranular Neuts Not Reportable Smudge Cells Not Reportable Toxic Granulation Not Reportable Toxic Vacuolation Few Dohle Bodies Not Reportable Pelger-Huet Anomaly Not Reportable Btety Rods Not Reportable Platelet Estimate Cons Clumped Platelets Not Reportable Plt Clumps, EDTA Not Reportable Large Platelets Few Giant Platelets Not Reportable Platelet Satelliting Not Reportable Plt Morphology Comment Not Reportable RBC Morphology Normal Dimorphic RBCs Not Reportable Polychromasia Not Reportable Hypochromasia Not Reportable Poikilocytosis Not Reportable Anisocytosis Not Reportable Microcytosis Not Reportable Macrocytosis Not Reportable Spherocytes Not Reportable Pappenheimer Bodies Not Reportable Sickle Cells Not Reportable Target Cells Not Reportable Tear Drop Cells Not Reportable Ovalocytes Not Reportable Helmet Cells Not Reportable Gordillo-[place]arm[place] Bodies Not Reportable [place] Rings Not Reportable [place] Cells Not Reportable Bite Cells Not Reportable Crenated Cell Not Reportable Elliptocytes Not Reportable Acanthocytes (Spur) Not Reportable Rouleaux Not Reportable Hemoglobin C Crystals Not Reportable Schistocytes Not Reportable Malaria parasites Not Reportable [place] Bodies Not Reportable Hem Pathologist Commnt No POC ABG pH POC ABG pCO2 POC ABG pO2 POC ABG HCO3 POC ABG Total CO2 POC ABG O2 Sat POC ABG Base Excess FiO2 Sodium TNR Potassium TNR Chloride TNR Carbon Dioxide TNR Anion Gap TNR BUN TNR Creatinine TNR Estimated GFR TNR BUN/Creatinine Ratio TNR Glucose TNR POC Glucose 139 H Calcium TNR Phosphorus Magnesium TNR Total Bilirubin TNR AST TNR ALT TNR Alkaline Phosphatase TNR Total Protein TNR Albumin TNR Albumin/Globulin Ratio TNR 04/01/18 04/01/18 04/01/18 14:47 14:47 16:11 WBC RBC Hgb Hct MCV MCH MCHC RDW Plt Count Add Manual Diff Total Counted Seg Neuts % (Manual) Band Neutrophils % Lymphocytes % (Manual) Reactive Lymphs % (Man) Monocytes % (Manual) Eosinophils % (Manual) Basophils % (Manual) Metamyelocytes % Myelocytes % Promyelocytes % Blast Cells % Nucleated RBC % Seg Neutrophils # Man Band Neutrophils # Lymphocytes # (Manual) Abs React Lymphs (Man) Monocytes # (Manual) Eosinophils # (Manual) Basophils # (Manual) Metamyelocytes # Myelocytes # Promyelocytes # Blast Cells # WBC Morphology Hypersegmented Neuts Hyposegmented Neuts Hypogranular Neuts Smudge Cells Toxic Granulation Toxic Vacuolation Dohle Bodies Pelger-Huet Anomaly Betty Rods Platelet Estimate Clumped Platelets Plt Clumps, EDTA Large Platelets Giant Platelets Platelet Satelliting Plt Morphology Comment RBC Morphology Dimorphic RBCs Polychromasia Hypochromasia Poikilocytosis Anisocytosis Microcytosis Macrocytosis Spherocytes Pappenheimer Bodies Sickle Cells Target Cells Tear Drop Cells Ovalocytes Helmet Cells Gordillo-Marmet Bodies [place] Rings Kristin Cells Bite Cells Crenated Cell Elliptocytes Acanthocytes (Spur) Rouleaux Hemoglobin C Crystals Schistocytes Malaria parasites Kenrick Bodies Hem Pathologist Commnt POC ABG pH 7.172 L POC ABG pCO2 64.8 H POC ABG pO2 78 L POC ABG HCO3 23.7 POC ABG Total CO2 26 POC ABG O2 Sat 91 POC ABG Base Excess -5 FiO2 100 Sodium 138 139 Potassium 5.2 H 5.1 H Chloride 103.3 104.2 Carbon Dioxide 20 L 21 L Anion Gap 20 19 BUN 34 H 34 H Creatinine 0.7 L 0.8 Estimated GFR > 60 > 60 BUN/Creatinine Ratio 49 43 Glucose 166 H 166 H POC Glucose Calcium 8.1 L 8.1 L Phosphorus 3.90 Magnesium 2.40 H Total Bilirubin 0.50 AST 17 ALT 28 Alkaline Phosphatase 67 Total Protein 4.9 L Albumin 2.4 L Albumin/Globulin Ratio 1.0 04/01/18 04/01/18 04/02/18 18:04 23:24 00:09 WBC RBC Hgb Hct MCV MCH MCHC RDW Plt Count Add Manual Diff Total Counted Seg Neuts % (Manual) Band Neutrophils % Lymphocytes % (Manual) Reactive Lymphs % (Man) Monocytes % (Manual) Eosinophils % (Manual) Basophils % (Manual) Metamyelocytes % Myelocytes % Promyelocytes % Blast Cells % Nucleated RBC % Seg Neutrophils # Man Band Neutrophils # Lymphocytes # (Manual) Abs React Lymphs (Man) Monocytes # (Manual) Eosinophils # (Manual) Basophils # (Manual) Metamyelocytes # Myelocytes # Promyelocytes # Blast Cells # WBC Morphology Hypersegmented Neuts Hyposegmented Neuts Hypogranular Neuts Smudge Cells Toxic Granulation Toxic Vacuolation Dohle Bodies Pelger-Huet Anomaly Betty Rods Platelet Estimate Clumped Platelets Plt Clumps, EDTA Large Platelets Giant Platelets Platelet Satelliting Plt Morphology Comment RBC Morphology Dimorphic RBCs Polychromasia Hypochromasia Poikilocytosis Anisocytosis Microcytosis Macrocytosis Spherocytes Pappenheimer Bodies Sickle Cells Target Cells Tear Drop Cells Ovalocytes Helmet Cells Gordillo-Marmet Bodies [place] Rings [place] Cells Bite Cells Crenated Cell Elliptocytes Acanthocytes (Spur) Rouleaux Hemoglobin C Crystals Schistocytes Malaria parasites Kenrick Bodies Hem Pathologist Commnt POC ABG pH 7.235 L POC ABG pCO2 54.0 H POC ABG pO2 85 POC ABG HCO3 22.9 POC ABG Total CO2 24 POC ABG O2 Sat 94 POC ABG Base Excess -5 FiO2 100 Sodium Potassium Chloride Carbon Dioxide Anion Gap BUN Creatinine Estimated GFR BUN/Creatinine Ratio Glucose POC Glucose 149 H 176 H Calcium Phosphorus Magnesium Total Bilirubin AST ALT Alkaline Phosphatase Total Protein Albumin Albumin/Globulin Ratio 04/02/18 04/02/18 04:11 05:20 WBC RBC Hgb Hct MCV MCH MCHC RDW Plt Count Add Manual Diff Total Counted Seg Neuts % (Manual) Band Neutrophils % Lymphocytes % (Manual) Reactive Lymphs % (Man) Monocytes % (Manual) Eosinophils % (Manual) Basophils % (Manual) Metamyelocytes % Myelocytes % Promyelocytes % Blast Cells % Nucleated RBC % Seg Neutrophils # Man Band Neutrophils # Lymphocytes # (Manual) Abs React Lymphs (Man) Monocytes # (Manual) Eosinophils # (Manual) Basophils # (Manual) Metamyelocytes # Myelocytes # Promyelocytes # Blast Cells # WBC Morphology Hypersegmented Neuts Hyposegmented Neuts Hypogranular Neuts Smudge Cells Toxic Granulation Toxic Vacuolation Dohle Bodies Pelger-Huet Anomaly Betty Rods Platelet Estimate Clumped Platelets Plt Clumps, EDTA Large Platelets Giant Platelets Platelet Satelliting Plt Morphology Comment RBC Morphology Dimorphic RBCs Polychromasia Hypochromasia Poikilocytosis Anisocytosis Microcytosis Macrocytosis Spherocytes Pappenheimer Bodies Sickle Cells Target Cells Tear Drop Cells Ovalocytes Helmet Cells Gordillo-Marmet Bodies [place] Rings [place] Cells Bite Cells Crenated Cell Elliptocytes Acanthocytes (Spur) Rouleaux Hemoglobin C Crystals Schistocytes Malaria parasites Kenrick Bodies Hem Pathologist Commnt POC ABG pH 7.235 L POC ABG pCO2 55.2 H POC ABG pO2 81 POC ABG HCO3 23.4 POC ABG Total CO2 25 POC ABG O2 Sat 93 POC ABG Base Excess -4 FiO2 100 Sodium Potassium Chloride Carbon Dioxide Anion Gap BUN Creatinine Estimated GFR BUN/Creatinine Ratio Glucose POC Glucose 164 H Calcium Phosphorus Magnesium Total Bilirubin AST ALT Alkaline Phosphatase Total Protein Albumin Albumin/Globulin Ratio
--- NOTE | 2018-04-02 10:03 | Progress Note ---
Assessment and Plan Assessment and plan: 52M with lung ca, yet to start rx who was recently dc, pw with cough and worsening sob Acute respiratory failure with hypoxia on MV <96 hours continue vent, wean as tolerated Bilateral pneumonia/sepsis IV Zosyn and vancomycin; ID consult Lung cancer oncology on board COPD exacerbation Duonebs IV solumedroland IV ABX Nicotine dependence Nicoderm patch, counseled on cessation HTN (hypertension): Cont antihypertensives GERD (gastroesophageal reflux disease) COnt Famotidine Leukocytosis likely due to malignancy and sepsis, continue to rx both DVT prophylaxis On Lovenox CCT 33 minutes History Interval history: patient now intubated no fevers, no seizures, no cough observed has been calm on minimal sedation Hospitalist Physical - Physical exam Narrative exam: General.: Appears ill , moderate respiroary distress toxic appearnce HEENT: Moist mucous membranes, extraocular muscles intact, no lymphadenopathy Neck: supple Cardiac: S1-S2 heard Lungs: crackles and diminished breath sounds Abdomen: soft , nontender, nondistended, bowel sounds positive Extremities: no edema clubbing or cyanosis Skin: no rash or lesions Neurologic: no gross focal deficits Psych: intubated - Constitutional Vitals: Temp Pulse Resp BP Pulse Ox 97.5 F L 105 H 18 90/60 92 04/02/18 08:00 04/02/18 09:20 04/02/18 09:20 04/02/18 09:01 04/02/18 09:01 General appearance: Present: severe distress, well-nourished Results - Labs CBC & Chem 7: 04/03/18 09:39 04/02/18 10:22 Labs: Laboratory Last Values WBC 43.6 K/mm3 (4.5-11.0) H* 04/01/18 11:05 RBC 5.23 M/mm3 (3.65-5.03) H 04/01/18 11:05 Hgb 14.3 gm/dl (11.8-15.2) 04/01/18 11:05 Hct 45.8 % (35.5-45.6) H 04/01/18 11:05 MCV 88 fl (84-94) 04/01/18 11:05 MCH 27 pg (28-32) L 04/01/18 11:05 MCHC 31 % (32-34) L 04/01/18 11:05 RDW 15.2 % (13.2-15.2) 04/01/18 11:05 Plt Count 70 K/mm3 (140-440) L 04/01/18 11:05 Add Manual Diff Complete 04/01/18 11:05 Total Counted 200 04/01/18 11:05 Seg Neutrophils % Territory Service Representative 03/30/18 05:04 Seg Neuts % (Manual) 97.0 % (40.0-70.0) H 04/01/18 11:05 Band Neutrophils % 0.5 % 04/01/18 11:05 Lymphocytes % (Manual) 0.5 % (13.4-35.0) L 04/01/18 11:05 Reactive Lymphs % (Man) 0 % 04/01/18 11:05 Monocytes % (Manual) 2.0 % (0.0-7.3) 04/01/18 11:05 Eosinophils % (Manual) 0 % (0.0-4.3) 04/01/18 11:05 Basophils % (Manual) 0 % (0.0-1.8) 04/01/18 11:05 Metamyelocytes % 0 % 04/01/18 11:05 Myelocytes % 0 % 04/01/18 11:05 Promyelocytes % 0 % 04/01/18 11:05 Blast Cells % 0 % 04/01/18 11:05 Nucleated RBC % Not Reportable 04/01/18 11:05 Seg Neutrophils # Man 42.3 K/mm3 (1.8-7.7) H 04/01/18 11:05 Band Neutrophils # 0.2 K/mm3 04/01/18 11:05 Lymphocytes # (Manual) 0.2 K/mm3 (1.2-5.4) L 04/01/18 11:05 Abs React Lymphs (Man) 0.0 K/mm3 04/01/18 11:05 Monocytes # (Manual) 0.9 K/mm3 (0.0-0.8) H 04/01/18 11:05 Eosinophils # (Manual) 0.0 K/mm3 (0.0-0.4) 04/01/18 11:05 Basophils # (Manual) 0.0 K/mm3 (0.0-0.1) 04/01/18 11:05 Metamyelocytes # 0.0 K/mm3 04/01/18 11:05 Myelocytes # 0.0 K/mm3 04/01/18 11:05 Promyelocytes # 0.0 K/mm3 04/01/18 11:05 Blast Cells # 0.0 K/mm3 04/01/18 11:05 WBC Morphology Not Reportable 04/01/18 11:05 Hypersegmented Neuts Not Reportable 04/01/18 11:05 Hyposegmented Neuts Not Reportable 04/01/18 11:05 Hypogranular Neuts Not Reportable 04/01/18 11:05 Smudge Cells Not Reportable 04/01/18 11:05 Toxic Granulation Not Reportable 04/01/18 11:05 Toxic Vacuolation Few 04/01/18 11:05 Dohle Bodies Not Reportable 04/01/18 11:05 Pelger-Huet Anomaly Not Reportable 04/01/18 11:05 Betty Rods Not Reportable 04/01/18 11:05 Platelet Estimate Cons 04/01/18 11:05 Clumped Platelets Not Reportable 04/01/18 11:05 Plt Clumps, EDTA Not Reportable 04/01/18 11:05 Large Platelets Few 04/01/18 11:05 Giant Platelets Not Reportable 04/01/18 11:05 Platelet Satelliting Not Reportable 04/01/18 11:05 Plt Morphology Comment Not Reportable 04/01/18 11:05 RBC Morphology Normal 04/01/18 11:05 Dimorphic RBCs Not Reportable 04/01/18 11:05 Polychromasia Not Reportable 04/01/18 11:05 Hypochromasia Not Reportable 04/01/18 11:05 Poikilocytosis Not Reportable 04/01/18 11:05 Anisocytosis Not Reportable 04/01/18 11:05 Microcytosis Not Reportable 04/01/18 11:05 Macrocytosis Not Reportable 04/01/18 11:05 Spherocytes Not Reportable 04/01/18 11:05 Pappenheimer Bodies Not Reportable 04/01/18 11:05 Sickle Cells Not Reportable 04/01/18 11:05 Target Cells Not Reportable 04/01/18 11:05 Tear Drop Cells Not Reportable 04/01/18 11:05 Ovalocytes Not Reportable 04/01/18 11:05 Helmet Cells Not Reportable 04/01/18 11:05 [place] Bodies Not Reportable 04/01/18 11:05 [place] Rings Not Reportable 04/01/18 11:05 Kristin Cells Not Reportable 04/01/18 11:05 Bite Cells Not Reportable 04/01/18 11:05 Crenated Cell Not Reportable 04/01/18 11:05 Elliptocytes Not Reportable 04/01/18 11:05 Acanthocytes (Spur) Not Reportable 04/01/18 11:05 Rouleaux Not Reportable 04/01/18 11:05 Hemoglobin C Crystals Not Reportable 04/01/18 11:05 Schistocytes Not Reportable 04/01/18 11:05 Malaria parasites Not Reportable 04/01/18 11:05 [place] Bodies Not Reportable 04/01/18 11:05 Hem Pathologist Commnt No 04/01/18 11:05 PT 14.8 Sec. (12.2-14.9) 03/29/18 13:34 INR 1.10 (0.87-1.13) 03/29/18 13:34 D-Dimer > 37574 ng/mlDDU (0-234) H 03/29/18 13:34 POC ABG pH 7.235 (7.35-7.45) L 04/02/18 04:11 POC ABG pCO2 55.2 (35-45) H 04/02/18 04:11 POC ABG pO2 81 (80-105) 04/02/18 04:11 POC ABG HCO3 23.4 04/02/18 04:11 POC ABG Total CO2 25 04/02/18 04:11 POC ABG O2 Sat 93 04/02/18 04:11 POC ABG Base Excess -4 04/02/18 04:11 VBG pH 7.406 (7.320-7.420) 03/29/18 13:43 FiO2 100 % 04/02/18 04:11 Sodium 138 mmol/L (137-145) 04/01/18 14:47 Potassium 5.2 mmol/L (3.6-5.0) H 04/01/18 14:47 Chloride 103.3 mmol/L (98-107) 04/01/18 14:47 Carbon Dioxide 20 mmol/L (22-30) L 04/01/18 14:47 Anion Gap 20 mmol/L 04/01/18 14:47 BUN 34 mg/dL (9-20) H 04/01/18 14:47 Creatinine 0.7 mg/dL (0.8-1.5) L 04/01/18 14:47 Estimated GFR > 60 ml/min 04/01/18 14:47 BUN/Creatinine Ratio 49 % 04/01/18 14:47 Glucose 166 mg/dL (75-100) H 04/01/18 14:47 POC Glucose 164 (70-105) H 04/02/18 05:20 Hemoglobin A1c 7.4 % (4-6) H 03/29/18 23:46 Lactic Acid 1.40 mmol/L (0.7-2.0) 03/30/18 05:04 Calcium 8.1 mg/dL (8.4-10.2) L 04/01/18 14:47 Phosphorus 3.90 mg/dL (2.5-4.5) 04/01/18 14:47 Magnesium 2.40 mg/dL (1.7-2.3) H 04/01/18 14:47 Total Bilirubin 0.50 mg/dL (0.1-1.2) 04/01/18 14:47 AST 17 units/L (5-40) 04/01/18 14:47 ALT 28 units/L (7-56) 04/01/18 14:47 Alkaline Phosphatase 67 units/L (35-129) 04/01/18 14:47 NT-Pro-B Natriuret Pep 321.5 pg/mL (0-900) 03/29/18 13:40 Total Protein 4.9 g/dL (6.3-8.2) L 04/01/18 14:47 Albumin 2.4 g/dL (3.9-5) L 04/01/18 14:47 Albumin/Globulin Ratio 1.0 % 04/01/18 14:47 Urine Color Yellow (Yellow) 03/29/18 13:30 Urine Turbidity Clear (Clear) 03/29/18 13:30 Urine pH 6.0 (5.0-7.0) 03/29/18 13:30 Ur Specific [place] 1.023 (1.003-1.030) 03/29/18 13:30 Urine Protein <15 mg/dl mg/dL (Negative) 03/29/18 13:30 Urine Glucose (UA) Neg mg/dL (Negative) 03/29/18 13:30 Urine Ketones Tr mg/dL (Negative) 03/29/18 13:30 Urine Blood Mod (Negative) 03/29/18 13:30 Urine Nitrite Neg (Negative) 03/29/18 13:30 Urine Bilirubin Neg (Negative) 03/29/18 13:30 Urine Urobilinogen < 2.0 mg/dL (<2.0) 03/29/18 13:30 Ur Leukocyte Esterase Neg (Negative) 03/29/18 13:30 Urine WBC (Auto) 2.0 /HPF (0.0-6.0) 03/29/18 13:30 Urine RBC (Auto) 46.0 /HPF (0.0-6.0) 03/29/18 13:30 Urine Mucus Few /HPF 03/29/18 13:30 Urine Sperm Few /HPF (LABOR EXPEDITER) 03/29/18 13:30 Vancomycin Trough 24.2 ug/mL (5.0-20.0) H 03/31/18 06:59
[2018-04-02] MEDS: SODIUM CHLORIDE FLUSH SYRINGE 10 ML IV SCH (11:04)
[2018-04-02] MEDS: HABITROL TD SCH (11:04)
[2018-04-02] MEDS: PEPCID PO SCH ×2 (11:04→21:45)
[2018-04-02 12:41] LABS: Alanine Aminotransferase 129 units/L (7-56); Albumin 2.6 g/dL (3.9-5); BUN/Creatinine Ratio 37; Blood Urea Nitrogen 44 mg/dL (9-20); Calcium 8.2 mg/dL (8.4-10.2); Hemolysis Index 10
--- NOTE | 2018-04-02 13:27 | Progress Note ---
Assessment and Plan -Acute hypoxemic respiratory failure on MVS -Lung cancer, metastatic disease -HCAP--present on admission -Left pleural effusion -Nicotine dependence with tobacco abuse disorder -COPD -Leukocytosis Continue ICU care VAP bundle Wean supplemental oxygen for O2 sats>90% Bronchodilators Steroids Antibiotics to cover MRSA and GNR bacteria -Follow up on cultures VTE prophylaxis aspiration precautions Analgesia and agitation management Titrate to RASS -1 Glycemic control, with accucheck. target blood glucose 180mg/dL Daily SAT and SBTs as tolerated Ultrasound guided thoracentesis right lung Nutritional support Nicotine withdrawal precautions FULL CODE Discussed with daughter and patietn at the bedside. Discussed with RT and RN The high probability of a clinically significant, sudden or life threatening deterioration of the [respiratory, hemodynamic and neurological] system(s) required my full and direct attention, intervention and personal management. The aggregate critical care time was 45 minutes. This time is in addition to time spent performing reported procedures but includes the following: [x] Data Review and interpretation [x] Patient assessment and monitoring of vital signs [x] Documentation [x] Medication orders and management Subjective Date of service: 04/02/18 Objective Vital Signs - 12hr 04/02/18 04/02/18 04/02/18 01:30 01:45 02:00 Temperature Pulse Rate 97 H 97 H 98 H Pulse Rate [ Anterior Bilateral Throughout] Pulse Rate [ From Monitor] Respiratory 26 H 26 H 26 H Rate Respiratory Rate [Anterior Bilateral Throughout] Blood Pressure 86/52 86/52 86/52 O2 Sat by Pulse 92 92 92 Oximetry 04/02/18 04/02/18 04/02/18 02:15 02:30 02:45 Temperature Pulse Rate 98 H 99 H 100 H Pulse Rate [ Anterior Bilateral Throughout] Pulse Rate [ From Monitor] Respiratory 26 H 26 H 26 H Rate Respiratory Rate [Anterior Bilateral Throughout] Blood Pressure 89/52 88/54 91/55 O2 Sat by Pulse 92 93 92 Oximetry 04/02/18 04/02/18 04/02/18 03:00 03:15 03:30 Temperature Pulse Rate 101 H 102 H 102 H Pulse Rate [ Anterior Bilateral Throughout] Pulse Rate [ From Monitor] Respiratory 26 H 26 H 26 H Rate Respiratory Rate [Anterior Bilateral Throughout] Blood Pressure 83/54 86/56 86/54 O2 Sat by Pulse 92 92 92 Oximetry 04/02/18 04/02/18 04/02/18 03:45 04:00 04:04 Temperature 98.8 F Pulse Rate 102 H 102 H 102 H Pulse Rate [ Anterior Bilateral Throughout] Pulse Rate [ 103 H From Monitor] Respiratory 26 H 26 H Rate Respiratory Rate [Anterior Bilateral Throughout] Blood Pressure 89/57 94/57 89/57 O2 Sat by Pulse 92 93 93 Oximetry 04/02/18 04/02/18 04/02/18 04:15 04:30 04:45 Temperature Pulse Rate 103 H 103 H 104 H Pulse Rate [ Anterior Bilateral Throughout] Pulse Rate [ From Monitor] Respiratory 26 H 26 H 26 H Rate Respiratory Rate [Anterior Bilateral Throughout] Blood Pressure 87/56 86/54 89/58 O2 Sat by Pulse 94 93 94 Oximetry 04/02/18 04/02/18 04/02/18 05:00 05:15 05:31 Temperature Pulse Rate 104 H 104 H 124 H Pulse Rate [ Anterior Bilateral Throughout] Pulse Rate [ From Monitor] Respiratory 26 H 26 H 17 Rate Respiratory Rate [Anterior Bilateral Throughout] Blood Pressure 94/57 91/56 91/56 O2 Sat by Pulse 94 93 91 Oximetry 04/02/18 04/02/18 04/02/18 05:33 05:45 06:00 Temperature Pulse Rate 119 H 110 H 106 H Pulse Rate [ Anterior Bilateral Throughout] Pulse Rate [ From Monitor] Respiratory 25 H 26 H Rate Respiratory Rate [Anterior Bilateral Throughout] Blood Pressure 91/56 90/55 88/54 O2 Sat by Pulse 93 93 Oximetry 04/02/18 04/02/18 04/02/18 06:15 06:30 06:45 Temperature Pulse Rate 102 H 94 H 89 Pulse Rate [ Anterior Bilateral Throughout] Pulse Rate [ From Monitor] Respiratory 26 H 26 H 28 H Rate Respiratory Rate [Anterior Bilateral Throughout] Blood Pressure 83/50 79/50 79/47 O2 Sat by Pulse 92 93 92 Oximetry 04/02/18 04/02/18 04/02/18 07:00 07:15 07:30 Temperature Pulse Rate 90 90 90 Pulse Rate [ Anterior Bilateral Throughout] Pulse Rate [ From Monitor] Respiratory 28 H 28 H 28 H Rate Respiratory Rate [Anterior Bilateral Throughout] Blood Pressure 82/44 78/49 83/52 O2 Sat by Pulse 91 91 92 Oximetry 04/02/18 04/02/18 04/02/18 07:45 08:00 08:54 Temperature 97.5 F L Pulse Rate 90 91 H Pulse Rate [ 94 H Anterior Bilateral Throughout] Pulse Rate [ From Monitor] Respiratory 22 28 H Rate Respiratory 29 H Rate [Anterior Bilateral Throughout] Blood Pressure 84/54 92/53 O2 Sat by Pulse 92 92 Oximetry 04/02/18 04/02/18 04/02/18 09:01 09:20 13:04 Temperature Pulse Rate Pulse Rate [ 105 H 103 H Anterior Bilateral Throughout] Pulse Rate [ From Monitor] Respiratory Rate Respiratory 18 28 H Rate [Anterior Bilateral Throughout] Blood Pressure 90/60 O2 Sat by Pulse 92 Oximetry 04/02/18 13:11 Temperature Pulse Rate Pulse Rate [ Anterior Bilateral Throughout] Pulse Rate [ From Monitor] Respiratory Rate Respiratory Rate [Anterior Bilateral Throughout] Blood Pressure 91/57 O2 Sat by Pulse 89 Oximetry Constitutional: alert, other (mild respiratory distress, orally intubated ETT to MVS) Eyes: non-icteric ENT: oropharynx moist Neck: supple, no lymphadenopathy, no JVD Effort: mildly labored Ascultation: Bilateral: diminished breath sounds, rhonchi Cardiovascular: regular rate and rhythm, other (S1,S2, no murmurs, gallops or rubs) Gastrointestinal: normoactive bowel sounds, soft, non-tender, non-distended Integumentary: normal Extremities: no cyanosis, no edema, pink and warm, pulses normal, no ischemia or petechiae Neurologic: pupils equal and round, motor strength normal and Psychiatric: mood appropriate, affect normal CBC and BMP: 04/01/18 11:05 04/02/18 10:22 ABG, PT/INR, D-dimer: ABG POC ABG pH 7.235 (7.35-7.45) L 04/02/18 04:11 POC ABG pCO2 55.2 (35-45) H 04/02/18 04:11 POC ABG pO2 81 (80-105) 04/02/18 04:11 POC ABG HCO3 23.4 04/02/18 04:11 POC ABG Total CO2 25 04/02/18 04:11 POC ABG O2 Sat 93 04/02/18 04:11 PT/INR, D-dimer PT 14.8 Sec. (12.2-14.9) 03/29/18 13:34 INR 1.10 (0.87-1.13) 03/29/18 13:34 D-Dimer > 75269 ng/mlDDU (0-234) H 03/29/18 13:34 Abnormal lab findings: Abnormal Labs 03/29/18 03/29/18 03/29/18 13:08 13:15 13:34 WBC 53.1 H* RBC 6.01 H Hgb 16.6 H Hct 49.3 H MCV 82 L MCH MCHC Plt Count 127 L Seg Neuts % (Manual) 91.0 H Lymphocytes % (Manual) 4.0 L Seg Neutrophils # Man 48.3 H Lymphocytes # (Manual) Monocytes # (Manual) 1.6 H Eosinophils # (Manual) 0.5 H D-Dimer > 03203 H POC ABG pH POC ABG pCO2 POC ABG pO2 Sodium 128 L Potassium 5.1 H Chloride 89.2 L Carbon Dioxide BUN Creatinine 0.4 L Glucose 158 H POC Glucose Hemoglobin A1c Lactic Acid Calcium 8.3 L Magnesium AST ALT C-Reactive Protein Total Protein Albumin Vancomycin Trough 03/29/18 03/29/18 03/29/18 14:44 16:54 20:30 WBC RBC Hgb Hct MCV MCH MCHC Plt Count Seg Neuts % (Manual) Lymphocytes % (Manual) Seg Neutrophils # Man Lymphocytes # (Manual) Monocytes # (Manual) Eosinophils # (Manual) D-Dimer POC ABG pH POC ABG pCO2 POC ABG pO2 66 L Sodium Potassium Chloride Carbon Dioxide BUN Creatinine Glucose POC Glucose Hemoglobin A1c Lactic Acid 2.10 H* 3.00 H* Calcium Magnesium AST ALT C-Reactive Protein Total Protein Albumin Vancomycin Trough 03/29/18 03/30/18 03/30/18 23:46 05:04 05:04 WBC 51.4 H* RBC 5.68 H Hgb 15.5 H Hct 47.7 H MCV MCH 27 L MCHC Plt Count 99 L Seg Neuts % (Manual) 87.5 H Lymphocytes % (Manual) 2.0 L Seg Neutrophils # Man 45.0 H Lymphocytes # (Manual) 1.0 L Monocytes # (Manual) 2.8 H Eosinophils # (Manual) 0.5 H D-Dimer POC ABG pH POC ABG pCO2 POC ABG pO2 Sodium 136 L D Potassium Chloride 96.0 L Carbon Dioxide BUN Creatinine 0.5 L Glucose 156 H POC Glucose Hemoglobin A1c 7.4 H Lactic Acid Calcium 7.9 L Magnesium AST ALT C-Reactive Protein Total Protein 5.3 L Albumin 2.8 L Vancomycin Trough 03/30/18 03/30/18 03/31/18 21:32 21:44 00:18 WBC RBC Hgb Hct MCV MCH MCHC Plt Count Seg Neuts % (Manual) Lymphocytes % (Manual) Seg Neutrophils # Man Lymphocytes # (Manual) Monocytes # (Manual) Eosinophils # (Manual) D-Dimer POC ABG pH 7.335 L 7.155 L POC ABG pCO2 58.1 H 81.9 H POC ABG pO2 58 L Sodium Potassium Chloride Carbon Dioxide BUN Creatinine Glucose POC Glucose 147 H Hemoglobin A1c Lactic Acid Calcium Magnesium AST ALT C-Reactive Protein Total Protein Albumin Vancomycin Trough 03/31/18 03/31/18 03/31/18 02:13 06:59 08:12 WBC 47.9 H* RBC 5.35 H Hgb Hct 45.9 H MCV MCH 27 L MCHC Plt Count 70 L Seg Neuts % (Manual) 91.5 H Lymphocytes % (Manual) 0.5 L Seg Neutrophils # Man 43.8 H Lymphocytes # (Manual) 0.2 L Monocytes # (Manual) 2.4 H Eosinophils # (Manual) 1.0 H D-Dimer POC ABG pH POC ABG pCO2 49.6 H POC ABG pO2 136 H Sodium Potassium Chloride Carbon Dioxide BUN Creatinine Glucose POC Glucose Hemoglobin A1c Lactic Acid Calcium Magnesium AST ALT C-Reactive Protein Total Protein Albumin Vancomycin Trough 24.2 H 03/31/18 04/01/18 04/01/18 08:12 04:37 06:10 WBC RBC Hgb Hct MCV MCH MCHC Plt Count Seg Neuts % (Manual) Lymphocytes % (Manual) Seg Neutrophils # Man Lymphocytes # (Manual) Monocytes # (Manual) Eosinophils # (Manual) D-Dimer POC ABG pH 7.221 L POC ABG pCO2 66.0 H POC ABG pO2 61 L Sodium Potassium Chloride Carbon Dioxide BUN 23 H Creatinine Glucose 125 H POC Glucose 124 H Hemoglobin A1c Lactic Acid Calcium 8.0 L Magnesium AST ALT C-Reactive Protein Total Protein 4.9 L Albumin 2.5 L Vancomycin Trough 04/01/18 04/01/18 04/01/18 11:05 13:03 14:47 WBC 43.6 H* RBC 5.23 H Hgb Hct 45.8 H MCV MCH 27 L MCHC 31 L Plt Count 70 L Seg Neuts % (Manual) 97.0 H Lymphocytes % (Manual) 0.5 L Seg Neutrophils # Man 42.3 H Lymphocytes # (Manual) 0.2 L Monocytes # (Manual) 0.9 H Eosinophils # (Manual) D-Dimer POC ABG pH POC ABG pCO2 POC ABG pO2 Sodium Potassium 5.2 H Chloride Carbon Dioxide 20 L BUN 34 H Creatinine 0.7 L Glucose 166 H POC Glucose 139 H Hemoglobin A1c Lactic Acid Calcium 8.1 L Magnesium AST ALT C-Reactive Protein Total Protein 4.9 L Albumin 2.4 L Vancomycin Trough 04/01/18 04/01/18 04/01/18 14:47 16:11 18:04 WBC RBC Hgb Hct MCV MCH MCHC Plt Count Seg Neuts % (Manual) Lymphocytes % (Manual) Seg Neutrophils # Man Lymphocytes # (Manual) Monocytes # (Manual) Eosinophils # (Manual) D-Dimer POC ABG pH 7.172 L POC ABG pCO2 64.8 H POC ABG pO2 78 L Sodium Potassium 5.1 H Chloride Carbon Dioxide 21 L BUN 34 H Creatinine Glucose 166 H POC Glucose 149 H Hemoglobin A1c Lactic Acid Calcium 8.1 L Magnesium 2.40 H AST ALT C-Reactive Protein Total Protein Albumin Vancomycin Trough 04/01/18 04/02/18 04/02/18 23:24 00:09 04:11 WBC RBC Hgb Hct MCV MCH MCHC Plt Count Seg Neuts % (Manual) Lymphocytes % (Manual) Seg Neutrophils # Man Lymphocytes # (Manual) Monocytes # (Manual) Eosinophils # (Manual) D-Dimer POC ABG pH 7.235 L 7.235 L POC ABG pCO2 54.0 H 55.2 H POC ABG pO2 Sodium Potassium Chloride Carbon Dioxide BUN Creatinine Glucose POC Glucose 176 H Hemoglobin A1c Lactic Acid Calcium Magnesium AST ALT C-Reactive Protein Total Protein Albumin Vancomycin Trough 04/02/18 04/02/18 04/02/18 05:20 10:22 10:22 WBC RBC Hgb Hct MCV MCH MCHC Plt Count Seg Neuts % (Manual) Lymphocytes % (Manual) Seg Neutrophils # Man Lymphocytes # (Manual) Monocytes # (Manual) Eosinophils # (Manual) D-Dimer POC ABG pH POC ABG pCO2 POC ABG pO2 Sodium Potassium 5.4 H Chloride 108.7 H Carbon Dioxide BUN 44 H Creatinine Glucose 176 H POC Glucose 164 H Hemoglobin A1c Lactic Acid Calcium 8.2 L Magnesium AST 83 H ALT 129 H C-Reactive Protein 12.30 H Total Protein 5.3 L Albumin 2.6 L Vancomycin Trough 04/02/18 12:54 WBC RBC Hgb Hct MCV MCH MCHC Plt Count Seg Neuts % (Manual) Lymphocytes % (Manual) Seg Neutrophils # Man Lymphocytes # (Manual) Monocytes # (Manual) Eosinophils # (Manual) D-Dimer POC ABG pH POC ABG pCO2 POC ABG pO2 Sodium Potassium Chloride Carbon Dioxide BUN Creatinine Glucose POC Glucose 164 H Hemoglobin A1c Lactic Acid Calcium Magnesium AST ALT C-Reactive Protein Total Protein Albumin Vancomycin Trough
[2018-04-02 14:19] LABS: Hematocrit 43.1 % (35.5-45.6); Hemoglobin 14.1 gm/dl (11.8-15.2); Mean Corpuscular HGB Conc 33 % (32-34); Mean Corpuscular Hemoglobin 28 pg (28-32); Mean Corpuscular Volume 85 fl (84-94); Red Blood Count 5.08 M/mm3 (3.65-5.03)
[2018-04-02 14:20] LABS: Platelet Count 74 K/mm3 (140-440)
[2018-04-02] MEDS: ZOSYN/NS 4.5GM/100ML 4.5 GM/100 ML VIAL IV SCH ×3 (15:15→21:45)
[2018-04-02] MEDS: SOLU-Medrol IV SCH ×2 (15:18→21:45)
[2018-04-02] MEDS: SODIUM CHLORIDE FLUSH SYRINGE 10 ML IV PRN ×2 (15:20→17:39)
[2018-04-02 15:38] LABS: Basophils % (Manual) 0 % (0.0-1.8); Eosinophils % (Manual) 0 % (0.0-4.3); Total Cells Counted 100
[2018-04-02 15:39] LABS: Anisocytosis Few; Platelet Estimate Consistent w Auto
[2018-04-02 15:40] LABS: Poikilocytosis Few
--- NOTE | 2018-04-02 15:44 | Procedure Note ---
Date of procedure: 04/02/18 Pre-op diagnosis: left pleural effusion Post-op diagnosis: same Procedure: US left thoracentesis Findings: loculated left pleural fluid Anesthesia: local Surgeon: EMMY GUERIN Estimated blood loss: none Pathology: none Specimen disposition: discarded Condition: stable Disposition: floor
--- NOTE | 2018-04-02 15:46 | Ultrasound Report ---
ULTRASOUND THORACENTESIS History: Hypoxic respiratory failure, left pleural effusion Description of procedure: Informed consent was obtained. Sterile technique was utilized. Using ultrasound guidance, a 5 [place] centesis needle was advanced into a slightly loculated left pleural effusion. 1250 cc of sero-sanguinous fluid was aspirated. No complications. Impression: Successful ultrasound-guided left thoracentesis.
[2018-04-02] MEDS ORDERED: SIMPLE SYRUP FEEDTUBE PRN ×2 (16:37)
[2018-04-02] MEDS ORDERED: SODIUM BICARBONATE FEEDTUBE PRN (16:37)
[2018-04-02] MEDS ORDERED: PANCREAZE DR 10,500 UNIT FEEDTUBE PRN (16:37)
[2018-04-02] MEDS ORDERED: SODIUM BICARBONATE IV ONE ×2 (17:32→18:00)
[2018-04-02] MEDS ORDERED: SODIUM BICARBONATE 50 MEQ in NACL 0.9% 1000 ML 1,000 ML IV SCH (18:00)
--- NOTE | 2018-04-02 18:36 | XRay Report ---
FINAL REPORT EXAM: XR CHEST 1V AP HISTORY: SOB,recent left thoracentesis TECHNIQUE: AP portable view of the chest PRIORS: CXR 04/02/2018 at 659 hours FINDINGS: Lines, tubes, and devices: Endotracheal tube and nasogastric tube are in satisfactory and unchanged position. Lungs and pleura: Trachea is normal in position. There has been significant improvement in the left pleural effusion seen previously. There is now a small left pleural effusion remaining in the lung base. However, persistent loculated fluid remains in the left apex, stable. There are bilateral alveolar infiltrates noted in the right upper and lower lobes and throughout the left lung. The left basilar infiltrate is better visualized now that the effusion has resolved. No pneumothorax is seen following thoracentesis. Cardiomediastinal silhouette: Cardiac and mediastinal silhouettes are unremarkable. Other: Bony structures are intact. IMPRESSION: 1. No pneumothorax status post thoracentesis 2. Improving left pleural effusion with minimal effusion remaining in the left base and stable effusion in the left apex 3. bilateral alveolar infiltrates consistent with infection.
[2018-04-02] MEDS: LEVOPHED DRIP 4 MG/NS 250 ML 4 MG/250 ML BAG IV SCH (20:22)
[2018-04-02] MEDS: Vasostrict 20 UNIT in NACL 0.9% 100 ML IV SCH (20:50)
[2018-04-02] MEDS ORDERED: Vasostrict IV SCH (21:00)
[2018-04-02] MEDS ORDERED: SODIUM BICARBONATE 150 MEQ in D5W 1,000 ML IV SCH (21:00)
--- NOTE | 2018-04-03 03:07 | XRay Report ---
FINAL REPORT PROCEDURE: XR CHEST 1V AP TECHNIQUE: Chest radiograph anteroposterior view. CPT 95309 HISTORY: follow up respiratory failure COMPARISON: 04/02/2018 FINDINGS: Heart: Heart is enlarged Mediastinum/Vessels: Normal. Lungs/Pleural space: There are bilateral upper lobe pulmonary infiltrates. There is a small left pleural effusion. There is no pneumothorax.. Bony thorax: No acute osseous abnormality. Life support devices: Endotracheal tube is the mid trachea. NG tube is in the stomach.. IMPRESSION: Heart size is normal. There are bilateral upper lobe pulmonary infiltrates. There is a small left pleural effusion. There is no pneumothorax.. Endotracheal tube is the mid trachea. NG tube is in the stomach..
[2018-04-03] MEDS: LEVOPHED DRIP 4 MG/NS 250 ML 4 MG/250 ML BAG IV SCH ×4 (03:43→12:54)
[2018-04-03] MEDS: VANCOMYCIN/NS 1 GM/250 ML 1 GM/250 ML BAG IV SCH (03:43)
[2018-04-03] MEDS: ZOSYN/NS 4.5GM/100ML 4.5 GM/100 ML VIAL IV SCH (06:17)
[2018-04-03] MEDS: SOLU-Medrol IV SCH ×4 (06:18→22:54)
[2018-04-03] MEDS: HumuLIN R SUB-Q SCH ×4 (06:21→18:00)
[2018-04-03] MEDS: CARDIZEM PO SCH ×2 (07:41→17:31)
[2018-04-03] MEDS: DUONEB *Not for PRN Use IH SCH ×4 (08:17→20:13)
--- NOTE | 2018-04-03 09:17 | Progress Note ---
Assessment and Plan Assessment: 1) Sepsis now with septic shock: on levophed at 23, no fever, leukocytosis down to 38K. Etiology most likely pneumonia. Leukomoid reaction likely a combination of cancer, pneumonia and IV steroids. CRP=12.3 2) Bilateral pneumonia: Likely post obstructive pneumonia versus hospital associated pneumonia versus pulmonary carcinomoatosis +/-loculated large left pleural effusion -s/p left thoracentesis 04/02 3) Non-small cell lung cancer stage IV with presumed metastasis to ribs, adrenal gland and brain? -CTA chest demonstrated no evidence of PE and showed mass-like opacities or consolidations and bilateral pleural effusions, left greater than right, also noted mediastinal and hilar adenopathy may be reactive. -CT abd/pelvis with contrast showed Bilobed mass in the left adrenal gland and calculus in lower pole left kidney and a suspected bone metastases involving the right anterior lateral 6th rib. -MRI brain showed 7 mm high right frontal metastatic lesion with surrounding edema identified without midline shift. -S/p thoracentesis 03/18/18 - Left pleural effusion was drained and showed no infection. -Sputum cultures 03/18/18 show normal respiratory yesy. -Repeat sputum cx 03/30 and 03/31 Ana - likely a colonizer 4) Tobacco abuse 5) A fib 6) Acute hypoxemic resp failure. 7) Hyponatremia Plan: -f/u procalcitonin -Leukomoid reaction likely a combination of cancer, pneumonia and IV steroids so it would take long to improve -stop zosyn and vanco D6 - no clinical improvement -start cefepime, flagyl and zyvox -unfortunately poor prognosis Thanks Yvrose Stafford MD Infectious Diseases Specialist [facility] ([facility] M [phone] O [phone] Subjective Date of service: 04/03/18 Interval history: Microbiology: Blood cultures: 03/18 neg 03/29 ngtd Urine cultures: 03/29 neg Respiratory cultures: 03/30 Ana 03/31 Ana Wound cultures: Current Antimicrobials: zosyn 03/29 vanco 03/31 Objective - Constitutional Vitals: Vital Signs Temp Pulse Resp BP Pulse Ox 98.3 F 108 H 19 94/54 89 04/03/18 08:00 04/03/18 08:53 04/03/18 09:00 04/03/18 09:00 04/03/18 09:00 Temperature -Last 24 Hours Temperature 98.3 F Temperature 98.9 F Temperature 98.2 F Temperature 97.4 F Temperature 98.8 F Temperature 99.3 F - Labs CBC & Chem 7: 04/02/18 13:41 04/02/18 10:22 Labs: Abnormal lab results 04/02/18 04/02/18 04/02/18 Range/Units 10:22 10:22 12:54 WBC (4.5-11.0) K/mm3 RBC (3.65-5.03) M/mm3 Plt Count (140-440) K/mm3 Seg Neuts % (Manual) (40.0-70.0) % Lymphocytes % (Manual) (13.4-35.0) % Seg Neutrophils # Man (1.8-7.7) K/mm3 Lymphocytes # (Manual) (1.2-5.4) K/mm3 Monocytes # (Manual) (0.0-0.8) K/mm3 POC ABG pH (7.35-7.45) POC ABG pCO2 (35-45) POC ABG pO2 (80-105) Potassium 5.4 H (3.6-5.0) mmol/L Chloride 108.7 H (98-107) mmol/L BUN 44 H (9-20) mg/dL Glucose 176 H (75-100) mg/dL POC Glucose 164 H (70-105) Calcium 8.2 L (8.4-10.2) mg/dL AST 83 H (5-40) units/L ALT 129 H (7-56) units/L C-Reactive Protein 12.30 H (0.00-1.30) mg/dL Total Protein 5.3 L (6.3-8.2) g/dL Albumin 2.6 L (3.9-5) g/dL 04/02/18 04/02/18 04/02/18 Range/Units 13:41 16:51 19:09 WBC 38.9 H (4.5-11.0) K/mm3 RBC 5.08 H (3.65-5.03) M/mm3 Plt Count 74 L (140-440) K/mm3 Seg Neuts % (Manual) 96.0 H (40.0-70.0) % Lymphocytes % (Manual) 0 L (13.4-35.0) % Seg Neutrophils # Man 37.3 H (1.8-7.7) K/mm3 Lymphocytes # (Manual) 0.0 L (1.2-5.4) K/mm3 Monocytes # (Manual) 1.6 H (0.0-0.8) K/mm3 POC ABG pH 7.186 L (7.35-7.45) POC ABG pCO2 64.3 H (35-45) POC ABG pO2 75 L (80-105) Potassium (3.6-5.0) mmol/L Chloride (98-107) mmol/L BUN (9-20) mg/dL Glucose (75-100) mg/dL POC Glucose 170 H (70-105) Calcium (8.4-10.2) mg/dL AST (5-40) units/L ALT (7-56) units/L C-Reactive Protein (0.00-1.30) mg/dL Total Protein (6.3-8.2) g/dL Albumin (3.9-5) g/dL 04/02/18 04/02/18 04/03/18 Range/Units 19:49 22:15 00:15 WBC (4.5-11.0) K/mm3 RBC (3.65-5.03) M/mm3 Plt Count (140-440) K/mm3 Seg Neuts % (Manual) (40.0-70.0) % Lymphocytes % (Manual) (13.4-35.0) % Seg Neutrophils # Man (1.8-7.7) K/mm3 Lymphocytes # (Manual) (1.2-5.4) K/mm3 Monocytes # (Manual) (0.0-0.8) K/mm3 POC ABG pH 7.069 L 7.062 L (7.35-7.45) POC ABG pCO2 88.7 H 91.1 H (35-45) POC ABG pO2 71 L (80-105) Potassium (3.6-5.0) mmol/L Chloride (98-107) mmol/L BUN (9-20) mg/dL Glucose (75-100) mg/dL POC Glucose 218 H (70-105) Calcium (8.4-10.2) mg/dL AST (5-40) units/L ALT (7-56) units/L C-Reactive Protein (0.00-1.30) mg/dL Total Protein (6.3-8.2) g/dL Albumin (3.9-5) g/dL 04/03/18 04/03/18 04/03/18 Range/Units 04:03 04:13 05:33 WBC (4.5-11.0) K/mm3 RBC (3.65-5.03) M/mm3 Plt Count (140-440) K/mm3 Seg Neuts % (Manual) (40.0-70.0) % Lymphocytes % (Manual) (13.4-35.0) % Seg Neutrophils # Man (1.8-7.7) K/mm3 Lymphocytes # (Manual) (1.2-5.4) K/mm3 Monocytes # (Manual) (0.0-0.8) K/mm3 POC ABG pH 7.119 L 7.134 L (7.35-7.45) POC ABG pCO2 81.9 H 78.7 H (35-45) POC ABG pO2 65 L 67 L (80-105) Potassium (3.6-5.0) mmol/L Chloride (98-107) mmol/L BUN (9-20) mg/dL Glucose (75-100) mg/dL POC Glucose 224 H (70-105) Calcium (8.4-10.2) mg/dL AST (5-40) units/L ALT (7-56) units/L C-Reactive Protein (0.00-1.30) mg/dL Total Protein (6.3-8.2) g/dL Albumin (3.9-5) g/dL
--- NOTE | 2018-04-03 09:22 | Progress Note ---
Assessment and Plan Assessment and plan: Assessment and plan: 52M with lung ca, yet to start rx who was recently dc, pw with cough and worsening sob Acute respiratory failure with hypoxia on MV <96 hours continue vent, Bilateral pneumonia/sepsis IV Zosyn and vancomycin; ID following. UCHE. Creatinine worsening. Nephrology following Hyperkalemia. gave Insulin, Kayexalate, calcium. Repeat later Hypotension. patient on multiple pressors Multiorgan failure With elevated LFT, Creatinine Lung cancer Oncology following COPD exacerbation Duonebs IV solumedroland IV ABX Nicotine dependence Nicoderm patch, counseled on cessation HTN (hypertension): Cont antihypertensives GERD (gastroesophageal reflux disease) COnt Famotidine Leukocytosis likely due to malignancy and sepsis, continue to rx both DVT prophylaxis On Lovenox Full code status. I discussed with daughter at bedside. she still wants everything done. Very poor prognosis. History Interval history: Patient has worsening hypotension, still intubated, on ventilator Hospitalist Physical - Physical exam Narrative exam: GEN:Not in acute distress, intubated HEENT: Normocephalic, atraumatic, Neck: supple, No JVD Lungs: bilateral rhonchi, no wheeze Heart:S1 and S2 reg, no murmurs, rubs or gallop Abd:soft, non tender NT, non-distended, Normal BS Ext: No edema, clubbing or cyanosis Neuro: Unresponsive - Constitutional Vitals: Temp Pulse Resp BP Pulse Ox 98.3 F 108 H 19 94/54 89 04/03/18 08:00 04/03/18 08:53 04/03/18 09:00 04/03/18 09:00 04/03/18 09:00 Results - Labs CBC & Chem 7: 04/03/18 09:39 04/03/18 18:34 Labs: Laboratory Last Values WBC 38.9 K/mm3 (4.5-11.0) H 04/02/18 13:41 RBC 5.08 M/mm3 (3.65-5.03) H 04/02/18 13:41 Hgb 14.1 gm/dl (11.8-15.2) 04/02/18 13:41 Hct 43.1 % (35.5-45.6) 04/02/18 13:41 MCV 85 fl (84-94) 04/02/18 13:41 MCH 28 pg (28-32) 04/02/18 13:41 MCHC 33 % (32-34) 04/02/18 13:41 RDW 15.0 % (13.2-15.2) 04/02/18 13:41 Plt Count 74 K/mm3 (140-440) L 04/02/18 13:41 Add Manual Diff Complete 04/02/18 13:41 Total Counted 100 04/02/18 13:41 Seg Neutrophils % [facility] Representative 03/30/18 05:04 Seg Neuts % (Manual) 96.0 % (40.0-70.0) H 04/02/18 13:41 Band Neutrophils % 0 % 04/02/18 13:41 Lymphocytes % (Manual) 0 % (13.4-35.0) L 04/02/18 13:41 Reactive Lymphs % (Man) 0 % 04/02/18 13:41 Monocytes % (Manual) 4.0 % (0.0-7.3) 04/02/18 13:41 Eosinophils % (Manual) 0 % (0.0-4.3) 04/02/18 13:41 Basophils % (Manual) 0 % (0.0-1.8) 04/02/18 13:41 Metamyelocytes % 0 % 04/02/18 13:41 Myelocytes % 0 % 04/02/18 13:41 Promyelocytes % 0 % 04/02/18 13:41 Blast Cells % 0 % 04/02/18 13:41 Nucleated RBC % Not Reportable 04/02/18 13:41 Seg Neutrophils # Man 37.3 K/mm3 (1.8-7.7) H 04/02/18 13:41 Band Neutrophils # 0.0 K/mm3 04/02/18 13:41 Lymphocytes # (Manual) 0.0 K/mm3 (1.2-5.4) L 04/02/18 13:41 Abs React Lymphs (Man) 0.0 K/mm3 04/02/18 13:41 Monocytes # (Manual) 1.6 K/mm3 (0.0-0.8) H 04/02/18 13:41 Eosinophils # (Manual) 0.0 K/mm3 (0.0-0.4) 04/02/18 13:41 Basophils # (Manual) 0.0 K/mm3 (0.0-0.1) 04/02/18 13:41 Metamyelocytes # 0.0 K/mm3 04/02/18 13:41 Myelocytes # 0.0 K/mm3 04/02/18 13:41 Promyelocytes # 0.0 K/mm3 04/02/18 13:41 Blast Cells # 0.0 K/mm3 04/02/18 13:41 WBC Morphology Not Reportable 04/02/18 13:41 Hypersegmented Neuts Not Reportable 04/02/18 13:41 Hyposegmented Neuts Not Reportable 04/02/18 13:41 Hypogranular Neuts Not Reportable 04/02/18 13:41 Smudge Cells Not Reportable 04/02/18 13:41 Toxic Granulation Not Reportable 04/02/18 13:41 Toxic Vacuolation Not Reportable 04/02/18 13:41 Dohle Bodies Not Reportable 04/02/18 13:41 Pelger-Huet Anomaly Not Reportable 04/02/18 13:41 Betty Rods Not Reportable 04/02/18 13:41 Platelet Estimate Consistent w auto 04/02/18 13:41 Clumped Platelets Not Reportable 04/02/18 13:41 Plt Clumps, EDTA Not Reportable 04/02/18 13:41 Large Platelets Not Reportable 04/02/18 13:41 Giant Platelets Not Reportable 04/02/18 13:41 Platelet Satelliting Not Reportable 04/02/18 13:41 Plt Morphology Comment Not Reportable 04/02/18 13:41 RBC Morphology Not Reportable 04/02/18 13:41 Dimorphic RBCs Not Reportable 04/02/18 13:41 Polychromasia Not Reportable 04/02/18 13:41 Hypochromasia Not Reportable 04/02/18 13:41 Poikilocytosis Few 04/02/18 13:41 Anisocytosis Few 04/02/18 13:41 Microcytosis Not Reportable 04/02/18 13:41 Macrocytosis Not Reportable 04/02/18 13:41 Spherocytes Not Reportable 04/02/18 13:41 Pappenheimer Bodies Not Reportable 04/02/18 13:41 Sickle Cells Not Reportable 04/02/18 13:41 Target Cells Not Reportable 04/02/18 13:41 Tear Drop Cells Not Reportable 04/02/18 13:41 Ovalocytes Not Reportable 04/02/18 13:41 Helmet Cells Not Reportable 04/02/18 13:41 [place] Bodies Not Reportable 04/02/18 13:41 [place] Rings Not Reportable 04/02/18 13:41 Kristin Cells Not Reportable 04/02/18 13:41 Bite Cells Not Reportable 04/02/18 13:41 Crenated Cell Not Reportable 04/02/18 13:41 Elliptocytes Not Reportable 04/02/18 13:41 Acanthocytes (Spur) Not Reportable 04/02/18 13:41 Rouleaux Not Reportable 04/02/18 13:41 Hemoglobin C Crystals Not Reportable 04/02/18 13:41 Schistocytes Not Reportable 04/02/18 13:41 Malaria parasites Not Reportable 04/02/18 13:41 [place] Bodies Not Reportable 04/02/18 13:41 Hem Pathologist Commnt No 04/02/18 13:41 PT 14.8 Sec. (12.2-14.9) 03/29/18 13:34 INR 1.10 (0.87-1.13) 03/29/18 13:34 D-Dimer > 61166 ng/mlDDU (0-234) H 03/29/18 13:34 POC ABG pH 7.134 (7.35-7.45) L 04/03/18 04:13 POC ABG pCO2 78.7 (35-45) H 04/03/18 04:13 POC ABG pO2 67 (80-105) L 04/03/18 04:13 POC ABG HCO3 26.4 04/03/18 04:13 POC ABG Total CO2 29 04/03/18 04:13 POC ABG O2 Sat 85 04/03/18 04:13 POC ABG Base Excess -3 04/03/18 04:13 VBG pH 7.406 (7.320-7.420) 03/29/18 13:43 FiO2 100 % 04/03/18 04:13 Sodium 144 mmol/L (137-145) 04/02/18 10:22 Potassium 5.4 mmol/L (3.6-5.0) H 04/02/18 10:22 Chloride 108.7 mmol/L (98-107) H 04/02/18 10:22 Carbon Dioxide 22 mmol/L (22-30) 04/02/18 10:22 Anion Gap 19 mmol/L 04/02/18 10:22 BUN 44 mg/dL (9-20) H 04/02/18 10:22 Creatinine 1.2 mg/dL (0.8-1.5) 04/02/18 10:22 Estimated GFR > 60 ml/min 04/02/18 10:22 BUN/Creatinine Ratio 37 % 04/02/18 10:22 Glucose 176 mg/dL (75-100) H 04/02/18 10:22 POC Glucose 224 (70-105) H 04/03/18 05:33 Hemoglobin A1c 7.4 % (4-6) H 03/29/18 23:46 Lactic Acid 1.40 mmol/L (0.7-2.0) 03/30/18 05:04 Calcium 8.2 mg/dL (8.4-10.2) L 04/02/18 10:22 Phosphorus 3.90 mg/dL (2.5-4.5) 04/01/18 14:47 Magnesium 2.40 mg/dL (1.7-2.3) H 04/01/18 14:47 Total Bilirubin 0.60 mg/dL (0.1-1.2) 04/02/18 10:22 AST 83 units/L (5-40) H 04/02/18 10:22 ALT 129 units/L (7-56) H 04/02/18 10:22 Alkaline Phosphatase 70 units/L (35-129) 04/02/18 10:22 C-Reactive Protein 12.30 mg/dL (0.00-1.30) H 04/02/18 10:22 NT-Pro-B Natriuret Pep 321.5 pg/mL (0-900) 03/29/18 13:40 Total Protein 5.3 g/dL (6.3-8.2) L 04/02/18 10:22 Albumin 2.6 g/dL (3.9-5) L 04/02/18 10:22 Albumin/Globulin Ratio 1.0 % 04/02/18 10:22 Urine Color Yellow (Yellow) 03/29/18 13:30 Urine Turbidity Clear (Clear) 03/29/18 13:30 Urine pH 6.0 (5.0-7.0) 03/29/18 13:30 Ur Specific [place] 1.023 (1.003-1.030) 03/29/18 13:30 Urine Protein <15 mg/dl mg/dL (Negative) 03/29/18 13:30 Urine Glucose (UA) Neg mg/dL (Negative) 03/29/18 13:30 Urine Ketones Tr mg/dL (Negative) 03/29/18 13:30 Urine Blood Mod (Negative) 03/29/18 13:30 Urine Nitrite Neg (Negative) 03/29/18 13:30 Urine Bilirubin Neg (Negative) 03/29/18 13:30 Urine Urobilinogen < 2.0 mg/dL (<2.0) 03/29/18 13:30 Ur Leukocyte Esterase Neg (Negative) 03/29/18 13:30 Urine WBC (Auto) 2.0 /HPF (0.0-6.0) 03/29/18 13:30 Urine RBC (Auto) 46.0 /HPF (0.0-6.0) 03/29/18 13:30 Urine Mucus Few /HPF 03/29/18 13:30 Urine Sperm Few /HPF (LEAN LEADER) 03/29/18 13:30 Vancomycin Trough 24.2 ug/mL (5.0-20.0) H 03/31/18 06:59
[2018-04-03] MEDS: Vasostrict 20 UNIT in NACL 0.9% 100 ML IV SCH ×2 (09:44→17:38)
[2018-04-03] MEDS: HABITROL TD SCH (10:00)
[2018-04-03] MEDS ORDERED: MAXIPIME/NS 2 GM/100 ML 2 GM/100 ML BAG IV SCH ×2 (10:00→14:00)
[2018-04-03] MEDS ORDERED: FLAGYL 500 MG/100 ML 500 MG/100 ML BAG IV SCH ×2 (10:00→14:00)
[2018-04-03] MEDS ORDERED: ZYVOX 600MG/300ML 600 MG/300 ML BAG IV SCH ×2 (10:00)
[2018-04-03 10:09] LABS: Mean Corpuscular HGB Conc 31 % (32-34); Mean Corpuscular Hemoglobin 27 pg (28-32); Mean Corpuscular Volume 88 fl (84-94); Red Blood Count 5.18 M/mm3 (3.65-5.03)
[2018-04-03 10:28] LABS: Hematocrit 45.6 % (35.5-45.6); Hemoglobin 14.1 gm/dl (11.8-15.2); Platelet Count 32 K/mm3 (140-440)
[2018-04-03] MEDS ORDERED: ALBUTEIN IV NR (10:34)
[2018-04-03] MEDS: NEO-SYNEPHRINE 100 MG in NACL 0.9% 90 ML IV SCH ×2 (10:52→17:36)
[2018-04-03 11:04] LABS: Albumin 2.4 g/dL (3.9-5)
[2018-04-03] MEDS: SODIUM CHLORIDE FLUSH SYRINGE 10 ML IV SCH (11:14)
[2018-04-03 11:24] LABS: Alanine Aminotransferase 1112 units/L (7-56); BUN/Creatinine Ratio 36; Blood Urea Nitrogen 82 mg/dL (9-20); Calcium 7.7 mg/dL (8.4-10.2)
[2018-04-03] MEDS ORDERED: HumuLIN R IV STA ×2 (11:34→21:38)
[2018-04-03] MEDS ORDERED: D50W (25GM) Vial IV STA (11:35)
--- NOTE | 2018-04-03 11:47 | Progress Note ---
Assessment and Plan Acute hypoxemic respiratory failure on MVS Lung cancer, metastatic disease HCAP (present on admission) Left pleural effusion Nicotine dependence with tobacco abuse disorder COPD Leukocytosis (Discussed goals of care with his and daughter especially with severe sepsis and deterioration; they state that he would have wanted everything done and he will remain a full CODE) - colloid infusion X 1 (500mls of 5% albumin) - added neosynephrine and titarting vasopressors to MAP > 65 mmHg - VAP bundle addressed - continue to wean supplemental oxygen for O2 sats>90% - minute ventilation increased re: hypercapnia - continue Bronchodilators with pulmonary hygiene per RT - continue systemic steroids re: stress dosing and COPD - continue Antibiotics per ID recs (cultures really NGTD except laurie) - continue VTE prophylaxis - continue aspiration precautions and addressing VAP bundle daily - continue analgesia and agitation management - Titrate sedation to RASS -1 once BP able to support - continue Glycemic control, with accucheck. target blood glucose 180mg/dL - Daily SAT and SBTs as tolerated - s/p Ultrasound guided thoracentesis right lung (1.25 liters pulled) - Nutritional support - Nicotine withdrawal precautions - continue other care per attending / other consultants - prognosis very poor FULL CODE Discussed with RT and RN The high probability of a clinically significant, sudden or life threatening deterioration of the [respiratory, cardiovascular and neurological] system(s) required my full and direct attention, intervention and personal management. The aggregate critical care time was 40 minutes. This time is in addition to time spent performing reported procedures but includes the following: [x] Data Review and interpretation [x] Patient assessment and monitoring of vital signs [x] Documentation [x] Medication orders and management Subjective Date of service: 04/03/18 Principal diagnosis: Acute hypoxemic respiratory failure on MVS; Severe Sepsis Interval history: Patient is seen today for: Acute on Chronic Hypoxemic Resp Failure; Metastatic Lung Cancer; Abnormal CT Chest; Pneumonia (CAP) Seen and examined at bedside; 24hour events reviewed; nursing and respiratory care staff consulted; no adverse overnight events reported to me; remains on MVS ; AMS is persistent; hypotensive on multiple vasopressors; remains with ARDS numbers also; no gross bleeding and no seizure activity Objective Vital Signs - 12hr 04/03/18 04/03/18 04/03/18 00:00 00:15 00:30 Temperature Pulse Rate 107 H 106 H 106 H Pulse Rate [ Anterior Bilateral Throughout] Pulse Rate [ 104 H From Monitor] Respiratory 18 17 21 Rate Respiratory Rate [Anterior Bilateral Throughout] Blood Pressure 105/44 95/39 95/47 O2 Sat by Pulse 94 93 93 Oximetry 04/03/18 04/03/18 04/03/18 00:44 00:45 01:00 Temperature Pulse Rate 106 H 107 H Pulse Rate [ Anterior Bilateral Throughout] Pulse Rate [ From Monitor] Respiratory 19 24 Rate Respiratory Rate [Anterior Bilateral Throughout] Blood Pressure 95/39 88/49 88/49 O2 Sat by Pulse 93 93 93 Oximetry 04/03/18 04/03/18 04/03/18 01:15 01:30 01:45 Temperature Pulse Rate 106 H 107 H 107 H Pulse Rate [ Anterior Bilateral Throughout] Pulse Rate [ From Monitor] Respiratory 21 22 24 Rate Respiratory Rate [Anterior Bilateral Throughout] Blood Pressure 94/45 99/45 93/52 O2 Sat by Pulse 92 91 91 Oximetry 04/03/18 04/03/18 04/03/18 02:00 02:15 02:30 Temperature Pulse Rate 107 H 107 H 108 H Pulse Rate [ Anterior Bilateral Throughout] Pulse Rate [ From Monitor] Respiratory 21 24 22 Rate Respiratory Rate [Anterior Bilateral Throughout] Blood Pressure 103/49 99/50 104/51 O2 Sat by Pulse 91 90 92 Oximetry 04/03/18 04/03/18 04/03/18 02:45 03:00 03:15 Temperature Pulse Rate 108 H 108 H 106 H Pulse Rate [ Anterior Bilateral Throughout] Pulse Rate [ From Monitor] Respiratory 24 24 25 H Rate Respiratory Rate [Anterior Bilateral Throughout] Blood Pressure 98/47 91/46 78/37 O2 Sat by Pulse 91 91 89 Oximetry 04/03/18 04/03/18 04/03/18 03:30 03:34 03:45 Temperature 98.9 F Pulse Rate 108 H 108 H Pulse Rate [ Anterior Bilateral Throughout] Pulse Rate [ From Monitor] Respiratory 24 24 Rate Respiratory Rate [Anterior Bilateral Throughout] Blood Pressure 96/58 104/55 O2 Sat by Pulse 91 91 Oximetry 04/03/18 04/03/18 04/03/18 03:58 04:00 04:15 Temperature Pulse Rate 109 H 109 H Pulse Rate [ Anterior Bilateral Throughout] Pulse Rate [ 97 H From Monitor] Respiratory 22 25 H Rate Respiratory Rate [Anterior Bilateral Throughout] Blood Pressure 104/55 96/60 105/52 O2 Sat by Pulse 92 93 93 Oximetry 08/14/18 08/14/18 08/14/18 04:30 04:45 05:00 Temperature Pulse Rate 109 H 109 H 109 H Pulse Rate [ Anterior Bilateral Throughout] Pulse Rate [ From Monitor] Respiratory 25 H 26 H 25 H Rate Respiratory Rate [Anterior Bilateral Throughout] Blood Pressure 99/59 97/52 105/48 O2 Sat by Pulse 93 92 92 Oximetry 04/03/18 04/03/18 04/03/18 05:15 05:30 05:45 Temperature Pulse Rate 109 H 109 H 109 H Pulse Rate [ Anterior Bilateral Throughout] Pulse Rate [ From Monitor] Respiratory 25 H 25 H 25 H Rate Respiratory Rate [Anterior Bilateral Throughout] Blood Pressure 96/57 106/59 104/56 O2 Sat by Pulse 92 93 93 Oximetry 04/03/18 04/03/18 04/03/18 06:00 06:15 06:30 Temperature Pulse Rate 110 H 110 H 104 H Pulse Rate [ Anterior Bilateral Throughout] Pulse Rate [ From Monitor] Respiratory 26 H 25 H 17 Rate Respiratory Rate [Anterior Bilateral Throughout] Blood Pressure 104/56 105/59 88/66 O2 Sat by Pulse 92 93 92 Oximetry 04/03/18 04/03/18 04/03/18 06:45 07:00 07:15 Temperature Pulse Rate 51 L 111 H 112 H Pulse Rate [ Anterior Bilateral Throughout] Pulse Rate [ From Monitor] Respiratory 19 22 22 Rate Respiratory Rate [Anterior Bilateral Throughout] Blood Pressure 103/54 96/59 104/51 O2 Sat by Pulse 88 90 90 Oximetry 04/03/18 04/03/18 04/03/18 07:30 07:45 08:00 Temperature 98.3 F Pulse Rate 110 H 110 H 109 H Pulse Rate [ Anterior Bilateral Throughout] Pulse Rate [ From Monitor] Respiratory 20 24 18 Rate Respiratory Rate [Anterior Bilateral Throughout] Blood Pressure 109/59 96/50 99/63 O2 Sat by Pulse 90 90 89 Oximetry 04/03/18 04/03/18 04/03/18 08:11 08:15 08:17 Temperature Pulse Rate 105 H Pulse Rate [ 109 H Anterior Bilateral Throughout] Pulse Rate [ From Monitor] Respiratory 20 Rate Respiratory 25 H Rate [Anterior Bilateral Throughout] Blood Pressure 82/47 99/63 O2 Sat by Pulse 88 89 Oximetry 04/03/18 04/03/18 04/03/18 08:30 08:45 08:53 Temperature Pulse Rate 106 H 109 H Pulse Rate [ 108 H Anterior Bilateral Throughout] Pulse Rate [ From Monitor] Respiratory 18 24 Rate Respiratory 24 Rate [Anterior Bilateral Throughout] Blood Pressure 92/56 85/52 O2 Sat by Pulse 90 90 Oximetry 04/03/18 09:00 Temperature Pulse Rate Pulse Rate [ Anterior Bilateral Throughout] Pulse Rate [ From Monitor] Respiratory 19 Rate Respiratory Rate [Anterior Bilateral Throughout] Blood Pressure 94/54 O2 Sat by Pulse 89 Oximetry Constitutional: lethargic, other (moderately severe respiratory distress, orally intubated ETT to MVS) Eyes: non-icteric ENT: oropharynx moist, oropharyngeal exudate pre, other (ETT 23 cm KARIN) Neck: supple, no lymphadenopathy, no JVD, other (no thyromegaly) Effort: very labored Ascultation: Bilateral: diminished breath sounds, rales (R>L) Percussion: Bilateral: not dull Cardiovascular: regular rate and rhythm, other (S1,S2, no murmurs, gallops or rubs, occasional PVC's) Gastrointestinal: normoactive bowel sounds, soft, non-tender, non-distended Integumentary: normal Extremities: no cyanosis, no edema, pink and warm, pulses normal, no ischemia or petechiae Neurologic: pupils equal and round, CN II-XII normal, motor strength normal and , unable to assess Psychiatric: other (unable to assess) CBC and BMP: 04/03/18 09:39 04/03/18 09:20 ABG, PT/INR, D-dimer: ABG POC ABG pH 7.134 (7.35-7.45) L 04/03/18 04:13 POC ABG pCO2 78.7 (35-45) H 04/03/18 04:13 POC ABG pO2 67 (80-105) L 04/03/18 04:13 POC ABG HCO3 26.4 04/03/18 04:13 POC ABG Total CO2 29 04/03/18 04:13 POC ABG O2 Sat 85 04/03/18 04:13 PT/INR, D-dimer PT 14.8 Sec. (12.2-14.9) 03/29/18 13:34 INR 1.10 (0.87-1.13) 03/29/18 13:34 D-Dimer > 17191 ng/mlDDU (0-234) H 03/29/18 13:34 Abnormal lab findings: Abnormal Labs 03/29/18 03/29/18 03/29/18 13:08 13:15 13:34 WBC 53.1 H* RBC 6.01 H Hgb 16.6 H Hct 49.3 H MCV 82 L MCH MCHC RDW Plt Count 127 L Seg Neuts % (Manual) 91.0 H Lymphocytes % (Manual) 4.0 L Seg Neutrophils # Man 48.3 H Lymphocytes # (Manual) Monocytes # (Manual) 1.6 H Eosinophils # (Manual) 0.5 H D-Dimer > 67746 H POC ABG pH POC ABG pCO2 POC ABG pO2 Sodium 128 L Potassium 5.1 H Chloride 89.2 L Carbon Dioxide BUN Creatinine 0.4 L Glucose 158 H POC Glucose Hemoglobin A1c Lactic Acid Calcium 8.3 L Magnesium AST ALT C-Reactive Protein Total Protein Albumin Vancomycin Trough 03/29/18 03/29/18 03/29/18 14:44 16:54 20:30 WBC RBC Hgb Hct MCV MCH MCHC RDW Plt Count Seg Neuts % (Manual) Lymphocytes % (Manual) Seg Neutrophils # Man Lymphocytes # (Manual) Monocytes # (Manual) Eosinophils # (Manual) D-Dimer POC ABG pH POC ABG pCO2 POC ABG pO2 66 L Sodium Potassium Chloride Carbon Dioxide BUN Creatinine Glucose POC Glucose Hemoglobin A1c Lactic Acid 2.10 H* 3.00 H* Calcium Magnesium AST ALT C-Reactive Protein Total Protein Albumin Vancomycin Trough 03/29/18 03/30/18 03/30/18 23:46 05:04 05:04 WBC 51.4 H* RBC 5.68 H Hgb 15.5 H Hct 47.7 H MCV MCH 27 L MCHC RDW Plt Count 99 L Seg Neuts % (Manual) 87.5 H Lymphocytes % (Manual) 2.0 L Seg Neutrophils # Man 45.0 H Lymphocytes # (Manual) 1.0 L Monocytes # (Manual) 2.8 H Eosinophils # (Manual) 0.5 H D-Dimer POC ABG pH POC ABG pCO2 POC ABG pO2 Sodium 136 L D Potassium Chloride 96.0 L Carbon Dioxide BUN Creatinine 0.5 L Glucose 156 H POC Glucose Hemoglobin A1c 7.4 H Lactic Acid Calcium 7.9 L Magnesium AST ALT C-Reactive Protein Total Protein 5.3 L Albumin 2.8 L Vancomycin Trough 03/30/18 03/30/18 03/31/18 21:32 21:44 00:18 WBC RBC Hgb Hct MCV MCH MCHC RDW Plt Count Seg Neuts % (Manual) Lymphocytes % (Manual) Seg Neutrophils # Man Lymphocytes # (Manual) Monocytes # (Manual) Eosinophils # (Manual) D-Dimer POC ABG pH 7.335 L 7.155 L POC ABG pCO2 58.1 H 81.9 H POC ABG pO2 58 L Sodium Potassium Chloride Carbon Dioxide BUN Creatinine Glucose POC Glucose 147 H Hemoglobin A1c Lactic Acid Calcium Magnesium AST ALT C-Reactive Protein Total Protein Albumin Vancomycin Trough 03/31/18 03/31/18 03/31/18 02:13 06:59 08:12 WBC 47.9 H* RBC 5.35 H Hgb Hct 45.9 H MCV MCH 27 L MCHC RDW Plt Count 70 L Seg Neuts % (Manual) 91.5 H Lymphocytes % (Manual) 0.5 L Seg Neutrophils # Man 43.8 H Lymphocytes # (Manual) 0.2 L Monocytes # (Manual) 2.4 H Eosinophils # (Manual) 1.0 H D-Dimer POC ABG pH POC ABG pCO2 49.6 H POC ABG pO2 136 H Sodium Potassium Chloride Carbon Dioxide BUN Creatinine Glucose POC Glucose Hemoglobin A1c Lactic Acid Calcium Magnesium AST ALT C-Reactive Protein Total Protein Albumin Vancomycin Trough 24.2 H 03/31/18 04/01/18 04/01/18 08:12 04:37 06:10 WBC RBC Hgb Hct MCV MCH MCHC RDW Plt Count Seg Neuts % (Manual) Lymphocytes % (Manual) Seg Neutrophils # Man Lymphocytes # (Manual) Monocytes # (Manual) Eosinophils # (Manual) D-Dimer POC ABG pH 7.221 L POC ABG pCO2 66.0 H POC ABG pO2 61 L Sodium Potassium Chloride Carbon Dioxide BUN 23 H Creatinine Glucose 125 H POC Glucose 124 H Hemoglobin A1c Lactic Acid Calcium 8.0 L Magnesium AST ALT C-Reactive Protein Total Protein 4.9 L Albumin 2.5 L Vancomycin Trough 04/01/18 04/01/18 04/01/18 11:05 13:03 14:47 WBC 43.6 H* RBC 5.23 H Hgb Hct 45.8 H MCV MCH 27 L MCHC 31 L RDW Plt Count 70 L Seg Neuts % (Manual) 97.0 H Lymphocytes % (Manual) 0.5 L Seg Neutrophils # Man 42.3 H Lymphocytes # (Manual) 0.2 L Monocytes # (Manual) 0.9 H Eosinophils # (Manual) D-Dimer POC ABG pH POC ABG pCO2 POC ABG pO2 Sodium Potassium 5.2 H Chloride Carbon Dioxide 20 L BUN 34 H Creatinine 0.7 L Glucose 166 H POC Glucose 139 H Hemoglobin A1c Lactic Acid Calcium 8.1 L Magnesium AST ALT C-Reactive Protein Total Protein 4.9 L Albumin 2.4 L Vancomycin Trough 04/01/18 04/01/18 04/01/18 14:47 16:11 18:04 WBC RBC Hgb Hct MCV MCH MCHC RDW Plt Count Seg Neuts % (Manual) Lymphocytes % (Manual) Seg Neutrophils # Man Lymphocytes # (Manual) Monocytes # (Manual) Eosinophils # (Manual) D-Dimer POC ABG pH 7.172 L POC ABG pCO2 64.8 H POC ABG pO2 78 L Sodium Potassium 5.1 H Chloride Carbon Dioxide 21 L BUN 34 H Creatinine Glucose 166 H POC Glucose 149 H Hemoglobin A1c Lactic Acid Calcium 8.1 L Magnesium 2.40 H AST ALT C-Reactive Protein Total Protein Albumin Vancomycin Trough 04/01/18 04/02/18 04/02/18 23:24 00:09 04:11 WBC RBC Hgb Hct MCV MCH MCHC RDW Plt Count Seg Neuts % (Manual) Lymphocytes % (Manual) Seg Neutrophils # Man Lymphocytes # (Manual) Monocytes # (Manual) Eosinophils # (Manual) D-Dimer POC ABG pH 7.235 L 7.235 L POC ABG pCO2 54.0 H 55.2 H POC ABG pO2 Sodium Potassium Chloride Carbon Dioxide BUN Creatinine Glucose POC Glucose 176 H Hemoglobin A1c Lactic Acid Calcium Magnesium AST ALT C-Reactive Protein Total Protein Albumin Vancomycin Trough 04/02/18 04/02/18 04/02/18 05:20 10:22 10:22 WBC RBC Hgb Hct MCV MCH MCHC RDW Plt Count Seg Neuts % (Manual) Lymphocytes % (Manual) Seg Neutrophils # Man Lymphocytes # (Manual) Monocytes # (Manual) Eosinophils # (Manual) D-Dimer POC ABG pH POC ABG pCO2 POC ABG pO2 Sodium Potassium 5.4 H Chloride 108.7 H Carbon Dioxide BUN 44 H Creatinine Glucose 176 H POC Glucose 164 H Hemoglobin A1c Lactic Acid Calcium 8.2 L Magnesium AST 83 H ALT 129 H C-Reactive Protein 12.30 H Total Protein 5.3 L Albumin 2.6 L Vancomycin Trough 04/02/18 04/02/18 04/02/18 12:54 13:41 16:51 WBC 38.9 H RBC 5.08 H Hgb Hct MCV MCH MCHC RDW Plt Count 74 L Seg Neuts % (Manual) 96.0 H Lymphocytes % (Manual) 0 L Seg Neutrophils # Man 37.3 H Lymphocytes # (Manual) 0.0 L Monocytes # (Manual) 1.6 H Eosinophils # (Manual) D-Dimer POC ABG pH 7.186 L POC ABG pCO2 64.3 H POC ABG pO2 75 L Sodium Potassium Chloride Carbon Dioxide BUN Creatinine Glucose POC Glucose 164 H Hemoglobin A1c Lactic Acid Calcium Magnesium AST ALT C-Reactive Protein Total Protein Albumin Vancomycin Trough 04/02/18 04/02/18 04/02/18 19:09 19:49 22:15 WBC RBC Hgb Hct MCV MCH MCHC RDW Plt Count Seg Neuts % (Manual) Lymphocytes % (Manual) Seg Neutrophils # Man Lymphocytes # (Manual) Monocytes # (Manual) Eosinophils # (Manual) D-Dimer POC ABG pH 7.069 L 7.062 L POC ABG pCO2 88.7 H 91.1 H POC ABG pO2 71 L Sodium Potassium Chloride Carbon Dioxide BUN Creatinine Glucose POC Glucose 170 H Hemoglobin A1c Lactic Acid Calcium Magnesium AST ALT C-Reactive Protein Total Protein Albumin Vancomycin Trough 04/03/18 04/03/18 04/03/18 00:15 04:03 04:13 WBC RBC Hgb Hct MCV MCH MCHC RDW Plt Count Seg Neuts % (Manual) Lymphocytes % (Manual) Seg Neutrophils # Man Lymphocytes # (Manual) Monocytes # (Manual) Eosinophils # (Manual) D-Dimer POC ABG pH 7.119 L 7.134 L POC ABG pCO2 81.9 H 78.7 H POC ABG pO2 65 L 67 L Sodium Potassium Chloride Carbon Dioxide BUN Creatinine Glucose POC Glucose 218 H Hemoglobin A1c Lactic Acid Calcium Magnesium AST ALT C-Reactive Protein Total Protein Albumin Vancomycin Trough 04/03/18 04/03/18 04/03/18 05:33 09:20 09:39 WBC 35.8 H RBC 5.18 H Hgb Hct MCV MCH 27 L MCHC 31 L RDW 16.0 H Plt Count 32 L Seg Neuts % (Manual) Lymphocytes % (Manual) Seg Neutrophils # Man Lymphocytes # (Manual) Monocytes # (Manual) Eosinophils # (Manual) D-Dimer POC ABG pH POC ABG pCO2 POC ABG pO2 Sodium Potassium 6.6 H* D Chloride 109.7 H Carbon Dioxide 21 L BUN 82 H Creatinine 2.3 H D Glucose 252 H POC Glucose 224 H Hemoglobin A1c Lactic Acid Calcium 7.7 L Magnesium AST 589 H ALT 1112 H C-Reactive Protein Total Protein 4.6 L Albumin 2.4 L Vancomycin Trough Chest x-ray: image reviewed (new left PICC line; increasing bilateral L>R pulmonary infiltrates) Allied health notes reviewed: nursing
--- NOTE | 2018-04-03 11:59 | XRay Report ---
AP CHEST: HISTORY: Left arm PICC placement A left arm PICC has been inserted which terminates in the lower SVC. The remainder of the examination is unchanged since earlier today at 0150 hours. IMPRESSION: Adequate placement of a left arm PICC.
[2018-04-03] MEDS ORDERED: D50W (25GM) Syringe IV ONE (12:00)
[2018-04-03] MEDS ORDERED: CALCIUM GLUCONATE 2,000 MG in NACL 0.9% 100 ML IV ONE (12:00)
[2018-04-03] MEDS ORDERED: KIONEX PO STA (12:34)
[2018-04-03] MEDS: PEPCID PO SCH (13:20)
[2018-04-03] MEDS: LEVOPHED 8 MG in NACL 0.9% 250ML 242 ML IV SCH ×2 (14:47→18:53)
[2018-04-03] MEDS ORDERED: KIONEX PO ONE (15:00)
[2018-04-03] MEDS: SODIUM CHLORIDE FLUSH SYRINGE 10 ML IV PRN (17:47)
[2018-04-03] MEDS: TYLENOL PO PRN (17:54)
[2018-04-03] MEDS ORDERED: LASIX IV ONE (18:28)
[2018-04-03 19:26] LABS: Calcium 8.1 mg/dL (8.4-10.2)
[2018-04-03] MEDS ORDERED: CALCIUM GLUCONATE 1,000 MG in NACL 0.9% 100 ML IV ONE (21:37)
[2018-04-03] MEDS ORDERED: SODIUM BICARBONATE IV ONE ×2 (21:37→23:19)
[2018-04-03] MEDS ORDERED: D50W (25GM) Syringe IV STA (21:38)
--- NOTE | 2018-04-03 21:42 | Event Note ---
Date: 04/03/18 Called about Patient with Hyperkalemia in setting acute kidney injury with Metastatic Cancer. Continue aggressive medical management of hyperkalemia
--- NOTE | 2018-04-03 22:20 | Hem/Onc Progress Note ---
Assessment and Plan - Patient Problems (1) Lung cancer metastatic to brain Current Visit: Yes Status: Acute Plan to address problem: Very poor prognosis given lung cancer with brain mets in shock in icu on pressors. d/w nursing. Subjective Date of service: 04/03/18 Interval history: Events noted. Very critically ill. Objective - Exam Narrative Exam: intubated on vent on pressors - Constitutional Vitals: Last Vital Signs Temp 99.2 F 04/03/18 20:00 Pulse 116 H 04/03/18 20:00 Resp 30 H 04/03/18 20:00 BP 150/113 04/03/18 20:14 Pulse Ox 84 04/03/18 20:14 - Neck Neck: supple - Respiratory Respiratory: bilateral: CTA - Cardiovascular Rhythm: regular Heart Sounds: Present: S1 & S2 - Labs Lab Results: Laboratory Results - last 24 hr 04/02/18 04/03/18 04/03/18 22:15 00:15 04:03 WBC RBC Hgb Hct MCV MCH MCHC RDW Plt Count POC ABG pH 7.062 L 7.119 L POC ABG pCO2 91.1 H 81.9 H POC ABG pO2 97 65 L POC ABG HCO3 25.9 26.5 POC ABG Total CO2 29 29 POC ABG O2 Sat 93 83 POC ABG Base Excess -4 -3 FiO2 100 100 Sodium Potassium Chloride Carbon Dioxide Anion Gap BUN Creatinine Estimated GFR BUN/Creatinine Ratio Glucose POC Glucose 218 H Calcium Total Bilirubin AST ALT Alkaline Phosphatase Total Protein Albumin Albumin/Globulin Ratio 04/03/18 04/03/18 04/03/18 04:13 05:33 09:20 WBC RBC Hgb Hct MCV MCH MCHC RDW Plt Count POC ABG pH 7.134 L POC ABG pCO2 78.7 H POC ABG pO2 67 L POC ABG HCO3 26.4 POC ABG Total CO2 29 POC ABG O2 Sat 85 POC ABG Base Excess -3 FiO2 100 Sodium 144 Potassium 6.6 H* D Chloride 109.7 H Carbon Dioxide 21 L Anion Gap 20 BUN 82 H Creatinine 2.3 H D Estimated GFR 30 BUN/Creatinine Ratio 36 Glucose 252 H POC Glucose 224 H Calcium 7.7 L Total Bilirubin 0.90 AST 589 H ALT 1112 H Alkaline Phosphatase 82 Total Protein 4.6 L Albumin 2.4 L Albumin/Globulin Ratio 1.1 04/03/18 04/03/1818 09:39 12:11 12:25 WBC 35.8 H RBC 5.18 H Hgb 14.1 Hct 45.6 MCV 88 MCH 27 L MCHC 31 L RDW 16.0 H Plt Count 32 L POC ABG pH 7.040 L POC ABG pCO2 101.0 H POC ABG pO2 59 L POC ABG HCO3 27.3 POC ABG Total CO2 30 POC ABG O2 Sat 74 POC ABG Base Excess -3 FiO2 100 Sodium Potassium Chloride Carbon Dioxide Anion Gap BUN Creatinine Estimated GFR BUN/Creatinine Ratio Glucose POC Glucose 472 H Calcium Total Bilirubin AST ALT Alkaline Phosphatase Total Protein Albumin Albumin/Globulin Ratio 04/03/18 04/03/18 04/03/18 15:27 18:01 18:34 WBC RBC Hgb Hct MCV MCH MCHC RDW Plt Count POC ABG pH POC ABG pCO2 POC ABG pO2 POC ABG HCO3 POC ABG Total CO2 POC ABG O2 Sat POC ABG Base Excess FiO2 Sodium 145 Potassium 6.2 H* Chloride 107.4 H Carbon Dioxide 27 Anion Gap 17 BUN 84 H Creatinine 3.4 H Estimated GFR 19 BUN/Creatinine Ratio 25 Glucose 230 H POC Glucose 270 H 225 H Calcium 8.1 L Total Bilirubin AST ALT Alkaline Phosphatase Total Protein Albumin Albumin/Globulin Ratio 04/03/18 18:49 WBC RBC Hgb Hct MCV MCH MCHC RDW Plt Count POC ABG pH 7.099 L POC ABG pCO2 82.8 H POC ABG pO2 43 L POC ABG HCO3 25.6 POC ABG Total CO2 28 POC ABG O2 Sat 60 POC ABG Base Excess -4 FiO2 100 Sodium Potassium Chloride Carbon Dioxide Anion Gap BUN Creatinine Estimated GFR BUN/Creatinine Ratio Glucose POC Glucose Calcium Total Bilirubin AST ALT Alkaline Phosphatase Total Protein Albumin Albumin/Globulin Ratio
[2018-04-03] MEDS ORDERED: MAGNESIUM SULFATE ONE (23:19)
[2018-04-03] MEDS ORDERED: CALCIUM CHLORIDE IV ONE (23:19)
[2018-04-03] MEDS ORDERED: ATROPINE 0.1% (CARDIAC) ONE (23:19)
[2018-04-03] MEDS ORDERED: ADRENALIN ONE (23:19)
[2018-04-04] MEDS ORDERED: SODIUM BICARBONATE IV ONE ×2 (00:06→01:00)
--- NOTE | 2018-04-04 00:13 | XRay Report ---
FINAL REPORT PROCEDURE: XR CHEST 1V AP TECHNIQUE: Chest radiograph anteroposterior view. CPT 94499 HISTORY: pneumothorax, code blue COMPARISON: No prior studies are available for comparison. FINDINGS: Heart: Normal. Mediastinum/Vessels: Normal. Lungs/Pleural space: Bilateral perihilar infiltrates have slightly improved since prior examination. There is a small left pleural effusion. There is no pneumothorax.. Bony thorax: No acute osseous abnormality. Life support devices: The endotracheal tube is in the mid trachea. NG tube is in the stomach. The there is a left-sided PICC line. The tip is the superior vena cava.. IMPRESSION: Heart size is normal.. Bilateral perihilar infiltrates have slightly improved since prior examination. There is a small left pleural effusion. There is no pneumothorax.. The endotracheal tube is in the mid trachea. NG tube is in the stomach. The there is a left-sided PICC line. The tip is the superior vena cava..
[2018-04-04 01:44] VITALS: BP 199/104
--- NOTE | 2018-04-04 06:53 | Event Note ---
Date: 04/04/18 I responded to the patient during the CODE BLUE. When I arrived, he was in asystole arrest. Patient was aren't intubated. Ross was achieved. Patient was hypoxic on the vent. Repeat chest x-ray showed concerns for possible left- sided pneumothorax. Respiratory therapist importantly that his plateau pressures were 60. I recommended that he be placed on arch protocol with low tidal volumes and keep, but a increased rate. Repeat EKG appeared nonischemic. Patient became bradycardic and coded again. ACLS was re-initiated. Staff noted that patient had increased crepitus on the left side of his chest. Given this and history of being hypoxic on the vent, I was concerned for a pneumothorax. I performed a left-sided needle decompression with a 16-gauge needle 1 inch needle above the 2nd rib midclavicularly Since the 14 guage 4 inch needle couldn't be found. It returned air and blood. After this, I placed a 20 Urdu left chest tube in the midaxillary line. The patient was going throughout the chest tube. The code persisted for another 33 minutes. Unfortunately, Rosc was not achieved. Time of was called at 00:26.
--- NOTE | 2018-04-04 07:19 | Event Note ---
Date: 02/02/18 CODE BLUE WAS CALLED ON PATIENT. ON ARRIVAL , CPR WAS IN PROGRESS WITH PATIENT ALREADY INTUBATED PRIOR TO CODE BLUE. FULL ACLS WAS APPLIED AND VITAL SIGNS REGAINED AFTER SOME MUNUITES OF CPR. PATIENT WENT BACK INTO BRADYCARDIA THEN TO ASYSTOLE AND CPR REAPPLIED FOR ABOUT 33 MUNITES . NEEDLE WAS INSERTED TO DEFLATE THE CHEST SUSPECTED TO HAVE PNEUMOTHORAX AND ALSO CHEST TUBE WAS PLACED ON THE LEFT MID AXILLARY LINE AREA AFTER THE NEEDLE INSERTION. CPR WAS CALLED OFF AT 00.29 WITH PERXISTENT ASYSTOLE AND FAMILY NOTIFIED.
--- NOTE | 2018-04-04 07:25 | Event Note ---
Date: 04/04/18 PATIENT WAS SUBJECTED TO FULL ACLS PROTOCOL DURING A SECOND CPR BUT REMAINED IN ASYATOLE AFTER 33 MUNITES. NO CARDIAC IMPULSE WAS ELICITED, NO SPONTANEOUS AIR MOVEMENT OR RESPIRATION WAS ELICITED.PUPILS WERE FIXED AND DILATED. PATIENT WAS PRONOUNCED AT 00.29 AND FAMILY WAS NOTIFIED
--- NOTE | 2018-04-05 22:01 | Death Summary ---
Summary - Providers Consults: 03/29/18 15:36 Consult to Physician [CONS] Routine Comment: Consulting Provider: BEATRICE PEÑALOZA Physician Instructions: eval lung cancer, hypoxemia Reason For Exam: respiratory failure, lung cancer 03/30/18 22:13 Consult to Dietitian/Nutrition [CONS] Routine Physician Instructions: Reason For Exam: Reason for Consult: Evaluate nutritional intake 03/31/18 00:16 Consult to Physician [CONS] Urgent Comment: Consulting Provider: HARDIK NG Physician Instructions: Reason For Exam: cc admit, intubated on floor 03/31/18 19:28 Consult to Physician [CONS] Routine Comment: Consulting Provider: XIN HOWE Physician Instructions: Reason For Exam: sepsis 04/02/18 16:32 Consult to Dietitian/Nutrition [CONS] Routine Physician Instructions: Reason For Exam: Reason for Consult: Write/Manage Tube Feeding 04/03/18 21:06 Consult to Physician [CONS] Urgent Comment: Consulting Provider: LA SOTOMAYOR Physician Instructions: eval and treat Reason For Exam: cre- 3.4, k+6.2 Attending: JOEY NICHOLS - summary Date of admission: 03/29/18 15:35 Date of : 04/04/18
== END 2018-04-04 00:29 | DRG 871 ==
LOC: ED 12:38 → 4A 15:35 → CC1 03-30 22:09
PROVIDERS: ADMIT Internal Medicine; ATTEND Internal Medicine
PROC: 4A033R1 Measurement of Arterial Saturation, Peripheral, Percutaneous Approach (ICD-10-PCS; principal; 2018-03-29)
PROC: 0BH17EZ Insertion of Endotracheal Airway into Trachea, Via Natural or Artificial Opening (ICD-10-PCS; 2018-03-30)
PROC: 5A09357 Assistance with Respiratory Ventilation, Less than 24 Consecutive Hours, Continuous Positive Airway Pressure (ICD-10-PCS; 2018-03-30)
PROC: 0CJS8ZZ Inspection of Larynx, Via Natural or Artificial Opening Endoscopic (ICD-10-PCS; 2018-03-30)
PROC: 5A1945Z Respiratory Ventilation, 24-96 Consecutive Hours (ICD-10-PCS; 2018-03-31)
PROC: 0W9B3ZZ Drainage of Left Pleural Cavity, Percutaneous Approach (ICD-10-PCS; 2018-04-02)
PROC: 0W9B30Z Drainage of Left Pleural Cavity with Drainage Device, Percutaneous Approach (ICD-10-PCS; 2018-04-02)
PROC: 5A12012 Performance of Cardiac Output, Single, Manual (ICD-10-PCS; 2018-04-04)
DX: A41.9 Sepsis, unspecified organism (principal); J96.21 Acute and chronic respiratory failure with hypoxia; J18.9 Pneumonia, unspecified organism; R65.21 Severe sepsis with septic shock; C34.92 Malignant neoplasm of unspecified part of left bronchus or lung; C34.91 Malignant neoplasm of unspecified part of right bronchus or lung; J90 Pleural effusion, not elsewhere classified; J44.0 Chronic obstructive pulmonary disease with (acute) lower respiratory infection; N17.9 Acute kidney failure, unspecified; C79.51 Secondary malignant neoplasm of bone; E87.1 Hypo-osmolality and hyponatremia; J44.1 Chronic obstructive pulmonary disease with (acute) exacerbation; J93.9 Pneumothorax, unspecified; I46.9 Cardiac arrest, cause unspecified; F17.210 Nicotine dependence, cigarettes, uncomplicated; I48.91 Unspecified atrial fibrillation; K21.9 Gastro-esophageal reflux disease without esophagitis; E87.5 Hyperkalemia; Z79.51 Long term (current) use of inhaled steroids
CPT/HCPCS: 32555; 36415; 36600; 71045; 74018; 80048; 80053; 80202; 81001; 82140; 82803; 82805; 82962; 83036; 83735; 83880; 84100; 85007; 85025; 85027; 85379; 85610; 86140; 87040; 87070; 87086; 87205; 88184; 88185; 92950; 93005; 93010; 94003; 94010; 94640; 94760; J0171; J0461; J0610; J0692; J1815; J1940; J2020; J2250; J2270; J2370; J2543; J2704; J2930; J3010; J3370; J3475; J7030; J7042; J7050; J7070; J7120; P9045